=== PATIENT | male | born 1945 | race Caucasian/White ===

== ENCOUNTER 2017-09-03 00:11 | Inpatient (IN) | payer MEDICARE, SELFPAY ==
[2017-09-03] VITALS (12 sets, daily range): BP systolic 106–124; BP diastolic 46–73; PULSE 56–105; RESP 16–25; TEMP 36.5–36.7; O2SAT 88–98; BMI 25.1
[2017-09-03] MEDS: ALBUTEROL/IPRATROPIUM 3 ML AMPUL INH (00:48)
[2017-09-03 00:52] LABS: Add Manual Diff / Slide Review NO; Basophils Percent Auto 0.4 % (0-2); Eosinophils Percent Auto 2.3 % (2-4); Hematocrit 30.8 % (41-53); Hemoglobin 9.7 g/dL (13.5-17.5); Lymphocytes Percent Auto 15.2 % (25-40); Mean Corpuscular HGB Conc 31.6 % (30-36); Mean Corpuscular Volume 72.7 fL (80-100); Monocytes Percent Auto 8.3 % (3-14); Neutrophils Absolute Auto 7100 /uL (3000-5900); Neutrophils Percent Auto 73.8 % (50-75); Platelet Count 224 X10^3/uL (150-400); Red Blood Cell Count 4.24 X10^6/uL (4.5-5.9); Red Cell Distribution Width 17.8 % (11.6-14.8); White Blood Cell Count 9.6 X10^3/uL (4.5-11.0)
[2017-09-03 01:03] LABS: BUN Creatinine Ratio 17.3 (6-22); Blood Urea Nitrogen 26 mg/dL (9-20); Calcium 9.2 mg/dL (8.4-10.2); Carbon Dioxide 27 mmol/L (22-32); Chloride 100 mmol/L (98-107); Creatine Kinase 55 U/L (55-170); Estimated Glomerular Filt Rate 45.7 mL/min (>60); Glucose 113 mg/dL (80-110); HEMOLYSIS < 15 (0-50); Magnesium 2.3 mg/dL (1.6-2.3); Potassium 4.1 mmol/L (3.4-5.1); Sodium 138 mmol/L (137-145)
[2017-09-03 01:15] LABS: Troponin I 0.014 ng/mL (0.01-0.034)
[2017-09-03 01:18] LABS: Procalcitonin < 0.05 ng/mL (<0.5)
[2017-09-03 01:25] LABS: Fractionated Inspired Oxygen 0.21; HCO3 ABG 25 mmol/L (23-27); Oxygen Saturation ABG 93 % (95-100); PCO2 ABG 33.6 mmHg (35-45); PO2 ABG 62 mmHg (80-105); TCO2 ABG 26 mmol/L (23-27); pH ABG 7.47 (7.35-7.45)
--- NOTE | 2017-09-03 01:26 | DI.RAD.S_ITS ---
PROCEDURE: XR CHEST 1V INDICATIONS: 72 year-old male with shortness of breath and cough. TECHNIQUE: One view of the chest was acquired. COMPARISON: None. FINDINGS: Surgical changes and devices: The left chest wall dual chamber pacer/ICD is present. Patient is status post median sternotomy. Lungs and pleura: No pleural effusions or pneumothorax. Lungs are clear. Mediastinum: Mediastinal contours appear normal. There is mild cardiomegaly. There is aortic atherosclerosis. Bones and chest wall: No suspicious bony lesions. Nonacute healed left mid clavicle fracture is present. Overlying soft tissues appear unremarkable. IMPRESSION: Mild cardiomegaly, without acute cardiopulmonary disease. Dictated by: Arvind Singh M.D. on 09/03/2017 at 7:58 Approved by: Arvind Singh M.D. on 09/03/2017 at 8:00
--- NOTE | 2017-09-03 01:33 | ED_ITS ---
HPI - SOB/Dyspnea General Chief Complaint: Shortness of Breath/Dyspnea Stated Complaint: thinks his pneumonia is back Time Seen by Provider: 09/03/17 00:19 Source: patient Mode of arrival: ambulatory Limitations: no limitations History of Present Illness Patient with a history of CHF, COPD, pneumonia, and an AICD presents to the emergency department with a chief complaint shortness of breath and cough with chills for the past 24 hr. He has had pneumonia as recently as 1 year ago and states this feels the same. He continues to smoke daily. He is not dizzy nor weak or lightheaded. Denies chest pain. He denies any recent change in his medications or exposure to ill persons. MD Complaint: shortness of breath and cough Onset (ago): day(s) Severity: moderate Consistency/Duration: constant Relieving factors: rest Exacerbating factors: nothing Known history of: COPD, congestive heart failure and recurrent pneumonia Associated symptoms: fever, cough, wheezing, sputum production and orthopnea Treatment prior to arrival: none Related Data Home oxygen amount: none Home Medications Medication Instructions Recorded Confirmed aspirin 81 mg PO DAILY 09/03/17 09/03/17 atorvastatin 80 mg PO DAILY 09/03/17 09/03/17 cyanocobalamin (vitamin B-12) 1,000 mcg PO DAILY 09/03/17 09/03/17 digoxin 125 mcg PO DAILY 09/03/17 09/03/17 lisinopril 10 mg PO DAILY 09/03/17 09/03/17 metoprolol succinate 25 mg PO DAILY 09/03/17 09/03/17 torsemide 40 mg PO BID 09/03/17 09/03/17 Allergies Allergy/AdvReac Type Severity Reaction Status Date / Time egg Allergy Verified 09/03/17 01:02 Review of Systems Review of Systems All systems reviewed & are unremarkable except as noted in HPI and below Constitutional Reports chills, Reports fever(s), Denies lethargy and Denies weakness Eyes Denies change in vision, Denies eye discharge, Denies irritation and Denies loss of vision ENT Ears, Nose, Mouth, and Throat: Denies change in voice, Denies neck pain and Denies sore throat Cardiovascular Denies chest pain, Denies irregular heart rhythm, Denies lightheadedness, Denies palpitations, Reports dyspnea, Denies dyspnea on exertion and Denies orthopnea Respiratory Reports chest congestion, Reports cough, Reports dyspnea, Denies dyspnea on exertion and Denies wheezing Gastrointestinal Gastrointestinal: Denies abdominal pain, Denies change in bowel habits, Denies diarrhea, Denies nausea and Denies vomiting Genitourinary Denies hematuria, Denies flank pain, Denies urinary incontinence and Denies urinary urgency Musculoskeletal Denies neck pain Integumentary/Breasts Denies pruritus, Denies erythema, Denies rash and Denies wounds Neurologic Denies confusion, Denies loss of vision and Denies weakness Psychiatric Denies anxiety, Denies confusion, Denies depression, Denies homicidal ideation and Denies suicidal ideation Endocrine Denies palpitations Hematologic/Lymphatic Denies easy bruising Allergic/Immunologic Denies wheezing PFSH Medical History CAD (coronary artery disease) (Acute) COPD (chronic obstructive pulmonary disease) (Acute) HTN (hypertension) (Acute) Hyperlipidemia (Acute) Surgical History AICD (automatic cardioverter/defibrillator) present (Acute) Social History Smoking Status: Current every day smoker Exam Narrative Exam Narrative: Pleasant 72-year-old male appears older than stated age. He is in mild distress and becomes short of breath after getting out of the wheelchair into the stretcher Initial Vital Signs Initial Vital Signs: Vital Signs Temperature 98.1 F 09/03/17 00:32 Pulse Rate 105 H 09/03/17 00:32 Respiratory Rate 18 09/03/17 00:32 Blood Pressure 124/69 H 09/03/17 00:32 Pulse Oximetry 98 09/03/17 00:32 Const General: cooperative, healthy appearing, well developed and in distress Nutritional Appearance: well nourished Orientation: alert, awake, oriented x3 and not confused [facility] Head: normocephalic and atraumatic Ears: external ears normal and TM's normal bilaterally Nose: external nose normal and No nasal discharge Face and sinus: sinuses nontender, face symmetric, no sinus tenderness and No dry mucous membranes Mouth: oral mucosae normal and moist mucous membranes Teeth and gingiva: dentition normal Throat: tonsils normal and uvula midline Eyes General: appearance normal, both eyes and all related structures Eyelids: eyelids normal Conjunctivae: conjunctivae normal Sclera: sclerae normal Pupils: PERRL EOM: EOM intact bilaterally Neck Neck: normal visual inspection, trachea midline, No lymphadenopathy, No midline deformity and No JVD Lymphatic: No lymphedema Chest Chest: normal inspection of the chest Resp Effort & Inspection: normal respiratory effort, able to speak in complete sentences, no respiratory distress and no use of accessory muscles Auscultation: crackles on the left, diminished lung sounds, rales, no rhonchi and no wheezes Cardio Rate: regular rate Rhythm: regular rhythm Heart Sounds: no click, no gallops, no murmurs and no rubs Pulses: normal peripheral pulses GI Inspection: non-distended Palpation: soft, no hepatosplenomegaly, No guarding, No pulsatile mass and No tender Auscultation: normal bowel sounds Back/Spine/Pelvis Back: No CVA tenderness Cervical Spine: cervical ROM normal and No pain with cervical ROM Thoracic/Lumbar Spine: thoracic and lumbar spine normal to inspection Neuro General: alert, oriented x3, gait normal and no focal motor deficits Speech: speech normal Psych Appearance: well kempt Mental Status: mental status grossly normal Attitude: cooperative Thought Content: normal and suicidality Judgment: judgment good Course Orders Ordered: ED Orders 09/03/17 00:24 Consult to Respiratory Therapy Evaluate & Treat EKG-12 Lead Stat 09/03/17 00:25 Arterial Blood Gas Stat 09/03/17 00:40 B Type Natriuretic Peptide Stat Basic Metabolic Panel Stat Complete Blood Count AUTO DIFF Stat Lactate (Lactic Acid) Stat Magnesium Stat Procalcitonin Stat Troponin with CK Cardiac Panel Stat 09/03/17 00:53 Blood Culture Stat 09/03/17 01:26 XR chest 1V Stat Discontinued Medications Albuterol/Ipratropium (Duoneb) 3 ml INH NOW ONE Stop: 09/03/17 00:25 Last Admin: 09/03/17 00:48 Dose: 3 ml Furosemide (Lasix) 40 mg IV NOW ONE Stop: 09/03/17 01:27 Last Admin: 09/03/17 01:43 Dose: 40 mg Ceftriaxone Sodium/Dextrose (Rocephin) 1 gm in 50 mls @ 100 mls/hr IV NOW ONE Stop: 09/03/17 02:37 Last Infusion: 09/03/17 02:49 Dose: 100 mls/hr Admin: 09/03/17 02:14 Dose: 100 mls/hr Azithromycin 500 mg/ Dextrose 250 mls @ 250 mls/hr IV NOW ONE Stop: 09/03/17 02:09 Methylprednisolone (Solu-Medrol 125 Mg Vial) 125 mg IV NOW ONE Stop: 09/03/17 00:25 Last Admin: 09/03/17 01:43 Dose: 125 mg Reevaluation(s) Reevaluation #1: Patient feels some improvement after oxygen via nasal cannula, Solu-Medrol, bronchodilators. He is making urine after Lasix 40 mg IVP. With any exertion the patient becomes visibly short of breath and even conversationally dyspneic. A trial of room air demonstrates pulse ox in the mid 80s. Time: 01:13 Consultations Consultation #1: Dr. Humphreys is happy to accept this patient onto his service Time: 02:13 Vital Signs - 8 hr 09/03/17 00:32 09/03/17 00:49 09/03/17 02:18 Temperature 98.1 F Pulse Rate 105 H 88 87 Respiratory Rate 18 16 25 H Blood Pressure 124/69 H Blood Pressure [Right Arm] 123/63 H Pulse Oximetry 98 98 88 L MDM - SOB/Dyspnea Differential Diagnosis Likely acute exacerbation of chronic obstructive airways disease, congestive heart failure, community acquired pneumonia, asthma with exacerbation and pulmonary embolism Medical Records Attestation: I reviewed the patient's medical records. Lab Data Attestation: I reviewed the patient's lab results. Result diagrams: 09/03/17 00:40 09/03/17 00:40 Lab Results 09/03/17 09/03/17 09/03/17 Range/Units 00:25 00:40 00:40 WBC 9.6 (4.5-11.0) X10^3/uL RBC 4.24 L (4.5-5.9) X10^6/uL Hgb 9.7 L (13.5-17.5) g/dL Hct 30.8 L (41-53) % MCV 72.7 L (80-100) fL MCH 23.0 L (26-34) PG MCHC 31.6 (30-36) % RDW 17.8 H (11.6-14.8) % Plt Count 224 (150-400) X10^3/uL Neut % (Auto) 73.8 (50-75) % Lymph % (Auto) 15.2 L (25-40) % [place] % (Auto) 8.3 (3-14) % Eos % (Auto) 2.3 (2-4) % Baso % (Auto) 0.4 (0-2) % Neut # (Auto) 7100 H (8799-3826) /uL ABG pH 7.47 H (7.35-7.45) ABG pCO2 33.6 L (35-45) mmHg ABG pO2 62 L (80-105) mmHg ABG HCO3 25 (23-27) mmol/L ABG Total CO2 26 (23-27) mmol/L ABG O2 Saturation 93 L (95-100) % ABG Base Excess 1.0 (-2-3) mmol/L FiO2 0.21 Sodium 138 (137-145) mmol/L Potassium 4.1 (3.4-5.1) mmol/L Chloride 100 (98-107) mmol/L Carbon Dioxide 27 (22-32) mmol/L BUN 26 H (9-20) mg/dL Creatinine 1.50 H (0.66-1.25) mg/dL Estimated GFR 45.7 L (>60) mL/min BUN/Creatinine Ratio 17.3 (6-22) Glucose 113 H (80-110) mg/dL Lactate (0.7-2.1) mmol/L Calcium 9.2 (8.4-10.2) mg/dL Magnesium 2.3 (1.6-2.3) mg/dL Total Creatine Kinase 55 (55-170) U/L Troponin I 0.014 (0.01-0.034) ng/mL B-Natriuretic Peptide 551.0 H (<29.3) Procalcitonin (<0.5) ng/mL 09/03/17 09/03/17 Range/Units 00:40 00:40 WBC (4.5-11.0) X10^3/uL RBC (4.5-5.9) X10^6/uL Hgb (13.5-17.5) g/dL Hct (41-53) % MCV (80-100) fL MCH (26-34) PG MCHC (30-36) % RDW (11.6-14.8) % Plt Count (150-400) X10^3/uL Neut % (Auto) (50-75) % Lymph % (Auto) (25-40) % [place] % (Auto) (3-14) % Eos % (Auto) (2-4) % Baso % (Auto) (0-2) % Neut # (Auto) (9674-8574) /uL ABG pH (7.35-7.45) ABG pCO2 (35-45) mmHg ABG pO2 (80-105) mmHg ABG HCO3 (23-27) mmol/L ABG Total CO2 (23-27) mmol/L ABG O2 Saturation (95-100) % ABG Base Excess (-2-3) mmol/L FiO2 Sodium (137-145) mmol/L Potassium (3.4-5.1) mmol/L Chloride (98-107) mmol/L Carbon Dioxide (22-32) mmol/L BUN (9-20) mg/dL Creatinine (0.66-1.25) mg/dL Estimated GFR (>60) mL/min BUN/Creatinine Ratio (6-22) Glucose (80-110) mg/dL Lactate 1.0 (0.7-2.1) mmol/L Calcium (8.4-10.2) mg/dL Magnesium (1.6-2.3) mg/dL Total Creatine Kinase (55-170) U/L Troponin I (0.01-0.034) ng/mL B-Natriuretic Peptide (<29.3) Procalcitonin < 0.05 (<0.5) ng/mL MDM Narrative Medical decision making narrative: Patient with extensive Respiratory history presents with symptoms consistent with exacerbation of COPD, community-acquired pneumonia, and acute CHF. His PO2 on room air is 62. SpO2 is 85% on room air. He will require admission for further treatment and stabilization of his underlying condition. Discharge Plan Departure Patient Disposition: Admitted As Inpatient Clinical Impression: Acute on chronic respiratory failure with hypoxia, Acute CHF, Acute exacerbation of chronic obstructive pulmonary disease (COPD), Right middle lobe pneumonia Discharge Date/Time: 09/03/17 02:56 Admit Date/Time: 09/03/17 02:54 Admit Provider: Jarrett Humphreys
[2017-09-03] MEDS: methylPREDNISolone 125 MG/2 ML VIAL IV (01:43)
[2017-09-03] MEDS: FUROSEMIDE 40 MG/4 ML VIAL IV (01:43)
[2017-09-03] MEDS: CEFTRIAXONE 1 GM/50 ML FROZ.PIGGY IV (02:14)
[2017-09-03] MEDS: AZITHROMYCIN 500 MG in DEXTROSE 5% IN WATER 250 ML IV (03:50)
--- NOTE | 2017-09-03 11:12 | P.HP_ITS ---
History of Present Illness Date Patient Seen: 09/03/17 Time Patient Seen: 08:55 Chief complaint: thinks his pneumonia is back Narrative: The patient states that a year ago at this time he was hospitalized for 3 days in [facility] with pneumonia. He was discharged home at that time and has done fairly well since then. He denies a history of chronic lung disease though smokes regularly, and has never used inhalers or breathing treatments or undergone pulmonary function testing by his account in the past. He states ongoing shortness of breath over 24 hr with fever and dry cough. He denies recent sick contacts. On presentation to the emergency department last night he was found to be hypoxic with an oxygen saturation of 85% on room air, administered bronchodilators, ceftriaxone, azithromycin, methylprednisolone and furosemide and admitted for further management and evaluation. He states he is feeling better though continues to cough vigorously. He has been up and walked in the room with nursing this morning. Patient History Medical History CAD (coronary artery disease) (Acute) COPD (chronic obstructive pulmonary disease) (Acute) Fracture of nasal bones (Acute) HTN (hypertension) (Acute) Hyperlipidemia (Acute) Myocardial infarction greater than 8 weeks ago (Acute) Surgical History AICD (automatic cardioverter/defibrillator) present (Acute) History of hernia repair (Acute) Hx of CABG (Acute) Family & Social History Family History: Reviewed 09/03/17 by Michael Rubalcava MD Social History: Single, moved to [place] 07/2017 to live with brother Tobacco & Substance use: Smoking Status Current every day smoker alcohol intake frequency 0-2 drinks per day Substance Use Type does not use Meds Home Medications Medication Instructions Recorded Confirmed Type aspirin 81 mg PO DAILY 09/03/17 09/03/17 History atorvastatin 80 mg PO DAILY 09/03/17 09/03/17 History cyanocobalamin (vitamin B-12) 1,000 mcg PO DAILY 09/03/17 09/03/17 History digoxin 125 mcg PO DAILY 09/03/17 09/03/17 History lisinopril 10 mg PO DAILY 09/03/17 09/03/17 History metoprolol succinate 25 mg PO DAILY 09/03/17 09/03/17 History torsemide 40 mg PO BID 09/03/17 09/03/17 History Allergies Allergy/AdvReac Type Severity Reaction Status Date / Time egg Allergy Verified 09/03/17 01:02 Review of Systems Review of Systems All systems reviewed & are unremarkable except as noted in HPI and below Exam Vital Signs (past 8 hours): Vital Signs - 8 hr 3 09/03/17 03:20 09/03/17 07:36 Temperature 97.8 F 97.7 F Pulse Rate 87 81 Respiratory Rate 24 20 Blood Pressure 112/70 106/55 L Pulse Oximetry 93 93 Pulse Oximetry 93 Oxygen Delivery Method Room Air Narrative Exam Narrative: General: Patient is alert, appropriate, appears comfortable, though dyspneic with mild exertion, and frequently with a harsh dry hacking cough HEENT: Pupils equal round reactive, extraocular movements intact, mucous membranes pink and moist Neck: Supple Lungs: Diminished breath sounds throughout, faint mid to end-expiratory wheeze Cardiac: Regular rate and rhythm without appreciable murmur Abdomen: Soft, nontender, nondistended Extremities: Without edema, no calf tenderness or swelling Dermatologic: No rash or skin lesion Neurologic: Alert, oriented, no focal findings evident Objective Imaging Chest x-ray: Radiologist's impression: PROCEDURE: XR CHEST 1V INDICATIONS: 72 year-old male with shortness of breath and cough. TECHNIQUE: One view of the chest was acquired. COMPARISON: None. FINDINGS: Surgical changes and devices: The left chest wall dual chamber pacer/ICD is present. Patient is status post median sternotomy. Lungs and pleura: No pleural effusions or pneumothorax. Lungs are clear. Mediastinum: Mediastinal contours appear normal. There is mild cardiomegaly. There is aortic atherosclerosis. Bones and chest wall: No suspicious bony lesions. Nonacute healed left mid clavicle fracture is present. Overlying soft tissues appear unremarkable. IMPRESSION: Mild cardiomegaly, without acute cardiopulmonary disease. ECG: Ventricular paced at 85 beats per minute Labs Result Diagrams: 09/03/17 00:40 09/03/17 00:40 Labs: Laboratory Results - last 24 hr 09/03/17 09/03/17 09/03/17 00:25 00:40 00:40 WBC 9.6 RBC 4.24 L Hgb 9.7 L Hct 30.8 L MCV 72.7 L MCH 23.0 L MCHC 31.6 RDW 17.8 H Plt Count 224 Neut % (Auto) 73.8 Lymph % (Auto) 15.2 L [place] % (Auto) 8.3 Eos % (Auto) 2.3 Baso % (Auto) 0.4 Neut # (Auto) 7100 H ABG pH 7.47 H ABG pCO2 33.6 L ABG pO2 62 L ABG HCO3 25 ABG Total CO2 26 ABG O2 Saturation 93 L ABG Base Excess 1.0 FiO2 0.21 Sodium 138 Potassium 4.1 Chloride 100 Carbon Dioxide 27 BUN 26 H Creatinine 1.50 H Estimated GFR 45.7 L BUN/Creatinine Ratio 17.3 Glucose 113 H Lactate Calcium 9.2 Magnesium 2.3 Total Creatine Kinase 55 Troponin I 0.014 B-Natriuretic Peptide 551.0 H Procalcitonin 09/03/17 09/03/17 00:40 00:40 WBC RBC Hgb Hct MCV MCH MCHC RDW Plt Count Neut % (Auto) Lymph % (Auto) [place] % (Auto) Eos % (Auto) Baso % (Auto) Neut # (Auto) ABG pH ABG pCO2 ABG pO2 ABG HCO3 ABG Total CO2 ABG O2 Saturation ABG Base Excess FiO2 Sodium Potassium Chloride Carbon Dioxide BUN Creatinine Estimated GFR BUN/Creatinine Ratio Glucose Lactate 1.0 Calcium Magnesium Total Creatine Kinase Troponin I B-Natriuretic Peptide Procalcitonin < 0.05 Assessment & Plan Plan: Assessment/Plan Narrative: 1. Acute bronchitis, possible early bronchopneumonia and suspect underlying COPD. The patient is admitted for further management and evaluation, including antibiotics, steroids and frequently administer bronchodilators. 2. Acute hypoxic respiratory failure due to 1. Continue supplemental oxygen and follow clinically. 3. Coronary artery disease. Clinically stable and asymptomatic. Continue routine medications. 4. Hypertension. Continue routine medication. 5. Hyperlipidemia. Continue routine medications. 6. Code status: Full code. Reviewed with patient on admission. 7. Disposition: The patient is admitted to inpatient status. Monitor closely. He may require an additional 24-48 hours of inpatient care pending clinical course. Quality VTE Deep Vein Thrombosis/Pulmonary Embolism Present on Admission: No
[2017-09-03] MEDS: ASPIRIN 81 MG TAB PO (11:46)
[2017-09-03] MEDS: ATORVASTATIN 20 MG TABLET 80 MG PO (11:46)
[2017-09-03] MEDS: LISINOPRIL 10 MG TABLET PO (11:51)
[2017-09-03] MEDS: METOPROLOL ER 25 MG TABLET PO (11:52)
[2017-09-03] MEDS: TORSEMIDE 10 MG TABLET 40 MG PO ×2 (11:52→21:18)
[2017-09-03] MEDS: CYANOCOBALAMIN (VITAMIN B-12) 500 MCG TABLET 1000 MCG PO (11:53)
[2017-09-03] MEDS: DIGOXIN 0.25 MG TABLET 0.125 MG PO (12:32)
[2017-09-03] MEDS: NICOTINE 14 PATCH 14 MG TOP (12:33)
--- NOTE | 2017-09-03 14:01 | CM.DANOTE ---
DCP: assessment: case received, EMR reviewed and met with pt and his brother Tashi. Introduced self and role. Pt is a 72 year old male who admitted early this morning 0254 to care of hospitalist team. PCP: Ethan Landa MD Payer:[facility]. Pt says he does not know if he has Medicare I never got a card. Tashi does say that pt was initially referred to the [place] clinic in [facility] and from there was able to be established with Dr. Landa /[facility]. Inpt admission status is confirmed by UR team. DCP template completed with information available at this time. P: consider home health if appropriate. Plan to discuss further with provider and pt. Anticipate a HH RN might be helpful as a followup from the hospital for medication and symptom management.
[2017-09-03] MEDS: AZITHROMYCIN 250 MG TABLET PO (17:08)
[2017-09-03] MEDS: SODIUM CHLORIDE 0.9% FLUSH 10 ML IV (21:17)
[2017-09-03] MEDS: cefUROXime 250 MG TABLET 500 MG PO (21:18)
--- NOTE | 2017-09-04 03:24 | PC.NURSE ---
Assumed care of pt from outgoing shift at 2300 6-4. Pt awake. coughing. complaint with nursing assessments. PT uses call light. ambulated steady gait in room. has continuous pox on. Pt able to maneuver with that on. Pt given cranberry juice, and compliant with nursing assessments. discussed IS and pt uses periodically. Pt belongings and call light within reach. bed in lowest, locked position. will continue to monitor pt for safety.
[2017-09-04 04:35] VITALS: BP 96/66; PULSE 83; RESP 16; TEMP 36.8; O2SAT 96
[2017-09-04 05:31] LABS: BUN Creatinine Ratio 23.3 (6-22); Blood Urea Nitrogen 35 mg/dL (9-20); Calcium 9.2 mg/dL (8.4-10.2); Carbon Dioxide 26 mmol/L (22-32); Chloride 99 mmol/L (98-107); Estimated Glomerular Filt Rate 45.7 mL/min (>60); Glucose 130 mg/dL (80-110); HEMOLYSIS < 15 (0-50); Potassium 4.6 mmol/L (3.4-5.1); Sodium 136 mmol/L (137-145)
[2017-09-04 05:36] LABS: Add Manual Diff / Slide Review NO; Basophils Percent Auto 0.1 % (0-2); Hematocrit 30.2 % (41-53); Hemoglobin 9.5 g/dL (13.5-17.5); Lymphocytes Percent Auto 7.2 % (25-40); Mean Corpuscular HGB Conc 31.5 % (30-36); Mean Corpuscular Volume 72.9 fL (80-100); Monocytes Percent Auto 3.2 % (3-14); Neutrophils Absolute Auto 6600 /uL (3000-5900); Neutrophils Percent Auto 89.5 % (50-75); Platelet Count 205 X10^3/uL (150-400); Red Blood Cell Count 4.15 X10^6/uL (4.5-5.9); White Blood Cell Count 7.4 X10^3/uL (4.5-11.0)
[2017-09-04] MEDS: SODIUM CHLORIDE 0.9% FLUSH 10 ML IV ×3 (05:39→12:03)
[2017-09-04 06:10] LABS: Anisocytosis 2+; Hypochromasia 1+
[2017-09-04 06:11] LABS: Ovalocytes 1+; Poikilocytosis 1+
[2017-09-04] MEDS: ASPIRIN 81 MG TAB PO (08:45)
[2017-09-04] MEDS: ATORVASTATIN 20 MG TABLET 80 MG PO (08:45)
[2017-09-04] MEDS: cefUROXime 250 MG TABLET 500 MG PO (08:46)
[2017-09-04] MEDS: CYANOCOBALAMIN (VITAMIN B-12) 500 MCG TABLET 1000 MCG PO (08:46)
[2017-09-04 08:47] VITALS: BP 124/68; PULSE 94
[2017-09-04] MEDS: DIGOXIN 0.125 MG TABLET PO (08:47)
[2017-09-04] MEDS: METOPROLOL ER 25 MG TABLET PO (08:47)
[2017-09-04] MEDS: LISINOPRIL 10 MG TABLET PO (08:47)
[2017-09-04] MEDS: TORSEMIDE 10 MG TABLET 40 MG PO (08:48)
[2017-09-04 09:32] VITALS: BP 124/68; PULSE 95; RESP 16; TEMP 36.5; O2SAT 99
--- NOTE | 2017-09-04 09:34 | PM.DS.1 ---
History of Present Illness Date Patient Seen: 09/04/17 Time Patient Seen: 08:37 Chief complaint: thinks his pneumonia is back Narrative: The patient states that a year ago at this time he was hospitalized for 3 days in [facility] with pneumonia. He was discharged home at that time and has done fairly well since then. He denies a history of chronic lung disease though smokes regularly, and has never used inhalers or breathing treatments or undergone pulmonary function testing by his account in the past. He states ongoing shortness of breath over 24 hr with fever and dry cough. He denies recent sick contacts. On presentation to the emergency department last night he was found to be hypoxic with an oxygen saturation of 85% on room air, administered bronchodilators, ceftriaxone, azithromycin, methylprednisolone and furosemide and admitted for further management and evaluation. He states he is feeling better though continues to cough vigorously. He has been up and walked in the room with nursing this morning. Discharge Providers Date of admission: 09/03/17 02:54 Primary care physician: Cordell Sky MD Consults: 09/03/17 00:24 Consult to Respiratory Therapy Evaluate & Treat Comment: Physician Instructions: Evaluate and treat Discharge provider: JOHANNA Alicea Summary Discharge Diagnosis: Acute bronchitis Hospital Course: This is the hospital course for this 72-year-old male who was admitted because of his shortness of breath thinking that he had pneumonia. This was an uncomplicated 24 hr stay for this individual. Patient had a normal white blood cell count. Has remained afebrile during hospitalization. His cough has markedly improved. He continues to produce small amounts of brownish mucus. His chest x-ray revealed no pleural effusions no pneumothorax and his lungs were clear. On x-ray he has mild cardio megaly but without acute cardiopulmonary disease. He was treated with IV steroids antibiotics. Patient encouraged to stop smoking. He will be discharged today on oral antibiotics and is tapering dose of steroids over the next week. He is encouraged to follow up with his primary care provider. Status at Discharge Functional status at discharge: independent ambulation Overall status at discharge: patient is progressing back to baseline Time Spent with Patient Greater than 30 minutes Exam Vital Signs (past 8 hours): Vital Signs - 8 hr 09/04/17 04:35 09/04/17 08:47 09/04/17 09:32 Temperature 98.2 F 97.7 F Pulse Rate 83 94 H 95 H Respiratory Rate 16 16 Blood Pressure 96/66 124/68 H 124/68 H Pulse Oximetry 96 99 Pulse Oximetry 99 Oxygen Delivery Method Room Air Narrative Exam Narrative: Patient states he is feeling much better this morning. Continues to have a cough but decreasing in severity. Produces brown mucus. Const General: cooperative and comfortable Nutritional Appearance: overweight Orientation: alert, awake and oriented x3 HENMT Head: normal to inspection Ears: hearing grossly normal bilaterally Mouth: oral mucosae normal Eyes General: appearance normal, both eyes and all related structures Pupils: PERRL and pupil size (2 mm) bilaterally Neck Neck: normal visual inspection, trachea midline and supple Chest Chest: normal inspection of the chest and pacemaker Resp Effort & Inspection: normal respiratory effort, able to speak in complete sentences and cough Quality of cough: productive (Brown mucus) Auscultation: clear to auscultation bilaterally Cardio Rhythm: abnormal rhythm and other (Ventricularly paced rhythm) Heart Sounds: S1 normal and S2 normal Other: Distant GI Inspection: normal to inspection Palpation: soft Auscultation: normal bowel sounds Other: A voiding adequate amounts of elijah urine Back/Spine/Pelvis Back: normal to inspection Sacroiliac Joints: nontender Skin General: no rashes or lesions noted, dry skin and warm Lesions: no lesions Rashes: no rashes Trauma: no lacerations or abrasions Wounds: no wounds Neuro General: alert, awake and oriented x3 Cognition: normal cognition Speech: speech normal Gait: normal gait Motor: muscle tone normal throughout Sensory Exam: no sensory deficits noted Extrem General: normal to inspection Psych Appearance: grossly normal Mental Status: mental status grossly normal Speech and Movement: speech and movement normal Mood: congruent mood Affect: normal affect Attitude: cooperative Thought Process: normal Thought Content: normal Judgment: judgment good Objective Labs Result Diagrams: 09/04/17 04:51 09/04/17 04:51 Labs: Laboratory Results - last 24 hr 09/04/17 09/04/17 04:51 04:51 WBC 7.4 RBC 4.15 L Hgb 9.5 L Hct 30.2 L MCV 72.9 L MCH 23.0 L MCHC 31.5 RDW 18.0 H Plt Count 205 Neut % (Auto) 89.5 H Lymph % (Auto) 7.2 L [place] % (Auto) 3.2 Eos % (Auto) 0.0 L Baso % (Auto) 0.1 Neut # (Auto) 6600 H RBC Morphology Not Reportable Hypochromasia 1+ H Poikilocytosis 1+ H Anisocytosis 2+ H Ovalocytes 1+ H Sodium 136 L Potassium 4.6 Chloride 99 Carbon Dioxide 26 BUN 35 H Creatinine 1.50 H Estimated GFR 45.7 L BUN/Creatinine Ratio 23.3 H Glucose 130 H Calcium 9.2 Discharge Plan Discharge Plan Patient Disposition: Home, Self-Care Provider Discharge Instructions Diet: Regular, Low-fat, Low-sodium and Low-cholesterol Diet comment: He is encouraged to follow a heart healthy/cardiac diet Activity: As tolerated Oxygen: Room air Wound Care Report to your healthcare provider any signs of infection, such as:: chills, fever, night sweats and increased pain Discharge Data Primary Care Provider: Cordell Sky Attending Provider: Jarrett Humphreys Admit Date/Time: 09/03/17 02:54 Quality VTE Deep Vein Thrombosis/Pulmonary Embolism Present on Admission: No
--- NOTE | 2017-09-04 10:45 | CM.DPC ---
DCP: continued. Pt now with d/c to home orders. Checked in with him as planned. Discussed ? HH RN. He says he feels very comfortable with his medication management and that he uses a mediset for this. Says he feels well and is not homebound. Will followup in clinic. He is calling his brother now to pick him up.
[2017-09-04] MEDS: STORED IN PHARMACY 1 EACH PO (11:18)
== END 2017-09-04 12:37 | disposition home or self-care (01) | DRG 190 ==
LOC: ED 02:12 → AC 02:56
PROVIDERS: Internal Medicine; Admitting Provider Internal Medicine; Emergency Provider Emergency Medicine; PCP Family Medicine; Visit Provider Internal Medicine
DX: J44.0 Chronic obstructive pulmonary disease with (acute) lower respiratory infection (principal); J96.01 Acute respiratory failure with hypoxia; I50.21 Acute systolic (congestive) heart failure; J44.1 Chronic obstructive pulmonary disease with (acute) exacerbation; F17.210 Nicotine dependence, cigarettes, uncomplicated; I11.0 Hypertensive heart disease with heart failure; I25.10 Atherosclerotic heart disease of native coronary artery without angina pectoris; D50.9 Iron deficiency anemia, unspecified; J20.9 Acute bronchitis, unspecified; E78.5 Hyperlipidemia, unspecified; Z95.810 Presence of automatic (implantable) cardiac defibrillator; Z95.1 Presence of aortocoronary bypass graft
CPT/HCPCS: 36415; 36591; 36600; 71045; 80048; 82550; 82553; 82805; 83605; 83735; 83880; 84145; 84484; 85025; 87040; 93005; 94640; 96365; 96368; 96375; 99283; 99284; J1940; J2920; J2930

== ENCOUNTER 2017-10-11 13:31 | Emergency (ER) | payer MEDICARE, SELFPAY ==
[2017-09-03 04:51] VITALS: BMI 25.1
[2017-10-11 13:39] VITALS: BP 112/61; PULSE 76; RESP 15; TEMP 36.6; O2SAT 100; BMI 26.2
--- NOTE | 2017-10-11 13:46 | ED_ITS ---
HPI - Abdominal Pain General Chief Complaint: Abdominal Pain Stated Complaint: STAT ULTRASOUND-SENT FROM CLINIC Time Seen by Provider: 10/11/17 13:40 Source: patient Mode of arrival: ambulatory Limitations: no limitations History of Present Illness HPI narrative: patient is a 72-year-old male sent over from the walk-in clinic for evaluation of an abdominal hernia. Patient states that he has a distant history of a cardiac/abdominal surgery. He states that he has had a hernia in his mid abdomen for years he states that it has been getting larger for some time he states that the reason he came in this morning was because the hernia was much larger than more formal hand was much more painful. He did not try to reduce it prior to coming in this morning. He states that the time of my evaluation his hernia is much less painful much smaller than what it was earlier today. Related Data Home Medications Medication Instructions Recorded Confirmed aspirin 81 mg PO DAILY 09/03/17 10/11/17 atorvastatin 80 mg PO DAILY 09/03/17 10/11/17 cyanocobalamin (vitamin B-12) 1,000 mcg PO DAILY 09/03/17 10/11/17 lisinopril 10 mg PO DAILY 09/03/17 10/11/17 metoprolol succinate 25 mg PO BID 09/03/17 10/11/17 benzonatate 100 mg PO TID 10/11/17 10/11/17 calcium carbonate [Calcium 500] 500 mg PO BID 10/11/17 10/11/17 digoxin 0.25 mg PO DAILY 10/11/17 10/11/17 jjcbodrp-gtm-OP-lycopen-lutein 1 tab PO DAILY 10/11/17 10/11/17 [Centrum Silver] omega 4-gtq-xqy-fish oil [Fish Oil] 1,200 mg PO QAM 10/11/17 10/11/17 sennosides 8.6 mg PO DAILY 10/11/17 10/11/17 torsemide 20 mg PO DAILY 10/11/17 10/11/17 Allergies Allergy/AdvReac Type Severity Reaction Status Date / Time egg Allergy Verified 10/11/17 13:39 Review of Systems Constitutional Denies fatigue and Denies fever(s) ENT Ears, Nose, Mouth, and Throat: Denies vertigo and Denies dizziness Cardiovascular Denies chest pain and Denies dyspnea Respiratory Denies dyspnea Gastrointestinal Gastrointestinal: Denies diarrhea, Denies nausea and Denies vomiting Comments: Large abdominal hernia that was painful Musculoskeletal Denies back pain, Denies myalgias and Denies arthralgias Integumentary/Breasts Denies lesions and Denies rash Neurologic Denies vertigo and Denies dizziness Endocrine Denies fatigue Hematologic/Lymphatic Denies easy bleeding and Denies easy bruising [facility] Medical History Essential hypertension (Chronic) Arrhythmia (Chronic) History of prostate cancer (Chronic) History of colon cancer (Chronic) History of pancreatic cancer (Chronic) Hematoma of abdominal wall (Acute) Coronary artery disease (Chronic) Hyperlipidemia (Chronic) CAD (coronary artery disease) (Acute) COPD (chronic obstructive pulmonary disease) (Acute) Fracture of nasal bones (Acute) HTN (hypertension) (Acute) Hyperlipidemia (Acute) Myocardial infarction greater than 8 weeks ago (Acute) Surgical History AICD (automatic cardioverter/defibrillator) present (Acute) History of hernia repair (Acute) Hx of CABG (Acute) Social History household members: family Smoking Status: Former smoker Exam Initial Vital Signs Initial Vital Signs: Vital Signs Temperature 97.8 F 10/11/17 13:39 Pulse Rate 76 10/11/17 13:39 Respiratory Rate 15 10/11/17 13:39 Blood Pressure 112/61 10/11/17 13:39 Pulse Oximetry 100 10/11/17 13:39 Const General: cooperative, healthy appearing, comfortable, well developed, well groomed and No acute distress Orientation: alert, awake and oriented x3 HENMT Head: normal to inspection and normocephalic GI Other: patient with the large midline abdominal hernia that was easily reduced with the patient lying back in bed. It did reappear when he coughed however was reduced again. It was nontender to palpation upon my exam. Skin Other: well-healed midline scar consistent with his stated surgical history Neuro General: alert, awake and oriented x3 Cognition: normal cognition Speech: speech normal Course Vital Signs - 8 hr 10/11/17 13:39 Temperature 97.8 F Pulse Rate 76 Respiratory Rate 15 Blood Pressure 112/61 Pulse Oximetry 100 MDM - Abdominal Pain MDM Narrative Medical decision making narrative: Patient with an obvious midline incisional hernia in his abdomen. It was easily reduced here in the ER and was nontender to palpation at the time of my exam. Patient was informed that this did need to be taking care of but it could be done as a outpatient basis. No indication for radiologic studies today. Patient was instructed on return precautions to include pain, vomiting, fevers, change in bowel habits, hernia that comes out and cannot be reduced. He expressed understanding of this. Discharge Plan Departure Patient Disposition: Home, Self-Care Clinical Impression: Incisional hernia Instructions: Hernias: Causes and Treatment Options, Ventral Hernia Activity Restrictions/Additional Instructions: recommend that you contact your primary care doctor in you can also contact the [facility] office at [phone] to schedule appointment for a follow -up to have your hernia evaluated by surgeon for possible repair. Return to the emergency department for any new symptoms, fevers, vomiting, hernia that comes out and you cannot reduce it, change in bowel symptoms, or any other new or worsening symptoms Prescriptions: No Action sennosides 8.6 mg Tablet 8.6 mg PO DAILY RF: 0 torsemide 20 mg Tablet 20 mg PO DAILY RF: 0 calcium carbonate [Calcium 500] 500 mg calcium (1,250 mg) Tablet 500 mg PO BID RF: 0 digoxin 125 mcg Tablet 0.25 mg PO DAILY RF: 0 uhnfepvs-rdj-TX-lycopen-lutein [Centrum Silver] 0.4-300-250 mg-mcg-mcg Tablet 1 tab PO DAILY RF: 0 omega 7-uxn-iye-fish oil [Fish Oil] 1,000 mg (120 mg-180 mg) Capsule 1,200 mg PO QAM RF: 0 benzonatate 100 mg Capsule 100 mg PO TID RF: 0 atorvastatin 80 mg Tablet 80 mg PO DAILY RF: 0 lisinopril 10 mg Tablet 10 mg PO DAILY RF: 0 aspirin 81 mg Tablet,Chewable 81 mg PO DAILY RF: 0 metoprolol succinate 25 mg Tablet Extended Release 24 Hr 25 mg PO BID RF: 0 cyanocobalamin (vitamin B-12) 1,000 mcg Capsule 1,000 mcg PO DAILY RF: 0
== END 2017-10-11 14:11 | disposition home or self-care (01) ==
PROVIDERS: Emergency Provider Emergency Medicine; PCP Family Medicine
DX: K43.2 Incisional hernia without obstruction or gangrene (principal)
CPT/HCPCS: 99282

== ENCOUNTER 2018-01-26 05:04 | Inpatient (IN) | payer MEDICARE, SELFPAY ==
[2017-09-03 04:51] VITALS: BMI 25.1
[2018-01-26] VITALS (9 sets, daily range): BP systolic 103–129; BP diastolic 55–71; PULSE 76–84; RESP 18–26; TEMP 36.4–36.7; O2SAT 94–99; BMI 31.8
--- NOTE | 2018-01-26 05:14 | DI.RAD.S_ITS ---
PROCEDURE: XR CHEST 1V INDICATIONS: SOB, acute CHF TECHNIQUE: One view of the chest was acquired. COMPARISON: [facility], CR, XR CHEST 1V, 09/03/2017, 1:34. FINDINGS: Surgical changes and devices: Stable over time Lungs and pleura: No pleural effusions or pneumothorax. Lungs are edematous. Mediastinum: Mediastinal contours appear normal. Heart size is globally enlarged. Bones and chest wall: No suspicious bony lesions. Overlying soft tissues appear unremarkable. IMPRESSION: Acute exacerbation of chronic CHF pattern in this patient with global cardiomegaly and a cardiac pacemaking/defibrillation device and multiple leads in place. Dictated by: Xavier Jang M.D. on 01/26/2018 at 9:13 Approved by: Xavier aJng M.D. on 01/26/2018 at 9:14
--- NOTE | 2018-01-26 05:17 | ED.SOB ---
HPI - SOB/Dyspnea General Chief Complaint: Chest Pain Stated Complaint: swollen all over painful Time Seen by Provider: 01/26/18 05:05 Source: patient and family Mode of arrival: ambulatory Limitations: no limitations History of Present Illness 72-year-old male smoker with extensive cardiac history presents with significant swelling and increased water weight over the past few days. He complains of shortness of breath with exertion and lying flat. He states his lower extremities are swollen and painful. He has developed swelling in his scrotum as well. He takes multiple diuretics and states he has missed no doses and denies any dietary indiscretions such as increased fluid or salt intake. He denies any chest pain and is not dizzy or lightheaded. He denies any fever or chills but does admit to cough up some whitish sputum. He denies any use of oxygen home but has had no cardiac catheterization or stress test in quite some time MD Complaint: shortness of breath and cough Onset (ago): day(s) Severity: moderate Consistency/Duration: constant Relieving factors: rest Exacerbating factors: lying flat, exertion, movement and coughing Known history of: congestive heart failure Associated symptoms: denies other symptoms Treatment prior to arrival: none Related Data Home oxygen amount: none Home Medications Medication Instructions Recorded Confirmed aspirin 81 mg PO DAILY 09/03/17 10/11/17 ohhuhvzk-tmd-RD-lycopen-lutein 1 tab PO DAILY 10/11/17 10/11/17 [Centrum Silver] torsemide 20 mg PO DAILY 10/11/17 10/11/17 Previous Rx's Medication Instructions Recorded atorvastatin 80 mg tablet 80 mg PO DAILY #90 tab 11/01/17 benzonatate 100 mg capsule 100 mg PO TID #270 caplet 11/01/17 calcium carbonate 500 mg calcium 500 mg PO BID #180 tab 11/01/17 (1,250 mg) tablet cyanocobalamin (vit B-12) 1,000 1,000 mcg PO DAILY #90 cap 11/01/17 mcg capsule digoxin 250 mcg tablet 0.125 mg PO DAILY #45 tab 11/01/17 lisinopril 10 mg tablet 10 mg PO DAILY #90 tab 11/01/17 metoprolol succinate ER 25 mg 25 mg PO BID #180 tab 11/01/17 tablet,extended release 24 hr sennosides 8.6 mg tablet 8.6 mg PO DAILY #90 tab 08/02/18 omega 2-kll-vdz-fish oil 100 1 cap PO BID #60 cap 11/30/17 mg-160 mg-1,000 mg capsule Allergies Allergy/AdvReac Type Severity Reaction Status Date / Time egg Allergy Verified 01/26/18 06:06 Review of Systems Review of Systems All systems reviewed & are unremarkable except as noted in HPI and below Constitutional Denies chills, Denies fever(s), Denies lethargy and Denies weakness Eyes Denies change in vision, Denies eye discharge, Denies irritation and Denies loss of vision ENT Ears, Nose, Mouth, and Throat: Denies change in voice, Denies neck pain and Denies sore throat Cardiovascular Denies chest pain, Denies irregular heart rhythm, Denies lightheadedness, Denies palpitations, Reports dyspnea, Denies dyspnea on exertion and Denies orthopnea Respiratory Reports cough, Reports dyspnea, Denies dyspnea on exertion and Denies wheezing Gastrointestinal Gastrointestinal: Denies abdominal pain, Denies change in bowel habits, Denies diarrhea, Denies nausea and Denies vomiting Genitourinary Denies hematuria, Denies flank pain, Denies urinary incontinence and Denies urinary urgency Musculoskeletal Denies neck pain Integumentary/Breasts Denies pruritus, Denies erythema, Denies rash, Reports skin swelling and Denies wounds Neurologic Denies confusion, Denies loss of vision and Denies weakness Psychiatric Denies anxiety, Denies confusion, Denies depression, Denies homicidal ideation and Denies suicidal ideation Endocrine Denies palpitations Hematologic/Lymphatic Denies easy bruising Allergic/Immunologic Denies wheezing [facility] Medical History Essential hypertension (Chronic) Arrhythmia (Chronic) History of prostate cancer (Chronic) History of colon cancer (Chronic) History of pancreatic cancer (Chronic) Hematoma of abdominal wall (Acute) Coronary artery disease (Chronic) Hyperlipidemia (Chronic) CAD (coronary artery disease) (Acute) COPD (chronic obstructive pulmonary disease) (Acute) Fracture of nasal bones (Acute) HTN (hypertension) (Acute) Hyperlipidemia (Acute) Myocardial infarction greater than 8 weeks ago (Acute) Surgical History AICD (automatic cardioverter/defibrillator) present (Acute) History of hernia repair (Acute) Hx of CABG (Acute) Social History household members: family Smoking Status: Former smoker Exam Narrative Exam Narrative: 72-year-old male obviously in distress, very short of breath exertion Initial Vital Signs Initial Vital Signs: Vital Signs Temperature 97.7 F 01/26/18 05:10 Pulse Rate 84 01/26/18 05:10 Respiratory Rate 24 01/26/18 05:10 Blood Pressure 123/57 L 01/26/18 05:10 Pulse Oximetry 97 01/26/18 05:10 Const General: cooperative, well developed and acute distress Nutritional Appearance: well nourished Orientation: alert, awake, oriented x3 and not confused HENMT Head: normocephalic and atraumatic Ears: external ears normal and TM's normal bilaterally Nose: external nose normal and No nasal discharge Face and sinus: sinuses nontender, face symmetric, no sinus tenderness and No dry mucous membranes Mouth: oral mucosae normal and moist mucous membranes Teeth and gingiva: dentition normal Throat: tonsils normal and uvula midline Neck Neck: normal visual inspection, trachea midline, No lymphadenopathy, No midline deformity and No JVD Lymphatic: No lymphedema Resp Effort & Inspection: normal respiratory effort, able to speak in complete sentences, respiratory distress and no use of accessory muscles Auscultation: diminished lung sounds, rales, no rhonchi and no wheezes Cardio Rate: regular rate Rhythm: regular rhythm Heart Sounds: no click, no gallops, no murmurs and no rubs Pulses: normal peripheral pulses GI Inspection: distended Palpation: soft, no hepatosplenomegaly, No guarding, No pulsatile mass and No tender Auscultation: normal bowel sounds Other: Large protuberant abdomen with incisional hernia present Back/Spine/Pelvis Back: No CVA tenderness Cervical Spine: cervical ROM normal and No pain with cervical ROM Thoracic/Lumbar Spine: thoracic and lumbar spine normal to inspection Skin General: no rashes or lesions noted, No jaundice and No petechiae Neuro General: alert, oriented x3, gait normal and no focal motor deficits Speech: speech normal Extrem General: full ROM and no calf tenderness Right lower extremity: edema Left lower extremity: edema Psych Appearance: well kempt Mental Status: mental status grossly normal Attitude: cooperative Thought Content: normal and suicidality Judgment: judgment good Course Orders Ordered: ED Orders 01/26/18 05:14 XR chest 1V Stat EKG-12 Lead Stat 01/26/18 05:40 B Type Natriuretic Peptide Stat Complete Blood Count AUTO DIFF Stat Comprehensive Metabolic Panel Stat Digoxin Stat Lipase Stat Procalcitonin Stat Prothrombin Time INR Stat Troponin & CK Cardiac Panel Stat Discontinued Medications Aspirin (Aspirin Chew) 324 mg PO NOW ONE Stop: 01/26/18 05:15 Last Admin: 01/26/18 05:47 Dose: 324 mg Furosemide (Lasix) 40 mg IV NOW ONE Stop: 01/26/18 05:15 Last Admin: 01/26/18 05:47 Dose: 40 mg Reevaluation(s) Reevaluation #1: Patient produces dilute urine with Lasix 40 mg IVP. Reevaluation #2: He becomes profoundly short of breath with any exertion and lying flat. Though he does not have a measurable hypoxia any exertion makes him obviously tachypneic and short of breath with use of accessory muscles Consultations Consultation #1: Dr. Castro happy to accept Vital Signs - 8 hr 01/26/18 05:10 Temperature 97.7 F Pulse Rate 84 Respiratory Rate 24 Blood Pressure 123/57 L Pulse Oximetry 97 MDM - SOB/Dyspnea Lab Data Result diagrams: 01/26/18 05:40 01/26/18 05:40 Lab Results 01/26/18 01/26/18 01/26/18 Range/Units 05:40 05:40 05:40 WBC 8.6 (4.5-11.0) X10^3/uL RBC 4.58 (4.5-5.9) X10^6/uL Hgb 9.0 L (13.5-17.5) g/dL Hct 30.8 L (41-53) % MCV 67.3 L (80-100) fL MCH 19.7 L (26-34) PG MCHC 29.3 L (30-36) % RDW 18.9 H (11.6-14.8) % Plt Count 259 (150-400) X10^3/uL Neut % (Auto) 73.9 (50-75) % Lymph % (Auto) 11.0 L (25-40) % [place] % (Auto) 11.4 (3-14) % Eos % (Auto) 1.9 L (2-4) % Baso % (Auto) 1.8 (0-2) % Neut # (Auto) 6300 H (4596-2032) /uL PT 14.2 H (10.1-12.7) SECONDS INR 1.3 (0.9-1.3) Sodium 142 (137-145) mmol/L Potassium 4.5 (3.4-5.1) mmol/L Chloride 100 (98-107) mmol/L Carbon Dioxide 32 (22-32) mmol/L BUN 30 H (9-20) mg/dL Creatinine 1.70 H (0.66-1.25) mg/dL Estimated GFR 39.6 L (>60) mL/min BUN/Creatinine Ratio 17.6 (6-22) Glucose 87 (80-110) mg/dL Calcium 9.5 (8.4-10.2) mg/dL Total Bilirubin 0.4 (0.2-1.3) mg/dL AST 21 (17-59) IU/L ALT 24 (21-72) IU/L Alkaline Phosphatase 125 (38-126) U/L Total Creatine Kinase 45 L (55-170) U/L CK-MB (CK-2) TNP CK-MB (CK-2) Rel Index TNP B-Natriuretic Peptide 775.0 H (<100) Total Protein 7.0 (6.3-8.2) g/dL Albumin 3.9 (3.5-5.0) g/dL Globulin 3.1 (1.7-4.1) g/dL Albumin/Globulin Ratio 1.3 (1.0-2.8) Lipase 105 (23-300) U/L Procalcitonin (<0.5) ng/mL Digoxin (0.8-2.0) ng/mL 01/26/18 01/26/18 Range/Units 05:40 05:40 WBC (4.5-11.0) X10^3/uL RBC (4.5-5.9) X10^6/uL Hgb (13.5-17.5) g/dL Hct (41-53) % MCV (80-100) fL MCH (26-34) PG MCHC (30-36) % RDW (11.6-14.8) % Plt Count (150-400) X10^3/uL Neut % (Auto) (50-75) % Lymph % (Auto) (25-40) % [place] % (Auto) (3-14) % Eos % (Auto) (2-4) % Baso % (Auto) (0-2) % Neut # (Auto) (2255-5957) /uL PT (10.1-12.7) SECONDS INR (0.9-1.3) Sodium (137-145) mmol/L Potassium (3.4-5.1) mmol/L Chloride (98-107) mmol/L Carbon Dioxide (22-32) mmol/L BUN (9-20) mg/dL Creatinine (0.66-1.25) mg/dL Estimated GFR (>60) mL/min BUN/Creatinine Ratio (6-22) Glucose (80-110) mg/dL Calcium (8.4-10.2) mg/dL Total Bilirubin (0.2-1.3) mg/dL AST (17-59) IU/L ALT (21-72) IU/L Alkaline Phosphatase (38-126) U/L Total Creatine Kinase (55-170) U/L CK-MB (CK-2) CK-MB (CK-2) Rel Index B-Natriuretic Peptide (<100) Total Protein (6.3-8.2) g/dL Albumin (3.5-5.0) g/dL Globulin (1.7-4.1) g/dL Albumin/Globulin Ratio (1.0-2.8) Lipase (23-300) U/L Procalcitonin < 0.05 (<0.5) ng/mL Digoxin 0.7 L (0.8-2.0) ng/mL Urine Dip Bedside Urine Glucose Negative Bedside Urine Bilirubin - Negative Bedside Urine Ketone - Negative Urine Specific [place] 1.010 Bedside Urine Occult Blood - Negative Bedside Urine pH 8.5 Bedside Urine Protein - Negative Bedside Urine Urobilinogen - Negative Bedside Urine Nitrite - Negative Bedside Urine Leukocytes - Negative Esterase Discharge Plan Departure Patient Disposition: Admitted As Inpatient Clinical Impression: Acute CHF
[2018-01-26] MEDS: FUROSEMIDE 40 MG/4 ML VIAL IV (05:47)
[2018-01-26] MEDS: ASPIRIN 81 MG TAB 324 MG PO (05:47)
[2018-01-26 06:42] LABS: INR 1.3 (0.9-1.3); Prothrombin Time 14.2 SECONDS (10.1-12.7)
[2018-01-26 06:49] LABS: Digoxin 0.7 ng/mL (0.8-2.0)
[2018-01-26 06:55] LABS: Add Manual Diff / Slide Review NO; Alanine Aminotransferase 24 IU/L (21-72); Albumin 3.9 g/dL (3.5-5.0); Albumin Globulin Ratio 1.3 (1.0-2.8); Alkaline Phosphatase 125 U/L (38-126); Aspartate Aminotransferase 21 IU/L (17-59); BUN Creatinine Ratio 17.6 (6-22); Basophils Percent Auto 1.8 % (0-2); Bilirubin Total 0.4 mg/dL (0.2-1.3); Blood Urea Nitrogen 30 mg/dL (9-20); Calcium 9.5 mg/dL (8.4-10.2); Carbon Dioxide 32 mmol/L (22-32); Chloride 100 mmol/L (98-107); Creatine Kinase 45 U/L (55-170); Eosinophils Percent Auto 1.9 % (2-4); Estimated Glomerular Filt Rate 39.6 mL/min (>60); Globulin 3.1 g/dL (1.7-4.1); Glucose 87 mg/dL (80-110); HEMOLYSIS < 15 (0-50); Hematocrit 30.8 % (41-53); Lipase 105 U/L (23-300); Mean Corpuscular HGB Conc 29.3 % (30-36); Mean Corpuscular Hemoglobin 19.7 PG (26-34); Mean Corpuscular Volume 67.3 fL (80-100); Monocytes Percent Auto 11.4 % (3-14); Neutrophils Absolute Auto 6300 /uL (3000-5900); Neutrophils Percent Auto 73.9 % (50-75); Platelet Count 259 X10^3/uL (150-400); Potassium 4.5 mmol/L (3.4-5.1); Red Blood Cell Count 4.58 X10^6/uL (4.5-5.9); Red Cell Distribution Width 18.9 % (11.6-14.8); Sodium 142 mmol/L (137-145); White Blood Cell Count 8.6 X10^3/uL (4.5-11.0)
[2018-01-26 07:07] LABS: Troponin I 0.032 ng/mL (0.01-0.034)
[2018-01-26 07:10] LABS: Procalcitonin < 0.05 ng/mL (<0.5)
--- NOTE | 2018-01-26 07:13 | PC.NURSE ---
Assisted pt with stand by ambulation. Pt c/o increasing SOB, o2 sat decreased to 94%. Pt had to stop a couple of times to catch his breaths.
[2018-01-26 07:15] LABS: Anisocytosis 2+; Hypochromasia 3+; Ovalocytes 2+; Polychromasia 2+
--- NOTE | 2018-01-26 07:30 | DI.ECHO.S_ITS ---
[facility]---------+ [facility] +---------+ : : [address] : [address] [place] : : : : [id number] : : : : Phone: [phone] Echocardiogram Report + + :Name: IAN HERNANDEZ Study Date: 01/26/2018 Height: 71 in : :[facility] Exam Location: [facility] Weight: 200 lb : : Gender: Male BSA: 2.1 m2 : :: 1945 Age: 72 yrs BP: 108/64 mmHg: :Reason For Study: CHF : : Performed By: Froy Ron : :Referring: DAVID CRUMP : + + Interpretation Summary 1) Severely enlarged left ventricle with moderately reduced systolic function (EF 30-35%). 2) Global hypokinesis with severe akinesis of the basal inferolateral wall and basal inferior wall. 3) Moderately enlarged right ventricle with mildly reduced systolic function. 4) There is severe biatrial enlargement. 5) Severe posteriorly directed mitral regurgitation, probably ischemic in etiology. 6) There is moderate tricuspid regurgitation. 7) The right ventricular systolic pressure is estimated to be at least 37 mmHg based on an estimated right atrial pressure of 15 mm Hg. 8) Compared to the Echo done 06/07/2012, mitral regurgitatoin is worse on this study. Procedure: A two-dimensional transthoracic echocardiogram with color flow and Doppler was performed. The study quality was technically adequate. Comparison is made with the echocardiogram of 03/12/13. The patient was in normal sinus rhythm during the exam. Left Ventricle: The left ventricle is severely dilated. Left ventricular wall thickness is at the upper limits of normal. The ejection fraction is estimated to be 30-35%. Global hypokinesis with severe akinesis of the basal inferolateral wall and basal inferior wall. Right Ventricle: The right ventricle is moderately dilated. There is a pacemaker lead in the right ventricle. Right ventricular systolic function is at the lower limits of normal. Atria: There is severe biatrial enlargement. The interatrial septum is intact with no evidence for an atrial septal defect. Mitral Valve: There is mild mitral annular calcification. Flow reversal noted in pulmonary veins consistent with significant mitral regurgitation. There is an eccentric jet of mitral regurgitation that is directed posteriorly. There is severe mitral regurgitation. Aortic Valve: The aortic valve is trileaflet. The aortic valve opens well. There is no aortic valve stenosis. There is trace aortic regurgitation. Tricuspid Valve: The tricuspid valve leaflets are thin and pliable. There is moderate tricuspid regurgitation. The right ventricular systolic pressure is estimated to be at least 37 mmHg based on an estimated right atrial pressure of 15 mm Hg. Pulmonic Valve: The pulmonic valve is normal in structure and function. There is trace pulmonic regurgitation. Great Vessels: The aortic root is normal size. The dimensions of the ascending aorta are normal. The pulmonary artery is normal size. The IVC is dilated (diameter is greater than 2.1 cm) and it collapses less than 50% with a sniff. This suggests a high right atrial pressure of 15 mm Hg. Pericardium/ Pleura There is no pericardial effusion. There is no pleural effusion. MMode/2D Measurements & Calculations LVIDd: 8.0 cm Ao root diam: 3.5 cm LVIDs: 7.0 cm Aortic Jxn: 2.3 cm FS: 11.9 % asc Aorta Diam: 3.4 cm EPSS: 1.4 cm IVSd: 0.90 cm LVPWd: 1.1 cm LV griggs. diameter/BSA (cm/m^2): 3.8 LV sys. diameter/BSA (cm/m^2): 3.3 LA dimension: 7.3 cm RA long axis: 5.9 cm LA A2 area: 39.0 cm2 RA area: 33.4 cm2 LA A4 area: 40.8 cm2 RA vol: 159.5 ml LA length (vol): 7.4 cm RA : 75.6 ml/m2 LA vol: 183.2 ml IVC diam: 3.2 cm LA vol index: 86.9 ml/m2 RVD1 (basal): 5.4 cm RVD2 (mid): 5.5 cm Doppler Measurements & Calculations Ao V2 max: 120.1 cm/sec LVOT Max Vincent: 92.9 cm/sec Ao V2 mean: 85.7 cm/sec LV V1 max P.5 mmHg Ao max P.8 mmHg LV V1 VTI: 16.8 cm Ao mean P.2 mmHg sev ratio: 0.93 Ao V2 VTI: 18.1 cm MV E max vincent: 84.2 cm/sec TR max vincent: 231.6 cm/sec MV A max vincent: 56.4 cm/sec TR max P.5 mmHg MV E/A: 1.5 PA V2 max: 77.0 cm/sec Med Peak E' Vincent: 3.4 cm/sec PA V2 mean: 52.9 cm/sec E/E' med: 24.7 PA mean P.3 mmHg Lat Peak E' Vincent: 3.4 cm/sec PA pr(Accel): 39.1 mmHg E/E' lat: 24.7 PA Accel Time: 0.08 sec E/e' average: 24.7 MV dec time: 0.16 sec Reading Physician:03:32 PM
--- NOTE | 2018-01-26 08:01 | TAR.TRANSNT ---
Phone report called to BALDEV Young for continuation of care and all questions answered. Waiting for a room assignment.
[2018-01-26] MEDS: ENOXAPARIN 30 MG/0.3 ML SYRINGE SUBCUT (11:33)
--- NOTE | 2018-01-26 13:31 | PM.HP.1 ---
History of Present Illness Chief complaint: swollen all over painful Narrative: PATIENT IS A 72-YEAR-OLD MALE WITH A KNOWN HISTORY OF CAD STATUS POST CORONARY BYPASS GRAFT, CONGESTIVE HEART FAILURE, AICD PRESENTS ON ADMISSION WITH PROGRESSIVE SHORTNESS OF BREATH AND LOWER EXTREMITY EDEMA PATIENT DATES HIS PROBLEM BACK TO 2-3 WEEKS PRIOR TO ADMISSION. AT THAT TIME HE BEGAN NOTICING INCREASING LOWER EXTREMITY EDEMA. HE THOUGHT IT WAS SECONDARY TO HIS GOUT. HE WAS HAVING INCREASED PAIN OF HIS FEET. HE TOOK ADDITIONAL GOUT MEDICATIONS BUT THERE WAS NO IMPROVEMENT OF THE PAIN AND ONGOING PROGRESSION OF THE LOWER EXTREMITY EDEMA. ALSO COUPLE WEEKS PRIOR TO ADMISSION HIS DAILY COUGH BECAME WORSE. HE STATES THAT HE BEGAN HAVING MORE FREQUENT EPISODES OF COUGHING. HIS COUGH IS NORMALLY NONPRODUCTIVE BUT ON OCCASIONS HE PRODUCES YELLOW TO BROWN SOME MUCUS. THEN APPROXIMATELY 5-6 DAYS PRIOR TO ADMISSION HE BEGAN HAVING PROGRESSIVE SHORTNESS BREATH AT REST AND INCREASING WITH ACTIVITY. THEN ON THE NIGHT PRIOR TO ADMISSION WHEN GOING TO BED HE WAS ORTHOPNEA CT TO SIT UP ALL NIGHT BECAUSE OF BREATHLESSNESS AND SIGNIFICANT PROBLEMS WITH SHORTNESS OF BREATH. HE DENIED ANY DIETARY INDISCRETION, MEDICAL NONCOMPLIANCE, FEVERS NIGHT SWEATS CHEST PAIN PALPITATION OR HIS ICD ACTIVATING. RESULT HE PRESENTED TO THE ED THIS MORNING. VITAL SIGNS REVEAL BLOOD PRESSURE 123/57 S 84 RESPIRATIONS 24 TEMPERATURE 97.7? O2 SAT WAS 97%. CBC WAS REMARKABLE FOR HEMOGLOBIN OF 9.0. HIS CHEM PANEL WAS REMARKABLE FOR A CREATININE OF 1.70 ON ESTIMATED GFR OF 39.6. HIS BNP WAS ELEVATED AT 775. HIS CHEST X-RAY REVEALED PATTERN OF CHF WITH GLOBAL CARDIOMEGALY. HE IS THEREFORE BEING ADMITTED FOR ACUTE CONGESTIVE HEART FAILURE. HE DENIES ANY PROBLEMS WITH NAUSEA AND VOMITING AND ANOREXIA DIARRHEA CONSTIPATION LIGHTHEADEDNESS DIZZINESS. HIS LAST HOSPITALIZATION WAS AUGUST/2017. THIS IS FOR ACUTE HYPOXIC RESPIRATORY FAILURE FELT SECONDARY TO ACUTE ON CHRONIC COPD EXACERBATION. Patient History Medical History Essential hypertension (Chronic) Arrhythmia (Chronic) History of prostate cancer (Chronic) History of colon cancer (Chronic) History of pancreatic cancer (Chronic) Hematoma of abdominal wall (Acute) Coronary artery disease (Chronic) Hyperlipidemia (Chronic) CAD (coronary artery disease) (Acute) COPD (chronic obstructive pulmonary disease) (Acute) Fracture of nasal bones (Acute) HTN (hypertension) (Acute) Hyperlipidemia (Acute) Myocardial infarction greater than 8 weeks ago (Acute) Surgical History AICD (automatic cardioverter/defibrillator) present (Acute) History of hernia repair (Acute) Hx of CABG (Acute) Family & Social History Social History: household members family Prior Living Arrangements House Safety & Behavioral: Feels Safe in Current Yes Environment Been Physically Hurt or No Threatened By a Person Suicidal Ideation Description None Suicide Plan Description No Plan Tobacco & Substance use: Smoking Status Former smoker alcohol intake former alcohol intake frequency 0-2 drinks per day Substance Use Type does not use Meds Home Medications Medication Instructions Recorded Confirmed Type aspirin 81 mg PO DAILY 09/03/17 01/26/18 History axijuohl-byk-HC-lycopen-lutein 1 tab PO DAILY 10/11/17 01/26/18 History [Centrum Silver] torsemide 20 mg PO BID 10/11/17 01/26/18 History atorvastatin 80 mg tablet 80 mg PO DAILY #90 tab 11/01/17 01/26/18 Rx calcium carbonate 500 mg calcium 500 mg PO BID #180 tab 11/01/17 01/26/18 Rx (1,250 mg) tablet cyanocobalamin (vit B-12) 1,000 1,000 mcg PO DAILY #90 cap 11/01/17 01/26/18 Rx mcg capsule digoxin 250 mcg tablet 0.125 mg PO DAILY #45 tab 11/01/17 01/26/18 Rx lisinopril 10 mg tablet 10 mg PO DAILY #90 tab 11/01/17 01/26/18 Rx metoprolol succinate ER 25 mg 25 mg PO BID #180 tab 11/01/17 01/26/18 Rx tablet,extended release 24 hr omega 2-ckr-fph-fish oil 100 1 cap PO BID #60 cap 11/30/17 01/26/18 Rx mg-160 mg-1,000 mg capsule benzonatate 100 mg PO TID PRN 01/26/18 01/26/18 History sennosides 8.6 mg PO DAILY PRN 01/26/18 01/26/18 History Allergies Allergy/AdvReac Type Severity Reaction Status Date / Time egg Allergy Verified 01/26/18 06:06 polyethylene glycol Allergy Verified 01/26/18 11:50 [From Golytely] polyethylene glycol 3350 Allergy Verified 01/26/18 11:50 [From Golytely] potassium chloride Allergy Verified 01/26/18 11:50 [From Golytely] sodium [From Golytely] Allergy Swelling Verified 01/26/18 11:51 of Lip/Tongue/Throat sodium bicarbonate Allergy Verified 01/26/18 11:50 [From Golytely] sodium chloride Allergy Verified 01/26/18 11:50 [From Golytely] sodium sulfate Allergy Verified 01/26/18 11:50 [From Golytely] Review of Systems Review of Systems All systems reviewed & are unremarkable except as noted in HPI and below Exam Vital Signs (past 8 hours): - 01/26/18 07:55 01/26/18 08:08 01/26/18 08:58 Temperature 97.8 F Pulse Rate 82 77 81 Respiratory Rate 26 H 18 24 Blood Pressure 103/56 L 119/71 Blood Pressure [Left Arm] 114/63 Pulse Oximetry 99 96 98 01/26/18 11:37 Temperature 97.6 F Pulse Rate 76 Respiratory Rate 24 Blood Pressure 108/64 Blood Pressure [Left Arm] Pulse Oximetry 95 Oxygen Delivery Method Room Air Oxygen Flow Rate 0 Narrative Exam Narrative: GENERAL: PATIENT LYING AT 30? TRUNCAL ELEVATION AND HAS SOME SLIGHT INCREASED WORK OF BREATHING. HEENT NORMOCEPHALIC ATRAUMATIC EXTRAOCULAR MOVEMENTS INTACT PUPILS WERE EQUAL ROUND REACTIVE FUNDI WERE NOT VISUALIZED SCLERA WERE NONICTERIC OROPHARYNX HE WAS EDENTULOUS NECK SUPPLE WITH JUGULAR VENOUS DISTENSION THORAX HEEL STERNOTOMY SCAR. AICD POCKET LEFT UPPER CHEST RESPIRATORY: DECREASED BIBASILAR BREATH SOUNDS CARDIOVASCULAR: DECREASED HEART TONES GRADE 1 TO 2/6 SYSTOLIC MURMUR ABDOMEN: ROTUND BENIGN BOWEL SOUNDS PRESENT EXTREMITIES 2-3 +BILATERAL LOWER EXTREMITY EDEMA. FULL RANGE OF MOTION NEUROLOGIC GROSSLY PHYSIOLOGIC PSYCHIATRIC: AWAKE ALERT ORIENTED TIMES 3 MOOD AFFECT WERE NORMAL Objective Labs Result Diagrams: 01/26/18 05:40 01/26/18 05:40 Labs: Laboratory Results - last 24 hr 01/26/18 01/26/18 01/26/18 05:40 05:40 05:40 WBC 8.6 RBC 4.58 Hgb 9.0 L Hct 30.8 L MCV 67.3 L MCH 19.7 L MCHC 29.3 L RDW 18.9 H Plt Count 259 Neut % (Auto) 73.9 Lymph % (Auto) 11.0 L Burnett % (Auto) 11.4 Eos % (Auto) 1.9 L Baso % (Auto) 1.8 Neut # (Auto) 6300 H RBC Morphology Not Reportable Polychromasia 2+ H Hypochromasia 3+ H Anisocytosis 2+ H Ovalocytes 2+ H PT 14.2 H INR 1.3 Sodium 142 Potassium 4.5 Chloride 100 Carbon Dioxide 32 BUN 30 H Creatinine 1.70 H Estimated GFR 39.6 L BUN/Creatinine Ratio 17.6 Glucose 87 Calcium 9.5 Total Bilirubin 0.4 AST 21 ALT 24 Alkaline Phosphatase 125 Total Creatine Kinase 45 L CK-MB (CK-2) TNP CK-MB (CK-2) Rel Index TNP Troponin I 0.032 B-Natriuretic Peptide 775.0 H Total Protein 7.0 Albumin 3.9 Globulin 3.1 Albumin/Globulin Ratio 1.3 Lipase 105 Procalcitonin Digoxin 01/26/18 01/26/18 05:40 05:40 WBC RBC Hgb Hct MCV MCH MCHC RDW Plt Count Neut % (Auto) Lymph % (Auto) Burnett % (Auto) Eos % (Auto) Baso % (Auto) Neut # (Auto) RBC Morphology Polychromasia Hypochromasia Anisocytosis Ovalocytes PT INR Sodium Potassium Chloride Carbon Dioxide BUN Creatinine Estimated GFR BUN/Creatinine Ratio Glucose Calcium Total Bilirubin AST ALT Alkaline Phosphatase Total Creatine Kinase CK-MB (CK-2) CK-MB (CK-2) Rel Index Troponin I B-Natriuretic Peptide Total Protein Albumin Globulin Albumin/Globulin Ratio Lipase Procalcitonin < 0.05 Digoxin 0.7 L Assessment & Plan Plan: Assessment/Plan Narrative: 1. ACUTE EXACERBATION OF PRESUMED SYSTOLIC HEART FAILURE MAINTAIN THE PATIENT ON HIS DIGOXIN AND LISINOPRIL METOPROLOL LISINOPRIL HOLD P.O. TO LACEY SOME MIND IV LASIX FOR 20 MG B.I.D. CHECK ECHOCARDIOGRAM SERIAL BMPS CHECK LIPID PANEL DAILY WEIGHTS, I AND O 2. BILATERAL LOWER EXTREMITY EDEMA FOR CHF ABOVE 3. CAD STATUS POST CORONARY BYPASS GRAFT MAINTAIN PATIENT ON HIS LIPITOR, BETA-JACEK, LISINOPRIL, ASPIRIN 4. GOUT NEITHER COLCHICINE NOR ALLOPURINOL ARE LISTED ONE OF THE PATIENT'S MEDICATIONS. PATIENT IS WITHOUT ACTIVE GOUT AT THIS TIME CHECK URIC ACID LEVEL 5. ACUTE ON CHRONIC KIDNEY DISEASE QUESTION OF THIS COULD BE CARDIORENAL WITH HIS INCREASING SHORTNESS OF BREATH INCREASING SYMPTOMS OF CONGESTIVE HEART FAILURE AND INCREASING LOWER EXTREMITY EDEMA SERIAL BMPs HOLD LASIX IF CREATININE CONTINUES TO RISE 6. ANEMIA CHECK B12, FOLATE, RETIC COUNT, IRON, FERRITIN Quality VTE Deep Vein Thrombosis/Pulmonary Embolism Present on Admission: No
--- NOTE | 2018-01-26 13:37 | PC.NURSE ---
echo in progress
[2018-01-26 13:46] LABS: Cholesterol 102 mg/dL (140-199); HDL Cholesterol 36 mg/dL (40-60); LDL Cholesterol Calculated 55 mg/dL (<100); Triglycerides 55 mg/dL (35-150)
[2018-01-26] MEDS: NICOTINE 14 PATCH 14 MG TOP (15:00)
[2018-01-26 17:24] LABS: Basophils Percent Auto 1.9 % (0-2); Eosinophils Percent Auto 1.6 % (2-4); Hematocrit 29.2 % (41-53); Hemoglobin 8.5 g/dL (13.5-17.5); Lymphocytes Percent Auto 12.9 % (25-40); Mean Corpuscular Hemoglobin 19.7 PG (26-34); Monocytes Percent Auto 12.5 % (3-14); Neutrophils Absolute Auto 5100 /uL (3000-5900); Neutrophils Percent Auto 71.1 % (50-75); Platelet Count 223 X10^3/uL (150-400); Red Cell Distribution Width 18.7 % (11.6-14.8); White Blood Cell Count 7.1 X10^3/uL (4.5-11.0)
[2018-01-26 17:26] LABS: Add Manual Diff / Slide Review SLIDE REVIEW
--- NOTE | 2018-01-26 18:53 | PC.NURSE ---
Addendum entered by Beatrice Lynn R.N. 01/26/18 22:12: 203-BP noted before po meds, asked pt if he still takes meds with bp that low, pt stated yes he always takes meds, and bp is usually 100s-120s. meds given. pt tolerated. will continue to monitor. Original Note: Assumed care of pt from outgoing shift this day at 1500. Pt awake and alert. cooperative with bedside reports. uses call light. Pt cooperative with nursing staff. assessments completed and charted. md in to see pt. Pt on RA. denies pain. bed alarm on. side rails upx3. will continue to monitor pt for safety.
[2018-01-26] MEDS: HYDRALAZINE 10 MG TABLET PO (20:56)
[2018-01-26] MEDS: DOCUSATE 100 MG CAPSULE PO (20:56)
[2018-01-26] MEDS: FISH OIL 1,000 MG CAPSULE 1000 MG PO (20:57)
[2018-01-26] MEDS: BENZONATATE 100 MG CAPSULE PO (20:57)
[2018-01-26] MEDS: CALCIUM CARBONATE 500 MG TAB PO (20:57)
[2018-01-26] MEDS: FUROSEMIDE 20 MG/2 ML VIAL IV (20:57)
[2018-01-26] MEDS: METOPROLOL ER 25 MG TABLET PO (20:57)
[2018-01-27] VITALS (13 sets, daily range): BP systolic 105–127; BP diastolic 53–70; PULSE 81–86; RESP 16–20; TEMP 36.3–36.8; O2SAT 92–97
[2018-01-27 05:49] LABS: Hematocrit 30.1 % (41-53); Hemoglobin 8.9 g/dL (13.5-17.5); Mean Corpuscular HGB Conc 29.6 % (30-36); Mean Corpuscular Volume 67.5 fL (80-100); Platelet Count 235 X10^3/uL (150-400); Red Blood Cell Count 4.46 X10^6/uL (4.5-5.9); Red Cell Distribution Width 18.9 % (11.6-14.8); White Blood Cell Count 7.8 X10^3/uL (4.5-11.0)
[2018-01-27 05:52] LABS: BUN Creatinine Ratio 18.8 (6-22); Blood Urea Nitrogen 32 mg/dL (9-20); Calcium 9.3 mg/dL (8.4-10.2); Carbon Dioxide 29 mmol/L (22-32); Chloride 101 mmol/L (98-107); Estimated Glomerular Filt Rate 39.6 mL/min (>60); Glucose 85 mg/dL (80-110); HEMOLYSIS 27 (0-50); Magnesium 2.3 mg/dL (1.6-2.3); Potassium 4.7 mmol/L (3.4-5.1); Sodium 139 mmol/L (137-145); Uric Acid 7.6 mg/dL (3.5-8.5)
[2018-01-27] MEDS: HYDRALAZINE 10 MG TABLET PO ×3 (05:57→21:50)
--- NOTE | 2018-01-27 05:59 | PC.NURSE ---
Did not sleep well last night, sitting at the edge of the bed not able to lay in the bed. Occ. NPC noted & C/O dyspnea with exertion, rechecked SPO2 in RA 95%. Will cont. POC & monitor.
[2018-01-27 06:15] LABS: Neutrophils Absolute Manual 6162 /uL (3000-5900); Total Cells Counted 100
[2018-01-27 06:17] LABS: Anisocytosis 2+; Hypochromasia 2+; Microcytosis 3+; Ovalocytes 1+; Schistocytes 1+
[2018-01-27 06:27] LABS: TSH w/ Reflex to FT4 1.39 uIU/mL (0.47-4.68)
[2018-01-27 08:41] LABS: Anisocytosis 2+; Hypochromasia 2+; Poikilocytosis 1+; Target Cells 2+
[2018-01-27] MEDS: FISH OIL 1,000 MG CAPSULE 1000 MG PO ×2 (08:43→19:44)
[2018-01-27] MEDS: ATORVASTATIN 20 MG TABLET 80 MG PO (08:43)
[2018-01-27] MEDS: CYANOCOBALAMIN (VITAMIN B-12) 500 MCG TABLET 1000 MCG PO (08:43)
[2018-01-27] MEDS: ISOSORBIDE DINITRATE 10 MG TABLET PO ×3 (08:43→15:46)
[2018-01-27] MEDS: FUROSEMIDE 20 MG/2 ML VIAL IV ×2 (08:44→19:43)
[2018-01-27] MEDS: DIGOXIN 0.25 MG TABLET 0.125 MG PO (08:44)
[2018-01-27] MEDS: ENOXAPARIN 30 MG/0.3 ML SYRINGE SUBCUT (08:44)
[2018-01-27] MEDS: NICOTINE 14 PATCH 14 MG TOP (08:44)
[2018-01-27] MEDS: METOPROLOL ER 25 MG TABLET PO ×2 (08:53→19:44)
--- NOTE | 2018-01-27 10:31 | P.PN_ITS ---
Subjective Date Patient Seen: 01/27/18 Time Patient Seen: 10:21 Interval history: He is seen in his room here today to follow-up the congestive heart failure, coronary artery disease, acute on chronic kidney disease and anemia. The hemoglobin has remained stable at 8.9. Input is 1100, output is 2125. Echocardiogram shows 30-35% ejection fraction. There is global hypokinesis and severe akinesis of the inferior wall. 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 He says he is breathing better but still has some lower abdominal soreness pain. The GFR is 39 and creatinine is 1.7. Exam Vital Signs (past 8 hours): - 01/27/18 04:33 01/27/18 05:57 01/27/18 07:58 Temperature 97.7 F 97.4 F L Pulse Rate 83 86 82 Respiratory Rate 20 18 Blood Pressure 105/53 L 124/70 108/66 Pulse Oximetry 95 97 Oxygen Delivery Method Room Air Oxygen Flow Rate 0 Narrative Exam Narrative: Heart is regular rate and rhythm no murmur. Lungs are clear to auscultation bilaterally. Extremities have 2+ pitting ankle edema bilaterally. Abdomen has soft, nontender, no organomegaly, fairly large ventral hernia. Objective Labs Result Diagrams: 01/27/18 05:16 01/27/18 05:16 Labs: Laboratory Results - last 24 hr 01/26/18 01/26/18 01/27/18 06:30 17:05 05:16 WBC 7.1 7.8 RBC 4.30 L 4.46 L Hgb 8.5 L 8.9 L Hct 29.2 L 30.1 L MCV 68.0 L 67.5 L MCH 19.7 L 20.0 L MCHC 29.0 L 29.6 L RDW 18.7 H 18.9 H Plt Count 223 235 Neut % (Auto) 71.1 Lymph % (Auto) 12.9 L Lucas % (Auto) 12.5 Eos % (Auto) 1.6 L Baso % (Auto) 1.9 Neut # (Auto) 5100 Total Counted 100 Seg Neutrophils % 77.0 H Band Neutrophils % 2.0 L Lymphocytes % (Manual) 8.0 L Monocytes % (Manual) 10.0 Eosinophils % (Manual) 2.0 Basophils % (Manual) 1.0 Neutrophils # (Manual) 6162 H RBC Morphology Not Reportable See below Hypochromasia 2+ H 2+ H Poikilocytosis 1+ H Anisocytosis 2+ H 2+ H Microcytosis 3+ H Target Cells 2+ H Ovalocytes 1+ H Schistocytes 1+ H Sodium Potassium Chloride Carbon Dioxide BUN Creatinine Estimated GFR BUN/Creatinine Ratio Glucose Uric Acid Calcium Magnesium Triglycerides 55 Cholesterol 102 L LDL Cholesterol, Calc 55 HDL Cholesterol 36 L TSH 01/27/18 01/27/18 01/27/18 05:16 05:16 05:16 WBC RBC Hgb Hct MCV MCH MCHC RDW Plt Count Neut % (Auto) Lymph % (Auto) Lucas % (Auto) Eos % (Auto) Baso % (Auto) Neut # (Auto) Total Counted Seg Neutrophils % Band Neutrophils % Lymphocytes % (Manual) Monocytes % (Manual) Eosinophils % (Manual) Basophils % (Manual) Neutrophils # (Manual) RBC Morphology Hypochromasia Poikilocytosis Anisocytosis Microcytosis Target Cells Ovalocytes Schistocytes Sodium 139 Potassium 4.7 Chloride 101 Carbon Dioxide 29 BUN 32 H Creatinine 1.70 H Estimated GFR 39.6 L BUN/Creatinine Ratio 18.8 Glucose 85 Uric Acid 7.6 Calcium 9.3 Magnesium 2.3 Triglycerides Cholesterol LDL Cholesterol, Calc HDL Cholesterol TSH 1.39 Assessment & Plan Plan: Assessment/Plan Narrative: 1. ACUTE EXACERBATION OF PRESUMED SYSTOLIC congestive HEART FAILURE Will continue HIS DIGOXIN AND LISINOPRIL METOPROLOL LISINOPRIL Continue IV LASIX 20 MG B.I.D. Echocardiogram shows 30-35% ejection fraction. There is severe mitral regurgitation, probably ischemic in etiology, noted as the only significant change on the echocardiogram compared to 06/07/2012. SERIAL BMPS CHECK LIPID PANEL DAILY WEIGHTS, I AND O 2. BILATERAL LOWER EXTREMITY EDEMA FOR CHF ABOVE 3. CAD STATUS POST CORONARY BYPASS GRAFT MAINTAIN PATIENT ON HIS LIPITOR, BETA-JACEK, LISINOPRIL, ASPIRIN 4. GOUT PATIENT IS WITHOUT ACTIVE GOUT AT THIS TIME URIC ACID LEVEL is 7.6. 5. ACUTE ON CHRONIC KIDNEY DISEASE THIS COULD BE CARDIORENAL WITH HIS INCREASING SHORTNESS OF BREATH INCREASING SYMPTOMS OF CONGESTIVE HEART FAILURE AND INCREASING LOWER EXTREMITY EDEMA SERIAL BMPs This is stable. 6. ANEMIA B12, FOLATE, RETIC COUNT, IRON, FERRITIN are all still pending. 7. Disposition Likely will be able to return home in a few days. He will need referral for local cardiology outpatient evaluation. Raman Hollis MD Quality VTE Deep Vein Thrombosis/Pulmonary Embolism Present on Admission: No
--- NOTE | 2018-01-27 12:36 | CM.IDA ---
Discharge Planning/Care Management CM Discharge Assessment Start: 01/27/18 12:30 Freq: Status: Active Protocol: Document 01/27/18 12:30 JESSI (Rec: 01/27/18 12:36 JESSI [id number]) Discharge Planning Assessment Assigned [employer] Work [employer] PHILIPPE Rose DPELEAZAR/Assigned Designee Name Tashi Carrillo, brother/DPOA Contact Information [phone] Advance Directives? Yes Advance Directives on File No: is with pt's nephew in [place] History Provided By Patient Medical Record Prior Living Arrangements House Household Members family Comment Lives w/brother Tashi Type of transporation used prior to Drives own vehicle admit Independent with ADL's Yes Is patient alert and oriented? Yes Transportation Arrangement Brother or other family to p/u . Referrals Initiated None needed Comment Met w/pt, explained role. Pt is indp at baseline. He lives w/his brother who is in his 80s. Pt has no children but does have many nieces and nephews that live locally. Pt expects no barriers to safe DC back home. He is a daily smoker. He explains he can get up to BR in his hosp. room indp and at home uses a cane prn. No needs expected from this RESEARCH PSYCHOLOGIST team once pt is medically cleared to return home. Comment Is not homebound. Whiteboard Updated in Patient Room with Yes name and ext. # of White Work [employer]er Review Status In Process
--- NOTE | 2018-01-27 19:16 | PC.NURSE ---
Assumed care of pt form outgoing shfit his day. Pt awake and alert. walking steady gait in room. encouraged to call if needing assistance. pt denies pain/ but does get SOB with exertion. Pt made bed. uses urinal. calls and waits for assistance. bed in lowest locked position. bed alarm off as pt ambulatory. will continue to monitor. pt cooperative.
[2018-01-27] MEDS: CALCIUM CARBONATE 500 MG TAB PO (19:43)
[2018-01-28] VITALS (8 sets, daily range): BP systolic 101–134; BP diastolic 54–74; PULSE 75–89; RESP 16–20; TEMP 36.4–36.7; O2SAT 93–99
[2018-01-28 05:41] LABS: BUN Creatinine Ratio 19.4 (6-22); Blood Urea Nitrogen 33 mg/dL (9-20); Calcium 9.1 mg/dL (8.4-10.2); Carbon Dioxide 29 mmol/L (22-32); Chloride 100 mmol/L (98-107); Estimated Glomerular Filt Rate 39.6 mL/min (>60); Glucose 88 mg/dL (80-110); HEMOLYSIS < 15 (0-50); Potassium 4.3 mmol/L (3.4-5.1); Sodium 137 mmol/L (137-145)
[2018-01-28] MEDS: HYDRALAZINE 10 MG TABLET PO (06:24)
[2018-01-28] MEDS: FISH OIL 1,000 MG CAPSULE 1000 MG PO ×2 (09:01→22:05)
[2018-01-28] MEDS: METOPROLOL ER 25 MG TABLET PO ×2 (09:01→20:57)
[2018-01-28] MEDS: ISOSORBIDE DINITRATE 10 MG TABLET PO (09:01)
[2018-01-28] MEDS: CALCIUM CARBONATE 500 MG TAB PO ×2 (09:01→20:57)
[2018-01-28] MEDS: ATORVASTATIN 20 MG TABLET 80 MG PO (09:01)
[2018-01-28] MEDS: CYANOCOBALAMIN (VITAMIN B-12) 500 MCG TABLET 1000 MCG PO (09:01)
[2018-01-28] MEDS: ENOXAPARIN 30 MG/0.3 ML SYRINGE SUBCUT (09:02)
[2018-01-28] MEDS: FUROSEMIDE 20 MG/2 ML VIAL IV (09:02)
[2018-01-28] MEDS: NICOTINE 14 PATCH 14 MG TOP (09:02)
[2018-01-28] MEDS: DIGOXIN 0.125 MG TABLET PO (10:08)
[2018-01-28] MEDS: FUROSEMIDE 100 MG/10 ML VIAL 80 MG IV ×2 (13:03→20:53)
--- NOTE | 2018-01-28 18:26 | PM.PN.1 ---
Subjective Date Patient Seen: 01/28/18 Interval history: Patient reports improvement in shortness of breath with diuresis. States his belly still feels swollen. Exam Vital Signs (past 8 hours): - 01/28/18 11:30 01/28/18 15:40 Temperature 97.7 F 97.5 F L Pulse Rate 77 84 Respiratory Rate 18 18 Blood Pressure 101/54 L 102/57 L Pulse Oximetry 95 99 Oxygen Delivery Method Room Air Oxygen Flow Rate 0 Narrative Exam Narrative: GENERAL: Patient is in no acute distress HEENT: Head normocephalic, atraumatic. Mucous membranes moist. CHEST: Clear to auscultation bilaterally. CARDIAC: Regular rate and rhythm. ABDOMEN: Obese, no obvious organomegaly, difficult to ascertain for ascites EXTREMITIES: Bilateral 1+ pretibial pitting edema. NEUROLOGICAL: Alert, pleasant, no focal findings SKIN: Warm, dry, no petechiae, no rash Objective Labs Result Diagrams: 01/27/18 05:16 01/28/18 04:50 Labs: Laboratory Results - last 24 hr 01/28/18 01/28/18 04:50 04:50 Sodium 137 Potassium 4.3 Chloride 100 Carbon Dioxide 29 BUN 33 H Creatinine 1.70 H Estimated GFR 39.6 L BUN/Creatinine Ratio 19.4 Glucose 88 Calcium 9.1 B-Natriuretic Peptide 850.0 H Assessment & Plan Plan: Assessment/Plan Narrative: 1. Acute on chronic systolic heart failure: Patient with clinical improvement though could use additional IV diuresis. Increased IV Lasix to 80 mg twice daily. Monitor daily lytes, BUN, creatinine while on IV diuresis. Increased lisinopril to 10 mg twice daily to improve after load reduction. Continued metoprolol ER 25 mg twice daily. Continue digoxin 0.125 mg daily-digoxin level 0.7 on admit. His home baseline diuretic his torsemide 40 mg twice daily. 2. Acute on chronic kidney failure, pre renal: Creatinine 1.7 stable from admission. Recheck labs in a.m.. 3. Coronary artery disease status post CABG. Clinically stable without acute ischemia. 4. Anemia, chronic. Stable. Disposition: Patient with improvement and likely can be discharged tomorrow, Sunday, if medically stable. Quality VTE Deep Vein Thrombosis/Pulmonary Embolism Present on Admission: No
[2018-01-28] MEDS: DOCUSATE 100 MG CAPSULE PO (20:57)
[2018-01-28] MEDS: LISINOPRIL 10 MG TABLET PO (20:59)
[2018-01-29] VITALS (8 sets, daily range): BP systolic 98–128; BP diastolic 50–72; PULSE 76–81; RESP 16–20; TEMP 36.4–36.6; O2SAT 95–99
[2018-01-29 05:57] LABS: BUN Creatinine Ratio 24.4 (6-22); Blood Urea Nitrogen 39 mg/dL (9-20); Calcium 9.1 mg/dL (8.4-10.2); Carbon Dioxide 28 mmol/L (22-32); Chloride 102 mmol/L (98-107); Estimated Glomerular Filt Rate 42.5 mL/min (>60); Glucose 88 mg/dL (80-110); HEMOLYSIS < 15 (0-50); Potassium 4.1 mmol/L (3.4-5.1); Sodium 140 mmol/L (137-145)
[2018-01-29] MEDS: ATORVASTATIN 20 MG TABLET 80 MG PO (08:46)
[2018-01-29] MEDS: CYANOCOBALAMIN (VITAMIN B-12) 500 MCG TABLET 1000 MCG PO (08:47)
[2018-01-29] MEDS: DIGOXIN 0.125 MG TABLET PO (08:47)
[2018-01-29] MEDS: LISINOPRIL 10 MG TABLET PO (08:47)
[2018-01-29] MEDS: CALCIUM CARBONATE 500 MG TAB PO (08:47)
[2018-01-29] MEDS: METOPROLOL ER 25 MG TABLET PO (08:48)
[2018-01-29] MEDS: ENOXAPARIN 30 MG/0.3 ML SYRINGE SUBCUT (08:49)
[2018-01-29] MEDS: FUROSEMIDE 100 MG/10 ML VIAL 80 MG IV (08:49)
[2018-01-29] MEDS: FISH OIL 1,000 MG CAPSULE 1000 MG PO (08:50)
[2018-01-29] MEDS: NICOTINE 14 PATCH 14 MG TOP (08:50)
--- NOTE | 2018-01-29 11:29 | PC.NURSE ---
Pt comfortable, he did have some coughing earlier and was unable to cough anything up. Pts bs are clear but decreased in the bases. He iv voiding and IV lasix 80mg given to patient earlier.
--- NOTE | 2018-01-29 19:40 | PM.DS.1 ---
History of Present Illness Chief complaint: swollen all over painful Discharge Providers Date of admission: 01/26/18 07:55 Primary care physician: Cordell Crouch MD Discharge provider: Robb Harper MD Discharge Date: 01/29/18 Summary Discharge Diagnosis: 1. Acute on chronic systolic heart failure 2. 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 Coronary artery disease 4. Chronic anemia Procedures: Transthoracic echo 01/26/2018: 1) Severely enlarged left ventricle with moderately reduced systolic function (EF 30-35%). 2) Global hypokinesis with severe akinesis of the basal inferolateral wall and basal inferior wall. 3) Moderately enlarged right ventricle with mildly reduced systolic function. 4) There is severe biatrial enlargement. 5) Severe posteriorly directed mitral regurgitation, probably ischemic in etiology. 6) There is moderate tricuspid regurgitation. 7) The right ventricular systolic pressure is estimated to be at least 37 mmHg based on an estimated right atrial pressure of 15 mm Hg. 8) Compared to the Echo done 06/07/2012, mitral regurgitatoin is worse on this study. Hospital Course: Patient admitted for CHF exacerbation due to systolic dysfunction. He was diuresed with IV Lasix 80 mg twice daily. He probably had about over 2 L net negative diuresis during course of hospital stay. He states he is 80% better in terms of his respirations. Also his lisinopril was increased to 10 mg twice daily for more afterload reduction. His creatinine actually improved in the hospital from 1.7 down to 1.6, no significant change. Baseline creatinine was 1.5 in August. Patient was under the impression he needed to consume at least 3 L of water per day which is probably exacerbating his heart failure. He is advised to limit fluid intake to 2 L per day so as not to exacerbate volume overload. He is instructed to have a repeat basic metabolic panel in a week to monitor medications. His torsemide dose was unchanged at 40 mg twice daily. He is instructed to weigh himself every morning and to take an extra torsemide tablet morning and afternoon if his weight has gone up by more than a couple of lb. He has a microcytic anemia which remained stable in hospital. Not clear what workup he has had in the past. Consider endoscopy workup if has not been done. Status at Discharge Functional status at discharge: independent ambulation Overall status at discharge: patient is back to baseline Time Spent with Patient Greater than 30 minutes Exam Vital Signs (past 8 hours): - 01/29/18 11:50 Temperature 97.6 F Pulse Rate 77 Respiratory Rate 20 Blood Pressure 106/50 L Pulse Oximetry 99 Oxygen Delivery Method Room Air Oxygen Flow Rate 0 Narrative Exam Narrative: GENERAL: Patient is in no acute distress HEENT: Head normocephalic, atraumatic. Mucous membranes moist. CHEST: Clear to auscultation bilaterally. CARDIAC: Regular rate and rhythm. ABDOMEN: Obese, no obvious organomegaly, difficult to ascertain for ascites EXTREMITIES: Bilateral 1+ pretibial pitting edema. NEUROLOGICAL: Alert, pleasant, no focal findings SKIN: Warm, dry, no petechiae, no rash Objective Labs Result Diagrams: 01/27/18 05:16 01/29/18 05:30 Labs: Laboratory Results - last 24 hr 01/29/18 05:30 Sodium 140 Potassium 4.1 Chloride 102 Carbon Dioxide 28 BUN 39 H Creatinine 1.60 H Estimated GFR 42.5 L BUN/Creatinine Ratio 24.4 H Glucose 88 Calcium 9.1 Discharge Plan Discharge Plan Patient Disposition: Home Discharge Med Rec/Prescriptions Prescriptions: New lisinopril 10 mg tablet 10 mg PO BID Qty: 60 RF: 0 Continue atorvastatin 80 mg tablet 80 mg PO DAILY Qty: 90 RF: 3 calcium carbonate [Calcium 500] 500 mg calcium (1,250 mg) tablet 500 mg PO BID Qty: 180 RF: 3 cyanocobalamin (vitamin B-12) 1,000 mcg capsule 1,000 mcg PO DAILY Qty: 90 RF: 3 digoxin 250 mcg tablet 0.125 mg PO DAILY Qty: 45 RF: 3 metoprolol succinate 25 mg tablet extended release 24 hr 25 mg PO BID Qty: 180 RF: 3 omega 5-big-iyj-fish oil [Fish Oil] 100-160-1,000 mg capsule 1 cap PO BID Qty: 60 RF: 11 torsemide 20 mg Tablet 40 mg PO BID RF: 0 wsvsyhmv-dit-CH-lycopen-lutein [Centrum Silver] 0.4-300-250 mg-mcg-mcg Tablet 1 tab PO DAILY RF: 0 sennosides 8.6 mg tablet 8.6 mg PO DAILY PRN (Reason: CONSTIPATION) RF: 0 benzonatate 100 mg capsule 100 mg PO TID PRN (Reason: Cough) RF: 0 aspirin 81 mg Tablet,Chewable 81 mg PO DAILY RF: 0 Discontinued lisinopril 10 mg tablet 10 mg PO DAILY Qty: 90 RF: 3 Follow up/Referrals: Cordell Crouch MD [Primary Care Provider] - 1 Week (please call dr crouch office and schedule a hospital follow up appointment for 1 week after discharge [phone]) Provider Discharge Instructions Diet: Low-sodium Visit Report/Discharge Packet Instructions: Heart Failure, DI for Heart Failure, Lisinopril Visit Report Forms: Congestive Heart Failure, Stroke Signs & Symptoms Discharge Data Primary Care Provider: Cordell Crouch Attending Provider: Gregorio Sprague Admit Date/Time: 01/26/18 07:55 Discharges patient from system. Discharge Date/Time: 01/29/18 13:37 Quality VTE Deep Vein Thrombosis/Pulmonary Embolism Present on Admission: No
== END 2018-01-29 13:37 | disposition home or self-care (01) | DRG 291 ==
LOC: ED 07:00 → AC 07:56
PROVIDERS: Family Medicine; Admitting Provider Internal Medicine; Emergency Provider Emergency Medicine; PCP Family Medicine; Visit Provider Internal Medicine
DX: I13.0 Hypertensive heart and chronic kidney disease with heart failure and stage 1 through stage 4 chronic kidney disease, or unspecified chronic kidney disease (principal); I50.23 Acute on chronic systolic (congestive) heart failure; N17.9 Acute kidney failure, unspecified; N18.3 Chronic kidney disease, stage 3 (moderate); D64.9 Anemia, unspecified; Z95.1 Presence of aortocoronary bypass graft; I25.10 Atherosclerotic heart disease of native coronary artery without angina pectoris; E78.5 Hyperlipidemia, unspecified; J44.9 Chronic obstructive pulmonary disease, unspecified; Z87.891 Personal history of nicotine dependence; M10.9 Gout, unspecified
CPT/HCPCS: 36415; 36591; 71045; 80048; 80053; 80061; 80162; 81003; 82550; 83690; 83735; 83880; 84145; 84443; 84484; 84550; 85025; 85610; 93005; 93010; 93306; 94762; 96374; 99283; 99285; A9270; J1650; J1940

== ENCOUNTER 2018-02-25 15:24 | Inpatient (IN) | payer MEDICARE, SELFPAY ==
[2018-01-26 11:34] VITALS: BMI 31.8
[2018-02-25] VITALS (11 sets, daily range): BP systolic 114–140; BP diastolic 63–85; PULSE 71–108; RESP 16–28; TEMP 36.4–37.1; O2SAT 94–100; BMI 27.8
--- NOTE | 2018-02-25 15:42 | DI.RAD.S_ITS ---
PROCEDURE: XR CHEST 1V INDICATIONS: chest pain TECHNIQUE: One view of the chest was acquired. COMPARISON: [facility], CR, XR CHEST 1V, 01/26/2018, 5:29. FINDINGS: Surgical changes and devices: Left chest wall AICD is stable. Postsurgical changes compatible prior CABG procedure. Lungs and pleura: No pleural pneumothorax. Trace bilateral pleural effusions. Cephalization of pulmonary vasculature interstitial prominence noted consistent with CHF. Mediastinum: Mediastinal contours appear normal. Heart size is enlarged. Bones and chest wall: No suspicious bony lesions. Overlying soft tissues appear unremarkable. IMPRESSION: 1. CHF. 2. Cardiomegaly. 3. Trace bilateral pleural effusions. Dictated by: Sophia Alan MD, PhD on 02/25/2018 at 16:04 Approved by: Sophia Alan MD, PhD on 02/25/2018 at 16:05
--- NOTE | 2018-02-25 15:49 | DI.CT.S_ITS ---
PROCEDURE: CT ABDOMEN PELVIS W CON INDICATIONS: Lower abdominal pain. Vomitting. Bloody stools TECHNIQUE: After the administration of intravenous contrast, 5 mm thick sections acquired from the diaphragm to the symphysis. 5 mm coronal and sagittal reformats were acquired. For radiation dose reduction, the following was used: automated exposure control, adjustment of mA and/or kV according to patient size. COMPARISON: None. FINDINGS: Image quality: Excellent. ABDOMEN: Lung bases: Lung bases are abnormal with bibasilar atelectasis associated with moderate-sized bilateral pleural effusions. Heart size is globally enlarged and what appears to be multiple cardiac pacemaking leads are present. Body wall anasarca is mild over the lower chest. Solid organs: Liver is normal in size and enhancement. Gallbladder appears partially contracted. Biliary system is non dilated. Pancreas enhances normally. Spleen is normal in size and enhancement. No adrenal nodules. Kidneys demonstrate normal size and enhancement, without hydronephrosis. The renal artery calcification is present bilaterally, but no definite urinary tract stone is associated. Note is made of relatively prominent aortic and side branch atherosclerotic calcifications, without occlusion. Peritoneum and bowel: Bowel loops demonstrate normal wall thickness and caliber. No free air. There is a mild amount of ascites in the peritoneal space of the abdomen best seen in the perihepatic and perisplenic spaces, superiorly. Body wall anasarca is present, moderate in severity. Nodes and vessels: No retroperitoneal or mesenteric adenopathy by size criteria. Aorta and inferior vena cava are normal in size. Miscellaneous: There is a ventral midline fat containing omental hernia through a defect in the rectus sheath at the midline measuring up to 1.5 cm in diameter. A small amount of ascites extends with the fatty tissue in the subcutaneous fat.. PELVIS: Genitourinary: Bladder wall thickness is normal. Miscellaneous: No inguinal hernias or adenopathy. Relatively prominent atherosclerotic calcifications of the abdominal aorta and its main branches are seen through the pelvis. Body wall anasarca is moderately severe. Bones: No suspicious bony lesions. No vertebral body compression fractures. IMPRESSION: 1. Cardiomegaly, pacemaking device and leads are noted, partially visualized. Bibasilar moderate pleural effusions with adjacent atelectasis. No suspected pneumonia found. 2. Throughout the chest abdomen and pelvis there is body wall anasarca that becomes progressively more prominent more inferiorly. The pleural effusions and ascites presents appear simple and free-flowing but the likely cause is considered cardiogenic in origin overall. 3. Atherosclerotic calcifications are prominent through the abdominal aorta and its branches but no aneurysm or occlusion is found. 4. Through the abdomen and pelvis no area of peritoneal or retroperitoneal hemorrhage is found. Through the visualized colon no hematoma is identified. Dictated by: Xavier Jang M.D. on 02/25/2018 at 17:14 Approved by: Xavier Jang M.D. on 02/25/2018 at 17:22
[2018-02-25 16:17] LABS: Add Manual Diff / Slide Review NO; Basophils Percent Auto 0.5 % (0-2); Hematocrit 32.9 % (41-53); Hemoglobin 9.5 g/dL (13.5-17.5); Lymphocytes Percent Auto 17.8 % (25-40); Mean Corpuscular Volume 65.6 fL (80-100); Monocytes Percent Auto 6.8 % (3-14); Neutrophils Absolute Auto 7000 /uL (3000-5900); Neutrophils Percent Auto 74.9 % (50-75); Platelet Count 284 X10^3/uL (150-400); Red Blood Cell Count 5.02 X10^6/uL (4.5-5.9); Red Cell Distribution Width 19.4 % (11.6-14.8); White Blood Cell Count 9.4 X10^3/uL (4.5-11.0)
[2018-02-25 16:29] LABS: Alanine Aminotransferase 84 IU/L (21-72); Albumin 4.3 g/dL (3.5-5.0); Albumin Globulin Ratio 1.3 (1.0-2.8); Alkaline Phosphatase 177 U/L (38-126); Aspartate Aminotransferase 95 IU/L (17-59); BUN Creatinine Ratio 18.8 (6-22); Bilirubin Total 1.4 mg/dL (0.2-1.3); Blood Urea Nitrogen 30 mg/dL (9-20); Calcium 9.7 mg/dL (8.4-10.2); Carbon Dioxide 21 mmol/L (22-32); Chloride 103 mmol/L (98-107); Creatine Kinase 104 U/L (55-170); Estimated Glomerular Filt Rate 42.5 mL/min (>60); Globulin 3.3 g/dL (1.7-4.1); Glucose 95 mg/dL (80-110); HEMOLYSIS < 15 (0-50); Lipase 63 U/L (23-300); Sodium 140 mmol/L (137-145); Total Protein 7.6 g/dL (6.3-8.2)
[2018-02-25 16:30] LABS: Lactate (Lactic Acid) 3.7 mmol/L (0.7-2.1)
[2018-02-25 16:31] LABS: Potassium 5.6 mmol/L (3.4-5.1)
[2018-02-25 16:41] LABS: Troponin I 0.028 ng/mL (0.01-0.034)
[2018-02-25 16:44] LABS: Creatine Kinase MB 3.11 ng/mL (<2.37)
[2018-02-25 16:46] LABS: Anisocytosis 2+; Hypochromasia 3+; Microcytosis 3+; Poikilocytosis 3+
[2018-02-25] MEDS: FUROSEMIDE 100 MG/10 ML VIAL 80 MG IV (17:01)
--- NOTE | 2018-02-25 17:27 | ED.ABDPAIN ---
HPI - Abdominal Pain General Chief Complaint: Abdominal Pain Stated Complaint: NO CONTROL BOWEL MOVEMENT RECTAL BLEEDING Time Seen by Provider: 02/25/18 15:38 Source: patient Mode of arrival: wheelchair Limitations: no limitations History of Present Illness HPI narrative: Patient is a 72-year-old male who presents with abdominal pain. He states his he has had worsening abdominal pain today he vomited before he got here he said it was brown. He was admitted for CHF exacerbation January 26 through the . He says over the past few days he has had increased swelling all over his extremities and abdomen. He denies any worsening shortness of breath his breathing has been an ongoing problem for some time. He feels like it might be a little worse today. He also says that he had some very black stool today and he does have a history of colon cancer. However he is in extreme pain in his abdomen and feels nauseated. MD complaint: abdominal pain Related Data Home Medications Medication Instructions Recorded Confirmed himynnoj-vet-ZH-lycopen-lutein 1 tab PO DAILY 10/11/17 02/25/18 [Centrum Silver] benzonatate 100 mg PO TID PRN 01/26/18 02/25/18 sennosides 8.6 mg PO DAILY PRN 01/26/18 02/25/18 Previous Rx's Medication Instructions Recorded calcium carbonate 500 mg calcium 500 mg PO BID #180 tab 11/01/17 (1,250 mg) tablet cyanocobalamin (vitamin B-12) 1,000 mcg PO DAILY #90 cap 11/01/17 1,000 mcg capsule omega [id number]-[id number]-fish oil 100 1 cap PO BID #60 cap 11/30/17 mg-160 mg-1,000 mg capsule acetaminophen 500 mg tablet 1,000 mg PO Q6H PRN 30 Days #240 02/07/18 tab albuterol sulfate HFA 90 1 puff INHALATION Q4-6H PRN #6.7 02/07/18 mcg/actuation aerosol inhaler gram aspirin 81 mg chewable tablet 81 mg PO DAILY #90 tab 02/07/18 atorvastatin 80 mg tablet 80 mg PO DAILY #90 tab 02/07/18 digoxin 250 mcg tablet 0.125 mg PO DAILY #45 tab 02/07/18 ipratropium bromide 17 1 puff INHALATION QID #12.9 gram 02/07/18 mcg/actuation HFA aerosol inhaler lisinopril 10 mg tablet 10 mg PO BID #180 tab 02/07/18 metoprolol succinate ER 25 mg 25 mg PO BID #180 tab 02/07/18 tablet,extended release 24 hr torsemide 20 mg tablet 40 mg PO BID #360 tab 02/07/18 budesonide-formoterol HFA 80 2 puff INHALATION BID #6.9 gram 02/25/18 mcg-4.5 mcg/actuation aerosol inhaler Allergies Allergy/AdvReac Type Severity Reaction Status Date / Time egg Allergy Verified 02/25/18 15:33 polyethylene glycol Allergy Verified 02/25/18 15:33 [From Golytely] polyethylene glycol 3350 Allergy Verified 02/25/18 15:33 [From Golytely] potassium chloride Allergy Verified 02/25/18 15:33 [From Golytely] sodium [From Golytely] Allergy Swelling Verified 02/25/18 15:33 of Lip/Tongue/Throat sodium bicarbonate Allergy Verified 02/25/18 15:33 [From Golytely] sodium chloride Allergy Verified 02/25/18 15:33 [From Golytely] sodium sulfate Allergy Verified 02/25/18 15:33 [From Golytely] Review of Systems Review of Systems All systems reviewed & are unremarkable except as noted in HPI and below Constitutional Denies chills, Denies fever(s), Denies lethargy and Denies weakness Cardiovascular Denies dyspnea and Denies dyspnea on exertion Comments: Extensive cardiac history coronary artery disease, CABG, CHF Respiratory Denies cough, Denies dyspnea, Denies dyspnea on exertion and Denies wheezing Gastrointestinal Gastrointestinal: Denies melena, Reports diarrhea (Dark) and Reports vomiting Genitourinary Denies hematuria, Denies flank pain, Denies urinary incontinence and Denies urinary urgency Integumentary/Breasts Comments: Diffuse edema Neurologic Denies weakness Allergic/Immunologic Denies wheezing [facility] Medical History Essential hypertension (Chronic) Arrhythmia (Chronic) History of prostate cancer (Chronic) History of colon cancer (Chronic) History of pancreatic cancer (Chronic) Hematoma of abdominal wall (Acute) Coronary artery disease (Chronic) Hyperlipidemia (Chronic) CAD (coronary artery disease) (Acute) COPD (chronic obstructive pulmonary disease) (Acute) Fracture of nasal bones (Acute) HTN (hypertension) (Acute) Hyperlipidemia (Acute) Myocardial infarction greater than 8 weeks ago (Acute) Surgical History AICD (automatic cardioverter/defibrillator) present (Acute) History of hernia repair (Acute) Hx of CABG (Acute) Family History: Reviewed 02/25/18 by JOHANNA Walker Social History household members: family Smoking Status: Former smoker alcohol intake: former Exam Initial Vital Signs Initial Vital Signs: Vital Signs Temperature 97.5 F L 02/25/18 15:30 Pulse Rate 105 H 02/25/18 15:30 Respiratory Rate 24 02/25/18 15:30 Blood Pressure 124/73 02/25/18 15:30 Pulse Oximetry 96 02/25/18 15:30 GENERAL: Chronically-ill male, appears in pain HEENT: Head atraumatic,EOMI, pupils reactive, CARDIOVASCULAR: Regular rate and rhythm without murmurs, rubs or gallops. RESPIRATORY: Breath sounds equal bilaterally, no wheezes rales or rhonchi. ABDOMEN: Soft extremely tender skin is very tight RECTAL: Trace positive, dark no gross blood : No CVA tenderness EXTREMITIES: Edema +3 all extremities very tight skin NEUROLOGICAL: Alert and oriented x4.Normal gait and speech. SKIN: Warm, dry, no laceration, no petechiae, no rashes or lesions. Course Orders Ordered: ED Orders 02/26/18 Gastric Occult with pH Routine 02/26/18 05:21 Complete Blood Count AUTO DIFF DAILY Comprehensive Metabolic Panel DAILY Digoxin Routine Magnesium DAILY Phosphorous DAILY 02/26/18 07:00 XR chest 1V Routine Acetaminophen (Tylenol) 650 mg PO Q6HR PRN PRN Reason: As Needed for Fever/Mild Pain Albuterol/Ipratropium (Duoneb) 3 ml INH RTQ6HR JULITA Last Admin: 02/26/18 02:08 Dose: 3 ml Bisacodyl (Dulcolax) 10 mg PO DAILY PRN PRN Reason: Constipation Bumetanide (Bumex) 1 mg IV Q8H JULITA Stop: 02/26/18 15:31 Calcium Carbonate (Tums) 1,000 mg PO Q4HR PRN PRN Reason: Dyspepsia Last Admin: 02/25/18 19:53 Dose: 1,000 mg Digoxin (Lanoxin) 0.125 mg PO DAILY [facility] Morphine Sulfate (Morphine) 2 mg IV Q4HR PRN PRN Reason: Pain, Moderate (4-6) Last Admin: 02/26/18 06:36 Dose: 2 mg Admin: 02/26/18 02:34 Dose: 2 mg Admin: 02/25/18 22:15 Dose: 2 mg Ondansetron HCl (Zofran) 4 mg IV Q6H [facility] Pantoprazole Sodium (Protonix) 40 mg IV BID [facility] Last Admin: 02/25/18 22:44 Dose: 40 mg Prochlorperazine (Compazine) 5 mg IV Q6HR PRN PRN Reason: Nausea Fluticasone/Salmeterol (Advair 250/50 Diskus) 1 puff INH RTBID [facility] Sodium Chloride (Normal Saline 0.9% Flush) 10 ml IV PRN PRN PRN Reason: Flush Last Admin: 02/26/18 06:37 Dose: 10 ml Admin: 02/26/18 02:34 Dose: 10 ml Admin: 02/25/18 23:22 Dose: 10 ml Sodium Chloride (Normal Saline 0.9% Flush) 10 ml IV BID [facility] Discontinued Medications Aspirin (Aspirin Chew) 324 mg PO NOW ONE Stop: 02/25/18 15:43 Last Admin: 02/25/18 16:56 Dose: Bumetanide (Bumex) 1 mg IV Q8H [facility] Stop: 02/26/18 13:31 Last Admin: 02/25/18 23:22 Dose: 1 mg Furosemide (Lasix) 80 mg IV NOW ONE Stop: 02/25/18 16:38 Last Admin: 02/25/18 17:01 Dose: 80 mg Furosemide (Lasix) 40 mg IV DAILY [facility] Heparin Sodium (Porcine) (Heparin) 5,000 unit SUBCUT BID [facility] Last Admin: 02/25/18 21:09 Dose: 5,000 unit Magnesium Hydroxide (Milk Of Magnesia) 30 ml PO DAILY PRN PRN Reason: Constipation Ondansetron HCl (Zofran) 4 mg IV Q8HR PRN PRN Reason: Nausea And Vomiting Last Admin: 02/25/18 19:24 Dose: 4 mg Ondansetron HCl (Zofran) 4 mg IV Q6HR [facility] Last Admin: 02/26/18 02:34 Dose: 4 mg Pantoprazole Sodium (Protonix) 20 mg PO 0600 [facility] Vital Signs - 8 hr 02/25/18 23:30 02/25/18 23:31 02/26/18 02:08 Temperature 98.8 F Pulse Rate 102 H 106 H Respiratory Rate 22 22 Blood Pressure 121/68 Pulse Oximetry 98 97 97 02/26/18 04:01 02/26/18 05:55 Temperature 98.1 F Pulse Rate 101 H Respiratory Rate 22 Blood Pressure 129/78 Pulse Oximetry 96 94 MDM - Abdominal Pain Medical Records Attestation: I reviewed the patient's medical records. Lab Data Attestation: I reviewed the patient's lab results. Result diagrams: 02/25/18 20:35 02/26/18 05:21 Lab Results 02/25/18 02/25/18 02/25/18 Range/Units 15:55 15:55 15:55 WBC 9.4 (4.5-11.0) X10^3/uL RBC 5.02 (4.5-5.9) X10^6/uL Hgb 9.5 L (13.5-17.5) g/dL Hct 32.9 L (41-53) % MCV 65.6 L (80-100) fL MCH 19.0 L (26-34) PG MCHC 29.0 L (30-36) % RDW 19.4 H (11.6-14.8) % Plt Count 284 (150-400) X10^3/uL Neut % (Auto) 74.9 (50-75) % Lymph % (Auto) 17.8 L (25-40) % [place] % (Auto) 6.8 (3-14) % Eos % (Auto) 0.0 L (2-4) % Baso % (Auto) 0.5 (0-2) % Neut # (Auto) 7000 H (1339-2845) /uL RBC Morphology Not Reportable Hypochromasia 3+ H Poikilocytosis 3+ H Anisocytosis 2+ H Microcytosis 3+ H Sodium 140 (137-145) mmol/L Potassium 5.6 H (3.4-5.1) mmol/L Chloride 103 (98-107) mmol/L Carbon Dioxide 21 L (22-32) mmol/L BUN 30 H (9-20) mg/dL Creatinine 1.60 H (0.66-1.25) mg/dL Estimated GFR 42.5 L (>60) mL/min BUN/Creatinine Ratio 18.8 (6-22) Glucose 95 (80-110) mg/dL Lactate 3.7 H (0.7-2.1) mmol/L Calcium 9.7 (8.4-10.2) mg/dL Phosphorus (2.3-3.7) mg/dL Magnesium (1.6-2.3) mg/dL Total Bilirubin 1.4 H (0.2-1.3) mg/dL AST 95 H (17-59) IU/L ALT 84 H (21-72) IU/L Alkaline Phosphatase 177 H (38-126) U/L Total Creatine Kinase 104 (55-170) U/L CK-MB (CK-2) 3.11 H (<2.37) ng/mL CK-MB (CK-2) Rel Index 3.0 (1.5-5.0) % Troponin I 0.028 (0.01-0.034) ng/mL B-Natriuretic Peptide (<100) Total Protein 7.6 (6.3-8.2) g/dL Albumin 4.3 (3.5-5.0) g/dL Globulin 3.3 (1.7-4.1) g/dL Albumin/Globulin Ratio 1.3 (1.0-2.8) Triglycerides (35-150) mg/dL Cholesterol (140-199) mg/dL LDL Cholesterol, Calc (<100) mg/dL HDL Cholesterol (40-60) mg/dL Lipase 63 (23-300) U/L Digoxin (0.8-2.0) ng/mL 02/25/18 02/25/18 02/25/18 Range/Units 15:55 16:11 20:35 WBC (4.5-11.0) X10^3/uL RBC (4.5-5.9) X10^6/uL Hgb (13.5-17.5) g/dL Hct (41-53) % MCV (80-100) fL MCH (26-34) PG MCHC (30-36) % RDW (11.6-14.8) % Plt Count (150-400) X10^3/uL Neut % (Auto) (50-75) % Lymph % (Auto) (25-40) % [place] % (Auto) (3-14) % Eos % (Auto) (2-4) % Baso % (Auto) (0-2) % Neut # (Auto) (1301-8249) /uL RBC Morphology Hypochromasia Poikilocytosis Anisocytosis Microcytosis Sodium (137-145) mmol/L Potassium (3.4-5.1) mmol/L Chloride (98-107) mmol/L Carbon Dioxide (22-32) mmol/L BUN (9-20) mg/dL Creatinine (0.66-1.25) mg/dL Estimated GFR (>60) mL/min BUN/Creatinine Ratio (6-22) Glucose (80-110) mg/dL Lactate 3.3 H (0.7-2.1) mmol/L Calcium (8.4-10.2) mg/dL Phosphorus (2.3-3.7) mg/dL Magnesium (1.6-2.3) mg/dL Total Bilirubin (0.2-1.3) mg/dL AST (17-59) IU/L ALT (21-72) IU/L Alkaline Phosphatase (38-126) U/L Total Creatine Kinase (55-170) U/L CK-MB (CK-2) (<2.37) ng/mL CK-MB (CK-2) Rel Index (1.5-5.0) % Troponin I (0.01-0.034) ng/mL B-Natriuretic Peptide 1200.0 H (<100) Total Protein (6.3-8.2) g/dL Albumin (3.5-5.0) g/dL Globulin (1.7-4.1) g/dL Albumin/Globulin Ratio (1.0-2.8) Triglycerides 71 (35-150) mg/dL Cholesterol 124 L (140-199) mg/dL LDL Cholesterol, Calc 62 (<100) mg/dL HDL Cholesterol 48 (40-60) mg/dL Lipase (23-300) U/L Digoxin (0.8-2.0) ng/mL 02/25/18 02/25/18 02/26/18 Range/Units 20:35 20:35 05:21 WBC (4.5-11.0) X10^3/uL RBC (4.5-5.9) X10^6/uL Hgb 9.3 L (13.5-17.5) g/dL Hct (41-53) % MCV (80-100) fL MCH (26-34) PG MCHC (30-36) % RDW (11.6-14.8) % Plt Count (150-400) X10^3/uL Neut % (Auto) (50-75) % Lymph % (Auto) (25-40) % [place] % (Auto) (3-14) % Eos % (Auto) (2-4) % Baso % (Auto) (0-2) % Neut # (Auto) (4641-1635) /uL RBC Morphology Hypochromasia Poikilocytosis Anisocytosis Microcytosis Sodium (137-145) mmol/L Potassium 5.4 H (3.4-5.1) mmol/L Chloride (98-107) mmol/L Carbon Dioxide (22-32) mmol/L BUN (9-20) mg/dL Creatinine (0.66-1.25) mg/dL Estimated GFR (>60) mL/min BUN/Creatinine Ratio (6-22) Glucose (80-110) mg/dL Lactate (0.7-2.1) mmol/L Calcium (8.4-10.2) mg/dL Phosphorus (2.3-3.7) mg/dL Magnesium (1.6-2.3) mg/dL Total Bilirubin (0.2-1.3) mg/dL AST (17-59) IU/L ALT (21-72) IU/L Alkaline Phosphatase (38-126) U/L Total Creatine Kinase (55-170) U/L CK-MB (CK-2) (<2.37) ng/mL CK-MB (CK-2) Rel Index (1.5-5.0) % Troponin I (0.01-0.034) ng/mL B-Natriuretic Peptide (<100) Total Protein (6.3-8.2) g/dL Albumin (3.5-5.0) g/dL Globulin (1.7-4.1) g/dL Albumin/Globulin Ratio (1.0-2.8) Triglycerides (35-150) mg/dL Cholesterol (140-199) mg/dL LDL Cholesterol, Calc (<100) mg/dL HDL Cholesterol (40-60) mg/dL Lipase (23-300) U/L Digoxin 0.4 L (0.8-2.0) ng/mL 02/26/18 Range/Units 05:21 WBC (4.5-11.0) X10^3/uL RBC (4.5-5.9) X10^6/uL Hgb (13.5-17.5) g/dL Hct (41-53) % MCV (80-100) fL MCH (26-34) PG MCHC (30-36) % RDW (11.6-14.8) % Plt Count (150-400) X10^3/uL Neut % (Auto) (50-75) % Lymph % (Auto) (25-40) % [place] % (Auto) (3-14) % Eos % (Auto) (2-4) % Baso % (Auto) (0-2) % Neut # (Auto) (4625-0999) /uL RBC Morphology Hypochromasia Poikilocytosis Anisocytosis Microcytosis Sodium 138 (137-145) mmol/L Potassium 5.4 H (3.4-5.1) mmol/L Chloride 102 (98-107) mmol/L Carbon Dioxide 19 L (22-32) mmol/L BUN 38 H (9-20) mg/dL Creatinine 1.80 H (0.66-1.25) mg/dL Estimated GFR 37.1 L (>60) mL/min BUN/Creatinine Ratio 21.1 (6-22) Glucose 107 (80-110) mg/dL Lactate (0.7-2.1) mmol/L Calcium 9.4 (8.4-10.2) mg/dL Phosphorus 6.1 H (2.3-3.7) mg/dL Magnesium 2.3 (1.6-2.3) mg/dL Total Bilirubin 1.1 (0.2-1.3) mg/dL AST 308 H (17-59) IU/L ALT 271 H (21-72) IU/L Alkaline Phosphatase 147 H (38-126) U/L Total Creatine Kinase (55-170) U/L CK-MB (CK-2) (<2.37) ng/mL CK-MB (CK-2) Rel Index (1.5-5.0) % Troponin I (0.01-0.034) ng/mL B-Natriuretic Peptide (<100) Total Protein 7.0 (6.3-8.2) g/dL Albumin 3.9 (3.5-5.0) g/dL Globulin 3.1 (1.7-4.1) g/dL Albumin/Globulin Ratio 1.3 (1.0-2.8) Triglycerides (35-150) mg/dL Cholesterol (140-199) mg/dL LDL Cholesterol, Calc (<100) mg/dL HDL Cholesterol (40-60) mg/dL Lipase (23-300) U/L Digoxin (0.8-2.0) ng/mL Point of care testing: Urine Dip Bedside Urine Glucose Negative Bedside Urine Bilirubin - Negative Bedside Urine Ketone - Negative Urine Specific [place] 1.020 Bedside Urine Occult Blood - Negative Bedside Urine pH 6.0 Bedside Urine Protein +/- 15 Bedside Urine Urobilinogen - Negative Bedside Urine Nitrite - Negative Bedside Urine Leukocytes - Negative Esterase Imaging Data Chest x-ray: Radiologist's impression: PROCEDURE: XR CHEST 1V INDICATIONS: chest pain TECHNIQUE: One view of the chest was acquired. COMPARISON: [facility], , XR CHEST 1V, 01/26/2018, 5:29. FINDINGS: Surgical changes and devices: Left chest wall AICD is stable. Postsurgical changes compatible prior CABG procedure. Lungs and pleura: No pleural pneumothorax. Trace bilateral pleural effusions. Cephalization of pulmonary vasculature interstitial prominence noted consistent with CHF. Mediastinum: Mediastinal contours appear normal. Heart size is enlarged. Bones and chest wall: No suspicious bony lesions. Overlying soft tissues appear unremarkable. IMPRESSION: 1. CHF. 2. Cardiomegaly. 3. Trace bilateral pleural effusions. Dictated by: Sophia Alan MD, PhD on 02/25/2018 at 16:04 CT scan - abdomen: Radiologist's impression: PROCEDURE: CT ABDOMEN PELVIS W CON INDICATIONS: Lower abdominal pain. Vomitting. Bloody stools TECHNIQUE: After the administration of intravenous contrast, 5 mm thick sections acquired from the diaphragm to the symphysis. 5 mm coronal and sagittal reformats were acquired. For radiation dose reduction, the following was used: automated exposure control, adjustment of mA and/or kV according to patient size. COMPARISON: None. FINDINGS: Image quality: Excellent. ABDOMEN: Lung bases: Lung bases are abnormal with bibasilar atelectasis associated with moderate-sized bilateral pleural effusions. Heart size is globally enlarged and what appears to be multiple cardiac pacemaking leads are present. Body wall anasarca is mild over the lower chest. Solid organs: Liver is normal in size and enhancement. Gallbladder appears partially contracted. Biliary system is non dilated. Pancreas enhances normally. Spleen is normal in size and enhancement. No adrenal nodules. Kidneys demonstrate normal size and enhancement, without hydronephrosis. The renal artery calcification is present bilaterally, but no definite urinary tract stone is associated. Note is made of relatively prominent aortic and side branch atherosclerotic calcifications, without occlusion. Peritoneum and bowel: Bowel loops demonstrate normal wall thickness and caliber. No free air. There is a mild amount of ascites in the peritoneal space of the abdomen best seen in the perihepatic and perisplenic spaces, superiorly. Body wall anasarca is present, moderate in severity. Nodes and vessels: No retroperitoneal or mesenteric adenopathy by size criteria. Aorta and inferior vena cava are normal in size. Miscellaneous: There is a ventral midline fat containing omental hernia through a defect in the rectus sheath at the midline measuring up to 1.5 cm in diameter. A small amount of ascites extends with the fatty tissue in the subcutaneous fat.. PELVIS: Genitourinary: Bladder wall thickness is normal. Miscellaneous: No inguinal hernias or adenopathy. Relatively prominent atherosclerotic calcifications of the abdominal aorta and its main branches are seen through the pelvis. Body wall anasarca is moderately severe. Bones: No suspicious bony lesions. No vertebral body compression fractures. IMPRESSION: 1. Cardiomegaly, pacemaking device and leads are noted, partially visualized. Bibasilar moderate pleural effusions with adjacent atelectasis. No suspected pneumonia found. 2. Throughout the chest abdomen and pelvis there is body wall anasarca that becomes progressively more prominent more inferiorly. The pleural effusions and ascites presents appear simple and free-flowing but the likely cause is considered cardiogenic in origin overall. 3. Atherosclerotic calcifications are prominent through the abdominal aorta and its branches but no aneurysm or occlusion is found. 4. Through the abdomen and pelvis no area of peritoneal or retroperitoneal hemorrhage is found. Through the visualized colon no hematoma is identified. Dictated by: Xavier Jang M.D. on 02/25/2018 at 17:14 ECG Data Attestation: I personally reviewed and interpreted this ECG as follows: Prior ECG tracings: available for review Interpretation: Paced rhythm rate 1001 similar to previous EKGs no changes MDM Narrative Medical decision making narrative: The patient's biggest complaint is abdominal pain. His with mild movement he does have some difficulty breathing and does require 1-2 L of oxygen. BNP is significantly elevated at 1200 at any is diffuse anasarca and edema. This is likely CHF. Patient was complaining of vomiting and he is trace we positive in his stool. However his hemoglobin is the same as it has been previously and seems stable. CHF seems to be the cause of his abdominal pain and swelling. I spoke with , updated on patient's symptoms and test results agrees to admit patient. Patient has not yet urinated with 80 of Lasix. Patient's PCP is Dr. Elliott I have called and discussed this with Dr. Blackwell patient is to be admitted to the hospitalist service Discharge Plan Departure Patient Disposition: Admitted As Inpatient Clinical Impression: Acute CHF Discharge Date/Time: 02/25/18 19:50 Interventions: ED Discharge Assessment Last Done: 02/25/18 19:18 Admit Date/Time: 02/25/18 19:03 Admit Provider: Juliana Bueno
--- NOTE | 2018-02-25 17:35 | ED_ITS ---
HPI - Abdominal Pain General Chief Complaint: Abdominal Pain Stated Complaint: NO CONTROL BOWEL MOVEMENT RECTAL BLEEDING Time Seen by Provider: 02/25/18 15:38 Source: patient Mode of arrival: wheelchair Limitations: no limitations History of Present Illness HPI narrative: Patient is a 72-year-old male who presents with abdominal pain. He states his he has had worsening abdominal pain today he vomited before he got here he said it was brown. He was admitted for CHF exacerbation January 26 through the . He says over the past few days he has had increased swelling all over his extremities and abdomen. He denies any worsening shortness of breath his breathing has been an ongoing problem for some time. He feels like it might be a little worse today. He also says that he had some very black stool today and he does have a history of colon cancer. However he is in extreme pain in his abdomen and feels nauseated. MD complaint: abdominal pain Related Data Home Medications Medication Instructions Recorded Confirmed [id number] 1 tab PO DAILY 10/11/17 02/25/18 [Centrum Silver] benzonatate 100 mg PO TID PRN 01/26/18 02/25/18 sennosides 8.6 mg PO DAILY PRN 01/26/18 02/25/18 Previous Rx's Medication Instructions Recorded calcium carbonate 500 mg calcium 500 mg PO BID #180 tab 11/01/17 (1,250 mg) tablet cyanocobalamin (vitamin B-12) 1,000 mcg PO DAILY #90 cap 11/01/17 1,000 mcg capsule omega 4-[id number]-fish oil 100 1 cap PO BID #60 cap 11/30/17 mg-160 mg-1,000 mg capsule acetaminophen 500 mg tablet 1,000 mg PO Q6H PRN 30 Days #240 02/07/18 tab albuterol sulfate HFA 90 1 puff INHALATION Q4-6H PRN #6.7 02/07/18 mcg/actuation aerosol inhaler gram aspirin 81 mg chewable tablet 81 mg PO DAILY #90 tab 02/07/18 atorvastatin 80 mg tablet 80 mg PO DAILY #90 tab 02/07/18 digoxin 250 mcg tablet 0.125 mg PO DAILY #45 tab 02/07/18 ipratropium bromide 17 1 puff INHALATION QID #12.9 gram 02/07/18 mcg/actuation HFA aerosol inhaler lisinopril 10 mg tablet 10 mg PO BID #180 tab 02/07/18 metoprolol succinate ER 25 mg 25 mg PO BID #180 tab 02/07/18 tablet,extended release 24 hr torsemide 20 mg tablet 40 mg PO BID #360 tab 02/07/18 budesonide-formoterol HFA 80 2 puff INHALATION BID #6.9 gram 02/25/18 mcg-4.5 mcg/actuation aerosol inhaler Allergies Allergy/AdvReac Type Severity Reaction Status Date / Time egg Allergy Verified 02/25/18 15:33 polyethylene glycol Allergy Verified 02/25/18 15:33 [From Golytely] polyethylene glycol 3350 Allergy Verified 02/25/18 15:33 [From Golytely] potassium chloride Allergy Verified 02/25/18 15:33 [From Golytely] sodium [From Golytely] Allergy Swelling Verified 02/25/18 15:33 of Lip/Tongue/Throat sodium bicarbonate Allergy Verified 02/25/18 15:33 [From Golytely] sodium chloride Allergy Verified 02/25/18 15:33 [From Golytely] sodium sulfate Allergy Verified 02/25/18 15:33 [From Golytely] Review of Systems Review of Systems All systems reviewed & are unremarkable except as noted in HPI and below Constitutional Denies chills, Denies fever(s), Denies lethargy and Denies weakness Cardiovascular Denies dyspnea and Denies dyspnea on exertion Comments: Extensive cardiac history coronary artery disease, CABG, CHF Respiratory Denies cough, Denies dyspnea, Denies dyspnea on exertion and Denies wheezing Gastrointestinal Gastrointestinal: Denies melena, Reports diarrhea (Dark) and Reports vomiting Genitourinary Denies hematuria, Denies flank pain, Denies urinary incontinence and Denies urinary urgency Integumentary/Breasts Comments: Diffuse edema Neurologic Denies weakness Allergic/Immunologic Denies wheezing [facility] Medical History Essential hypertension (Chronic) Arrhythmia (Chronic) History of prostate cancer (Chronic) History of colon cancer (Chronic) History of pancreatic cancer (Chronic) Hematoma of abdominal wall (Acute) Coronary artery disease (Chronic) Hyperlipidemia (Chronic) CAD (coronary artery disease) (Acute) COPD (chronic obstructive pulmonary disease) (Acute) Fracture of nasal bones (Acute) HTN (hypertension) (Acute) Hyperlipidemia (Acute) Myocardial infarction greater than 8 weeks ago (Acute) Surgical History AICD (automatic cardioverter/defibrillator) present (Acute) History of hernia repair (Acute) Hx of CABG (Acute) Family History: Reviewed 02/25/18 by JOHANNA Walker Social History household members: family Smoking Status: Former smoker alcohol intake: former Exam Initial Vital Signs Initial Vital Signs: Vital Signs Temperature 97.5 F L 02/25/18 15:30 Pulse Rate 105 H 02/25/18 15:30 Respiratory Rate 24 02/25/18 15:30 Blood Pressure 124/73 02/25/18 15:30 Pulse Oximetry 96 02/25/18 15:30 GENERAL: Chronically-ill male, appears in pain HEENT: Head atraumatic,EOMI, pupils reactive, CARDIOVASCULAR: Regular rate and rhythm without murmurs, rubs or gallops. RESPIRATORY: Breath sounds equal bilaterally, no wheezes rales or rhonchi. ABDOMEN: Soft extremely tender skin is very tight RECTAL: Trace positive, dark no gross blood : No CVA tenderness EXTREMITIES: Edema +3 all extremities very tight skin NEUROLOGICAL: Alert and oriented x4.Normal gait and speech. SKIN: Warm, dry, no laceration, no petechiae, no rashes or lesions. Course Orders Ordered: ED Orders 02/26/18 Gastric Occult with pH Routine 02/26/18 05:21 Complete Blood Count AUTO DIFF DAILY Comprehensive Metabolic Panel DAILY Digoxin Routine Magnesium DAILY Phosphorous DAILY 02/26/18 07:00 XR chest 1V Routine Acetaminophen (Tylenol) 650 mg PO Q6HR PRN PRN Reason: As Needed for Fever/Mild Pain Albuterol/Ipratropium (Duoneb) 3 ml INH RTQ6HR JULITA Last Admin: 02/26/18 02:08 Dose: 3 ml Bisacodyl (Dulcolax) 10 mg PO DAILY PRN PRN Reason: Constipation Bumetanide (Bumex) 1 mg IV Q8H JULITA Stop: 02/26/18 15:31 Calcium Carbonate (Tums) 1,000 mg PO Q4HR PRN PRN Reason: Dyspepsia Last Admin: 02/25/18 19:53 Dose: 1,000 mg Digoxin (Lanoxin) 0.125 mg PO DAILY [facility] Morphine Sulfate (Morphine) 2 mg IV Q4HR PRN PRN Reason: Pain, Moderate (4-6) Last Admin: 02/26/18 06:36 Dose: 2 mg Admin: 02/26/18 02:34 Dose: 2 mg Admin: 02/25/18 22:15 Dose: 2 mg Ondansetron HCl (Zofran) 4 mg IV Q6H [facility] Pantoprazole Sodium (Protonix) 40 mg IV BID [facility] Last Admin: 02/25/18 22:44 Dose: 40 mg Prochlorperazine (Compazine) 5 mg IV Q6HR PRN PRN Reason: Nausea Fluticasone/Salmeterol (Advair 250/50 Diskus) 1 puff INH RTBID [facility] Sodium Chloride (Normal Saline 0.9% Flush) 10 ml IV PRN PRN PRN Reason: Flush Last Admin: 02/26/18 06:37 Dose: 10 ml Admin: 02/26/18 02:34 Dose: 10 ml Admin: 02/25/18 23:22 Dose: 10 ml Sodium Chloride (Normal Saline 0.9% Flush) 10 ml IV BID [facility] Discontinued Medications Aspirin (Aspirin Chew) 324 mg PO NOW ONE Stop: 02/25/18 15:43 Last Admin: 02/25/18 16:56 Dose: Bumetanide (Bumex) 1 mg IV Q8H [facility] Stop: 02/26/18 13:31 Last Admin: 02/25/18 23:22 Dose: 1 mg Furosemide (Lasix) 80 mg IV NOW ONE Stop: 02/25/18 16:38 Last Admin: 02/25/18 17:01 Dose: 80 mg Furosemide (Lasix) 40 mg IV DAILY [facility] Heparin Sodium (Porcine) (Heparin) 5,000 unit SUBCUT BID [facility] Last Admin: 02/25/18 21:09 Dose: 5,000 unit Magnesium Hydroxide (Milk Of Magnesia) 30 ml PO DAILY PRN PRN Reason: Constipation Ondansetron HCl (Zofran) 4 mg IV Q8HR PRN PRN Reason: Nausea And Vomiting Last Admin: 02/25/18 19:24 Dose: 4 mg Ondansetron HCl (Zofran) 4 mg IV Q6HR [facility] Last Admin: 02/26/18 02:34 Dose: 4 mg Pantoprazole Sodium (Protonix) 20 mg PO 0600 [facility] Vital Signs - 8 hr 02/25/18 23:30 02/25/18 23:31 02/26/18 02:08 Temperature 98.8 F Pulse Rate 102 H 106 H Respiratory Rate 22 22 Blood Pressure 121/68 Pulse Oximetry 98 97 97 02/26/18 04:01 02/26/18 05:55 Temperature 98.1 F Pulse Rate 101 H Respiratory Rate 22 Blood Pressure 129/78 Pulse Oximetry 96 94 MDM - Abdominal Pain Medical Records Attestation: I reviewed the patient's medical records. Lab Data Attestation: I reviewed the patient's lab results. Result diagrams: 02/25/18 20:35 02/26/18 05:21 Lab Results 02/25/18 02/25/18 02/25/18 Range/Units 15:55 15:55 15:55 WBC 9.4 (4.5-11.0) X10^3/uL RBC 5.02 (4.5-5.9) X10^6/uL Hgb 9.5 L (13.5-17.5) g/dL Hct 32.9 L (41-53) % MCV 65.6 L (80-100) fL MCH 19.0 L (26-34) PG MCHC 29.0 L (30-36) % RDW 19.4 H (11.6-14.8) % Plt Count 284 (150-400) X10^3/uL Neut % (Auto) 74.9 (50-75) % Lymph % (Auto) 17.8 L (25-40) % [place] % (Auto) 6.8 (3-14) % Eos % (Auto) 0.0 L (2-4) % Baso % (Auto) 0.5 (0-2) % Neut # (Auto) 7000 H (7982-6796) /uL RBC Morphology Not Reportable Hypochromasia 3+ H Poikilocytosis 3+ H Anisocytosis 2+ H Microcytosis 3+ H Sodium 140 (137-145) mmol/L Potassium 5.6 H (3.4-5.1) mmol/L Chloride 103 (98-107) mmol/L Carbon Dioxide 21 L (22-32) mmol/L BUN 30 H (9-20) mg/dL Creatinine 1.60 H (0.66-1.25) mg/dL Estimated GFR 42.5 L (>60) mL/min BUN/Creatinine Ratio 18.8 (6-22) Glucose 95 (80-110) mg/dL Lactate 3.7 H (0.7-2.1) mmol/L Calcium 9.7 (8.4-10.2) mg/dL Phosphorus (2.3-3.7) mg/dL Magnesium (1.6-2.3) mg/dL Total Bilirubin 1.4 H (0.2-1.3) mg/dL AST 95 H (17-59) IU/L ALT 84 H (21-72) IU/L Alkaline Phosphatase 177 H (38-126) U/L Total Creatine Kinase 104 (55-170) U/L CK-MB (CK-2) 3.11 H (<2.37) ng/mL CK-MB (CK-2) Rel Index 3.0 (1.5-5.0) % Troponin I 0.028 (0.01-0.034) ng/mL B-Natriuretic Peptide (<100) Total Protein 7.6 (6.3-8.2) g/dL Albumin 4.3 (3.5-5.0) g/dL Globulin 3.3 (1.7-4.1) g/dL Albumin/Globulin Ratio 1.3 (1.0-2.8) Triglycerides (35-150) mg/dL Cholesterol (140-199) mg/dL LDL Cholesterol, Calc (<100) mg/dL HDL Cholesterol (40-60) mg/dL Lipase 63 (23-300) U/L Digoxin (0.8-2.0) ng/mL 02/25/18 02/25/18 02/25/18 Range/Units 15:55 16:11 20:35 WBC (4.5-11.0) X10^3/uL RBC (4.5-5.9) X10^6/uL Hgb (13.5-17.5) g/dL Hct (41-53) % MCV (80-100) fL MCH (26-34) PG MCHC (30-36) % RDW (11.6-14.8) % Plt Count (150-400) X10^3/uL Neut % (Auto) (50-75) % Lymph % (Auto) (25-40) % [place] % (Auto) (3-14) % Eos % (Auto) (2-4) % Baso % (Auto) (0-2) % Neut # (Auto) (0541-0350) /uL RBC Morphology Hypochromasia Poikilocytosis Anisocytosis Microcytosis Sodium (137-145) mmol/L Potassium (3.4-5.1) mmol/L Chloride (98-107) mmol/L Carbon Dioxide (22-32) mmol/L BUN (9-20) mg/dL Creatinine (0.66-1.25) mg/dL Estimated GFR (>60) mL/min BUN/Creatinine Ratio (6-22) Glucose (80-110) mg/dL Lactate 3.3 H (0.7-2.1) mmol/L Calcium (8.4-10.2) mg/dL Phosphorus (2.3-3.7) mg/dL Magnesium (1.6-2.3) mg/dL Total Bilirubin (0.2-1.3) mg/dL AST (17-59) IU/L ALT (21-72) IU/L Alkaline Phosphatase (38-126) U/L Total Creatine Kinase (55-170) U/L CK-MB (CK-2) (<2.37) ng/mL CK-MB (CK-2) Rel Index (1.5-5.0) % Troponin I (0.01-0.034) ng/mL B-Natriuretic Peptide 1200.0 H (<100) Total Protein (6.3-8.2) g/dL Albumin (3.5-5.0) g/dL Globulin (1.7-4.1) g/dL Albumin/Globulin Ratio (1.0-2.8) Triglycerides 71 (35-150) mg/dL Cholesterol 124 L (140-199) mg/dL LDL Cholesterol, Calc 62 (<100) mg/dL HDL Cholesterol 48 (40-60) mg/dL Lipase (23-300) U/L Digoxin (0.8-2.0) ng/mL 02/25/18 02/25/18 02/26/18 Range/Units 20:35 20:35 05:21 WBC (4.5-11.0) X10^3/uL RBC (4.5-5.9) X10^6/uL Hgb 9.3 L (13.5-17.5) g/dL Hct (41-53) % MCV (80-100) fL MCH (26-34) PG MCHC (30-36) % RDW (11.6-14.8) % Plt Count (150-400) X10^3/uL Neut % (Auto) (50-75) % Lymph % (Auto) (25-40) % [place] % (Auto) (3-14) % Eos % (Auto) (2-4) % Baso % (Auto) (0-2) % Neut # (Auto) (8453-4716) /uL RBC Morphology Hypochromasia Poikilocytosis Anisocytosis Microcytosis Sodium (137-145) mmol/L Potassium 5.4 H (3.4-5.1) mmol/L Chloride (98-107) mmol/L Carbon Dioxide (22-32) mmol/L BUN (9-20) mg/dL Creatinine (0.66-1.25) mg/dL Estimated GFR (>60) mL/min BUN/Creatinine Ratio (6-22) Glucose (80-110) mg/dL Lactate (0.7-2.1) mmol/L Calcium (8.4-10.2) mg/dL Phosphorus (2.3-3.7) mg/dL Magnesium (1.6-2.3) mg/dL Total Bilirubin (0.2-1.3) mg/dL AST (17-59) IU/L ALT (21-72) IU/L Alkaline Phosphatase (38-126) U/L Total Creatine Kinase (55-170) U/L CK-MB (CK-2) (<2.37) ng/mL CK-MB (CK-2) Rel Index (1.5-5.0) % Troponin I (0.01-0.034) ng/mL B-Natriuretic Peptide (<100) Total Protein (6.3-8.2) g/dL Albumin (3.5-5.0) g/dL Globulin (1.7-4.1) g/dL Albumin/Globulin Ratio (1.0-2.8) Triglycerides (35-150) mg/dL Cholesterol (140-199) mg/dL LDL Cholesterol, Calc (<100) mg/dL HDL Cholesterol (40-60) mg/dL Lipase (23-300) U/L Digoxin 0.4 L (0.8-2.0) ng/mL 02/26/18 Range/Units 05:21 WBC (4.5-11.0) X10^3/uL RBC (4.5-5.9) X10^6/uL Hgb (13.5-17.5) g/dL Hct (41-53) % MCV (80-100) fL MCH (26-34) PG MCHC (30-36) % RDW (11.6-14.8) % Plt Count (150-400) X10^3/uL Neut % (Auto) (50-75) % Lymph % (Auto) (25-40) % [place] % (Auto) (3-14) % Eos % (Auto) (2-4) % Baso % (Auto) (0-2) % Neut # (Auto) (8393-8262) /uL RBC Morphology Hypochromasia Poikilocytosis Anisocytosis Microcytosis Sodium 138 (137-145) mmol/L Potassium 5.4 H (3.4-5.1) mmol/L Chloride 102 (98-107) mmol/L Carbon Dioxide 19 L (22-32) mmol/L BUN 38 H (9-20) mg/dL Creatinine 1.80 H (0.66-1.25) mg/dL Estimated GFR 37.1 L (>60) mL/min BUN/Creatinine Ratio 21.1 (6-22) Glucose 107 (80-110) mg/dL Lactate (0.7-2.1) mmol/L Calcium 9.4 (8.4-10.2) mg/dL Phosphorus 6.1 H (2.3-3.7) mg/dL Magnesium 2.3 (1.6-2.3) mg/dL Total Bilirubin 1.1 (0.2-1.3) mg/dL AST 308 H (17-59) IU/L ALT 271 H (21-72) IU/L Alkaline Phosphatase 147 H (38-126) U/L Total Creatine Kinase (55-170) U/L CK-MB (CK-2) (<2.37) ng/mL CK-MB (CK-2) Rel Index (1.5-5.0) % Troponin I (0.01-0.034) ng/mL B-Natriuretic Peptide (<100) Total Protein 7.0 (6.3-8.2) g/dL Albumin 3.9 (3.5-5.0) g/dL Globulin 3.1 (1.7-4.1) g/dL Albumin/Globulin Ratio 1.3 (1.0-2.8) Triglycerides (35-150) mg/dL Cholesterol (140-199) mg/dL LDL Cholesterol, Calc (<100) mg/dL HDL Cholesterol (40-60) mg/dL Lipase (23-300) U/L Digoxin (0.8-2.0) ng/mL Point of care testing: Urine Dip Bedside Urine Glucose Negative Bedside Urine Bilirubin - Negative Bedside Urine Ketone - Negative Urine Specific [place] 1.020 Bedside Urine Occult Blood - Negative Bedside Urine pH 6.0 Bedside Urine Protein +/- 15 Bedside Urine Urobilinogen - Negative Bedside Urine Nitrite - Negative Bedside Urine Leukocytes - Negative Esterase Imaging Data Chest x-ray: Radiologist's impression: PROCEDURE: XR CHEST 1V INDICATIONS: chest pain TECHNIQUE: One view of the chest was acquired. COMPARISON: [facility], , XR CHEST 1V, 01/26/2018, 5:29. FINDINGS: Surgical changes and devices: Left chest wall AICD is stable. Postsurgical changes compatible prior CABG procedure. Lungs and pleura: No pleural pneumothorax. Trace bilateral pleural effusions. Cephalization of pulmonary vasculature interstitial prominence noted consistent with CHF. Mediastinum: Mediastinal contours appear normal. Heart size is enlarged. Bones and chest wall: No suspicious bony lesions. Overlying soft tissues appear unremarkable. IMPRESSION: 1. CHF. 2. Cardiomegaly. 3. Trace bilateral pleural effusions. Dictated by: Sophia Alan MD, PhD on 02/25/2018 at 16:04 CT scan - abdomen: Radiologist's impression: PROCEDURE: CT ABDOMEN PELVIS W CON INDICATIONS: Lower abdominal pain. Vomitting. Bloody stools TECHNIQUE: After the administration of intravenous contrast, 5 mm thick sections acquired from the diaphragm to the symphysis. 5 mm coronal and sagittal reformats were acquired. For radiation dose reduction, the following was used: automated exposure control, adjustment of mA and/or kV according to patient size. COMPARISON: None. FINDINGS: Image quality: Excellent. ABDOMEN: Lung bases: Lung bases are abnormal with bibasilar atelectasis associated with moderate-sized bilateral pleural effusions. Heart size is globally enlarged and what appears to be multiple cardiac pacemaking leads are present. Body wall anasarca is mild over the lower chest. Solid organs: Liver is normal in size and enhancement. Gallbladder appears partially contracted. Biliary system is non dilated. Pancreas enhances normally. Spleen is normal in size and enhancement. No adrenal nodules. Kidneys demonstrate normal size and enhancement, without hydronephrosis. The renal artery calcification is present bilaterally, but no definite urinary tract stone is associated. Note is made of relatively prominent aortic and side branch atherosclerotic calcifications, without occlusion. Peritoneum and bowel: Bowel loops demonstrate normal wall thickness and caliber. No free air. There is a mild amount of ascites in the peritoneal space of the abdomen best seen in the perihepatic and perisplenic spaces, superiorly. Body wall anasarca is present, moderate in severity. Nodes and vessels: No retroperitoneal or mesenteric adenopathy by size criteria. Aorta and inferior vena cava are normal in size. Miscellaneous: There is a ventral midline fat containing omental hernia through a defect in the rectus sheath at the midline measuring up to 1.5 cm in diameter. A small amount of ascites extends with the fatty tissue in the subcutaneous fat.. PELVIS: Genitourinary: Bladder wall thickness is normal. Miscellaneous: No inguinal hernias or adenopathy. Relatively prominent atherosclerotic calcifications of the abdominal aorta and its main branches are seen through the pelvis. Body wall anasarca is moderately severe. Bones: No suspicious bony lesions. No vertebral body compression fractures. IMPRESSION: 1. Cardiomegaly, pacemaking device and leads are noted, partially visualized. Bibasilar moderate pleural effusions with adjacent atelectasis. No suspected pneumonia found. 2. Throughout the chest abdomen and pelvis there is body wall anasarca that becomes progressively more prominent more inferiorly. The pleural effusions and ascites presents appear simple and free-flowing but the likely cause is considered cardiogenic in origin overall. 3. Atherosclerotic calcifications are prominent through the abdominal aorta and its branches but no aneurysm or occlusion is found. 4. Through the abdomen and pelvis no area of peritoneal or retroperitoneal hemorrhage is found. Through the visualized colon no hematoma is identified. Dictated by: Xavier Jang M.D. on 02/25/2018 at 17:14 ECG Data Attestation: I personally reviewed and interpreted this ECG as follows: Prior ECG tracings: available for review Interpretation: Paced rhythm rate 1001 similar to previous EKGs no changes MDM Narrative Medical decision making narrative: The patient's biggest complaint is abdominal pain. His with mild movement he does have some difficulty breathing and does require 1-2 L of oxygen. BNP is significantly elevated at 1200 at any is diffuse anasarca and edema. This is likely CHF. Patient was complaining of vomiting and he is trace we positive in his stool. However his hemoglobin is the same as it has been previously and seems stable. CHF seems to be the cause of his abdominal pain and swelling. I spoke with , updated on patient's symptoms and test results agrees to admit patient. Patient has not yet urinated with 80 of Lasix. Patient's PCP is Dr. Elliott I have called and discussed this with Dr. Blackwell patient is to be admitted to the hospitalist service Discharge Plan Departure Patient Disposition: Admitted As Inpatient Clinical Impression: Acute CHF Discharge Date/Time: 02/25/18 19:50 Interventions: ED Discharge Assessment Last Done: 02/25/18 19:18 Admit Date/Time: 02/25/18 19:03 Admit Provider: Juliana Bueno
[2018-02-25 18:47] LABS: Cholesterol 124 mg/dL (140-199); HDL Cholesterol 48 mg/dL (40-60); LDL Cholesterol Calculated 62 mg/dL (<100); Triglycerides 71 mg/dL (35-150)
[2018-02-25] MEDS: ONDANSETRON 4 MG/2 ML INJ IV (19:24)
--- NOTE | 2018-02-25 19:32 | PC.NURSE ---
Pt c/o nausea and vomiting small amts bilous secretions. 4 mg zofran given per order. Pt assisted to void 200ml urine. Pt states he's ready to transfer upstairs. [facility] at bedside for transport.
[2018-02-25] MEDS: CALCIUM CARBONATE 500 MG TAB 1000 MG PO (19:53)
--- NOTE | 2018-02-25 20:00 | PM.HP.1 ---
History of Present Illness Date Patient Seen: 02/25/18 Chief complaint: vomiting blood Narrative: The patient is a 72 yo male. PMH significant for HTN, CAD (h/o [place], CABG 35 yrs ago), cardiomyopathy, HFrEF 30-35%, AFIB, PPM / AICD ([facility]), HLD, h/o prostate ca (h/o radiation and chemo, last tx 1 yr ago), COPD (not O2 dependent), JOSE ANTONIO (not on CPAP), CKD III, prior tobacco dependence (quit 01/2016), and h/o alcoholism. There is colon and pancreatic cancer noted and patient's history; however, patient denies knowledge about the aforementioned neoplasms. Presented to the ED on 02/25/2018 out of concern for hematemesis. Symptoms initially presented on the evening of 02/24/2018. Since initial onset, patient reports 30 episodes of coffee ground emesis. Associated symptoms include 1 episode of melena, anasarca (reports edema of abdomen, groin, and lower extremities), cough w/o purulence, exertional dyspnea (worsening over 2 months), orthopnea, 1 episode of subjective chills (sunday), nausea, dysuria, and decrease in urine output. Patient localized abdominal pain to b/l lower quadrants of the abdomen. Describes discomfort as tender and pressure like. There is no radiation to the back, flank, groin or lower extremities. Reports discomfort to be worse after eating. Denies presence of diarrhea. Known to have baseline constipation. Denies fever, chest pain, pleurisy, dizziness, lightheadedness, syncopal events, PND, claudication, myalgia, or new bruising. Patient was recently hospitalized 01/26 to 01/30 for CHF exacerbation, at discharge his lisinopril was increased to 10 mg QD. He has gained at least 3 kg since most recent hospital discharge. Admitting weight 103 kg. ED workup Hgb 9.5 Plt 284 Na 140 K 5.6 Cl 103 CO2 21 Lactate 3.7 BUN 30 sCr 1.6 Trop 0.028 BNP 1200 Bili 1.4 AST 95 ALT 84 Alk Phos 177 CXR w/findings of cardiomegaly, trace b/l pleural effusion, interstitial prominence CT of A/P revealed cardiomegaly, bibasilar moderate pleural effusions, no suspicion for pneumonia; body wall anasarca, pleural effusions and ascites, no findings of peritoneal retroperitoneal hemorrhage, no hematoma through the visualized colon; atherosclerotic calcifications prominent through the abdominal aorta and its branches, no aneurysm or occlusion found; no peritoneal or retroperitoneal hemorrhage found through the abdomen and pelvis, no hematoma identified through the visualized colon In ED received 120 mg of furosemide, ASA 324 Patient History Medical History Essential hypertension (Chronic) Arrhythmia (Chronic) History of prostate cancer (Chronic) History of colon cancer (Chronic) History of pancreatic cancer (Chronic) Hematoma of abdominal wall (Acute) Coronary artery disease (Chronic) Hyperlipidemia (Chronic) CAD (coronary artery disease) (Acute) COPD (chronic obstructive pulmonary disease) (Acute) Fracture of nasal bones (Acute) HTN (hypertension) (Acute) Hyperlipidemia (Acute) Myocardial infarction greater than 8 weeks ago (Acute) Surgical History AICD (automatic cardioverter/defibrillator) present (Acute) History of hernia repair (Acute) Hx of CABG (Acute) Family & Social History Family History: Reviewed 02/25/18 by JOHANNA Walker Social History: Patient reports that he relocated to [place], [place] 4 months ago from [place]. Patient's brother resides in the area. Safety & Behavioral: Feels Safe in Current Yes Environment Been Physically Hurt or No Threatened By a Person Tobacco & Substance use: Smoking Status Former smoker 63 year h/o tobacco dependence, up to 2 ppd, quit Dec 2017 alcohol intake Former h/o of alcoholism Reports h/o heavy alcohol use / abuse (duration: 6 yrs total by report), quit 1964 Denies current alcohol use Substance Use Type Denies prior current use Meds Home Medications Medication Instructions Recorded Confirmed Type [id number]-lycopen-lutein 1 tab PO DAILY 10/11/17 02/25/18 History [Centrum Silver] calcium carbonate 500 mg calcium 500 mg PO BID #180 tab 11/01/17 02/25/18 Rx (1,250 mg) tablet cyanocobalamin (vitamin B-12) 1,000 mcg PO DAILY #90 cap 11/01/17 02/25/18 Rx 1,000 mcg capsule omega 5-blv-wcg-fish oil 100 1 cap PO BID #60 cap 11/30/17 02/25/18 Rx mg-160 mg-1,000 mg capsule benzonatate 100 mg PO TID PRN 01/26/18 02/25/18 History sennosides 8.6 mg PO DAILY PRN 01/26/18 02/25/18 History acetaminophen 500 mg tablet 1,000 mg PO Q6H PRN 30 Days #240 02/07/18 02/25/18 Rx tab albuterol sulfate HFA 90 1 puff INHALATION Q4-6H PRN #6.7 02/07/18 02/25/18 Rx mcg/actuation aerosol inhaler gram aspirin 81 mg chewable tablet 81 mg PO DAILY #90 tab 02/07/18 02/25/18 Rx atorvastatin 80 mg tablet 80 mg PO DAILY #90 tab 02/07/18 02/25/18 Rx digoxin 250 mcg tablet 0.125 mg PO DAILY #45 tab 02/07/18 02/25/18 Rx ipratropium bromide 17 1 puff INHALATION QID #12.9 gram 02/07/18 02/25/18 Rx mcg/actuation HFA aerosol inhaler lisinopril 10 mg tablet 10 mg PO BID #180 tab 02/07/18 02/25/18 Rx metoprolol succinate ER 25 mg 25 mg PO BID #180 tab 02/07/18 02/25/18 Rx tablet,extended release 24 hr torsemide 20 mg tablet 40 mg PO BID #360 tab 02/07/18 02/25/18 Rx budesonide-formoterol HFA 80 2 puff INHALATION BID #6.9 gram 02/25/18 Rx mcg-4.5 mcg/actuation aerosol inhaler Allergies Allergy/AdvReac Type Severity Reaction Status Date / Time egg Allergy Verified 02/25/18 15:33 polyethylene glycol Allergy Verified 02/25/18 15:33 [From Gol[employer]ely] polyethylene glycol 3350 Allergy Verified 02/25/18 15:33 [From [employer]] potassium chloride Allergy Verified 02/25/18 15:33 [From Golytely] sodium [From Golytely] Allergy Swelling Verified 02/25/18 15:33 of Lip/Tongue/Throat sodium bicarbonate Allergy Verified 02/25/18 15:33 [From [employer]ytely] sodium chloride Allergy Verified 02/25/18 15:33 [From Golytely] sodium sulfate Allergy Verified 02/25/18 15:33 [From [employer]] Review of Systems Review of Systems All systems reviewed & are unremarkable except as noted in HPI and below Exam Vital Signs (past 8 hours): - 02/25/18 15:30 02/25/18 16:11 02/25/18 17:12 Temperature 97.5 F L Pulse Rate 105 H 101 H 103 H Respiratory Rate 24 27 H 28 H Blood Pressure 124/73 Blood Pressure [Right Arm] 140/74 120/78 Pulse Oximetry 96 100 100 02/25/18 17:49 02/25/18 18:16 02/25/18 18:58 Temperature Pulse Rate 100 H 71 102 H Respiratory Rate 20 16 19 Blood Pressure Blood Pressure [Right Arm] 126/85 114/64 114/63 Pulse Oximetry 100 95 99 02/25/18 19:18 02/25/18 19:35 Temperature 97.5 F L Pulse Rate 100 H 108 H Respiratory Rate 19 24 Blood Pressure 117/64 116/67 Blood Pressure [Right Arm] Pulse Oximetry 100 98 Oxygen Delivery Method Room Air Oxygen Flow Rate 0 Narrative Exam Narrative: Constitutional: mild-moderate respitory distress Neurologic: AOx3, impaired aspects of both short and fci memory recall, no tremor, no focal deficits Head: NC, AT Eyes: Pupils equal and reactive, gaze conjugate Ears: external ears normal, no otorrhea Nose: external nose normal, no rhinorrhea or epistaxis Throat: MMM, oropharynx w/o exudate Neck: no masses, lymphadenopathy, or JVD Chest / Respiratory: equal chest rise, tachypneic at rest, dyspneic with exertion and while conversing Poor air flow in all lung ballard, no wheezing or other adventitious breath sounds, diffuse crackles throughout Heart / CV: S1S2, ectopic beats present, no murmur, left upper chest AICD palpated Abdomen / GI: round, tenderness to palpation b/l lower quadrants of the abdomen, abdomen with mild to moderate distension, abdominal swelling noted, : no CVA, scrotal edema Peripheral / Vascular: cool to touch, DP pulses palpable b/l, edema 2+, pitting, extends from thighs downward; sensation intact Musc: full ROM of upper and lower extremities, adequate muscle tone and bulk Skin: no ecchymosis or suspicious lesions Objective Labs Result Diagrams: 02/25/18 20:35 02/25/18 20:35 Labs: Laboratory Results - last 24 hr 02/25/18 02/25/18 02/25/18 15:55 15:55 15:55 WBC 9.4 RBC 5.02 Hgb 9.5 L Hct 32.9 L MCV 65.6 L MCH 19.0 L MCHC 29.0 L RDW 19.4 H Plt Count 284 Neut % (Auto) 74.9 Lymph % (Auto) 17.8 L [place] % (Auto) 6.8 Eos % (Auto) 0.0 L Baso % (Auto) 0.5 Neut # (Auto) 7000 H RBC Morphology Not Reportable Hypochromasia 3+ H Poikilocytosis 3+ H Anisocytosis 2+ H Microcytosis 3+ H Sodium 140 Potassium 5.6 H Chloride 103 Carbon Dioxide 21 L BUN 30 H Creatinine 1.60 H Estimated GFR 42.5 L BUN/Creatinine Ratio 18.8 Glucose 95 Lactate 3.7 H Calcium 9.7 Total Bilirubin 1.4 H AST 95 H ALT 84 H Alkaline Phosphatase 177 H Total Creatine Kinase 104 CK-MB (CK-2) 3.11 H CK-MB (CK-2) Rel Index 3.0 Troponin I 0.028 B-Natriuretic Peptide Total Protein 7.6 Albumin 4.3 Globulin 3.3 Albumin/Globulin Ratio 1.3 Triglycerides Cholesterol LDL Cholesterol, Calc HDL Cholesterol Lipase 63 02/25/18 02/25/18 15:55 16:11 WBC RBC Hgb Hct MCV MCH MCHC RDW Plt Count Neut % (Auto) Lymph % (Auto) [place] % (Auto) Eos % (Auto) Baso % (Auto) Neut # (Auto) RBC Morphology Hypochromasia Poikilocytosis Anisocytosis Microcytosis Sodium Potassium Chloride Carbon Dioxide BUN Creatinine Estimated GFR BUN/Creatinine Ratio Glucose Lactate Calcium Total Bilirubin AST ALT Alkaline Phosphatase Total Creatine Kinase CK-MB (CK-2) CK-MB (CK-2) Rel Index Troponin I B-Natriuretic Peptide 1200.0 H Total Protein Albumin Globulin Albumin/Globulin Ratio Triglycerides 71 Cholesterol 124 L LDL Cholesterol, Calc 62 HDL Cholesterol 48 Lipase Assessment & Plan Plan: Assessment/Plan Narrative: Acute on chronic systolic heart failure (LVEF 30-35%) CXR: + cardiomegaly; trace b/l pleural effusions; interstitial prominence. BNP 1200. 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 IN TELLER on ACEi, BB, loop diuretic (torsemide 40 mg BID) - Bumex IV 1 mg IV Q8H x3 doses, then re-evaluate - Daily weight, strict I/O - Dietary modification 2 gm NA restriction 1.2 L/day fluid restriction - Trend renal fx (baseline sCr 1.5-1.7), 25% elevation from baseline is permissible w/ active diuresis - Resume DRIVE IN TELLER regimen of BB - Hold DRIVE IN TELLER ACEi at this time d/t hyperkalemia Hematemesis , having nausea and vomiting but no va blood observed since arrival to inpatient floor, Hgb stable - Protonix 40 mg BID - Check gastric occult Abdominal Pain CT A/P w/ contrast bibasilar atelectasis w/ moderate b/l pleural effusions, cardiomegaly, body wall anasarca (moderate severity); ascites (mild) in the peritoneal space; ventral hernia (1.5 cm); atherosclerosis of abdominal aorta w/o aneurysm or occlusion. Reports having a colonoscopy w/ polyp resection. In the past year reports having a GI bleed. Reports one episode of melena, since admission to the inpatient floor. - CT not revealing of a neoplasm - neoplasm can't be ruled out, consider further investigation Microcytic anemia Hgb 9.4 g/dL. Multiple episodes of hematemesis. Melena x1. - better DRIVE IN TELLER on ASA 81 mg daily. - Trend Hgb Q6H Acute Hyperkalemia K 5.4, DRIVE IN TELLER lisinopril dose was increased from 5 to 10 mg on Qct 31 - Hold lisinopril for now, repeat K level Cardiomyopathy, HFrEF 30-35%, AICD ([facility]) Note defibrillator discharging on February 10. Patient states that his settings were adjusted. Atrial Fibrillation - resume DRIVE IN TELLER regimen of metoprol and digoxin; holding lisinopril - digoxin level CAD w/ prior hx of CABG - DRIVE IN TELLER on ASA, BB, ACEi, and statin - ASA on hold d/t hematemesis, Lisinopril on hold for hyperkalemia COPD w/ acute exacerbation in the setting of fluid overload - supplemental oxygen, continuous pulse ox - patient on Symbicort, non formulary for the hospital, will place him on Advair instead while inpatient - DuoNeb treatments q.6 hours CKD Stage III, renal function at baseline (baseline sCr 1.5-1.7) H/O HTN, heart disease, now w/ anasarca - will monitor patient closely with active diuresis - avoid nephrotoxic agents, optimize renal perfusion - check UA for proteinuria Metabolic acidosis Multifactorial ... CHF exacerbation, hyperkalemia, moderate CKD, eleaved lactate, GI losses, COPD exacerbation - correct / improve underlying conditions - trend lactate
[2018-02-25 20:11] LABS: Reflexed Lactate in 2 Hours Y
--- NOTE | 2018-02-25 20:12 | P.HP_ITS ---
History of Present Illness Date Patient Seen: 02/25/18 Chief complaint: vomiting blood Narrative: The patient is a 72 yo male. PMH significant for HTN, CAD ( h/o CT, CABG 35 yrs ago), cardiomyopathy, HFrEF 30-35%, AFIB, PPM / AICD ([facility]), HLD, h/o prostate ca (h/o radiation and chemo, last tx 1 yr ago), COPD ( not O2 dependent), JOSE ANTONIO (not on CPAP), CKD III, prior tobacco dependence (quit ), and h/o alcoholism. There is colon and pancreatic cancer noted and patient's history; however, patient denies knowledge about the aforementioned neoplasms. Presented to the ED on 02/25/2018 out of concern for hematemesis. Symptoms initially presented on the evening of 02/24/2018. Since initial onset, patient reports 30 episodes of coffee ground emesis. Associated symptoms include 1 episode of melena, anasarca (reports edema of abdomen, groin, and lower extremities), cough w/o purulence, exertional dyspnea (worsening over 2 months) , orthopnea, 1 episode of subjective chills (sunday), nausea, dysuria, and decrease in urine output. Patient localized abdominal pain to b/l lower quadrants of the abdomen. Describes discomfort as tender and pressure like. There is no radiation to the back, flank, groin or lower extremities. Reports discomfort to be worse after eating. Denies presence of diarrhea. Known to have baseline constipation. Denies fever, chest pain, pleurisy, dizziness, lightheadedness, syncopal events, PND, claudication, myalgia, or new bruising. Patient was recently hospitalized 01/26 to 01/30 for CHF exacerbation, at discharge his lisinopril was increased to 10 mg QD. He has gained at least 3 kg since most recent hospital discharge. Admitting weight 103 kg. ED workup Hgb 9.5 Plt 284 Na 140 K 5.6 Cl 103 CO2 21 Lactate 3.7 BUN 30 sCr 1.6 Trop 0.028 BNP 1200 Bili 1.4 AST 95 ALT 84 Alk Phos 177 CXR w/findings of cardiomegaly, trace b/l pleural effusion, interstitial prominence CT of A/P revealed cardiomegaly, bibasilar moderate pleural effusions, no suspicion for pneumonia; body wall anasarca, pleural effusions and ascites, no findings of peritoneal retroperitoneal hemorrhage, no hematoma through the visualized colon; atherosclerotic calcifications prominent through the abdominal aorta and its branches, no aneurysm or occlusion found; no peritoneal or retroperitoneal hemorrhage found through the abdomen and pelvis, no hematoma identified through the visualized colon In ED received 120 mg of furosemide, ASA 324 Patient History Medical History Essential hypertension (Chronic) Arrhythmia (Chronic) History of prostate cancer (Chronic) History of colon cancer (Chronic) History of pancreatic cancer (Chronic) Hematoma of abdominal wall (Acute) Coronary artery disease (Chronic) Hyperlipidemia (Chronic) CAD (coronary artery disease) (Acute) COPD (chronic obstructive pulmonary disease) (Acute) Fracture of nasal bones (Acute) HTN (hypertension) (Acute) Hyperlipidemia (Acute) Myocardial infarction greater than 8 weeks ago (Acute) Surgical History AICD (automatic cardioverter/defibrillator) present (Acute) History of hernia repair (Acute) Hx of CABG (Acute) Family & Social History Family History: Reviewed 02/25/18 by JOHANNA Walker Social History: Patient reports that he relocated to [place], [place] 4 months ago from [place]. Patient's brother resides in the area. Safety & Behavioral: Feels Safe in Current Yes Environment Been Physically Hurt or No Threatened By a Person Tobacco & Substance use: Smoking Status Former smoker 63 year h/o tobacco dependence, up to 2 ppd, quit Dec 2017 alcohol intake Former h/o of alcoholism Reports h/o heavy alcohol use / abuse (duration: 6 yrs total by report), quit 1964 Denies current alcohol use Substance Use Type Denies prior current use Meds Home Medications Medication Instructions Recorded Confirmed Type [id number]-DB-lycopen-lutein 1 tab PO DAILY 10/11/17 02/25/18 History [Centrum Silver] calcium carbonate 500 mg calcium 500 mg PO BID #180 tab 11/01/17 02/25/18 Rx (1,250 mg) tablet cyanocobalamin (vitamin B-12) 1,000 mcg PO DAILY #90 cap 11/01/17 02/25/18 Rx 1,000 mcg capsule omega 2-bud-hkm-fish oil 100 1 cap PO BID #60 cap 11/30/17 02/25/18 Rx mg-160 mg-1,000 mg capsule benzonatate 100 mg PO TID PRN 01/26/18 02/25/18 History sennosides 8.6 mg PO DAILY PRN 01/26/18 02/25/18 History acetaminophen 500 mg tablet 1,000 mg PO Q6H PRN 30 Days #240 02/07/18 02/25/18 Rx tab albuterol sulfate HFA 90 1 puff INHALATION Q4-6H PRN #6.7 02/07/18 02/25/18 Rx mcg/actuation aerosol inhaler gram aspirin 81 mg chewable tablet 81 mg PO DAILY #90 tab 02/07/18 02/25/18 Rx atorvastatin 80 mg tablet 80 mg PO DAILY #90 tab 02/07/18 02/25/18 Rx digoxin 250 mcg tablet 0.125 mg PO DAILY #45 tab 02/07/18 02/25/18 Rx ipratropium bromide 17 1 puff INHALATION QID #12.9 gram 02/07/18 02/25/18 Rx mcg/actuation HFA aerosol inhaler lisinopril 10 mg tablet 10 mg PO BID #180 tab 02/07/18 02/25/18 Rx metoprolol succinate ER 25 mg 25 mg PO BID #180 tab 02/07/18 02/25/18 Rx tablet,extended release 24 hr torsemide 20 mg tablet 40 mg PO BID #360 tab 02/07/18 02/25/18 Rx budesonide-formoterol HFA 80 2 puff INHALATION BID #6.9 gram 02/25/18 Rx mcg-4.5 mcg/actuation aerosol inhaler Allergies Allergy/AdvReac Type Severity Reaction Status Date / Time egg Allergy Verified 02/25/18 15:33 polyethylene glycol Allergy Verified 02/25/18 15:33 [From [employer]] polyethylene glycol 3350 Allergy Verified 02/25/18 15:33 [From [employer]] potassium chloride Allergy Verified 02/25/18 15:33 [From [employer]ely] sodium [From [employer]ely] Allergy Swelling Verified 02/25/18 15:33 of Lip/Tongue/Throat sodium bicarbonate Allergy Verified 02/25/18 15:33 [From [employer]ely] sodium chloride Allergy Verified 02/25/18 15:33 [From [employer]ely] sodium sulfate Allergy Verified 02/25/18 15:33 [From [employer]] Review of Systems Review of Systems All systems reviewed & are unremarkable except as noted in HPI and below Exam Vital Signs (past 8 hours): - 02/25/18 15:30 02/25/18 16:11 02/25/18 17:12 Temperature 97.5 F L Pulse Rate 105 H 101 H 103 H Respiratory Rate 24 27 H 28 H Blood Pressure 124/73 Blood Pressure [Right Arm] 140/74 120/78 Pulse Oximetry 96 100 100 02/25/18 17:49 02/25/18 18:16 02/25/18 18:58 Temperature Pulse Rate 100 H 71 102 H Respiratory Rate 20 16 19 Blood Pressure Blood Pressure [Right Arm] 126/85 114/64 114/63 Pulse Oximetry 100 95 99 02/25/18 19:18 02/25/18 19:35 Temperature 97.5 F L Pulse Rate 100 H 108 H Respiratory Rate 19 24 Blood Pressure 117/64 116/67 Blood Pressure [Right Arm] Pulse Oximetry 100 98 Oxygen Delivery Method Room Air Oxygen Flow Rate 0 Narrative Exam Narrative: Constitutional: mild-moderate respitory distress Neurologic: AOx3, impaired aspects of both short and correction memory recall, no tremor, no focal deficits Head: NC, AT Eyes: Pupils equal and reactive, gaze conjugate Ears: external ears normal, no otorrhea Nose: external nose normal, no rhinorrhea or epistaxis Throat: MMM, oropharynx w/o exudate Neck: no masses, lymphadenopathy, or JVD Chest / Respiratory: equal chest rise, tachypneic at rest, dyspneic with exertion and while conversing Poor air flow in all lung ballard, no wheezing or other adventitious breath sounds, diffuse crackles throughout Heart / CV: S1S2, ectopic beats present, no murmur, left upper chest AICD palpated Abdomen / GI: round, tenderness to palpation b/l lower quadrants of the abdomen , abdomen with mild to moderate distension, abdominal swelling noted, : no CVA, scrotal edema Peripheral / Vascular: cool to touch, DP pulses palpable b/l, edema 2+, pitting , extends from thighs downward; sensation intact Musc: full ROM of upper and lower extremities, adequate muscle tone and bulk Skin: no ecchymosis or suspicious lesions Objective Labs Result Diagrams: 02/25/18 20:35 02/25/18 20:35 Labs: Laboratory Results - last 24 hr 02/25/18 02/25/18 02/25/18 15:55 15:55 15:55 WBC 9.4 RBC 5.02 Hgb 9.5 L Hct 32.9 L MCV 65.6 L MCH 19.0 L MCHC 29.0 L RDW 19.4 H Plt Count 284 Neut % (Auto) 74.9 Lymph % (Auto) 17.8 L [place] % (Auto) 6.8 Eos % (Auto) 0.0 L Baso % (Auto) 0.5 Neut # (Auto) 7000 H RBC Morphology Not Reportable Hypochromasia 3+ H Poikilocytosis 3+ H Anisocytosis 2+ H Microcytosis 3+ H Sodium 140 Potassium 5.6 H Chloride 103 Carbon Dioxide 21 L BUN 30 H Creatinine 1.60 H Estimated GFR 42.5 L BUN/Creatinine Ratio 18.8 Glucose 95 Lactate 3.7 H Calcium 9.7 Total Bilirubin 1.4 H AST 95 H ALT 84 H Alkaline Phosphatase 177 H Total Creatine Kinase 104 CK-MB (CK-2) 3.11 H CK-MB (CK-2) Rel Index 3.0 Troponin I 0.028 B-Natriuretic Peptide Total Protein 7.6 Albumin 4.3 Globulin 3.3 Albumin/Globulin Ratio 1.3 Triglycerides Cholesterol LDL Cholesterol, Calc HDL Cholesterol Lipase 63 02/25/18 02/25/18 15:55 16:11 WBC RBC Hgb Hct MCV MCH MCHC RDW Plt Count Neut % (Auto) Lymph % (Auto) [place] % (Auto) Eos % (Auto) Baso % (Auto) Neut # (Auto) RBC Morphology Hypochromasia Poikilocytosis Anisocytosis Microcytosis Sodium Potassium Chloride Carbon Dioxide BUN Creatinine Estimated GFR BUN/Creatinine Ratio Glucose Lactate Calcium Total Bilirubin AST ALT Alkaline Phosphatase Total Creatine Kinase CK-MB (CK-2) CK-MB (CK-2) Rel Index Troponin I B-Natriuretic Peptide 1200.0 H Total Protein Albumin Globulin Albumin/Globulin Ratio Triglycerides 71 Cholesterol 124 L LDL Cholesterol, Calc 62 HDL Cholesterol 48 Lipase Assessment & Plan Plan: Assessment/Plan Narrative: Acute on chronic systolic heart failure (LVEF 30-35%) CXR: + cardiomegaly; trace b/l pleural effusions; interstitial prominence. BNP 1200. BOX ORDER PERSON on ACEi, BB, loop diuretic (torsemide 40 mg BID) - Bumex IV 1 mg IV Q8H x3 doses, then re-evaluate - Daily weight, strict I/O - Dietary modification 2 gm NA restriction 1.2 L/day fluid restriction - Trend renal fx (baseline sCr 1.5-1.7), 25% elevation from baseline is permissible w/ active diuresis - Resume BOX ORDER PERSON regimen of BB - Hold BOX ORDER PERSON ACEi at this time d/t hyperkalemia Hematemesis , having nausea and vomiting but no va blood observed since arrival to inpatient floor, Hgb stable - Protonix 40 mg BID - Check gastric occult Abdominal Pain CT A/P w/ contrast bibasilar atelectasis w/ moderate b/l pleural effusions, cardiomegaly, body wall anasarca (moderate severity); ascites (mild) in the peritoneal space; ventral hernia (1.5 cm); atherosclerosis of abdominal aorta w/o aneurysm or occlusion. Reports having a colonoscopy w/ polyp resection. In the past year reports having a GI bleed. Reports one episode of melena, since admission to the inpatient floor. - CT not revealing of a neoplasm - neoplasm can't be ruled out, consider further investigation Microcytic anemia Hgb 9.4 g/dL. Multiple episodes of hematemesis. Melena x1. - better BOX ORDER PERSON on ASA 81 mg daily. - Trend Hgb Q6H Acute Hyperkalemia K 5.4, BOX ORDER PERSON lisinopril dose was increased from 5 to 10 mg on Qct 31 - Hold lisinopril for now, repeat K level Cardiomyopathy, HFrEF 30-35%, AICD ([facility] [facility]) Note defibrillator discharging on February 10. Patient states that his settings were adjusted. Atrial Fibrillation - resume BOX ORDER PERSON regimen of metoprol and digoxin; holding lisinopril - digoxin level CAD w/ prior hx of CABG - BOX ORDER PERSON on ASA, BB, ACEi, and statin - ASA on hold d/t hematemesis, Lisinopril on hold for hyperkalemia COPD w/ acute exacerbation in the setting of fluid overload - supplemental oxygen, continuous pulse ox - patient on Symbicort, non formulary for the hospital, will place him on Advair instead while inpatient - DuoNeb treatments q.6 hours CKD Stage III, renal function at baseline (baseline sCr 1.5-1.7) H/O HTN, heart disease, now w/ anasarca - will monitor patient closely with active diuresis - avoid nephrotoxic agents, optimize renal perfusion - check UA for proteinuria Metabolic acidosis Multifactorial ... CHF exacerbation, hyperkalemia, moderate CKD, eleaved lactate , GI losses, COPD exacerbation - correct / improve underlying conditions - trend lactate
--- NOTE | 2018-02-25 20:43 | PC.ADMIT ---
[address] Admission Note: The patient,Pb Finney,72 y/o, was given written information regarding hospital policies, unit procedures and contact persons. Patient's smoking status: Former smoker. Vital Signs - 8 hr 02/25/18 15:30 02/25/18 16:11 02/25/18 17:12 Temperature 97.5 F L Pulse Rate 105 H 101 H 103 H Respiratory Rate 24 27 H 28 H Blood Pressure 124/73 Blood Pressure [Right Arm] 140/74 120/78 Pulse Oximetry 96 100 100 02/25/18 17:49 02/25/18 18:16 02/25/18 18:58 Temperature Pulse Rate 100 H 71 102 H Respiratory Rate 20 16 19 Blood Pressure Blood Pressure [Right Arm] 126/85 114/64 114/63 Pulse Oximetry 100 95 99 02/25/18 19:18 02/25/18 19:35 Temperature 97.5 F L Pulse Rate 100 H 108 H Respiratory Rate 19 24 Blood Pressure 117/64 116/67 Blood Pressure [Right Arm] Pulse Oximetry 100 98 Patient adnitted to room 219, A/Ox4, forgetful to some dates and own meds, follows directions, steday on feet to BR. On tele #10 A-V paced, rate 90s per ICU. Short of breath at rest and with exertion, RR 20s-30, SpO2 93% on RA, 94-99% on 1L, which he requests for comfort. Nausea with belching and small frothy emesis, Tums given per prn. Had medium dark brown stool in toilet, unable to guiaiac thist time due to urgency, hat in BR now. See assessment notes.
[2018-02-25] MEDS: HEPARIN 5,000 UNIT/ML VIAL 5000 UNIT SUBCUT (21:09)
[2018-02-25 21:15] LABS: Lactate 2HR (Lactic Acid Rflx) 3.3 mmol/L (0.7-2.1)
[2018-02-25 22:04] LABS: HEMOLYSIS < 15 (0-50)
[2018-02-25 22:05] LABS: Potassium 5.4 mmol/L (3.4-5.1)
[2018-02-25] MEDS: MORPHINE 2 MG/ML INJ IV (22:15)
[2018-02-25 22:19] LABS: Hemoglobin 9.3 g/dL (13.5-17.5)
--- NOTE | 2018-02-25 22:24 | PC.NURSE ---
Addendum entered by Devorah Vaughan R.N. 02/25/18 22:26: HL intact/patent. Call light w/in reach. Continue w/plan of care. Original Note: Pt SOB w/excertion. Continuous pulse ox 94% RA. Med at 2200for discomfort. Lungs wheezes throughout.
[2018-02-25] MEDS: PANTOPRAZOLE 40 MG VIAL IV (22:44)
[2018-02-25] MEDS: SODIUM CHLORIDE 0.9% FLUSH 10 ML IV (23:22)
[2018-02-25] MEDS: BUMETANIDE 1 MG/4 ML VIAL IV (23:22)
[2018-02-26] VITALS (14 sets, daily range): BP systolic 113–129; BP diastolic 68–78; PULSE 96–106; RESP 12–24; TEMP 36.5–36.7; O2SAT 89–98
--- NOTE | 2018-02-26 01:17 | PC.NURSE ---
Addendum entered by Michelle Love R.N. 02/26/18 06:40: Medicated with Morphine for 5/10 abdominal pain. Original Note: Addendum entered by Michelle Love R.N. 02/26/18 02:48: Catheter placed as per CARPET JACK order with clear yellow urine returning; patient tolerated well. Medicated with Morphine for 6/10 abdominal pain. Medicated with scheduled Zofran for continued complaints of intermittent nausea. Original Note: Patient is alert and oriented. Breath sounds tight with inspiratory crackles in left mid/lower lobes. Reports cough productive of white/brown sputum. SOB with minimal exertion. Using abdominal muscles to breathe. Currently on oxygen at 1L/min per NC with sat of 98%; on continuous pulse oximetry. HRR but tachy at 102 bpm; telemetry reading showing av paced. Intermittent nausea but denies at present time. Does complain of abdominal discomfort (had Morphine at 2215. Abdomen is distended, tender and firm with notable ascites. Having urinary frequency and urgency related to recent administration of Bumex; also complains of some burning with urination (MD is aware). Turns self in bed but is assisted when standing to urinate or up to bathroom as is weak and reports 1 fall in past 3 months where he passed out. 3+ bilateral LE edema noted with left > right. Fall risk score is high and bed alarm is activated. Fluid restriction is ordered. Refusing SCD's.
[2018-02-26] MEDS: ALBUTEROL/IPRATROPIUM 3 ML AMPUL INH ×3 (02:08→17:57)
[2018-02-26] MEDS: MORPHINE 2 MG/ML INJ IV ×2 (02:34→06:36)
[2018-02-26] MEDS: ONDANSETRON 4 MG/2 ML INJ IV ×2 (02:34→08:12)
[2018-02-26] MEDS: SODIUM CHLORIDE 0.9% FLUSH 10 ML IV ×5 (02:34→20:47)
[2018-02-26 06:03] LABS: Digoxin 0.4 ng/mL (0.8-2.0)
[2018-02-26 06:05] LABS: Alanine Aminotransferase 271 IU/L (21-72); Albumin 3.9 g/dL (3.5-5.0); Albumin Globulin Ratio 1.3 (1.0-2.8); Alkaline Phosphatase 147 U/L (38-126); Aspartate Aminotransferase 308 IU/L (17-59); BUN Creatinine Ratio 21.1 (6-22); Bilirubin Total 1.1 mg/dL (0.2-1.3); Blood Urea Nitrogen 38 mg/dL (9-20); Calcium 9.4 mg/dL (8.4-10.2); Carbon Dioxide 19 mmol/L (22-32); Chloride 102 mmol/L (98-107); Estimated Glomerular Filt Rate 37.1 mL/min (>60); Globulin 3.1 g/dL (1.7-4.1); Glucose 107 mg/dL (80-110); HEMOLYSIS < 15 (0-50); Magnesium 2.3 mg/dL (1.6-2.3); Phosphorous 6.1 mg/dL (2.3-3.7); Sodium 138 mmol/L (137-145)
[2018-02-26 06:08] LABS: Potassium 5.4 mmol/L (3.4-5.1)
--- NOTE | 2018-02-26 06:12 | PM.EVENT ---
Date Patient Seen: 02/26/18 Time Patient Seen: 06:13 Clarification was made in regard to patient's PCP once again. Patient does follow with a provider who services are being covered by the hospitalist. The hospitalist team will continue to follow.
--- NOTE | 2018-02-26 07:00 | DI.RAD.S_ITS ---
PROCEDURE: XR CHEST 1V INDICATIONS: shortness of breath, dyspnea on exersion TECHNIQUE: One view of the chest was acquired. COMPARISON: [facility], CT, CT ABDOMEN PELVIS W CON, 02/25/2018, 16:38. [facility], CR, XR CHEST 1V, 01/26/2018, 5:29. [facility], CR, XR CHEST 1V, 09/03/2017, 1:34. [facility], CR, XR CHEST 1V, 02/25/2018, 15:52. FINDINGS: Surgical changes and devices: Cardiac AICD and sternotomy wires. Scattered surgical clips. Lungs and pleura: No pleural effusions or pneumothorax. Medial patchy consolidation in the right lower lobe is grossly unchanged since 02/25/18. There are retrocardiac patchy opacities which are also unchanged. Mediastinum: Mediastinal contours appear stable. Heart size is enlarged as before. Bones and chest wall: No suspicious bony lesions. Overlying soft tissues appear unremarkable. IMPRESSION: Medial right lower lobe and retrocardiac patchy consolidative opacities suggesting multifocal aspiration and/or pneumonia. Severe cardiomegaly. Diffuse bibasilar groundglass opacities which appear grossly unchanged, probably subsegmental atelectasis given the appearance of the recent CT (rather than pulmonary edema). Please correlate clinically and recommend continued radiographic surveillance. Dictated by: Monroe Shea M.D. on 02/26/2018 at 8:23 Approved by: Monroe Shea M.D. on 02/26/2018 at 8:27
[2018-02-26 07:05] LABS: Hematocrit 31.5 % (41-53); Mean Corpuscular HGB Conc 28.5 % (30-36); Mean Corpuscular Hemoglobin 18.6 PG (26-34); Mean Corpuscular Volume 65.5 fL (80-100); Platelet Count 279 X10^3/uL (150-400); Red Blood Cell Count 4.81 X10^6/uL (4.5-5.9); Red Cell Distribution Width 19.4 % (11.6-14.8); White Blood Cell Count 11.7 X10^3/uL (4.5-11.0)
[2018-02-26 07:06] LABS: Add Manual Diff / Slide Review YES
[2018-02-26 07:19] LABS: Neutrophils Absolute Manual 10530 /uL (3000-5900); Total Cells Counted 100
[2018-02-26 07:20] LABS: Anisocytosis 3+; Hypochromasia 2+; Poikilocytosis 2+
[2018-02-26 07:21] LABS: Microcytosis 2+; Ovalocytes 2+; Target Cells 1+
[2018-02-26] MEDS: PANTOPRAZOLE 40 MG VIAL IV ×2 (08:12→20:46)
[2018-02-26] MEDS: DIGOXIN 0.25 MG TABLET 0.125 MG PO (08:12)
[2018-02-26] MEDS: FLUTICASONE/SALMETEROL 250/50 14 PUFF DISKUS INH (09:03)
[2018-02-26] MEDS: SODIUM POLYSTYRENE SULFON/SORB 15 GM/60 ML CUP PO (10:19)
--- NOTE | 2018-02-26 10:30 | PT.IIE ---
Surgical History (Last Reviewed 02/25/18 @ 22:12 by JOHANNA Walker) AICD (automatic cardioverter/defibrillator) present (Acute) History of hernia repair (Acute) Hx of CABG (Acute) Medical History (Last Reviewed 02/25/18 @ 22:12 by JOHANNA Walker) Essential hypertension (Chronic) Arrhythmia (Chronic) History of prostate cancer (Chronic) History of colon cancer (Chronic) History of pancreatic cancer (Chronic) Hematoma of abdominal wall (Acute) Coronary artery disease (Chronic) Hyperlipidemia (Chronic) CAD (coronary artery disease) (Acute) COPD (chronic obstructive pulmonary disease) (Acute) Fracture of nasal bones (Acute) HTN (hypertension) (Acute) Hyperlipidemia (Acute) Myocardial infarction greater than 8 weeks ago (Acute) Physical Therapy Inpatient Evaluation/Re-Eval M1 PT/OT-IP Prior Functional Status Start: 02/26/18 09:24 Freq: NEEDED Status: Active Protocol: Document 02/26/18 08:37 (Rec: 02/26/18 09:51 [id number]) Medical Review Prior Functional Status Medical History Reviewed Yes Communication No deficits noted Mobility and Gait Previous ambulation is modified independent using a spc for all indoor mobility. Pt states using no AD when outdoors. He states walking tolerances up to 11 mins. Prior Functional Level (Other details) All other mobilities including self care, dressing and toileting stated as independent. Social History Household Members family Living Arrangements House Number of Floors (Floors) One Floor Number of Stairs To Enter/Railing? No steps to enter Home Environment Standard Height Toilet Tub/Shower Home Equipment Straight Cane Shower Seat without Backrest Hand Held Shower Grab Bars Near Toilet Grab Bars In Shower Employment Status Retired Additional Social History Comment Pt owns chest heart monitor and BP pressure cuff. Pt living with his brother, both are retired [employer] members. M2 PT-IP Current Condition Start: 02/26/18 09:24 Freq: NEEDED Status: Active Protocol: Document 02/26/18 08:37 (Rec: 02/26/18 09:51 [id number]) Physical Therapy Current Condition Current Condition Evaluation Date 02/26/18 Treatment Diagnosis CHF and COPD exacerbation; difficulty walking Onset Date 02/25/2018 Precautions Other Precautions Monitor 02 and vitals. M3 PT-IP Subjective Start: 02/26/18 09:24 Freq: NEEDED Status: Active Protocol: Document 02/26/18 08:37 (Rec: 02/26/18 09:51 [id number]) Subjective Physical Therapy Visit Type Type Initial Evaluation Visit Start Time 08:37 Visit Stop Time 09:24 Total Visit Minutes 47 Notes Respiratory therapy in room for part of visit to administer nebulizing agent. Number of CHEESE WRAPPER Visits 0 Physical Therapy Visit Comments Patient Comments Pt agreeable to mobilize with PT. Patient Goals Pt planning to go home with brother at d/c. Brother avaliable 23/10 if needed. M4 PT-IP Mobility and Gait Start: 02/26/18 09:24 Freq: NEEDED Status: Active Protocol: Document 02/26/18 08:37 (Rec: 02/26/18 09:51 [id number]) PT-Bed Mobility Assessment Rolling Level of Assist Standby Assistance Supine to Sit Supine to Sit Standby Assistance Sit to Supine Sit to Supine Standby Assistance Scooting Scooting to Edge of Bed Standby Assistance PT-Transfer Assessment Sit to and From Stand Sit to and from Stand Standby Assistance Equipment Transfer Assistive Device Gait Belt Straight Cane Orthotic/Prosthetic Devices or Brace: No Transfers Transfer Destination Chair Transfer Technique Ambulates between surfaces. Comments Mobility Comments Pt in supine and O2 90% on room air upon PT entry. Pt rating dyspnea 9/10. Respiratory therapy administers nebulizing agent and pt is put on 2 L 02. O2 100% BP110/75 MAP 85 HR 102 prior to mobilizing pt. Pt kept on 2L O2 throughout this session. Supine > sit is SBA no cues. Sit > stand SBA with spc. 02 98% and pt rating dyspnea 5/10 and agreeable to ambulate. Gait Assessment Gait Gait Assistance Required: Standby Assistance Able to Maintain Weight Bearing Status No During Gait Assistive Devices Assistive Device Straight Cane Orthotic/Prosthetic Devices or Brace: No Factors Limiting Gait Function Factors Limiting Gait Function Decreased Activity Tolerance Poor Balance Poor Safety Awareness Respiratory Distress Comments Gait Comments Pt ambulates 15 ft to chair with spc SBA. He is notable for increased lateral trunk sway with ambulation, swayback and barrel cheste posture. Seated in recliner BP 119/65 HR 108 MAP 83. Pt rating dyspnea 5/10, O2 97%. Agrees to further ambulation 30 ft ambulation. 02 maintained 97- 100% during ambulation on 2L. PT-Balance Assessment Sitting Balance and Reactions Static Sitting Balance Ability Good Dynamic Sitting Balance Ability Good Standing Balance and Reactions Static Standing Balance Ability Good Dynamic Standing Balance Ability Fair Device Used spc M5 PT-IP Objective Assessments Start: 02/26/18 09:24 Freq: NEEDED Status: Active Protocol: Document 02/26/18 08:37 (Rec: 02/26/18 09:51 [id number]) Orientation Orientation/Cognition Level of Alertness Alert Orientation Name Age Birthday Month Date Year Day of Week Place Situation Language Function Ability No Deficits Noted Safety Awareness Decreased Safety Awareness Gross Range of Motion Lower Extremity ROM Assessment Within Functional Limits Strength Lower Extremity Strength Assessment Within Functional Limits Comments Strength Comments BLE 4+/5 on gross testing. Other Assessments Other Other Assessments Pt notable for pitting edema in bilateral feet grade 2. Pt noted to have hematuria. Pt noted to have decreased thoracic excursion on palpation during inhale/exhale . M6 PT-IP Treatment Start: 02/26/18 09:24 Freq: NEEDED Status: Active Protocol: Document 02/26/18 08:37 (Rec: 02/26/18 09:51 [id number]) Physical Therapy Treatment Exercises Exercises Ankle Pumps Education Education Provided Safety Other Treatments Other Treatment Performed While pt was receiving nebulizing agent with Respiratory therapy, Pt performed manual facilitation techniques for pt rib mobility and to improve diaphragm activation and timing. Pt was educated in pursed lip breathing and ankle pumps for fluid dynamics. M7 PT-IP Assessment and Plan Start: 02/26/18 09:24 Freq: NEEDED Status: Active Protocol: Document 02/26/18 10:29 RS (Rec: 02/26/18 10:29 RS [id number]) PT Summary Assessment and Plan Discharge Recommendations PT Discharge Recommendations Home with Assistance Home Health Other Discharge Recommendations transition to cardiopulmonary rehab
[2018-02-26] MEDS: DOXYCYCLINE HYCLATE 100 MG TABLET PO ×2 (12:01→20:46)
[2018-02-26] MEDS: CEFTRIAXONE 1 GM/50 ML FROZ.PIGGY IV (12:02)
--- NOTE | 2018-02-26 12:02 | OT.IP.EVAL ---
Past Medical History (Last Reviewed 02/25/18 @ 22:12 by JOHANNA Walker) Essential hypertension (Chronic) Arrhythmia (Chronic) History of prostate cancer (Chronic) History of colon cancer (Chronic) History of pancreatic cancer (Chronic) Hematoma of abdominal wall (Acute) Coronary artery disease (Chronic) Hyperlipidemia (Chronic) CAD (coronary artery disease) (Acute) COPD (chronic obstructive pulmonary disease) (Acute) Fracture of nasal bones (Acute) HTN (hypertension) (Acute) Hyperlipidemia (Acute) Myocardial infarction greater than 8 weeks ago (Acute) Surgical History (Last Reviewed 02/25/18 @ 22:12 by JOHANNA Walker) AICD (automatic cardioverter/defibrillator) present (Acute) History of hernia repair (Acute) Hx of CABG (Acute) Occupational Therapy Inpatient Evaluation/Re-Eval M1 PT/OT-IP Prior Functional Status Start: 02/26/18 09:24 Freq: NEEDED Status: Active Protocol: Document 02/26/18 08:37 (Rec: 02/26/18 09:51 [id number]) Medical Review Prior Functional Status Medical History Reviewed Yes Communication No deficits noted Mobility and Gait Previous ambulation is modified independent using a spc for all indoor mobility. Pt states using no AD when outdoors. He states walking tolerances up to 11 mins. Prior Functional Level (Other details) All other mobilities including self care, dressing and toileting stated as independent. Social History Household Members family Living Arrangements House Number of Floors (Floors) One Floor Number of Stairs To Enter/Railing? No steps to enter Home Environment Standard Height Toilet Tub/Shower Home Equipment Straight Cane Shower Seat without Backrest Hand Held Shower Grab Bars Near Toilet Grab Bars In Shower Employment Status Retired Additional Social History Comment Pt owns chest heart monitor and BP pressure cuff. Pt living with his brother, both are retired [employer] members. M1 PT/OT-IP Prior Functional Status Start: 02/26/18 11:48 Freq: NEEDED Status: Active Protocol: Document 02/26/18 11:49 [facility] (Rec: 02/26/18 12:02 [facility] [id number]) Medical Review Prior Functional Status Medical History Reviewed Yes Communication No deficits noted Mobility and Gait Previous ambulation is modified independent using a spc for all indoor mobility. Pt states using no AD when outdoors. He states walking tolerances up to 11 mins. Activities of Daily Living and IADL's Pt states prior independent with all ADl and IADl needs. Prior Functional Level (Other details) All other mobilities including self care, dressing and toileting stated as independent. Social History Household Members family Living Arrangements House Number of Floors (Floors) One Floor Number of Stairs To Enter/Railing? Pt states has two steps and bilateral rails to get into the house. Home Environment Standard Height Toilet Tub/Shower Home Equipment Straight Cane Shower Seat without Backrest Hand Held Shower Grab Bars Near Toilet Grab Bars In Shower Employment Status Retired Additional Social History Comment Pt owns chest heart monitor and BP pressure cuff. Pt living with his brother, both are retired [employer] members. M2 OT-IP Current Condition Start: 02/26/18 11:48 Freq: Status: Active Protocol: Document 02/26/18 11:49 [facility] (Rec: 02/26/18 12:02 [facility] [id number]) Occupational Therapy Current Condition Current Condition Evaluation Date 02/26/18 Treatment Diagnosis CHF/COPD Diagnosis Onset Date 02/25/18 Post Operative Precautions Other Precautions Monitor 02 and vitals. M3 OT- IP Subjective and Pain Start: 02/26/18 11:48 Freq: Status: Active Protocol: Document 02/26/18 11:49 [facility] (Rec: 02/26/18 12:02 [facility] [id number]) OT- Subjective Occupational Therapy Visit Type Type Initial Evaluation Visit Start Time 11:10 Visit Stop Time 11:45 Total Visit Minutes 35 Occupational Therapy Visit Comments Patient/Caregiver Goals Pt wanting to go home when medically stable. OT Pain Assessment Pain When Pain Assessed At Rest Pain Present Pain Present Denied Pain M4 OT- IP ADL's Start: 02/26/18 11:48 Freq: Status: Active Protocol: Document 02/26/18 11:49 [facility] (Rec: 02/26/18 12:02 [facility] [id number]) OT ADL-Grooming General Evaluation Grooming Ability Standby Assistance Areas Needing Assistance Retrieving/Set-up of Grooming Items Comments OT Grooming Comments SBA standing at sink with no device, however use of cane to walk to the sink. OT ADL-Dressing General Eval Lower Body Dressing Ability Standby Assistance Areas Needing Assistance Socks Comments OT Dressing Comments Pt has increased difficulty with right leg to cross over when donning his socks. OT ADL-Toileting Comments OT Toileting Comments Pt has catheter in. OT ADL-Bathing Comments OT Bathing Comments Pt states too tired to try to shower today. M6 OT- IP Functional Cognition Start: 02/26/18 11:48 Freq: Status: Active Protocol: Document 02/26/18 11:49 [facility] (Rec: 02/26/18 12:02 [facility] [id number]) Cognitive Factors Limiting Selfcare Function Cognitive Ability Level of Alertness Alert Patient Orientation Name Age Situation Attention Span Ability Capable of Focused Attention Capable of Sustained Attention Ability to Follow Commands Able to Follow Multi-Step Commands Memory Description No Deficits Noted Safety Awareness Underestimates Need for Assistance Cognitive Comments Cognitive Assessment Comments Pt able to follow multiple commands and tends to be a bit impulsive for safety awareness. OT- Vision and Hearing OT- Hearing Assessment OT- Hearing Assessment WFL M7 OT- IP Mobility and Balance Start: 02/26/18 11:48 Freq: Status: Active Protocol: Document 02/26/18 11:49 [facility] (Rec: 02/26/18 12:02 [id number]-Transfer Assessment Sit to and From Stand Sit to and from Stand Standby Assistance Transfers Transfer Ability Standby Assistance Devices Transfer Assistive Devices Gait Belt Straight Cane Comments Mobility Comments Pt abl e SBA with use of cane and therapist assisting with O2 tubing/catheter. Pt did have slight sway and loss of balance, however able to correct himself. O2 on 2L from 95-97%. OT- Balance Assessment Sitting Balance and Reactions Static Sitting Balance Ability Normal Dynamic Sitting Balance Ability Normal Standing Balance and Reactions Static Standing Balance Ability Good Dynamic Standing Balance Ability Fair M8 OT- IP Objective Assessments Start: 02/26/18 11:48 Freq: Status: Active Protocol: Document 02/26/18 11:49 [facility] (Rec: 02/26/18 12:02 [facility] [id number]) OT Gross Range of Motion Upper Extremity Range of Motion Assessment Within Functional Limits OT Strength Upper Extremity Strength Assessment Within Functional Limits M9 OT- IP Assessment and Plan Start: 02/26/18 11:48 Freq: Status: Active Protocol: Document 02/26/18 11:49 [facility] (Rec: 02/26/18 12:02 [facility] [id number]) OT Summary Assessment and Plan Potential Rehabilitation Potential Good Analytic Complexity at Evaluation Low Summary OT Impairments Balance Functional Mobility Dressing Toileting Bathing Toilet Transfers Shower Transfers Progress Towards Goals Slow Progress due to Medical Issues Slow Progress due to Activity Tolerance Assessment Summary Pt Low complexity and main barrier is activity tolerance, endurance, and steps. Pt still needing O2 at 2L , however did not use any O2 at home. Pt has a supportive brother at home to be able to assist. Continue to see pt for OT to increased ADL safety and toleration for endurance. Recommend home with brother when medically stable . Goals Grooming Goal Independent Dressing Goal Standby Assistance Toileting Goal Independent Bathing Goal Contact Guard Assistance Toilet Transfer Goal Independent Shower Transfer Goal Contact Guard Assistance Patient/Caregiver Education Goal Demonstrate Energy Conservation and Pacing Days to Meet Goals 7 Frequency of Treatment Frequency Of Treatment Once a Day Treatment Plan OT Treatment Plan ADL Training Functional Cognition Training Functional Mobility Patient/Family Education Discharge Planning Other Treatment Recommendations and Next Shower, energy conservation Treatment Focus Discharge Recommendations OT Discharge Recommendations Home with Assistance
[2018-02-26 13:17] LABS: Bacteria Urine None Seen
[2018-02-26 13:29] LABS: Appearance Urine UA CLOUDY; Bilirubin Urine UA NEGATIVE (NEGATIVE); Color Urine UA RED; Glucose Urine UA NEGATIVE (Normal); Ketones Urine UA NEGATIVE (NEGATIVE); Leukocyte Esterase Urine UA 1+ (NEGATIVE); Nitrite Urine UA NEGATIVE (Negative); Occult Blood Urine UA 3+ (Negative); Protein Urine UA 2+ (Negative); Urobilinogen Urine UA 0.2 E.U./dL (0.2)
[2018-02-26 13:39] LABS: RBC Urine 30-100/HPF (0-5/HPF)
[2018-02-26 13:40] LABS: Culture Indicated Urine Specimen Cultured; Red Blood Cell Casts Urine 1-5/LPF (1-5/LPF); WBC Urine 5-10/HPF (0-5/HPF)
--- NOTE | 2018-02-26 14:05 | PM.PN.1 ---
Subjective Date Patient Seen: 02/26/18 Time Patient Seen: 11:05 Interval history: REPORTED MILD DYSPNEA ON EXERTION SOME MILD COUGH REPORTED WELL NO FEVER OR CHILLS NO DIARRHEA OR CONSTIPATION NO OTHER ISSUES OVERNIGHT Exam Vital Signs (past 8 hours): - 02/26/18 07:55 02/26/18 08:12 02/26/18 08:30 Temperature 97.9 F Pulse Rate 101 H 101 H Respiratory Rate 24 Blood Pressure 119/71 119/71 Pulse Oximetry 96 93 02/26/18 08:45 02/26/18 09:07 02/26/18 11:15 Temperature 97.9 F Pulse Rate 102 H 102 H 98 H Respiratory Rate 18 18 16 Blood Pressure 122/71 Pulse Oximetry 93 93 97 Oxygen Delivery Method Nasal Cannula Oxygen Flow Rate 2 Narrative Exam Narrative: NO ACUTE DISTRESS. PATIENT IS ALERT ORIENTED X3. VITAL SIGNS STABLE HEAD ATRAUMATIC NORMOCEPHALIC NECK : SUPPLE WITHOUT ADENOPATHY EYE: EOMI, PERRLA, NORMAL CONJUNCTIVA CHEST: REGULAR RATE.. IRREG IRREG ; NO RUBS. PMI IS NON DISPLACED. 1/6 SYSTOLIC MURMUR NOTED ON THE 2ND INTRACOSTAL IN THE RIGHT; NO HEAVE PULMONARY : DECREASED AIR MOVEMENT AT THE BASES. MILD BIBASILAR CRACKLES NOTED; NO INCREASED DULLNESS TO PERCUSSION EXTREMITIES: 3+ EDEMA BLE. NO CYANOSIS CLUBBING NOTED. NEURO: CRANIAL NERVES 2-12 GROSSLY INTACT. NO FOCAL NEUROLOGICAL DEFICIT NOTED. MSK: NORMAL RANGE OF MOTION FOR AGE. NO JOINT EFFUSION. SKIN: NORMAL FOR ETHNICITY; NO ECCHYMOSIS. NO LESION. FAIR TURGOR. : NORMAL EXTERNAL GENITALIA. PSYCH : APPROPRIATE MOOD AND AFFECT. ALERT AWAKE ORIENTED X3 Objective Labs Result Diagrams: 02/26/18 05:21 02/26/18 05:21 Labs: Laboratory Results - last 24 hr 02/25/18 02/25/18 02/25/18 15:55 15:55 15:55 WBC 9.4 RBC 5.02 Hgb 9.5 L Hct 32.9 L MCV 65.6 L MCH 19.0 L MCHC 29.0 L RDW 19.4 H Plt Count 284 Neut % (Auto) 74.9 Lymph % (Auto) 17.8 L Stearns % (Auto) 6.8 Eos % (Auto) 0.0 L Baso % (Auto) 0.5 Neut # (Auto) 7000 H Total Counted Seg Neutrophils % Lymphocytes % (Manual) Monocytes % (Manual) Neutrophils # (Manual) RBC Morphology Not Reportable Hypochromasia 3+ H Poikilocytosis 3+ H Anisocytosis 2+ H Microcytosis 3+ H Target Cells Ovalocytes Sodium 140 Potassium 5.6 H Chloride 103 Carbon Dioxide 21 L BUN 30 H Creatinine 1.60 H Estimated GFR 42.5 L BUN/Creatinine Ratio 18.8 Glucose 95 Lactate 3.7 H Calcium 9.7 Phosphorus Magnesium Total Bilirubin 1.4 H AST 95 H ALT 84 H Alkaline Phosphatase 177 H Total Creatine Kinase 104 CK-MB (CK-2) 3.11 H CK-MB (CK-2) Rel Index 3.0 Troponin I 0.028 B-Natriuretic Peptide Total Protein 7.6 Albumin 4.3 Globulin 3.3 Albumin/Globulin Ratio 1.3 Triglycerides Cholesterol LDL Cholesterol, Calc HDL Cholesterol Lipase 63 Urine Color Urine Appearance Urine pH Ur Specific [place] Urine Protein Urine Glucose (UA) Urine Ketones Urine Occult Blood Urine Nitrate Urine Bilirubin Urine Urobilinogen Ur Leukocyte Esterase Urine RBC Urine WBC Urine Bacteria RBC Casts Ur Culture Indicated? Micro UA Comment Gastric Fluid pH Gastric Occult Blood Digoxin 02/25/18 02/25/18 02/25/18 15:55 16:11 20:35 WBC RBC Hgb Hct MCV MCH MCHC RDW Plt Count Neut % (Auto) Lymph % (Auto) Ste[place] % (Auto) Eos % (Auto) Baso % (Auto) Neut # (Auto) Total Counted Seg Neutrophils % Lymphocytes % (Manual) Monocytes % (Manual) Neutrophils # (Manual) RBC Morphology Hypochromasia Poikilocytosis Anisocytosis Microcytosis Target Cells Ovalocytes Sodium Potassium Chloride Carbon Dioxide BUN Creatinine Estimated GFR BUN/Creatinine Ratio Glucose Lactate 3.3 H Calcium Phosphorus Magnesium Total Bilirubin AST ALT Alkaline Phosphatase Total Creatine Kinase CK-MB (CK-2) CK-MB (CK-2) Rel Index Troponin I B-Natriuretic Peptide 1200.0 H Total Protein Albumin Globulin Albumin/Globulin Ratio Triglycerides 71 Cholesterol 124 L LDL Cholesterol, Calc 62 HDL Cholesterol 48 Lipase Urine Color Urine Appearance Urine pH Ur Specific [place] Urine Protein Urine Glucose (UA) Urine Ketones Urine Occult Blood Urine Nitrate Urine Bilirubin Urine Urobilinogen Ur Leukocyte Esterase Urine RBC Urine WBC Urine Bacteria RBC Casts Ur Culture Indicated? Micro UA Comment Gastric Fluid pH Gastric Occult Blood Digoxin 02/25/18 02/25/18 02/26/18 20:35 20:35 05:21 WBC RBC Hgb 9.3 L Hct MCV MCH MCHC RDW Plt Count Neut % (Auto) Lymph % (Auto) Ste[place] % (Auto) Eos % (Auto) Baso % (Auto) Neut # (Auto) Total Counted Seg Neutrophils % Lymphocytes % (Manual) Monocytes % (Manual) Neutrophils # (Manual) RBC Morphology Hypochromasia Poikilocytosis Anisocytosis Microcytosis Target Cells Ovalocytes Sodium Potassium 5.4 H Chloride Carbon Dioxide BUN Creatinine Estimated GFR BUN/Creatinine Ratio Glucose Lactate Calcium Phosphorus Magnesium Total Bilirubin AST ALT Alkaline Phosphatase Total Creatine Kinase CK-MB (CK-2) CK-MB (CK-2) Rel Index Troponin I B-Natriuretic Peptide Total Protein Albumin Globulin Albumin/Globulin Ratio Triglycerides Cholesterol LDL Cholesterol, Calc HDL Cholesterol Lipase Urine Color Urine Appearance Urine pH Ur Specific [place] Urine Protein Urine Glucose (UA) Urine Ketones Urine Occult Blood Urine Nitrate Urine Bilirubin Urine Urobilinogen Ur Leukocyte Esterase Urine RBC Urine WBC Urine Bacteria RBC Casts Ur Culture Indicated? Micro UA Comment Gastric Fluid pH Gastric Occult Blood Digoxin 0.4 L 02/26/18 02/26/18 02/26/18 05:21 05:21 09:56 WBC 11.7 H RBC 4.81 Hgb 9.0 L Hct 31.5 L MCV 65.5 L MCH 18.6 L MCHC 28.5 L RDW 19.4 H Plt Count 279 Neut % (Auto) Not Reportable Lymph % (Auto) Not Reportable Ste[place] % (Auto) Not Reportable Eos % (Auto) Not Reportable Baso % (Auto) Not Reportable Neut # (Auto) Total Counted 100 Seg Neutrophils % 90.0 H Lymphocytes % (Manual) 6.0 L Monocytes % (Manual) 4.0 Neutrophils # (Manual) 48050 H RBC Morphology See below Hypochromasia 2+ H Poikilocytosis 2+ H Anisocytosis 3+ H Microcytosis 2+ H Target Cells 1+ H Ovalocytes 2+ H Sodium 138 Potassium 5.4 H Chloride 102 Carbon Dioxide 19 L BUN 38 H Creatinine 1.80 H Estimated GFR 37.1 L BUN/Creatinine Ratio 21.1 Glucose 107 Lactate Calcium 9.4 Phosphorus 6.1 H Magnesium 2.3 Total Bilirubin 1.1 AST 308 H ALT 271 H Alkaline Phosphatase 147 H Total Creatine Kinase CK-MB (CK-2) CK-MB (CK-2) Rel Index Troponin I B-Natriuretic Peptide Total Protein 7.0 Albumin 3.9 Globulin 3.1 Albumin/Globulin Ratio 1.3 Triglycerides Cholesterol LDL Cholesterol, Calc HDL Cholesterol Lipase Urine Color Urine Appearance Urine pH Ur Specific [place] Urine Protein Urine Glucose (UA) Urine Ketones Urine Occult Blood Urine Nitrate Urine Bilirubin Urine Urobilinogen Ur Leukocyte Esterase Urine RBC Urine WBC Urine Bacteria RBC Casts Ur Culture Indicated? Micro UA Comment Gastric Fluid pH Cancelled Gastric Occult Blood Cancelled Digoxin 02/26/18 Unknown WBC RBC Hgb Hct MCV MCH MCHC RDW Plt Count Neut % (Auto) Lymph % (Auto) [place] % (Auto) Eos % (Auto) Baso % (Auto) Neut # (Auto) Total Counted Seg Neutrophils % Lymphocytes % (Manual) Monocytes % (Manual) Neutrophils # (Manual) RBC Morphology Hypochromasia Poikilocytosis Anisocytosis Microcytosis Target Cells Ovalocytes Sodium Potassium Chloride Carbon Dioxide BUN Creatinine Estimated GFR BUN/Creatinine Ratio Glucose Lactate Calcium Phosphorus Magnesium Total Bilirubin AST ALT Alkaline Phosphatase Total Creatine Kinase CK-MB (CK-2) CK-MB (CK-2) Rel Index Troponin I B-Natriuretic Peptide Total Protein Albumin Globulin Albumin/Globulin Ratio Triglycerides Cholesterol LDL Cholesterol, Calc HDL Cholesterol Lipase Urine Color Red Urine Appearance Cloudy Urine pH 5.0 Ur Specific [place] 1.020 Urine Protein 2+ H Urine Glucose (UA) Negative Urine Ketones Negative Urine Occult Blood 3+ H Urine Nitrate Negative Urine Bilirubin Negative Urine Urobilinogen 0.2 Ur Leukocyte Esterase 1+ H Urine RBC 30-100/hpf H Urine WBC 5-10/hpf H Urine Bacteria None seen RBC Casts 1-5/lpf Ur Culture Indicated? Specimen cultured Micro UA Comment Not Reportable Gastric Fluid pH Gastric Occult Blood Digoxin Assessment & Plan Plan: Assessment/Plan Narrative: IMPRESSSION AND PLAN POSS ACUTE COPD EXACERBATION; PATIENT WITH LONG HX OF TOBACCO ABUSE; WILL START ON SOLUMEDROL; ABX; DUONEBS; REPEAT ABG/CXR SERIALLY TO FOLLOW; CONT PULSE OX; ENCOURAGE AMB ERASMO; LIKELY ACUTE ON CHRONIC ON CHRONIC SYST HF ; LAST EF AT 35 on 01/17; CONT WITH CURRENT HOME DIURETICS DOSE AND RESTRICT FLUIDS; LOW SALT DIET; TELE AT ALL TIMES; WATCH RENAL FCT CLOSELY CR INC ON BUMEX; GENTLE DIURESIS INDICATED; RESTART ON ACEI ONCE INDOCATED; DAILY WT WITH SAME SCALE; STRICT IO MITRAL REGURG; MONITOR CLOSELY ATRIAL ENLARGEMENT; SEVERE PER LAST ECHO; MONITOR CARDIAC FCT CLOSELY PLEURAL EFFUSIONS; CONSIDER THERAPEUTIC THORACENTESIS INDICATED; RESTRICT FLUID INTAKE; CONT DIURETICS FLUID OVERLOAD WITH ANASARCA; ON DIURETICS; DAILY WT; STRICT IO; RESTRICT FLUIDS HICCUPS; NEW ONSET AND PERSISTENT; THORAZINE NEEDED OBESITY; LIFESTYLE CHANGES ; OUTPATIENT MANAGEMENT ANEMIA OF CD WITH POSS IRON DEF; GET IRON PANEL TODAY HYPERKALEMIA; DUE TO RENAL FAILURE; GIVEN KAYAXELATE TODAY; LABS IN AM ACUTE ON CHRONIC RENAL DISEASE 3-4; AVOID NEPHROTOXINS; DOSE MEDS PER GFR; DAILY LABS; RENAL DIET; STRICT IO; RENAL CONSULT INDICATED HYPERPHOSP; LIKELY DUE TO RENAL FAILURE; MONITOR FOR NOW; ON PHOSLO TRANSAMINITIS; MONITOR FOR NOW; CT ABD NOT VERY IMPRESSIVE; GET LIPASE; CONSIDER ETOH VS BILIARY DISEASE; CONSIDER MRCP IF INDICATED; GET HEP PANEL TOBACCO ABUSE/NICOTINE ADDICTION; COUNSELING GIVEN METABOLIC ACIDOSIS STATE; LIKELY DUE TO RENAL FAILURE; WILL CONSIDER STARTING ON BICARB TABS; MONITOR FOR NOW REPORTED HEMATEMESIS; RESOLVED AND NO RECORDED OCCURENCE WHILE IN HOUSE
--- NOTE | 2018-02-26 15:39 | CM.DANOTE ---
Addendum entered by Deanna Najera LPN 02/26/18 16:03: READMIT: noted: pt was here 01/26 with a d/c to home 01/29/18. Admitted again 02/25: 1903 / < 30 days Original Note: Discharge Planning/Care Management DCP: assessment: case received, EMR reviewed and went to room to meet pt. He was lying on back, eyes closed. Snoring. Updated white board and called pt's brother Tashi, with whom he lives. introduced self and role. Pt is a 72 year old male who admitted to care of the hospitalist team yesterday. PCP: a bit unclear at this time. Is noted to be [facility] but he has switched clinics recently and the hospitalist did confirm that they are following this case. Payer: Medicare and [facility] [employer]. Tashi clarifies that his brother is somewhat dependent upon him for the overall maintenance of the home, cooking, driving, etc. He says the medication is all managed by pt himself. He plans to be in tomorrow about noon and hopes to be updated by the physician and have a check in with DCP team. P: in process... CM Discharge Assessment Start: 02/26/18 15:24 Freq: Status: Active Protocol: Document 02/26/18 15:25 ITV (Rec: 02/26/18 15:39 ITV [id number]) Discharge Planning Assessment Advance Directives? Yes Advance Directives on File No: is with pt's nephew in [place] History Provided By Medical Record Prior Living Arrangements House Household Members family Comment lives with brother Tashi [phone]. Tashi says he has no idea if he is the POA Type of transporation used prior to Relies on Others admit Comment pt's brother does all the driving. Pt has not driven for years Independent with ADL's Yes Is patient alert and oriented? Yes Needs Assistance With Meal Prep Comment brother Tashi does all the cooking. Caregiver for Another No DME Already Rented / Owned Cane Comment unclear. recent history says he smokes. brother says he does not smoke. Comment pt is not homebound. goes out a few times a week with his brother Whiteboard Updated in Patient Room with Yes name and ext. 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 Yes Advance Directives on File No: is with pt's nephew in [place] History Provided By Medical Record Prior Living Arrangements House Household Members family Comment lives with brother Tashi . Tashi says he has no idea if he is the POA Type of transporation used prior to Relies on Others admit Comment pt's brother does all the driving. Pt has not driven for years Independent with ADL's Yes Is patient alert and oriented? Yes Needs Assistance With Meal Prep Comment brother Tashi does all the cooking. Caregiver for Another No DME Already Rented / Owned Cane Comment unclear. recent history says he smokes. brother says he does not smoke. Comment pt is not homebound. goes out a few times a week with his brother Whiteboard Updated in Patient Room with Yes name and ext. 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
[2018-02-26] MEDS: CALCIUM ACETATE 667 MG CAPSULE 1334 MG PO (16:34)
[2018-02-26 19:19] LABS: HEMOLYSIS < 15 (0-50); Iron 22 ug/dL (49-181)
[2018-02-26 19:31] LABS: Percent Iron Saturation 5 % (20-50); Total Iron Binding Capacity 406 ug/dL (261-462); Transferrin 340 mg/dL (206-381)
[2018-02-26 21:23] LABS: Lipase 50 U/L (23-300)
--- NOTE | 2018-02-26 21:45 | PC.NURSE ---
Shelby shift note: Patient is sleeping between care this evening, arouses easily. Continue on O2 at 2L via NC with sats 95-96%, HOB up 30-45, Mild SOB at rest, increases with activity. Persistent productive cough noted, HRR with rate between 96-103. Continue on Monitor: AV Paced. No emesis this shift, no nausea. Abdomen round, soft, non tender, Patient states abdomen has significantly decreased in firmness and size, denies pain. Discussed importance of SCDs, refuses. Encouraged cough and mobility. Edema to BLE, L>R. Strict I & O, fluid restriction monitored. Cont. on sched breathing treatments. Call light within reach, calls appropriately for staff assistance.
[2018-02-27] VITALS (16 sets, daily range): BP systolic 100–120; BP diastolic 52–72; PULSE 91–121; RESP 18–24; TEMP 36.3–36.7; O2SAT 91–98
--- NOTE | 2018-02-27 | DI.RAD.S_ITS ---
PROCEDURE: XR CHEST 2V INDICATIONS: lung hurts TECHNIQUE: 2 views of the chest were acquired. COMPARISON: [facility], CR, XR CHEST 1V, 09/03/2017, 1:34. [facility], CR, XR CHEST 1V, 02/26/2018, 5:44. FINDINGS: Surgical changes and devices: Pacemaker and sternal wires are present. Lungs and pleura: There is mild left and minimal right pleural effusions. Patchy bibasilar and retrocardiac opacities are present, left greater than right. Mediastinum: Mediastinal contours are normal. Heart size is enlarged. Bones and chest wall: No suspicious bony abnormalities. Soft tissues appear unremarkable. IMPRESSION: Persistent area of likely effusions and superimposed bibasilar opacities, left greater than right. Opacities particularly on the left could be represent a focal edema. However, atelectasis and/or pneumonia should be considered. Dictated by: Sandrita Hicks M.D. on 02/27/2018 at 15:06 Approved by: Sandrita Hicks M.D. on 02/27/2018 at 15:07
--- NOTE | 2018-02-27 | DI.RAD.S_ITS ---
PROCEDURE: FL BARIUM SWALLOW W SPEECH INDICATIONS: Choking. Patient states he previously aspirated food while eating. TECHNIQUE: Examination was conducted in conjunction with speech pathology per standard protocol. In the lateral projection, filming was performed of the patient swallowing. AP projection filming was also performed with patient swallowing. COMPARISON: [facility], CR, XR CHEST 2V, 02/27/2018, 14:40. FINDINGS: Function: The oral preparatory phase appears normal, with proper containment. The subsequent oral propulsive phase, pharyngeal phase, and esophageal phase of swallowing also appear normal with all proffered substances. There are small episodes of laryngeal penetration while swallowing and occasional small episodes of tracheal aspiration along the posterior trachea. Mild residue within the vallecula and piriform sinuses cleared with subsequent swallows. Morphology: No cricopharyngeal bar is identified. No upper cervical esophageal webs. No strictures identified. IMPRESSION: Small episodes of laryngeal penetration and posterior tracheal aspiration were identified fluoroscopically. Please see concurrent speech pathology report for additional details. Dictated by: Jag Blackburn M.D. on 02/28/2018 at 14:30 Approved by: Jag Blackburn M.D. on 02/28/2018 at 14:38
[2018-02-27] MEDS: FLUTICASONE/SALMETEROL 250/50 14 PUFF DISKUS INH ×2 (05:36→19:31)
[2018-02-27] MEDS: ALBUTEROL/IPRATROPIUM 3 ML AMPUL INH ×4 (05:36→19:31)
[2018-02-27 05:54] LABS: Hematocrit 29.9 % (41-53); Hemoglobin 8.7 g/dL (13.5-17.5); Mean Corpuscular Volume 65.7 fL (80-100); Platelet Count 200 X10^3/uL (150-400); Red Blood Cell Count 4.56 X10^6/uL (4.5-5.9); White Blood Cell Count 11.2 X10^3/uL (4.5-11.0)
[2018-02-27 06:12] LABS: Alanine Aminotransferase 288 IU/L (21-72); Albumin 3.5 g/dL (3.5-5.0); Albumin Globulin Ratio 1.3 (1.0-2.8); Alkaline Phosphatase 128 U/L (38-126); Aspartate Aminotransferase 185 IU/L (17-59); Bilirubin Total 0.7 mg/dL (0.2-1.3); Blood Urea Nitrogen 50 mg/dL (9-20); Calcium 9.2 mg/dL (8.4-10.2); Carbon Dioxide 23 mmol/L (22-32); Chloride 102 mmol/L (98-107); Estimated Glomerular Filt Rate 32.8 mL/min (>60); Globulin 2.8 g/dL (1.7-4.1); Glucose 123 mg/dL (80-110); HEMOLYSIS < 15 (0-50); Magnesium 2.4 mg/dL (1.6-2.3); Phosphorous 5.5 mg/dL (2.3-3.7); Sodium 137 mmol/L (137-145); Total Protein 6.3 g/dL (6.3-8.2)
[2018-02-27 06:23] LABS: Potassium 5.4 mmol/L (3.4-5.1)
[2018-02-27 06:54] LABS: Add Manual Diff / Slide Review YES
[2018-02-27 06:59] LABS: Hypochromasia 2+; Neutrophils Absolute Manual 10752 /uL (3000-5900); Ovalocytes 2+; Total Cells Counted 100
[2018-02-27 07:00] LABS: Anisocytosis 2+; Poikilocytosis 2+
[2018-02-27 07:01] LABS: Burr Cells 1+; Target Cells 1+
[2018-02-27] MEDS: CALCIUM ACETATE 667 MG CAPSULE 1334 MG PO ×3 (08:44→17:09)
[2018-02-27] MEDS: TORSEMIDE 10 MG TABLET 40 MG PO (08:44)
[2018-02-27] MEDS: DOXYCYCLINE HYCLATE 100 MG TABLET PO ×2 (08:45→21:08)
[2018-02-27] MEDS: PANTOPRAZOLE 40 MG VIAL IV ×2 (08:46→21:08)
[2018-02-27] MEDS: ONDANSETRON 4 MG/2 ML INJ IV ×2 (08:46→21:08)
[2018-02-27] MEDS: DIGOXIN 0.25 MG TABLET 0.125 MG PO (08:46)
[2018-02-27] MEDS: SODIUM CHLORIDE 0.9% FLUSH 10 ML IV ×2 (09:03→21:09)
--- NOTE | 2018-02-27 10:45 | PT.IPTN ---
Current Diagnoses Acute on chronic systolic (congestive) heart failure (02/25/18) Physical Therapy Treatment Note M2 PT-IP Current Condition Start: 02/26/18 09:24 Freq: NEEDED Status: Active Protocol: Document 02/26/18 08:37 (Rec: 02/26/18 09:51 [id number]) Physical Therapy Current Condition Current Condition Evaluation Date 02/26/18 Treatment Diagnosis CHF and COPD exacerbation; difficulty walking Onset Date 02/25/2018 Precautions Other Precautions Monitor 02 and vitals. M3 PT-IP Subjective Start: 02/26/18 09:24 Freq: NEEDED Status: Active Protocol: Document 02/27/18 10:45 GGD (Rec: 02/27/18 11:24 GGD [id number]) Subjective Physical Therapy Visit Type Type Treatment Note Visit Start Time 10:20 Visit Stop Time 10:45 Total Visit Minutes 25 Number of ADVISORY INTERN Visits 1 Physical Therapy Visit Comments Patient Comments Pt willing to get up. M4 PT-IP Mobility and Gait Start: 02/26/18 09:24 Freq: NEEDED Status: Active Protocol: Document 02/27/18 10:45 GGD (Rec: 02/27/18 11:24 GGD [id number]) PT-Bed Mobility Assessment Rolling Level of Assist Standby Assistance Supine to Sit Supine to Sit Standby Assistance Sit to Supine Sit to Supine Standby Assistance Scooting Scooting to Edge of Bed Standby Assistance PT-Transfer Assessment Sit to and From Stand Sit to and from Stand Standby Assistance Equipment Transfer Assistive Device Gait Belt Straight Cane Orthotic/Prosthetic Devices or Brace: No Transfers Transfer Destination Bed Comments Mobility Comments O2 at rest on RA 91% and with activity 90-94% Gait Assessment Gait Gait Assistance Required: Contact Guard Assist Distance (Feet) 50 Assistive Devices Assistive Device Gait Belt Straight Cane Gait Deviations General Gait Pattern Wide Based Gait Factors Limiting Gait Function Factors Limiting Gait Function Decreased Activity Tolerance Poor Balance M5 PT-IP Objective Assessments Start: 02/26/18 09:24 Freq: NEEDED Status: Active Protocol: Document 02/26/18 08:37 (Rec: 02/26/18 09:51 [id number]) Orientation Orientation/Cognition Level of Alertness Alert Orientation Name Age Birthday Month Date Year Day of Week Place Situation Language Function Ability No Deficits Noted Safety Awareness Decreased Safety Awareness Gross Range of Motion Lower Extremity ROM Assessment Within Functional Limits Strength Lower Extremity Strength Assessment Within Functional Limits Comments Strength Comments BLE 4+/5 on gross testing. Other Assessments Other Other Assessments Pt notable for pitting edema in bilateral feet grade 2. Pt noted to have hematuria. Pt noted to have decreased thoracic excursion on palpation during inhale/exhale . M6 PT-IP Treatment Start: 02/26/18 09:24 Freq: NEEDED Status: Active Protocol: Document 02/26/18 08:37 (Rec: 02/26/18 09:51 [id number]) Physical Therapy Treatment Exercises Exercises Ankle Pumps Education Education Provided Safety Other Treatments Other Treatment Performed While pt was receiving nebulizing agent with Respiratory therapy, Pt performed manual facilitation techniques for pt rib mobility and to improve diaphragm activation and timing. Pt was educated in pursed lip breathing and ankle pumps for fluid dynamics. M7 PT-IP Assessment and Plan Start: 02/26/18 09:24 Freq: NEEDED Status: Active Protocol: Document 02/27/18 10:45 GGD (Rec: 02/27/18 11:24 GGD [id number]) PT Summary Assessment and Plan Summary Assessment Summary Pt improving with mobility. He was able to ambulate on RA with stable O2. He was mildly unsteady, but no LOB. Frequency of Treatment Frequency Of Treatment Once a Day Treatment Plan Physical Therapy Treatment Plan Bed Mobility Training Transfer Training Gait Training Therapeutic Exercise Balance Retraining Discharge Planning Hot or Cold Pack Neuromuscular Re-ed Coordination Retraining Manual Therapy Recommendations To Nursing Amount of Assist Needed Standby Assistance Discharge Recommendations PT Discharge Recommendations Home with Assistance Home Health Other Discharge Recommendations transition to cardiopulmonary rehab
--- NOTE | 2018-02-27 10:48 | PC.NURSE ---
Pt was eating bkfst in his chair and began to choke on a piece of chicken sausage-states he has never choked before. Pt able to clear/dislodge the sausage on his own by swallowing it but stated it really scared him. Pt able to take all meds this am and eat yogurt. Had chicken sausage removed from his dietary plan. Pt states his throat is still sore. Notified Dr. Love of this occurrence and requested Cepacol lozenges to soothe throat pain. Pt up with P.T. in his room and ICU called to report Pt's heart rate had increased to the 140's. Checked on Pt and he was now in his bed with a heart rate of 94. Pt denied difficulty breathing, shortness of breath or dizziness.
--- NOTE | 2018-02-27 11:08 | CM.DPC ---
DCP Cont: Met with patient briefly, placed name on white board after introducing self. Patient pleasant, is working with respiratory therapy. Lives in [place] with his brother. Confirmed with patient that brother drives him to appts, and wants to go home. P: DCP to continue to follow. Maryanne Castillo RN/Compressor Mechanic Bus
[2018-02-27] MEDS: BENZOCAINE/MENTHOL 1 LOZ PKT 1 EACH PO ×2 (11:16→12:11)
[2018-02-27] MEDS: CEFTRIAXONE 1 GM/50 ML FROZ.PIGGY IV (11:18)
--- NOTE | 2018-02-27 13:18 | PC.NURSE ---
Pt was eating lunch and again began choking on his food-this time it was pineapple. Spoke with Speech Therapy and Dr. Love as Pt also reported right lung pain. Chest x-ray and swallow eval ordered.
--- NOTE | 2018-02-27 15:34 | OT.IP.TRT ---
Current Diagnoses Acute on chronic systolic (congestive) heart failure (02/25/18) Occupational Therapy Treatment Note M2 OT-IP Current Condition Start: 02/26/18 11:48 Freq: Status: Active Protocol: Document 02/26/18 11:49 [facility]3] (Rec: 02/26/18 12:02 [facility]3] [id number]) Occupational Therapy Current Condition Current Condition Evaluation Date 02/26/18 Treatment Diagnosis CHF/COPD Diagnosis Onset Date 02/25/18 Post Operative Precautions Other Precautions Monitor 02 and vitals. M3 OT- IP Subjective and Pain Start: 02/26/18 11:48 Freq: Status: Active Protocol: Document 02/27/18 15:19 [facility]3] (Rec: 02/27/18 15:34 [facility]3] [id number]) OT- Subjective Occupational Therapy Visit Type Type Treatment Note Visit Start Time 14:55 Visit Stop Time 15:10 Total Visit Minutes 15 Occupational Therapy Visit Comments Patient Comments Pt agreeable to get up and wash up at the sink. OT Pain Assessment Pain When Pain Assessed At Rest Pain Present Pain Present Denied Pain M4 OT- IP ADL's Start: 02/26/18 11:48 Freq: Status: Active Protocol: Document 02/27/18 15:19 [facility]3] (Rec: 02/27/18 15:34 [facility]3] [id number]) OT ADL-Grooming General Evaluation Grooming Ability Standby Assistance Comments OT Grooming Comments SBA at the sink , pt took off O2 to wash his face however within seconds needing to have O2 tubing back on. M6 OT- IP Functional Cognition Start: 02/26/18 11:48 Freq: Status: Active Protocol: Document 02/27/18 15:19 [facility]3] (Rec: 02/27/18 15:34 [facility]3] [id number]) Cognitive Factors Limiting Selfcare Function Cognitive Ability Level of Alertness Alert Attention Span Ability Capable of Focused Attention Capable of Sustained Attention Ability to Follow Commands Able to Follow Multi-Step Commands Memory Description No Deficits Noted M7 OT- IP Mobility and Balance Start: 02/26/18 11:48 Freq: Status: Active Protocol: Document 02/27/18 15:19 [facility]3] (Rec: 02/27/18 15:34 [facility]3] [id number]) OT- Bed Mobility Assessment Rolling Type of Rolling Roll to Left Level of Assistance Bedrails Supine to Sit Supine to Sit Assist Standby Assistance Sit to Supine Sit to Supine Assist Standby Assistance OT-Transfer Assessment Sit to and From Stand Sit to and from Stand Standby Assistance Transfers Transfer Ability Standby Assistance Technique Transfer Destination Bed Transfer Technique Stand Step Pivot Devices Transfer Assistive Devices None Gait Belt Comments Mobility Comments Pt's o2 level decreased to 81% after up at the sink, pt tends to mouth breath. Edcuated pt to breath in through his nose. OT- Balance Assessment Sitting Balance and Reactions Static Sitting Balance Ability Normal Dynamic Sitting Balance Ability Normal Standing Balance and Reactions Static Standing Balance Ability Good Dynamic Standing Balance Ability Fair M8 OT- IP Objective Assessments Start: 02/26/18 11:48 Freq: Status: Active Protocol: Document 02/26/18 11:49 [facility]3] (Rec: 02/26/18 12:02 [facility]3] [id number]) OT Gross Range of Motion Upper Extremity Range of Motion Assessment Within Functional Limits OT Strength Upper Extremity Strength Assessment Within Functional Limits M9 OT- IP Assessment and Plan Start: 02/26/18 11:48 Freq: Status: Active Protocol: Document 02/27/18 15:19 [facility]3] (Rec: 02/27/18 15:34 [facility]3] [id number]) OT Summary Assessment and Plan Potential Rehabilitation Potential Good Analytic Complexity at Evaluation Low Summary OT Impairments Balance Functional Mobility Dressing Toileting Bathing Toilet Transfers Shower Transfers Progress Towards Goals Slow Progress due to Medical Issues Slow Progress due to Activity Tolerance Assessment Summary Pt decreased activity tolerance and needing use of 2L. Pt has supportive brother at home who is able to assist pt for all needs. Goals Grooming Goal Independent Dressing Goal Standby Assistance Toileting Goal Independent Bathing Goal Contact Guard Assistance Toilet Transfer Goal Independent Shower Transfer Goal Contact Guard Assistance Patient/Caregiver Education Goal Demonstrate Energy Conservation and Pacing Days to Meet Goals 6 Frequency of Treatment Frequency Of Treatment Once a Day Treatment Plan OT Treatment Plan ADL Training Functional Cognition Training Functional Mobility Patient/Family Education Discharge Planning Other Treatment Recommendations and Next Shower, energy conservation Treatment Focus Discharge Recommendations OT Discharge Recommendations Home with Assistance
--- NOTE | 2018-02-27 16:20 | PC.NURSE ---
Addendum entered by Ann Dos Santos 02/27/18 17:22: Patient is sitting up at edge of bed eating the evening meal. Patient was reminded of the speech therapists eating recommendations. His O2 was at 96%. Patient did not report any pain. Bed was low and locked and call light within reach. Original Note: Student nurse note: This student nurse performed the ordered assessments for the patient including fall risk, I and O, and physical assessment. Patient was sitting at the edge of bed for assessments. Patient had a NC with O2 running at 1.5liters. Patient was SOB with oxygen saturation hovering around 95% with regular dips into the mid 80's. Patient was instructed to take deep slow breaths through his nose. Patient had 2+ pitting edema in bilateral lower extremities. Cap refill was greater than 3 seconds. Breath sounds were diminished bilaterally in all posterior lung ballard and bilaterally in anterior lower lobes. Patient was A and O times 4. Patient had just seen the speech therapist who ordered a mechanical soft diet for the patients remaining stay in hospital. Before this student nurse left, it was confirmed that the bed was low and locked and call light was in reach. Patient received 400ml of fluid in the provided water bottle and patient was notified that this was all he could drink per fluid restriction orders.
--- NOTE | 2018-02-27 17:00 | PM.PN.1 ---
Subjective Date Patient Seen: 02/27/18 Interval history: Chart reviewed patient seen and examined He reports breathing has improved. No chest pain noted Exam Vital Signs (past 8 hours): - 02/27/18 10:06 02/27/18 11:10 02/27/18 11:36 Temperature 97.5 F L Pulse Rate 94 H 94 H Respiratory Rate 18 20 Blood Pressure 120/67 Pulse Oximetry 95 91 91 02/27/18 14:10 02/27/18 15:00 02/27/18 15:20 Temperature 97.3 F L Pulse Rate 99 H 121 H Respiratory Rate 18 24 Blood Pressure 111/55 L Pulse Oximetry 94 95 96 Oxygen Delivery Method Nasal Cannula Oxygen Flow Rate 2 Narrative Exam Narrative: Lungs: Decreased breath sounds course Bilateral Cardiac exam: Regular rate and rhythm normal S1 and S2 with A 2/6 systolic ejection murmur Abdomen soft nontender Extremity: 2+ edema Objective Labs Result Diagrams: 02/27/18 05:21 02/27/18 05:21 Labs: Laboratory Results - last 24 hr 02/26/18 02/26/18 02/27/18 05:21 18:06 05:21 WBC 11.2 H RBC 4.56 Hgb 8.7 L Hct 29.9 L MCV 65.7 L MCH 19.0 L MCHC 29.0 L RDW 19.0 H Plt Count 200 Neut % (Auto) Not Reportable Lymph % (Auto) Not Reportable [place] % (Auto) Not Reportable Eos % (Auto) Not Reportable Baso % (Auto) Not Reportable Total Counted 100 Seg Neutrophils % 96.0 H Lymphocytes % (Manual) 1.0 L Monocytes % (Manual) 3.0 Neutrophils # (Manual) 29961 H RBC Morphology See below Hypochromasia 2+ H Poikilocytosis 2+ H Anisocytosis 2+ H Target Cells 1+ H Ovalocytes 2+ H Denise Cells 1+ H Sodium Potassium Chloride Carbon Dioxide BUN Creatinine Estimated GFR BUN/Creatinine Ratio Glucose Calcium Phosphorus Magnesium Iron 22 L TIBC 406 % Saturation 5 L Transferrin 340 Total Bilirubin AST ALT Alkaline Phosphatase Total Protein Albumin Globulin Albumin/Globulin Ratio Lipase 50 02/27/18 05:21 WBC RBC Hgb Hct MCV MCH MCHC RDW Plt Count Neut % (Auto) Lymph % (Auto) [place] % (Auto) Eos % (Auto) Baso % (Auto) Total Counted Seg Neutrophils % Lymphocytes % (Manual) Monocytes % (Manual) Neutrophils # (Manual) RBC Morphology Hypochromasia Poikilocytosis Anisocytosis Target Cells Ovalocytes [place] Cells Sodium 137 Potassium 5.4 H Chloride 102 Carbon Dioxide 23 BUN 50 H Creatinine 2.00 H Estimated GFR 32.8 L BUN/Creatinine Ratio 25.0 H Glucose 123 H Calcium 9.2 Phosphorus 5.5 H Magnesium 2.4 H Iron TIBC % Saturation Transferrin Total Bilirubin 0.7 AST 185 H ALT 288 H Alkaline Phosphatase 128 H Total Protein 6.3 Albumin 3.5 Globulin 2.8 Albumin/Globulin Ratio 1.3 Lipase Assessment & Plan (1) Acute CHF: Problem details: Continue diuresis. Will continue to follow labs accordingly. Qualifiers: Heart failure type: unspecified Qualified Code(s): I50.9 - Heart failure, unspecified Current visit: Yes Status: Acute (2) Essential hypertension: Problem details: Will continue antihypertensive treatment Current visit: No Status: Chronic (3) Hyperlipidemia: Problem details: Continue anti-lipid therapy Qualifiers: Hyperlipidemia type: pure hypercholesterolemia Qualified Code(s): E78.00 - Pure hypercholesterolemia, unspecified; E78.0 - Pure hypercholesterolemia Current visit: No Status: Chronic (4) Acute exacerbation of chronic obstructive pulmonary disease (COPD): Problem details: Patient is being treated with oxygen nebulizers. Current visit: No Status: Acute (5) Acute renal failure: Problem details: Will repeat labs in the morning and avoid nephrotoxin agents. Current visit: Yes Status: Acute (6) Acute on chronic respiratory failure with hypoxia: Problem details: Improving daily Current visit: No Status: Acute
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
[2018-02-28] VITALS (15 sets, daily range): BP systolic 101–111; BP diastolic 63–68; PULSE 93–99; RESP 20–28; TEMP 36.3–36.4; O2SAT 88–96
[2018-02-28 05:57] LABS: BUN Creatinine Ratio 28.6 (6-22); Blood Urea Nitrogen 63 mg/dL (9-20); Calcium 9.3 mg/dL (8.4-10.2); Carbon Dioxide 22 mmol/L (22-32); Chloride 101 mmol/L (98-107); Estimated Glomerular Filt Rate 29.4 mL/min (>60); Glucose 109 mg/dL (80-110); HEMOLYSIS < 15 (0-50); Potassium 5.3 mmol/L (3.4-5.1); Sodium 136 mmol/L (137-145)
[2018-02-28 06:42] LABS: Basophils Percent Auto 0.2 % (0-2); Hematocrit 30.4 % (41-53); Hemoglobin 8.9 g/dL (13.5-17.5); Lymphocytes Percent Auto 1.4 % (25-40); Mean Corpuscular HGB Conc 29.1 % (30-36); Mean Corpuscular Volume 65.2 fL (80-100); Neutrophils Absolute Auto 12300 /uL (3000-5900); Neutrophils Percent Auto 92.4 % (50-75); Platelet Count 168 X10^3/uL (150-400); Red Blood Cell Count 4.67 X10^6/uL (4.5-5.9); Red Cell Distribution Width 19.1 % (11.6-14.8); White Blood Cell Count 13.3 X10^3/uL (4.5-11.0)
[2018-02-28 06:43] LABS: Add Manual Diff / Slide Review SLIDE REVIEW
[2018-02-28 06:57] LABS: Anisocytosis 3+; Ovalocytes 2+
[2018-02-28 06:58] LABS: Microcytosis 2+; Poikilocytosis 2+
[2018-02-28 06:59] LABS: Hypochromasia 2+
[2018-02-28] MEDS: FLUTICASONE/SALMETEROL 250/50 14 PUFF DISKUS INH ×2 (08:34→17:59)
[2018-02-28] MEDS: ALBUTEROL/IPRATROPIUM 3 ML AMPUL INH ×3 (08:34→17:59)
[2018-02-28] MEDS: TORSEMIDE 10 MG TABLET 40 MG PO (09:14)
[2018-02-28] MEDS: CALCIUM ACETATE 667 MG CAPSULE 1334 MG PO ×3 (09:14→17:50)
[2018-02-28] MEDS: DOXYCYCLINE HYCLATE 100 MG TABLET PO ×2 (09:15→21:11)
[2018-02-28] MEDS: DIGOXIN 0.125 MG TABLET PO (09:15)
--- NOTE | 2018-02-28 09:45 | OT.IP.TRT ---
Current Diagnoses Pure hypercholesterolemia (02/25/18) Pure hypercholesterolemia, unspecified (02/25/18) Essential (primary) hypertension (02/25/18) Acute on chronic systolic (congestive) heart failure (02/25/18) Heart failure, unspecified (02/25/18) Chronic obstructive pulmonary disease with (acute) exacerbation (02/25/18) Acute and chronic respiratory failure with hypoxia (02/25/18) Acute kidney failure, unspecified (02/25/18) Occupational Therapy Treatment Note M2 OT-IP Current Condition Start: 02/26/18 11:48 Freq: Status: Active Protocol: Document 02/26/18 11:49 [facility] (Rec: 02/26/18 12:02 [facility] [id number]) Occupational Therapy Current Condition Current Condition Evaluation Date 02/26/18 Treatment Diagnosis CHF/COPD Diagnosis Onset Date 02/25/18 Post Operative Precautions Other Precautions Monitor 02 and vitals. M3 OT- IP Subjective and Pain Start: 02/26/18 11:48 Freq: Status: Active Protocol: Document 02/28/18 09:36 [facility] (Rec: 02/28/18 09:45 [facility] [id number]) OT- Subjective Occupational Therapy Visit Type Type Treatment Note Visit Start Time 08:50 Visit Stop Time 09:35 Total Visit Minutes 45 Occupational Therapy Visit Comments Patient Comments Pt agreeable to take a shower. OT Pain Assessment Pain When Pain Assessed At Rest Pain Present Pain Present Denied Pain M4 OT- IP ADL's Start: 02/26/18 11:48 Freq: Status: Active Protocol: Document 02/28/18 09:36 [facility] (Rec: 02/28/18 09:45 [facility] [id number]) OT ADL-Bathing Bathing Type Bathing Type Shower General Evaluation Bathing Ability Minimal Assistance Areas Needing Assistance Wash/Dry Upper Body Devices Bathing Equipment Hand Held Shower Sprayer Shower Chair with Arms Comments OT Bathing Comments Pt able to complete most of shower while sitting. Pt able to stand for pericare needs, use of HHSP and grab bar but only able to tolerate for 30 seconds before having to sit back down. Pt on 2L of O2 and at 95%. M6 OT- IP Functional Cognition Start: 02/26/18 11:48 Freq: Status: Active Protocol: Document 02/28/18 09:36 [facility] (Rec: 02/28/18 09:45 [facility] [id number]) Cognitive Factors Limiting Selfcare Function Cognitive Ability Level of Alertness Alert Patient Orientation Name Place Situation Attention Span Ability Capable of Focused Attention Capable of Sustained Attention Ability to Follow Commands Able to Follow Multi-Step Commands Memory Description No Deficits Noted Safety Awareness No Deficits Noted Problem Solving Ability No deficits Noted Cognitive Comments Cognitive Assessment Comments Pt not impulsive today and able to show good safety awareness for needs. M7 OT- IP Mobility and Balance Start: 02/26/18 11:48 Freq: Status: Active Protocol: Document 02/28/18 09:36 [facility] (Rec: 02/28/18 09:45 [facility] [id number]) OT- Bed Mobility Assessment Rolling Type of Rolling Roll to Left Level of Assistance Bedrails Supine to Sit Supine to Sit Assist Standby Assistance Sit to Supine Sit to Supine Assist Standby Assistance OT-Transfer Assessment Sit to and From Stand Sit to and from Stand Standby Assistance Transfers Transfer Ability Standby Assistance Technique Transfer Destination Bed Transfer Technique Stand Step Pivot Devices Transfer Assistive Devices None Gait Belt Straight Cane OT- Balance Assessment Sitting Balance and Reactions Static Sitting Balance Ability Normal Dynamic Sitting Balance Ability Normal Standing Balance and Reactions Static Standing Balance Ability Good Dynamic Standing Balance Ability Fair M8 OT- IP Objective Assessments Start: 02/26/18 11:48 Freq: Status: Active Protocol: Document 02/26/18 11:49 [facility] (Rec: 02/26/18 12:02 [facility] [id number]) OT Gross Range of Motion Upper Extremity Range of Motion Assessment Within Functional Limits OT Strength Upper Extremity Strength Assessment Within Functional Limits M9 OT- IP Assessment and Plan Start: 02/26/18 11:48 Freq: Status: Active Protocol: Document 02/28/18 09:36 [facility] (Rec: 02/28/18 09:45 [facility] [id number]) OT Summary Assessment and Plan Potential Rehabilitation Potential Good Analytic Complexity at Evaluation Low Summary OT Impairments Balance Functional Mobility Bathing Shower Transfers Progress Towards Goals Slow Progress due to Medical Issues Slow Progress due to Activity Tolerance Assessment Summary Pt doing better with activity tolerance today and able to complete a shower with assist. Pt still gets SOB and on 2L of O2 at this time. Home with assist when medically stable. Goals Grooming Goal Independent Dressing Goal Standby Assistance Toileting Goal Independent Bathing Goal Standby Assistance Toilet Transfer Goal Independent Shower Transfer Goal Standby Assistance Patient/Caregiver Education Goal Demonstrate Energy Conservation and Pacing Days to Meet Goals 5 Frequency of Treatment Frequency Of Treatment Once a Day Treatment Plan OT Treatment Plan ADL Training Functional Cognition Training Functional Mobility Patient/Family Education Discharge Planning Other Treatment Recommendations and Next Energy conservation Treatment Focus Discharge Recommendations OT Discharge Recommendations Home with Assistance
[2018-02-28] MEDS: PANTOPRAZOLE 40 MG VIAL IV (10:58)
[2018-02-28] MEDS: SODIUM CHLORIDE 0.9% FLUSH 10 ML IV ×2 (10:58→21:12)
[2018-02-28] MEDS: CEFTRIAXONE 1 GM/50 ML FROZ.PIGGY IV (10:59)
--- NOTE | 2018-02-28 12:46 | PC.NURSE ---
Pt oriented. Denies pain. Completed modified Barium Swallow. Now eating sitting upright with no signs of aspiration or coughing.
--- NOTE | 2018-02-28 14:35 | PT.IPTN ---
Current Diagnoses Pure hypercholesterolemia (02/25/18) Pure hypercholesterolemia, unspecified (02/25/18) Essential (primary) hypertension (02/25/18) Acute on chronic systolic (congestive) heart failure (02/25/18) Heart failure, unspecified (02/25/18) Chronic obstructive pulmonary disease with (acute) exacerbation (02/25/18) Acute and chronic respiratory failure with hypoxia (02/25/18) Acute kidney failure, unspecified (02/25/18) Physical Therapy Treatment Note M2 PT-IP Current Condition Start: 02/26/18 09:24 Freq: NEEDED Status: Active Protocol: Document 02/26/18 08:37 (Rec: 02/26/18 09:51 [id number]) Physical Therapy Current Condition Current Condition Evaluation Date 02/26/18 Treatment Diagnosis CHF and COPD exacerbation; difficulty walking Onset Date 02/25/2018 Precautions Other Precautions Monitor 02 and vitals. 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 M4 PT-IP Mobility and Gait Start: 02/26/18 09:24 Freq: NEEDED Status: Active Protocol: Document 02/28/18 14:35 GGD (Rec: 02/28/18 16:06 GGD [id number]) PT-Bed Mobility Assessment Rolling Level of Assist Standby Assistance Supine to Sit Supine to Sit Standby Assistance Sit to Supine Sit to Supine Standby Assistance Scooting Scooting to Edge of Bed Standby Assistance Scooting Up and Down in Bed Standby Assistance PT-Transfer Assessment Sit to and From Stand Sit to and from Stand Standby Assistance Equipment Transfer Assistive Device Gait Belt Front Wheeled Walker Orthotic/Prosthetic Devices or Brace: No Transfers Transfer Destination Bed Gait Assessment Gait Gait Assistance Required: Contact Guard Assist Distance (Feet) 200 Assistive Devices Assistive Device Gait Belt Front Wheeled Walker Gait Deviations General Gait Pattern Wide Based Gait Factors Limiting Gait Function Factors Limiting Gait Function Decreased Activity Tolerance Poor Balance Comments Gait Comments O2 monitored by RT. M5 PT-IP Objective Assessments Start: 02/26/18 09:24 Freq: NEEDED Status: Active Protocol: Document 02/26/18 08:37 (Rec: 02/26/18 09:51 [id number]) Orientation Orientation/Cognition Level of Alertness Alert Orientation Name Age Birthday Month Date Year Day of Week Place Situation Language Function Ability No Deficits Noted Safety Awareness Decreased Safety Awareness Gross Range of Motion Lower Extremity ROM Assessment Within Functional Limits Strength Lower Extremity Strength Assessment Within Functional Limits Comments Strength Comments BLE 4+/5 on gross testing. Other Assessments Other Other Assessments Pt notable for pitting edema in bilateral feet grade 2. Pt noted to have hematuria. Pt noted to have decreased thoracic excursion on palpation during inhale/exhale . M6 PT-IP Treatment Start: 02/26/18 09:24 Freq: NEEDED Status: Active Protocol: Document 02/26/18 08:37 (Rec: 02/26/18 09:51 [id number]) Physical Therapy Treatment Exercises Exercises Ankle Pumps Education Education Provided Safety Other Treatments Other Treatment Performed While pt was receiving nebulizing agent with Respiratory therapy, Pt performed manual facilitation techniques for pt rib mobility and to improve diaphragm activation and timing. Pt was educated in pursed lip breathing and ankle pumps for fluid dynamics. M7 PT-IP Assessment and Plan Start: 02/26/18 09:24 Freq: NEEDED Status: Active Protocol: Document 02/28/18 14:35 GGD (Rec: 02/28/18 16:06 GGD [id number]) PT Summary Assessment and Plan Summary Assessment Summary PT able to increase gait distance. He did need cues for FWW management. He did fatigued with gait. Frequency of Treatment Frequency Of Treatment Once a Day Treatment Plan Physical Therapy Treatment Plan Bed Mobility Training Transfer Training Gait Training Therapeutic Exercise Balance Retraining Discharge Planning Hot or Cold Pack Neuromuscular Re-ed Coordination Retraining Manual Therapy Recommendations To Nursing Amount of Assist Needed Standby Assistance Discharge Recommendations PT Discharge Recommendations Home with Assistance Home Health Other Discharge Recommendations transition to cardiopulmonary rehab
--- NOTE | 2018-02-28 14:50 | PC.NURSE ---
Seen by DR Kate Benton removed and tele dc'd. Pt trialed on Room air with RT and PT but de-sats to the 80s, therefore O2 replaced at 2L via NC. Pt denies pain and apart from SOB on exertion reports that he feels improved today. Fluid restriction possibly lifted by Dr Kate garcia review.
--- NOTE | 2018-02-28 15:37 | PM.PN.1 ---
Subjective Date Patient Seen: 02/28/18 Interval history: Patient had no further episodes of choking today. He underwent a modified barium swallow study and had his diet modified he continues to be hypoxic without oxygen. With ambulation his O2 sat dropped to 8 7% on room air. He continues to have lower extremity edema. He denies any chest pain he is weak. Has some shortness of breath. Patient comes fairly weak when ambulatory. Exam Vital Signs (past 8 hours): - 02/28/18 08:34 02/28/18 08:35 02/28/18 08:40 Temperature Pulse Rate 96 H 96 H Respiratory Rate 28 H 28 H Blood Pressure Pulse Oximetry 88 L 94 94 02/28/18 09:00 02/28/18 09:15 02/28/18 11:07 Temperature 97.3 F L Pulse Rate 98 H 93 H Respiratory Rate 22 Blood Pressure 111/63 Pulse Oximetry 93 93 02/28/18 14:08 Temperature Pulse Rate 98 H Respiratory Rate 24 Blood Pressure Pulse Oximetry 92 Oxygen Delivery Method Room Air Oxygen Flow Rate 2 Narrative Exam Narrative: Pleasant gentleman in no acute distress\ Lungs: Decreased breath sounds with end-expiratory wheezing Cardiac exam: Irregularly irregular normal S1-S2 with 2/6 systolic ejection murmur Abdomen: Soft nontender nondistended Extremity: 2+ pitting edema Objective Labs Result Diagrams: 02/28/18 05:34 02/28/18 05:34 Labs: Laboratory Results - last 24 hr 02/28/18 02/28/18 05:34 05:34 WBC 13.3 H RBC 4.67 Hgb 8.9 L Hct 30.4 L MCV 65.2 L MCH 19.0 L MCHC 29.1 L RDW 19.1 H Plt Count 168 Neut % (Auto) 92.4 H Lymph % (Auto) 1.4 L [place] % (Auto) 6.0 Eos % (Auto) 0.0 L Baso % (Auto) 0.2 Neut # (Auto) 71788 H RBC Morphology See below Hypochromasia 2+ H Poikilocytosis 2+ H Anisocytosis 3+ H Microcytosis 2+ H Ovalocytes 2+ H Sodium 136 L Potassium 5.3 H Chloride 101 Carbon Dioxide 22 BUN 63 H Creatinine 2.20 H Estimated GFR 29.4 L BUN/Creatinine Ratio 28.6 H Glucose 109 Calcium 9.3 Assessment & Plan (1) Acute CHF: Problem details: Continue diuresis. Will continue to follow labs accordingly. Patient continues to be hypoxic, will increase bumex to 1 mg three times daily. The goal is for him to be off oxygen before discharge if possible Qualifiers: Heart failure type: unspecified Qualified Code(s): I50.9 - Heart failure, unspecified Current visit: Yes Status: Acute (2) Essential hypertension: Problem details: Will continue antihypertensive treatment Current visit: No Status: Chronic (3) Right middle lobe pneumonia: Problem details: Continue antibiotics Qualifiers: Aspiration pneumonia type: Pneumonia type: due to unspecified organism Qualified Code(s): J18.1 - Lobar pneumonia, unspecified organism Current visit: No Status: Acute (4) Acute exacerbation of chronic obstructive pulmonary disease (COPD): Problem details: Patient is being treated with oxygen nebulizers. On prednisone as well. Still wheezing and requiring oxygen He may require oxygen at discharge Current visit: No Status: Acute (5) Acute renal failure: Problem details: Will repeat labs in the morning and avoid nephrotoxin agents. Current visit: Yes Status: Acute (6) Coronary artery disease: Problem details: Continue current treatment plan Qualifiers: Coronary Disease-Associated Artery/Lesion type: [place] artery [place] vs. transplanted heart: [place] heart Associated angina: without angina Qualified Code(s): I25.10 - Atherosclerotic heart disease of [place] coronary artery without angina pectoris Current visit: No Status: Chronic (7) Anemia: Problem details: No further hemetemsis Current visit: Yes Status: Acute
[2018-02-28] MEDS: CALCIUM CARBONATE 500 MG TAB 1000 MG PO (16:37)
--- NOTE | 2018-02-28 16:37 | ST.SWALLOW ---
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 Love Reason for Referral suspected silent aspiration Setting Setting Acute Care Patient Information Identification Type Name ID Card Patient History Pt had two episodes of choking yesterday per pt report and nursing report. Pt reported that for breakfast he choked on a piece of sausage, he turned blue and that the nurse hit him on the back and dislodged the sausage so he could swallow it. The pt also reported right lung pain. Chest xray indicated persistent area of likely effusions and superimposed bibasilar opacities, left greater than right. Opacities particularly on the left could be represent a focal edema. However, atelectasis and/or pneumonia should be considered . Subjective Observations Pt was seated in the [employer] labso chair ready for assessment. He was instructed on the procedures for the MBS and indicated thst he understood. Pt was on O2 via nasal cannula . Pt's oral mechanism indicated edentulous upper and lower arches. Pt reported that he has been able to chew pretty well. His ROM, strength and control of the OM appeared to be WFL with the exception of his lack of dentition. Patient Positioning Position View Lat-A/P Imaging Lateral View Textures Administered Trials Presented Thin Liquid via Spoon Thin Liquid via Cup Spangle Liquid via Spoon Spangle Liquid via Cup Honey Liquid via Spoon Pudding Thick Liquid via Spoon Regular Textures Oral Phase Source: MBSIMP (TM) (C) Bolus Specific Scoring Grid Lip Closure WFL Tongue Control During Bolus Hold Mild Impairment Bolus Prep/Mastication Mild Impairment Bolus Transport/Lingual Motion Mild Impairment A/P Lingual Propulsion Delay Yes: 1-3 sec, depending on bolus type Oral Residue Mild Impairment Residue Clearing Mild Impairment Nasal Regurgitation No Additional Oral Phase Observations The epigliottic ROM appeared to be adequate; however the epiglottic seal was weak, especially with a large bolus of liquid as well as with sequential liquid swallows. Penetration was observed across thin and nectar thick liquids. No direct aspiration was observed. The pt did not spontaneously cough, but when cued to cough, pharyngeal residue was cleared. Residue was observed along the posterior pharyngeal wall. There was not pharyngeal wall stripping observed during the study. This resulted in pharyngeal residue pooling into the pyriform sinuses. As the pyriform sinuses emptied, there was a trace of aspiration observed along the posterior wall of the trachea. A chin tuck was trialed but did not improve airway protection and was not found to decrease penetration or reduce aspiration risk. Cough and second swallow was trialed and resulted in improved clearance of pharyngeal pooling. Pharyngeal Phase Source: MBSIMP (TM) (C) Bolus Specific Scoring Grid Delayed Initiation of Pharyngeal Swallow Yes: Premature spillage into the valeculla prior to the swallow response. Soft Palate Elevation WFL Tongue Base Strength/Range of Motion Moderate Impairment Residue Along the Tongue Base Yes Clearance of Residue Along Tongue Base Moderate Impairment Laryngeal Elevation Moderate Impairment Anterior Hyoid Movement Mild Impairment Epiglottic Range of Motion Minimal Impairment Vallecular Residue Yes Laryngeal Vestibular Closure Moderate Impairment Pharyngeal Stripping Wave Severe Impairment Pharyngeal Contraction Severe Impairment Posterior Pharyngeal Wall Residue Yes Clearance of Posterior Pharyngeal Wall Moderate Impairment Residue Upper Esophageal Sphincter Opening WFL Residue in the Pyriform Sinuses Yes: Pooling eventually empties into airway and along traceal wall Clearance of Residue in the Pyriform Severe Impairment Sinuses Esophageal Clearance Upright Position Minimal Impairment Pharyngoesophageal Backflow Observed No Additional Pharyngeal Phase Observations The patient presents with mild oral phase and moderate pharyngeal phase dysphagia characterized by tongue base weakness, pharyngeal residue and lack of pharyngeal wall contraction which result in poor bolus control within the pharynx increasing his risk for aspiration. It is recommended that the patient use the following strategies to decrease aspiration risk: cough and double swallow with all sips, slow rate during intake, small bites and sips, extended time for mastication due to edentulous dentition. The following strengthening exercises are recommended: Le to improve tongue base retraction and reduce premature spillage, Gustabo maneuver to reduce vallecular residue and aspiration risk. A/P View Textures Administered Trials Presented Spangle Liquid via Cup A/P View Observations Pharyngeal Contraction WFL Esophageal Function WFL Esophageal Clearance Upright Position WFL Clinical Impressions Dysphagia Type mild-moderate oropharyngeal dysphagia. Rehabilitation Potential Good Patient Appropriate for Therapy Yes Recommendations Diet Liquids Order Thin Diet Order Dysphagia Advanced Medication Recommendation Whole in Carrier Additional Dietary Needs Reminders to Use Strategies Aspiration Precautions Recommended Precautions Upright at 90 Degrees Small Bites/Sips Double Swallow Supraglottic Swallow Gustabo Maneuvor Liquids from Cup Additional Precautions Swallow two times for each/ bite/sip Treatment Plan Therapy Recommendations Inpatient Speech Therapy Outpatient Speech Therapy Base of Tongue Exercises Compensatory Strategy Education Compensatory Strategies Recommendations Sitting Upright (90 deg) Double Swallow Supraglottic Swallow [place] Maneuver Liquids from Straw Small Bites and Sips Short Term Goals The pt will understand and use safe swallow strategies consistently to prevent aspiration. The pt will participate in 1:[address] 1-2x/day. The pt will safely tolerate the least-restrictive diet for nutritional and hydration needs without s/sx aspiration. Placement Recommendation After Discharge Home with Home Health
--- NOTE | 2018-02-28 16:53 | ST.IPDYTX ---
Care Team Visit Care Team Role Provider Type Gregorio Elliott MD Primary Care Provider Physician Specialty: Internal Medicine Address: [address] [place] [address], [phone] Email: Nelli Diaz DO Emergency Provider Physician Specialty: Emergency Medicine Address: [address] [place] [address], [phone] Email: Juliana Bueno DO Admit Provider Physician Attending Provider Specialty: Internal Medicine Address: [address] [place] [address], [phone] Email: MANAGER MEDICARE MARKETING Dysphagia Treatment MANAGER MEDICARE MARKETING Dysphagia Treatment Start: 02/27/18 16:17 Freq: Status: Active Protocol: Document 02/28/18 16:38 LNK (Rec: 02/28/18 16:52 LNK [email or web address]) Dysphagia Treatment Session Time Visit Start Time 12:00 Visit Stop Time 12:45 Total Visit Minutes 45 Setting Assessment Location Acute Care Visit Type Note Type Treatment Note Next Note Type Next Note Type Treatment Note Patient Information Identification Type Name ID Card Subjective Observations Pt had just returned from [facility] study and was in bed. Treatment Treatment Activities Described and reviewed the results of the pt's MBS evaluation in detail. Discussed his risk for silent aspiration as well as safe swallow strategies. Introduced Musako exercise, demonstrating and observing pt practice until he felt he would be able to do the exercise independently. Recommended that he practice 10x/day. Written directions provided. Discussed and listed aspiration precautions with the pt including swallowing 2x /bite/sip, taking one small sip at a time, using a narrow straw to reduce liquid flow through straw. Stressed the need to sit upright and to remain upright to aid gravity in esophageal emptying. Provided pt with a personal list of aspiration precautions at his request. Assessment Patient Response to Treatment Excellent Rehab Potential Excellent Diet Recommendations Recommendations Continue Current Diet Liquids Order Thin Diet Order Dysphagia Advanced Medication Recommendations Whole in Carrier Aspiration Precautions Recommended Precautions Upright at 90 Degrees Small Bites/Sips Effortful Swallow Gustabo Maneuvor Treatment Plan Placement Recommendation after Discharge Home with Home Health Appropriate for Continued Therapy Yes Dysphagia Goals The pt will understand and use safe swallow strategies consistently to prevent aspiration The pt will participate in 1:[address] 1-2x/day. The pt will safely tolerate the least-restrictive diet for nutritional and hydration needs without s/sx aspiration. Follow Up Plan 1-2x/day while inpatient
[2018-02-28] MEDS: BUMETANIDE 1 MG/4 ML VIAL IV ×2 (17:35→21:11)
--- NOTE | 2018-02-28 17:37 | PC.NURSE ---
Bumex ordered for patient with a Schedule time of 1545, at 1700 medication not available and not verified by Pharmacy. Med administered at 1535 when available and verified.
[2018-03-01] VITALS (15 sets, daily range): BP systolic 99–140; BP diastolic 63–80; PULSE 91–104; RESP 18–22; TEMP 36.1–36.7; O2SAT 2–98
[2018-03-01] MEDS: FLUTICASONE/SALMETEROL 250/50 14 PUFF DISKUS INH ×2 (05:02→18:13)
[2018-03-01] MEDS: ALBUTEROL/IPRATROPIUM 3 ML AMPUL INH ×3 (05:02→18:14)
[2018-03-01 05:49] LABS: Add Manual Diff / Slide Review NO; Basophils Percent Auto 0.7 % (0-2); Hematocrit 29.5 % (41-53); Hemoglobin 8.8 g/dL (13.5-17.5); Lymphocytes Percent Auto 1.4 % (25-40); Mean Corpuscular HGB Conc 29.9 % (30-36); Mean Corpuscular Hemoglobin 19.3 PG (26-34); Mean Corpuscular Volume 64.7 fL (80-100); Monocytes Percent Auto 6.2 % (3-14); Neutrophils Absolute Auto 11700 /uL (3000-5900); Neutrophils Percent Auto 91.7 % (50-75); Platelet Count 158 X10^3/uL (150-400); Red Blood Cell Count 4.56 X10^6/uL (4.5-5.9); Red Cell Distribution Width 18.9 % (11.6-14.8); White Blood Cell Count 12.7 X10^3/uL (4.5-11.0)
[2018-03-01 06:02] LABS: BUN Creatinine Ratio 32.6 (6-22); Blood Urea Nitrogen 75 mg/dL (9-20); Calcium 9.3 mg/dL (8.4-10.2); Carbon Dioxide 21 mmol/L (22-32); Chloride 99 mmol/L (98-107); Estimated Glomerular Filt Rate 27.9 mL/min (>60); Glucose 114 mg/dL (80-110); HEMOLYSIS < 15 (0-50); Potassium 5.3 mmol/L (3.4-5.1); Sodium 136 mmol/L (137-145)
[2018-03-01] MEDS: predniSONE 20 MG TABLET 40 MG PO (08:41)
[2018-03-01] MEDS: DOXYCYCLINE HYCLATE 100 MG TABLET PO ×2 (08:41→20:48)
[2018-03-01] MEDS: CALCIUM ACETATE 667 MG CAPSULE 1334 MG PO ×3 (08:41→16:20)
[2018-03-01] MEDS: DIGOXIN 0.125 MG TABLET PO (08:42)
[2018-03-01] MEDS: BUMETANIDE 1 MG/4 ML VIAL IV ×3 (08:43→20:48)
[2018-03-01] MEDS: SODIUM CHLORIDE 0.9% FLUSH 10 ML IV ×2 (08:44→20:48)
[2018-03-01] MEDS: PANTOPRAZOLE 40 MG PACKET PO (08:44)
--- NOTE | 2018-03-01 09:06 | ST.IPDYTX ---
CLINICAL PROJECT LEADER Dysphagia Treatment CLINICAL PROJECT LEADER Dysphagia Treatment Start: 02/27/18 16:17 Freq: Status: Active Protocol: Document 03/01/18 08:53 TLC (Rec: 03/01/18 09:05 TLC [id number]) Dysphagia Treatment Session Time Visit Start Time 08:20 Visit Stop Time 08:45 Total Visit Minutes 25 Setting Assessment Location Acute Care Visit Type Note Type Treatment Note Next Note Type Next Note Type Treatment Note Patient Information Subjective Observations Patient lying in bed with breakfast tray in room. Patient on 2L of O2 via nasal cannula. He sat at the edge of the bed for meal. O2 Sats dropped to the 80s with movement , but increased to high 90s with deep breathing. Treatment Liquids Trialed Thin Solids Trialed Dysphagia Advanced Administration Type Self-Feeding Oral Strategies Upright at 90 degrees Double Swallow Controlled Bite/Sip Size Alternate Liquids/Solids Treatment Activities Patient able to independently recall strategies: slow rate, double swallow with all bites/sips and implemented these throughout meal. Drops in O2 sats likely related to patient working to sit unsupported at edge of bed as well as talking. We discussed recommendations for sitting up in the chair for meals as well as minimizing talking and implementing deep breathing in between bites and sips. He reports it took him an hour and a half to finish dinner last night, but he implemented strategies as recommended. Education provided importance of oral care, despite being edentulous to reduce aspiration pneumonia risk. No overt s/sx of aspiration during meal. Assessment Patient Response to Treatment Fair Rehab Potential Fair Assessment of Improvement Patient continues to be at increased risk for aspiration given decreased respiratory status and pharyngeal impairments. In tact cognition is a positive prognostic indicator as he follows recommendations and is compliant with strategies. Ongoing education and therapy is recommended. Per physician notes, goal is to wait until patient is able to be weaned from oxygen before d/c. Diet Recommendations Recommendations Continue Current Diet Liquids Order Thin Diet Order Dysphagia Advanced Medication Recommendations As Tolerated Additional Dietary Needs Controlled Sips Aspiration Precautions Recommended Precautions Upright at 90 Degrees Alternate Liquids/Solids Frequent Rest Periods Small Bites/Sips Double Swallow Lingual Sweep Gustabo Maneuvor Treatment Plan Placement Recommendation after Discharge Home with Home Health Appropriate for Continued Therapy Yes Therapy Recommendations Ongoing patient education. Attempt to see patient later today to review and complete swallowing exercises. Dysphagia Goals The pt will understand and use safe swallow strategies consistently to prevent aspiration The pt will participate in 1:[address] 1-2x/day. The pt will safely tolerate the least-restrictive diet for nutritional and hydration needs without s/ sx aspiration. Follow Up Plan 1-2x/day while inpatient
--- NOTE | 2018-03-01 09:06 | OT.IP.TRT ---
Current Diagnoses Anemia, unspecified (02/25/18) Pure hypercholesterolemia (02/25/18) Pure hypercholesterolemia, unspecified (02/25/18) Essential (primary) hypertension (02/25/18) Atherosclerotic heart disease of [place] coronary artery without angina pectoris (02/25/18) Acute on chronic systolic (congestive) heart failure (02/25/18) Heart failure, unspecified (02/25/18) Lobar pneumonia, unspecified organism (02/25/18) Chronic obstructive pulmonary disease with (acute) exacerbation (02/25/18) Acute and chronic respiratory failure with hypoxia (02/25/18) Acute kidney failure, unspecified (02/25/18) Occupational Therapy Treatment Note M2 OT-IP Current Condition Start: 02/26/18 11:48 Freq: Status: Active Protocol: Document 02/26/18 11:49 [facility] (Rec: 02/26/18 12:02 [facility] [id number]) Occupational Therapy Current Condition Current Condition Evaluation Date 02/26/18 Treatment Diagnosis CHF/COPD Diagnosis Onset Date 02/25/18 Post Operative Precautions Other Precautions Monitor 02 and vitals. M3 OT- IP Subjective and Pain Start: 02/26/18 11:48 Freq: Status: Active Protocol: Document 03/01/18 09:05 [facility] (Rec: 03/01/18 09:06 [facility] [id number]) OT- Subjective Occupational Therapy Visit Type Type Patient Refusal Notes Pt states felt that he did too much yesterday and wanting to hold for OT treatment today as too tired. Did encourage pt to try to do PT today if able . To check on pt tomorrow fro OT needs.
[2018-03-01 09:55] LABS: Hepatitis A Antibody IgM NONREACTIVE (NONREACTIVE); Hepatitis Acute Panel Interp 0.03 (NONREACTIVE); Hepatitis B Core Antibody IgM NONREACTIVE (NONREACTIVE); Hepatitis B Surface Antigen NONREACTIVE (NONREACTIVE); Hepatitis C Antibody NONREACTIVE
--- NOTE | 2018-03-01 09:58 | PT.IPTN ---
Addendum entered and electronically signed by Elsa Mckeon PT 03/02/18 08:41: This is to certify that I have reviewed this documentation and POC Original Note: Current Diagnoses Anemia, unspecified (02/25/18) Pure hypercholesterolemia (02/25/18) Pure hypercholesterolemia, unspecified (02/25/18) Essential (primary) hypertension (02/25/18) Atherosclerotic heart disease of [place] coronary artery without angina pectoris (02/25/18) Acute on chronic systolic (congestive) heart failure (02/25/18) Heart failure, unspecified (02/25/18) Lobar pneumonia, unspecified organism (02/25/18) Chronic obstructive pulmonary disease with (acute) exacerbation (02/25/18) Acute and chronic respiratory failure with hypoxia (02/25/18) Acute kidney failure, unspecified (02/25/18) Physical Therapy Treatment Note M2 PT-IP Current Condition Start: 02/26/18 09:24 Freq: NEEDED Status: Active Protocol: Document 02/26/18 08:37 (Rec: 02/26/18 09:51 [id number]) Physical Therapy Current Condition Current Condition Evaluation Date 02/26/18 Treatment Diagnosis CHF and COPD exacerbation; difficulty walking Onset Date 02/25/2018 Precautions Other Precautions Monitor 02 and vitals. M3 PT-IP Subjective Start: 02/26/18 09:24 Freq: NEEDED Status: Active Protocol: Document 03/01/18 09:58 (Rec: 03/01/18 14:11 [id number]) Subjective Physical Therapy Visit Type Type Treatment Note Visit Start Time 09:58 Visit Stop Time 10:20 Total Visit Minutes 22 Number of WHEAT [employer] F[employer] MILLER Visits 0 Physical Therapy Visit Comments Patient Comments Pt agreeable to mobilize with PT. Patient Goals Plans to d/c home with brother M4 PT-IP Mobility and Gait Start: 02/26/18 09:24 Freq: NEEDED Status: Active Protocol: Document 03/01/18 09:58 (Rec: 03/01/18 14:11 [id number]) PT-Bed Mobility Assessment Supine to Sit Supine to Sit Standby Assistance Scooting Scooting to Edge of Bed Standby Assistance PT-Transfer Assessment Sit to and From Stand Sit to and from Stand Standby Assistance Use of Upper Extremities Equipment Transfer Assistive Device Gait Belt Straight Cane Orthotic/Prosthetic Devices or Brace: No Transfers Transfer Destination Chair Transfer Technique Ambulates between surfaces. Comments Mobility Comments Pt in supine on 2L and O2 93% and pt noted to have moderate SOB. Pt cued to breathe through nose and O2 improves to 96%. Supine > sit is SBA no cues. Sit <> stand with spc is SBA no cues. Gait Assessment Gait Gait Assistance Required: Contact Guard Assist Distance (Feet) 15 Able to Maintain Weight Bearing Status Yes During Gait Assistive Devices Assistive Device Gait Belt Straight Cane Orthotic/Prosthetic Devices or Brace: No Gait Deviations General Gait Pattern Flexed Trunk Factors Limiting Gait Function Factors Limiting Gait Function Decreased Activity Tolerance Poor Balance Poor Safety Awareness Respiratory Distress Comments Gait Comments Pt ambulates 15 ft + 15 ft in room with seated rest break, spc and 2L/min. 5 min seated rest break (see below, completes PLB with PT) due to pt O2 sat decrease to 88%, 02 improves to 96%, however pt needing constant reminders for pursed lip breathing and to inhale through nose. PT-Balance Assessment Sitting Balance and Reactions Static Sitting Balance Ability Good Dynamic Sitting Balance Ability Good Standing Balance and Reactions Static Standing Balance Ability Good Dynamic Standing Balance Ability Fair Device Used spc M5 PT-IP Objective Assessments Start: 02/26/18 09:24 Freq: NEEDED Status: Active Protocol: Document 02/26/18 08:37 (Rec: 02/26/18 09:51 [id number]) Orientation Orientation/Cognition Level of Alertness Alert Orientation Name Age Birthday Month Date Year Day of Week Place Situation Language Function Ability No Deficits Noted Safety Awareness Decreased Safety Awareness Gross Range of Motion Lower Extremity ROM Assessment Within Functional Limits Strength Lower Extremity Strength Assessment Within Functional Limits Comments Strength Comments BLE 4+/5 on gross testing. Other Assessments Other Other Assessments Pt notable for pitting edema in bilateral feet grade 2. Pt noted to have hematuria. Pt noted to have decreased thoracic excursion on palpation during inhale/exhale . M6 PT-IP Treatment Start: 02/26/18 09:24 Freq: NEEDED Status: Active Protocol: Document 03/01/18 09:58 (Rec: 03/01/18 14:11 [id number]) Physical Therapy Treatment Other Treatments Other Treatment Performed Instruction in pursed lip breathing using a straw and cues for long exhales and tripod position with coughing. Pt noted to have minimal clear sputum with coughing. Pt able to improve 02 immediately when he is mindful of breathing, however needing constant reminders. M7 PT-IP Assessment and Plan Start: 02/26/18 09:24 Freq: NEEDED Status: Active Protocol: Document 03/01/18 09:58 (Rec: 03/01/18 14:11 [id number]) PT Summary Assessment and Plan Potential Rehabilitation Potential Good Summary Impairments Balance Bed Mobility Transfers Gait Activity Tolerance Progress Towards Goals Slow Progress due to Medical Issues Slow Progress due to Activity Tolerance Assessment Summary Pt desaturates quickly with short distance ambulation on 2 L/min using spc SBA. He needs constant reminders for pursed lip breathing and to inhale through nose. Pt needs to improve activity tolerances prior to d/c. Once completed and pt medically ready, recommend d/c to home with assist (or 24/ assist). Pt will also benefit from cardiopulmonary rehab. Goals Bed Mobility Goal Independent Transfer Goal Independent Cane Gait Goal Independent Cane Gait Distance 150 Other Goals Ambulate 150 ft with spc SBA or indep Days to Meet Goals 3 Frequency of Treatment Frequency Of Treatment Once a Day Treatment Plan Physical Therapy Treatment Plan Bed Mobility Training Transfer Training Gait Training Therapeutic Exercise Balance Retraining Discharge Planning Hot or Cold Pack Neuromuscular Re-ed Coordination Retraining Manual Therapy Other Recommendations and Next Treatment Progress ambulation. Review Focus pursed lip breathing Recommendations To Nursing Amount of Assist Needed 1 Person Assist Discharge Recommendations PT Discharge Recommendations Home with Assistance Home with 24/7 Assist Other Discharge Recommendations cardiopulmonary rehab
--- NOTE | 2018-03-01 13:22 | P.PN_ITS ---
Subjective Date Patient Seen: 03/01/18 Interval history: He is seen today to follow-up his severe congestive heart failure symptoms. He has apparently diuresed extensively but still has very impressive, massive edema throughout. The hemoglobin is stable at 8.8. The white blood count is 12.7. The blood pressure is 140/80 and heart rate is 96. He tells me that his primary care is at the [facility]. Exam Vital Signs (past 8 hours): - 03/01/18 08:42 03/01/18 09:00 03/01/18 10:14 Temperature 97.3 F L Pulse Rate 104 H 98 H Respiratory Rate 20 Blood Pressure 103/68 Pulse Oximetry 96 2 L 03/01/18 11:56 Temperature Pulse Rate Respiratory Rate Blood Pressure Pulse Oximetry 95 Oxygen Delivery Method Nasal Cannula Oxygen Flow Rate 2 Narrative Exam Narrative: Very weak, alert and oriented x3, no apparent distress. Heart is irregularly irregular with a 2/6 systolic ejection murmur. Lungs have wheezes bilaterally. Extremities have 2+ edema of the legs, including the scrotum and the lower abdominal dependent pannus. Objective Labs Result Diagrams: 03/01/18 05:28 03/01/18 05:28 Labs: Laboratory Results - last 24 hr 02/26/18 03/01/18 03/01/18 Unknown 05:28 05:28 WBC 12.7 H RBC 4.56 Hgb 8.8 L Hct 29.5 L MCV 64.7 L MCH 19.3 L MCHC 29.9 L RDW 18.9 H Plt Count 158 Neut % (Auto) 91.7 H Lymph % (Auto) 1.4 L [place] % (Auto) 6.2 Eos % (Auto) 0.0 L Baso % (Auto) 0.7 Neut # (Auto) 06117 H Sodium 136 L Potassium 5.3 H Chloride 99 Carbon Dioxide 21 L BUN 75 H Creatinine 2.30 H Estimated GFR 27.9 L BUN/Creatinine Ratio 32.6 H Glucose 114 H Calcium 9.3 B-Natriuretic Peptide 1070.0 H Hepatitis A IgM Ab Nonreactive Hep Bs Antigen Nonreactive Hep B Core IgM Ab Nonreactive Hepatitis C Antibody Nonreactive Hep C Ab Signal/Cutoff 0.03 Assessment & Plan Plan: Assessment/Plan Narrative: (1) Acute CHF: Problem details: Continue diuresis. Will continue to follow the BMP accordingly. He continues to be hypoxic, now with bumex 1 mg three times daily. The goal is for him to be off oxygen before discharge if possible Qualifiers: Heart failure type: unspecified Qualified Code(s): I50.9 - Heart failure, unspecified Current visit: Yes Status: Acute (2) Essential hypertension: Problem details: Will continue antihypertensive treatment Current visit: No Status: Chronic (3) Right middle lobe pneumonia: Problem details: Continue antibiotics Qualifiers: Aspiration pneumonia type: Pneumonia type: due to unspecified organism Qualified Code(s): J18.1 - Lobar pneumonia, unspecified organism Current visit: No Status: Acute (4) Acute exacerbation of chronic obstructive pulmonary disease (COPD): Problem details: Patient is being treated with oxygen and nebulizers. On prednisone as well. Still wheezing and requiring oxygen He may require oxygen at discharge Current visit: No Status: Acute (5) Acute renal failure: Problem details: Will repeat labs daily and avoid nephrotoxic agents. Current visit: Yes Status: Acute (6) Coronary artery disease: Problem details: Continue current treatment plan Qualifiers: Associated angina: without angina Coronary Disease-Associated Artery/ Lesion type: [place] artery [place] vs. transplanted heart: [place] heart Qualified Code(s): I25.10 - Atherosclerotic heart disease of [place] coronary artery without angina pectoris Current visit: No Status: Chronic (7) Anemia: Problem details: No further hemetemesis Current visit: Yes Status: Acute
[2018-03-01] MEDS: ONDANSETRON 4 MG/2 ML INJ IV (20:48)
[2018-03-02] VITALS (13 sets, daily range): BP systolic 104–112; BP diastolic 52–72; PULSE 86–91; RESP 18–24; TEMP 35.7–36.7; O2SAT 93–99
--- NOTE | 2018-03-02 | DI.US.S_ITS ---
PROCEDURE: US ABDOMEN COMPLETE INDICATIONS: RUQ Tenderness TECHNIQUE: Real-time scanning was performed of the abdominal and retroperitoneal organs, with image documentation. COMPARISON: None. FINDINGS: Liver: Liver is normal in size and homogeneous in echotexture. Gallbladder: Gallbladder is sonographically normal. No gallstones. No gallbladder wall thickening. No pericholecystic fluid. No sonographic Jason sign. Biliary ducts: Intrahepatic bile ducts are non-dilated. Extrahepatic bile duct caliber measures 4.0 mm. Normal is 6-7 mm or less in diameter, or 10 mm or less post-cholecystectomy. Pancreas: Not visualized due to bowel gas and cannot be evaluated. Spleen: Spleen is normal in size and homogeneous in echotexture. Kidneys: Kidneys are poorly visualized due to bowel gas. Right kidney measures 12.0 cm long; left kidney is not visualized due to bowel gas and cannot be evaluated No hydronephrosis or nephrolithiasis the well-visualized portion of the right kidney. No solid masses in the well-visualized portion of the right kidney. Aorta: Obscured by bowel gas and cannot be evaluated. Iliacs: Obscured by bowel gas and cannot be evaluated. IVC: Intrahepatic inferior vena cava is patent. Miscellaneous: Moderate ascites noted in the right upper quadrant and left upper quadrant of the abdomen. IMPRESSION: 1. Study limited by large amount of bowel gas. 2. Moderate amount of ascites. Otherwise, no gross sonographic abnormality identified within limitations of the study. Dictated by: Sophia Alan MD, PhD on 03/02/2018 at 16:35 Approved by: Sophia Alan MD, PhD on 03/02/2018 at 16:38
[2018-03-02] MEDS: FLUTICASONE/SALMETEROL 250/50 14 PUFF DISKUS INH ×2 (05:36→17:44)
[2018-03-02] MEDS: ALBUTEROL/IPRATROPIUM 3 ML AMPUL INH ×3 (05:36→17:44)
[2018-03-02 06:35] LABS: BUN Creatinine Ratio 33.8 (6-22); Blood Urea Nitrogen 88 mg/dL (9-20); Calcium 9.4 mg/dL (8.4-10.2); Carbon Dioxide 20 mmol/L (22-32); Chloride 97 mmol/L (98-107); Estimated Glomerular Filt Rate 24.2 mL/min (>60); Glucose 90 mg/dL (80-110); HEMOLYSIS < 15 (0-50); Sodium 135 mmol/L (137-145)
[2018-03-02 06:40] LABS: Potassium 5.8 mmol/L (3.4-5.1)
[2018-03-02] MEDS: PANTOPRAZOLE 40 MG PACKET PO (07:15)
[2018-03-02] MEDS: CALCIUM ACETATE 667 MG CAPSULE 1334 MG PO ×2 (09:05→16:17)
[2018-03-02] MEDS: predniSONE 20 MG TABLET 40 MG PO (09:06)
[2018-03-02] MEDS: BUMETANIDE 1 MG/4 ML VIAL IV ×3 (09:06→20:17)
[2018-03-02] MEDS: DOXYCYCLINE HYCLATE 100 MG TABLET PO ×2 (09:06→20:17)
[2018-03-02] MEDS: ONDANSETRON 4 MG/2 ML INJ IV ×3 (09:06→20:17)
[2018-03-02] MEDS: DIGOXIN 0.125 MG TABLET PO (09:08)
[2018-03-02] MEDS: SODIUM CHLORIDE 0.9% FLUSH 10 ML IV ×3 (09:09→20:17)
--- NOTE | 2018-03-02 11:40 | PM.PN.1 ---
Subjective Date Patient Seen: 03/02/18 Interval history: He is seen today to follow up the hyperkalemia, chronic kidney disease, congestive heart failure, chest pain. He has been complaining of right chest pain and has some right upper quadrant tenderness so will need some evaluation of that. Exam Vital Signs (past 8 hours): - 03/02/18 04:40 03/02/18 05:36 03/02/18 06:52 Temperature 97.2 F L Pulse Rate 90 88 Respiratory Rate 23 18 Blood Pressure 112/59 L Pulse Oximetry 98 94 94 03/02/18 08:00 03/02/18 09:08 03/02/18 11:10 Temperature 98.0 F Pulse Rate 91 H 86 89 Respiratory Rate 18 20 Blood Pressure 104/64 Pulse Oximetry 93 97 Fraction of Inspired Oxygen 28 Oxygen Delivery Method Nasal Cannula Oxygen Flow Rate 2 Narrative Exam Narrative: Alert and oriented x3. Mild distress from right-sided chest/abdominal pain. Heart is regular rate and rhythm without murmur. Lungs have diminished breath sounds bilaterally. Abdomen is soft, bowel sounds positive, no organomegaly, with mild right upper quadrant tenderness. There is 3+ pitting ankle edema bilaterally. Objective Labs Result Diagrams: 03/01/18 05:28 03/02/18 05:54 Labs: Laboratory Results - last 24 hr 03/02/18 05:54 Sodium 135 L Potassium 5.8 H Chloride 97 L Carbon Dioxide 20 L BUN 88 H Creatinine 2.60 H Estimated GFR 24.2 L BUN/Creatinine Ratio 33.8 H Glucose 90 Calcium 9.4 Assessment & Plan Plan: Assessment/Plan Narrative: Plan: Assessment/Plan Narrative: (1) Acute CHF: Problem details: Continue diuresis. Will continue to follow the renal function and hyperkalemia. He may need some Kayexalate. He continues to diurese quite extensively, despite the ongoing edema. He is on Bumex 1 mg three times daily. The goal is for him to be off oxygen before discharge if possible Qualifiers: Heart failure type: unspecified Qualified Code(s): I50.9 - Heart failure, unspecified Current visit: Yes Status: Acute (2) Essential hypertension: Problem details: Will continue antihypertensive treatment Current visit: No Status: Chronic (3) Right middle lobe pneumonia: Problem details: Continue antibiotics Qualifiers: Aspiration pneumonia type: Pneumonia type: due to unspecified organism Qualified Code(s): J18.1 - Lobar pneumonia, unspecified organism Current visit: No Status: Acute (4) Acute exacerbation of chronic obstructive pulmonary disease (COPD): Problem details: Patient is being treated with oxygen and nebulizers. On prednisone as well. Still requiring oxygen He may require oxygen at discharge Current visit: No Status: Acute (5) Acute renal failure: Problem details: Bumex is making this worse but is also badly needed. He may be reaching the point where CKD and CHF meet in an impassible road. Will repeat labs daily and avoid nephrotoxic agents. Current visit: Yes Status: Acute (6) Coronary artery disease: Problem details: Continue current treatment plan Qualifiers: Associated angina: without angina Coronary Disease-Associated Artery/Lesion type: [place] artery [place] vs. transplanted heart: [place] heart Qualified Code(s): I25.10 - Atherosclerotic heart disease of [place] coronary artery without angina pectoris Current visit: No Status: Chronic (7) Anemia: Problem details: No further hemetemesis Current visit: Yes Status: Acute Right Chest Pain/Abdominal tenderness - Gallbladder US ordered. Repeat Labs tomorrow if pain is persisting.
--- NOTE | 2018-03-02 11:58 | PT.IPTN ---
Current Diagnoses Anemia, unspecified (02/25/18) Pure hypercholesterolemia (02/25/18) Pure hypercholesterolemia, unspecified (02/25/18) Essential (primary) hypertension (02/25/18) Atherosclerotic heart disease of [place] coronary artery without angina pectoris (02/25/18) Acute on chronic systolic (congestive) heart failure (02/25/18) Heart failure, unspecified (02/25/18) Lobar pneumonia, unspecified organism (02/25/18) Chronic obstructive pulmonary disease with (acute) exacerbation (02/25/18) Acute and chronic respiratory failure with hypoxia (02/25/18) Acute kidney failure, unspecified (02/25/18) Physical Therapy Treatment Note M2 PT-IP Current Condition Start: 02/26/18 09:24 Freq: NEEDED Status: Active Protocol: Document 02/26/18 08:37 (Rec: 02/26/18 09:51 [id number]) Physical Therapy Current Condition Current Condition Evaluation Date 02/26/18 Treatment Diagnosis CHF and COPD exacerbation; difficulty walking Onset Date 02/25/2018 Precautions Other Precautions Monitor 02 and vitals. M3 PT-IP Subjective Start: 02/26/18 09:24 Freq: NEEDED Status: Active Protocol: Document 03/02/18 11:57 GGD (Rec: 03/02/18 11:58 GGD [id number]) Subjective Physical Therapy Visit Type Type Patient Refusal Notes Pt refused, states that he is not feeling good and has no energy. He reports coughing up a lot of stuff and having pain. Will check on pt in PM. PT Discharge Recommendations Home with Assistance Home with / Assist Other Discharge Recommendations cardiopulmonary rehab
--- NOTE | 2018-03-02 13:01 | PC.NURSE ---
Addendum entered by Emely Smith R.N. 03/02/18 15:17: Pt voided around 350 this shift. He has had 1mg of IV Bumex this am and then just given. Pt complaining of lower r.quadrant pain and ordered an abdominal US. Staff just bladder scanned pt and results were 500s and above 999. In/out cathed pt for 150cc of yellow urine out. is aware. Original Note: Pt is having a hard time this morning. Spitting up some brownish colored phlegm. RT notified and this is not new for patient. He states that he did have a choking episode at breakfast on his orange juice. Pt was ok after sitting up for a bit. Given zofran for complaints of nausea and helpful. Up to bathroom with 1pa, Pt has to stop half way to the bathroom to catch his breath. He does have sob with exertion. Resting in bed now and seems to be feeling better. into see patient as he was complaining of r.side chest pain. Bumex given per . Pt has been voiding.
--- NOTE | 2018-03-02 13:29 | OT.IP.TRT ---
Current Diagnoses Anemia, unspecified (02/25/18) Pure hypercholesterolemia (02/25/18) Pure hypercholesterolemia, unspecified (02/25/18) Essential (primary) hypertension (02/25/18) Atherosclerotic heart disease of [place] coronary artery without angina pectoris (02/25/18) Acute on chronic systolic (congestive) heart failure (02/25/18) Heart failure, unspecified (02/25/18) Lobar pneumonia, unspecified organism (02/25/18) Chronic obstructive pulmonary disease with (acute) exacerbation (02/25/18) Acute and chronic respiratory failure with hypoxia (02/25/18) Acute kidney failure, unspecified (02/25/18) Occupational Therapy Treatment Note M2 OT-IP Current Condition Start: 02/26/18 11:48 Freq: Status: Active Protocol: Document 02/26/18 11:49 [facility] (Rec: 02/26/18 12:02 [facility] [id number]) Occupational Therapy Current Condition Current Condition Evaluation Date 02/26/18 Treatment Diagnosis CHF/COPD Diagnosis Onset Date 02/25/18 Post Operative Precautions Other Precautions Monitor 02 and vitals. M3 OT- IP Subjective and Pain Start: 02/26/18 11:48 Freq: Status: Active Protocol: Document 03/02/18 13:28 [facility] (Rec: 03/02/18 13:29 [facility] [id number]) OT- Subjective Occupational Therapy Visit Type Type Patient Refusal Notes Pt vomiting and nursing aware, therefore pt states too tired to do any OT therapy at this time.
--- NOTE | 2018-03-02 15:33 | CM.DPC ---
DCP: assessment: case discussed in Team Rounds today. Dr. Durán notes that the full dx is still in process and he is uncertain how well pt will ultimately do. PT OT and [employer] are seeing pt. ([employer] does note pt with good cognitive function) May benefit for a snf stay at d/c. Discussion re goals of care and treatment options would seem to be appropriate. DCP team will continue to follow.
[2018-03-02] MEDS: SODIUM POLYSTYRENE SULFON/SORB 15 GM/60 ML CUP PO (16:17)
[2018-03-03] VITALS (16 sets, daily range): BP systolic 91–128; BP diastolic 56–75; PULSE 56–96; RESP 18–25; TEMP 36.1–36.4; O2SAT 2–98
--- NOTE | 2018-03-03 | DI.ECHO.S_ITS ---
[facility] +---------+ : : [address] : : : [address] : : : : [place], : : : : [place] [id number] : : : : Phone: [phone] [facility]-3896 Echocardiogram Report + + :Name: IAN HERNANDEZ Study Date: 03/03/2018 Height: 71 in : :[facility] Weight: 235 lb : : Gender: Male BSA: 2.3 m2 : :: 1945 Age: 72 yrs BP: 128/69 mmHg: :Reason For Study: CHF : : Performed By: Jess Post : :Referring: ANDRZEJ WRIGHT E : + + Interpretation Summary The left ventricle is severely dilated. Left ventricular systolic function is moderately reduced. The ejection fraction is estimated to be 35-40%. Left ventricular systolic function has slightly improved compared to the previous exam. There is global hypokinesis with more severe hypokinesis to akinesis along the apical septum, basal inferior wall as well. The right ventricle is moderately dilated. There is a pacemaker lead in the right ventricle. Right ventricular systolic function is mildly reduced. The right ventricular systolic pressure is estimated to be at least 49 mmHg based on an estimated right atrial pressure of 15 mm Hg. RVSP has increased since prior study. Both atria are severely dilated. There is severe mitral regurgitation. There is an eccentric jet of mitral regurgitation that is directed posteriorly. MR has not changed. There is severe tricuspid regurgitation. Compared to the prior echo exam, there has been an increase in TR severity. There is at least mild pulmonic regurgitation. The aortic root is normal size. Procedure: A two-dimensional transthoracic echocardiogram with color flow and Doppler was performed. Comparison is made with the echocardiogram of 01/26/2018. The study quality was technically difficult due to patient nausea/vomiting and unable to position due to uncomfort. Patient experienced a mild brief episode of chest pain near the end of the exam. I notified the nurse and EKG was performed. The heart rate ranged between 88-102 bpm during the study. Left Ventricle: The left ventricle is severely dilated. Left ventricular wall thickness is at the upper limits of normal. There is no thrombus. Left ventricular systolic function is moderately reduced. The ejection fraction is estimated to be 35-40%. Left ventricular systolic function has slightly improved compared to the previous exam. There is global hypokinesis with more severe hypokinesis to akinesis along the apical septum, basal inferior wall as well. Right Ventricle: The right ventricle is moderately dilated. There is a pacemaker lead in the right ventricle. Right ventricular systolic function is mildly reduced. Atria: Both atria are severely dilated. There is no Doppler evidence for an interatrial shunt. Mitral Valve: The mitral valve leaflets appear mildly thickened, but open well. There is mild mitral annular calcification. The mitral valve mean gradient is 3 mmHg. There is severe mitral regurgitation. There is an eccentric jet of mitral regurgitation that is directed posteriorly. Flow reversal noted in pulmonary veins consistent with significant mitral regurgitation. Aortic Valve: The aortic valve opens well. There is mild aortic valve sclerosis. There is no aortic valve stenosis. There is trace aortic regurgitation. Tricuspid Valve: The tricuspid valve leaflets are thin and pliable. There is severe tricuspid regurgitation. Compared to the prior echo exam, there has been an increase in TR severity. The right ventricular systolic pressure is estimated to be at least 49 mmHg based on an estimated right atrial pressure of 15 mm Hg. Pulmonic Valve: The pulmonic valve leaflets are thin and pliable; valve motion is normal. There is at least mild pulmonic regurgitation. Great Vessels: The aortic root is normal size. The ascending aorta is normal in size. The aortic arch could not be visualized. The pulmonary artery is normal size. The IVC is dilated (diameter is greater than 2.1 cm) and it collapses less than 50% with a sniff. This suggests a high right atrial pressure of 15 mm Hg. Pericardium/ Pleura There is no pericardial effusion. There is at least a left pleural effusion. Unable to assess for a right pleural effusion. MMode/2D Measurements & Calculations LVIDd: 7.2 cm AoV Openin.2 cm LVIDs: 6.7 cm LVOT diam: 2.2 cm IVSd: 1.1 cm Ao root diam: 3.8 cm LVPWd: 0.85 cm asc Aorta Diam: 3.3 cm LV griggs. diameter/BSA (cm/m^2): 3.2 LV sys. diameter/BSA (cm/m^2): 3.0 FS: 7.9 % EPSS: 2.0 cm LA A2 area: 41.5 cm2 RA long axis: 7.5 cm LA A4 area: 43.6 cm2 RA area: 34.1 cm2 LA length (vol): 8.1 cm RA vol: 132.8 ml LA vol: 190.8 ml RA : 58.8 ml/m2 LA vol index: 84.5 ml/m2 RVD1 (basal): 4.9 cm IVC diam: 3.3 cm TAPSE: 1.5 cm LVAd ap4: 52.7 cm2 LVAd ap2: 56.4 cm2 LVAs ap4: 39.5 cm2 LVLd ap2: 9.2 cm LVLs ap4: 8.9 cm LVAs ap2: 44.4 cm2 LVLs ap2: 9.4 cm Doppler Measurements & Calculations Ao V2 max: 91.9 cm/sec LVOT Max Vincent: 74.7 cm/sec Ao V2 mean: 67.1 cm/sec LV V1 max P.2 mmHg Ao V2 VTI: 12.4 cm LV V1 VTI: 10.5 cm Ao max P.4 mmHg Ao mean P.9 mmHg KIMBERLY(I,D): 3.2 cm2 MV E max vincent: 129.9 cm/sec KIMBERLY(V,D): 3.1 cm2 Med Peak E' Vincent: 4.3 cm/sec KIMBERLY indexed to BSA (cm^2/m^2): 1.4 E/E' med: 30.1 sev ratio: 0.85 Lat Peak E' Vincent: 8.9 cm/sec E/E' lat: 14.5 E/e' average: 22.3 MV dec time: 0.21 sec TR max vincent: 290.8 cm/sec MV mean P.9 mmHg TR max P.8 mmHg MVA(VTI): 1.2 cm2 MV V2 mean: 78.6 cm/sec MV V2 VTI: 34.0 cm Reading Physician:ASHLEY
[2018-03-03] MEDS: FLUTICASONE/SALMETEROL 250/50 14 PUFF DISKUS INH ×2 (04:37→17:42)
[2018-03-03] MEDS: ALBUTEROL/IPRATROPIUM 3 ML AMPUL INH ×3 (04:37→17:42)
[2018-03-03 05:28] LABS: Add Manual Diff / Slide Review NO; Basophils Percent Auto 0.1 % (0-2); Eosinophils Percent Auto 0.1 % (2-4); Hematocrit 31.7 % (41-53); Hemoglobin 9.2 g/dL (13.5-17.5); Lymphocytes Percent Auto 1.8 % (25-40); Mean Corpuscular HGB Conc 29.1 % (30-36); Mean Corpuscular Hemoglobin 19.1 PG (26-34); Mean Corpuscular Volume 65.6 fL (80-100); Monocytes Percent Auto 12.2 % (3-14); Neutrophils Absolute Auto 11500 /uL (3000-5900); Neutrophils Percent Auto 85.8 % (50-75); Platelet Count 129 X10^3/uL (150-400); Red Blood Cell Count 4.83 X10^6/uL (4.5-5.9); Red Cell Distribution Width 18.9 % (11.6-14.8); White Blood Cell Count 13.4 X10^3/uL (4.5-11.0)
[2018-03-03 05:44] LABS: BUN Creatinine Ratio 34.1 (6-22); Blood Urea Nitrogen 99 mg/dL (9-20); Calcium 9.4 mg/dL (8.4-10.2); Carbon Dioxide 18 mmol/L (22-32); Chloride 97 mmol/L (98-107); Estimated Glomerular Filt Rate 21.4 mL/min (>60); Glucose 81 mg/dL (80-110); HEMOLYSIS < 15 (0-50); Sodium 132 mmol/L (137-145)
[2018-03-03 05:56] LABS: Potassium 5.9 mmol/L (3.4-5.1)
[2018-03-03 06:05] LABS: Anisocytosis 2+; Hypochromasia 2+; Ovalocytes 2+; Poikilocytosis 2+; Polychromasia 1+; RBC Morphology S; Target Cells 1+
[2018-03-03 06:06] LABS: Acanthocytes 1+
[2018-03-03] MEDS: PANTOPRAZOLE 40 MG PACKET PO (07:35)
[2018-03-03] MEDS: BUMETANIDE 1 MG TABLET PO ×2 (08:46→20:31)
[2018-03-03] MEDS: DIGOXIN 0.125 MG TABLET PO (08:46)
[2018-03-03] MEDS: DOXYCYCLINE HYCLATE 100 MG TABLET PO ×2 (08:46→20:31)
[2018-03-03] MEDS: CALCIUM ACETATE 667 MG CAPSULE 1334 MG PO ×2 (08:46→16:30)
[2018-03-03] MEDS: predniSONE 20 MG TABLET 40 MG PO (08:47)
[2018-03-03] MEDS: SODIUM CHLORIDE 0.9% FLUSH 10 ML IV ×2 (08:47→20:32)
[2018-03-03] MEDS: SODIUM POLYSTYRENE SULFON/SORB 15 GM/60 ML CUP 30 GM PO (10:47)
--- NOTE | 2018-03-03 13:16 | PC.NURSE ---
Pt has reported new onset left upper chest pain radiating to left upper back at approx. 1300. Pt is diaphoretic, nauseous and wretching. Pain reported to be 2/10. No morphine admin. Pt has refused anti-nausea meds. Dr. Durán has been made aware. New orders placed. STAT EKG preformed by RT. Report provided to Dr. Durán. Vital signs are BP-128/69, HR 91.
--- NOTE | 2018-03-03 13:43 | PC.NURSE ---
1330-Pt denies chest pain now but is SOB at rest. No nitroglycerin admin. Pt remains on 2L O2 with sats 97%.
--- NOTE | 2018-03-03 13:59 | PM.PN.1 ---
Subjective Date Patient Seen: 03/03/18 Interval history: He is seen today to follow up the hyperkalemia, chronic kidney disease, congestive heart failure, chest pain. He has been complaining of right chest pain and has some right upper quadrant tenderness so an ultrasound was done yesterday which shows bilateral upper abdominal moderate ascites, with apparently normal pancreas, bile ducts, gallbladder, liver. Exam Vital Signs (past 8 hours): - 03/03/18 07:00 03/03/18 08:00 03/03/18 09:00 Temperature 97.5 F L Pulse Rate 56 L Respiratory Rate 22 Blood Pressure 112/65 Pulse Oximetry 98 98 97 03/03/18 09:10 03/03/18 09:25 03/03/18 10:57 Temperature Pulse Rate 86 Respiratory Rate 18 Blood Pressure Pulse Oximetry 87 L 94 94 03/03/18 13:00 Temperature Pulse Rate 91 H Respiratory Rate Blood Pressure 128/69 Pulse Oximetry Fraction of Inspired Oxygen 24 Oxygen Delivery Method Nasal Cannula Oxygen Flow Rate 1 Narrative Exam Narrative: He is alert and oriented x3. He looks quite fatigued. No longer complaining of chest pain. He has 2+ pitting both ankles and the dependent left abdomen. Heart is regular rate and rhythm without murmur. Lungs are clear to auscultation bilaterally. Objective Labs Result Diagrams: 03/03/18 05:12 03/03/18 05:12 Labs: Laboratory Results - last 24 hr 03/03/18 03/03/18 05:12 05:12 WBC 13.4 H RBC 4.83 Hgb 9.2 L Hct 31.7 L MCV 65.6 L MCH 19.1 L MCHC 29.1 L RDW 18.9 H Plt Count 129 L Neut % (Auto) 85.8 H Lymph % (Auto) 1.8 L [place] % (Auto) 12.2 Eos % (Auto) 0.1 L Baso % (Auto) 0.1 Neut # (Auto) 71445 H RBC Morphology S Polychromasia 1+ H Hypochromasia 2+ H Poikilocytosis 2+ H Anisocytosis 2+ H Target Cells 1+ H Ovalocytes 2+ H Acanthocytes (Spur) 1+ Sodium 132 L Potassium 5.9 H Chloride 97 L Carbon Dioxide 18 L BUN 99 H Creatinine 2.90 H Estimated GFR 21.4 L BUN/Creatinine Ratio 34.1 H Glucose 81 Calcium 9.4 Assessment & Plan Plan: Assessment/Plan Narrative: (1) Acute CHF: Problem details: Continue our attempts at diuresis. Renal function continues to worsen with the creatinine now 2.9. The potassium is up to 5.9. He will need some Kayexalate today. Despite the bumetanide t.i.d. he has gained 1.3 kg. Clearly we have met an impasse between the renal function and the cardiac function. Another echocardiogram will be done today as the EF from a month ago would not immediately explain this failure. Begin on carvedilol and lisinopril. This is beginning to look like a palliative care/hospice conclusion. Qualifiers: Heart failure type: unspecified Qualified Code(s): I50.9 - Heart failure, unspecified Current visit: Yes Status: Acute (2) Essential hypertension: Problem details: Will continue antihypertensive treatment Current visit: No Status: Chronic (3) Right middle lobe pneumonia: Problem details: Continue antibiotics, now day 5 of doxycycline. Qualifiers: Aspiration pneumonia type: Pneumonia type: due to unspecified organism Qualified Code(s): J18.1 - Lobar pneumonia, unspecified organism Current visit: No Status: Acute (4) Acute exacerbation of chronic obstructive pulmonary disease (COPD): Problem details: Patient is being treated with oxygen and nebulizers. On prednisone as well. Still requiring oxygen He may require oxygen at discharge Current visit: No Status: Acute (5) Acute renal failure: Problem details: Bumex is making this worse but is also badly needed. He may be reaching the point where CKD and CHF meet in an impassible road. Will repeat labs daily and avoid nephrotoxic agents. Will decrease the Bumex dose and recheck the echocardiogram. Depending on those results he may need referral for SNF/hospice care. Current visit: Yes Status: Acute (6) Coronary artery disease: Problem details: Continue current treatment plan Qualifiers: Associated angina: without angina Coronary Disease-Associated Artery/Lesion type: [place] artery [place] vs. transplanted heart: [place] heart Qualified Code(s): I25.10 - Atherosclerotic heart disease of [place] coronary artery without angina pectoris Current visit: No Status: Chronic (7) Anemia: Problem details: No further hemetemesis Current visit: Yes Status: Acute Right Chest Pain/Abdominal tenderness - Gallbladder US is normal but shows ascites related to the CHF/Anasarca. Hyperkalemia - Begin on Kayexelate. Time Spent With Patient Time with patient: Greater than 35 minutes
--- NOTE | 2018-03-03 14:06 | PT.IPTN ---
Current Diagnoses Anemia, unspecified (02/25/18) Pure hypercholesterolemia (02/25/18) Pure hypercholesterolemia, unspecified (02/25/18) Essential (primary) hypertension (02/25/18) Atherosclerotic heart disease of [place] coronary artery without angina pectoris (02/25/18) Acute on chronic systolic (congestive) heart failure (02/25/18) Heart failure, unspecified (02/25/18) Lobar pneumonia, unspecified organism (02/25/18) Chronic obstructive pulmonary disease with (acute) exacerbation (02/25/18) Acute and chronic respiratory failure with hypoxia (02/25/18) Acute kidney failure, unspecified (02/25/18) Physical Therapy Treatment Note M2 PT-IP Current Condition Start: 02/26/18 09:24 Freq: NEEDED Status: Active Protocol: Document 02/26/18 08:37 (Rec: 02/26/18 09:51 [id number]) Physical Therapy Current Condition Current Condition Evaluation Date 02/26/18 Treatment Diagnosis CHF and COPD exacerbation; difficulty walking Onset Date 02/25/2018 Precautions Other Precautions Monitor 02 and vitals. M3 PT-IP Subjective Start: 02/26/18 09:24 Freq: NEEDED Status: Active Protocol: Document 03/03/18 14:04 CLB (Rec: 03/03/18 14:06 CLB [id number]) Subjective Physical Therapy Visit Type Type Patient Unavailable Notes RN stated pt experiencing chest pain and SOB. Will check back with pt tomorrow.
[2018-03-03 14:09] LABS: Troponin I 0.081 ng/mL (0.01-0.034)
[2018-03-03] MEDS: CARVEDILOL 3.125 MG TABLET PO (16:41)
[2018-03-04] VITALS (17 sets, daily range): BP systolic 88–111; BP diastolic 50–63; PULSE 76–90; RESP 14–24; TEMP 35.7–36.5; O2SAT 82–100
--- NOTE | 2018-03-04 | DI.RAD.S_ITS ---
PROCEDURE: XR CHEST 1V INDICATIONS: CHF TECHNIQUE: One view of the chest was acquired. COMPARISON: [facility], CR, XR CHEST 2V, 02/27/2018, 14:40. FINDINGS: Surgical changes and devices: Left chest wall pacemaker is again seen and unchanged. Sternotomy wires and surgical clips are again seen. Lungs and pleura: There is a small to moderate left pleural effusion and trace right pleural effusion. No gross pneumothorax. No definite focal infiltrate. Mild pulmonary vascular congestion is seen with suggestion of mild pulmonary edema. Mediastinum: Mediastinal contours appear normal. Heart size is markedly enlarged. Bones and chest wall: No suspicious bony lesions. Overlying soft tissues appear unremarkable. IMPRESSION: CHF changes with left greater than right bilateral pleural effusion and pulmonary edema. No definite focal infiltrates or gross pneumothorax. Dictated by: Isaac Garland M.D. on 03/04/2018 at 16:29 Approved by: Isaac Garland M.D. on 03/04/2018 at 16:30
[2018-03-04] MEDS: ALBUTEROL/IPRATROPIUM 3 ML AMPUL INH ×4 (00:08→17:00)
[2018-03-04 06:07] LABS: BUN Creatinine Ratio 37.6 (6-22); Calcium 8.9 mg/dL (8.4-10.2); Carbon Dioxide 19 mmol/L (22-32); Chloride 94 mmol/L (98-107); Estimated Glomerular Filt Rate 21.4 mL/min (>60); Glucose 92 mg/dL (80-110); HEMOLYSIS < 15 (0-50); Sodium 129 mmol/L (137-145)
[2018-03-04 06:47] LABS: Potassium 5.4 mmol/L (3.4-5.1)
[2018-03-04] MEDS: PANTOPRAZOLE 40 MG PACKET PO (06:47)
[2018-03-04 06:49] LABS: Blood Urea Nitrogen 109 mg/dL (9-20)
[2018-03-04] MEDS: FLUTICASONE/SALMETEROL 250/50 14 PUFF DISKUS INH ×2 (07:40→17:00)
[2018-03-04] MEDS: BUMETANIDE 1 MG TABLET PO (08:51)
[2018-03-04] MEDS: CALCIUM ACETATE 667 MG CAPSULE 1334 MG PO ×3 (08:51→17:15)
[2018-03-04] MEDS: CARVEDILOL 3.125 MG TABLET PO ×2 (08:51→20:43)
[2018-03-04] MEDS: predniSONE 20 MG TABLET 40 MG PO (08:52)
[2018-03-04] MEDS: DIGOXIN 0.125 MG TABLET PO (08:52)
[2018-03-04] MEDS: DOXYCYCLINE HYCLATE 100 MG TABLET PO (08:52)
[2018-03-04] MEDS: SODIUM CHLORIDE 0.9% FLUSH 10 ML IV ×2 (08:53→20:44)
[2018-03-04] MEDS: SODIUM POLYSTYRENE SULFON/SORB 15 GM/60 ML CUP 30 GM PO (08:54)
--- NOTE | 2018-03-04 09:00 | PT.IPTN ---
Current Diagnoses Anemia, unspecified (02/25/18) Pure hypercholesterolemia (02/25/18) Pure hypercholesterolemia, unspecified (02/25/18) Essential (primary) hypertension (02/25/18) Atherosclerotic heart disease of [place] coronary artery without angina pectoris (02/25/18) Acute on chronic systolic (congestive) heart failure (02/25/18) Heart failure, unspecified (02/25/18) Lobar pneumonia, unspecified organism (02/25/18) Chronic obstructive pulmonary disease with (acute) exacerbation (02/25/18) Acute and chronic respiratory failure with hypoxia (02/25/18) Acute kidney failure, unspecified (02/25/18) Physical Therapy Treatment Note Physical Therapy Visit Comments Patient Comments Pt reports being too tired to participate right now.
[2018-03-04 10:40] LABS: Albumin 3.4 g/dL (3.5-5.0)
--- NOTE | 2018-03-04 12:00 | ST.IPDYTX ---
Care Team BED TEACHER Dysphagia Treatment BED TEACHER Dysphagia Treatment Start: 02/27/18 16:17 Freq: Status: Active Protocol: Document 03/04/18 11:56 MRM (Rec: 03/04/18 12:00 MRM [id number]) Dysphagia Treatment Session Time Visit Start Time 11:45 Visit Stop Time 11:55 Total Visit Minutes 10 Setting Assessment Location Acute Care Visit Type Note Type Treatment Note Next Note Type Next Note Type Treatment Note Patient Information Identification Type Name ID Wristband Other Subjective Observations Patient awake, weak, resting in bed with no family present. Told BED TEACHER that MD was recommending transferring down to [place] for further care. Had minimal appetite, but did agree to trial thin liquid. Declined trials of food. Treatment Liquids Trialed Thin Administration Type Cup Single Sip Cup Consecutive Sips Treatment Activities Declined trials of food due to not feeling hungry and being weak. Tolerated thin liquids without difficulty. No overt s /s of aspiration. Quickly fatigued after finishing a small cup of juice. Requested to lie down. Stated he feels that his swallowing in getting better. No diet upgrade at this time due to patient request to discontinue treatment to rest. BED TEACHER will follow up tomorrow. Assessment Patient Response to Treatment Fair Rehab Potential Fair Assessment of Improvement Unable to position upright due to difficulty breathing when upright. However, able to demonstrate adequate swallowing safety while reclined in bed. Tolerating thin liquids and dysphagia advanted textures well, per staff report. No difficulty tolerating thin liquids from BED TEACHER assessment today. Unable to assess solids due to patient's request to discontinue treatment in order to rest. BED TEACHER will follow up tomorrow. Diet Recommendations Recommendations Continue Current Diet Liquids Order Thin Diet Order Dysphagia Advanced Medication Recommendations As Tolerated Aspiration Precautions Recommended Precautions Alternate Liquids/Solids Frequent Rest Periods Small Bites/Sips Double Swallow Treatment Plan Placement Recommendation after Discharge [facility] Facility Appropriate for Continued Therapy Yes Therapy Recommendations Ongoing patient education. Dysphagia Goals The pt will understand and use safe swallow strategies consistently to prevent aspiration The pt will participate in 1:[address] 1-2x/day. The pt will safely tolerate the least-restrictive diet for nutritional and hydration needs without s/ sx aspiration.
[2018-03-04] MEDS: BUMETANIDE 1 MG/4 ML VIAL IV ×2 (12:18→20:44)
[2018-03-04] MEDS: metOLazone 2.5 MG TABLET PO ×2 (12:18→20:43)
--- NOTE | 2018-03-04 12:32 | CM.DPC ---
DCP Cont: Patient quite ill at this time. Attempted to speak to patient regarding discharge plan, but has been sleeping. Medically unstable at this time with nursing in the room. Brother had been here briefly to see patient. Discussed patient at team rounds. Hospitalist mentioned possible transfer to hospital that has furniture duster. Went ahead and attempted to contact Emmy at the [facility]. her phone number is [phone], to inquire if patient has a case therapist through the [facility]. There was mention from Dr. Durán in yesterday's note discussing possible Hospice versus skilled. Patient lives at home with his brother who is frail as well. Patient would benefit from snf, but needs to be medically stable. P: DCP to follow closely. Plan is to be determined at this time. Patient is not up for discussion regarding skilled facilities due to illness. Will revisit when patient is more stable. Maryanne Castillo RN/[facility]
--- NOTE | 2018-03-04 12:52 | OT.IP.TRT ---
Current Diagnoses Anemia, unspecified (02/25/18) Pure hypercholesterolemia (02/25/18) Pure hypercholesterolemia, unspecified (02/25/18) Essential (primary) hypertension (02/25/18) Atherosclerotic heart disease of [place] coronary artery without angina pectoris (02/25/18) Acute on chronic systolic (congestive) heart failure (02/25/18) Heart failure, unspecified (02/25/18) Lobar pneumonia, unspecified organism (02/25/18) Chronic obstructive pulmonary disease with (acute) exacerbation (02/25/18) Acute and chronic respiratory failure with hypoxia (02/25/18) Acute kidney failure, unspecified (02/25/18) Occupational Therapy Treatment Note M2 OT-IP Current Condition Start: 02/26/18 11:48 Freq: Status: Active Protocol: Document 02/26/18 11:49 [facility] (Rec: 02/26/18 12:02 [facility] [id number]) Occupational Therapy Current Condition Current Condition Evaluation Date 02/26/18 Treatment Diagnosis CHF/COPD Diagnosis Onset Date 02/25/18 Post Operative Precautions Other Precautions Monitor 02 and vitals. M3 OT- IP Subjective and Pain Start: 02/26/18 11:48 Freq: Status: Active Protocol: Document 03/04/18 12:43 [facility] (Rec: 03/04/18 12:52 [facility] [id number]) OT- Subjective Occupational Therapy Visit Type Type Treatment Note Visit Start Time 11:25 Visit Stop Time 11:35 Total Visit Minutes 10 Occupational Therapy Visit Comments Patient Comments Pt wanting to get back to the bed as on the toilet. Pt states just very tired. OT Pain Assessment Pain When Pain Assessed At Rest Pain Present Pain Present Denied Pain M4 OT- IP ADL's Start: 02/26/18 11:48 Freq: Status: Active Protocol: Document 03/04/18 12:43 [facility] (Rec: 03/04/18 12:52 [facility] [id number]) OT ADL-Toileting General Evaluation Toileting Ability Independent Devices Toileting Assistive Devices Grab Bars M6 OT- IP Functional Cognition Start: 02/26/18 11:48 Freq: Status: Active Protocol: Document 03/04/18 12:43 [facility] (Rec: 03/04/18 12:52 [facility] [id number]) Cognitive Factors Limiting Selfcare Function Cognitive Ability Level of Alertness Alert Patient Orientation Name Place Situation Attention Span Ability Capable of Focused Attention Capable of Sustained Attention Ability to Follow Commands Able to Follow One Step Commands Able to Follow Multi-Step Commands Memory Description No Deficits Noted Safety Awareness No Deficits Noted M7 OT- IP Mobility and Balance Start: 02/26/18 11:48 Freq: Status: Active Protocol: Document 03/04/18 12:43 [facility] (Rec: 03/04/18 12:52 [facility] [id number]) OT- Bed Mobility Assessment Sit to Supine Sit to Supine Assist Moderate Assistance 1 Person Assistance OT-Transfer Assessment Sit to and From Stand Sit to and from Stand Moderate Assistance 1 Person Assistance Transfers Transfer Ability Minimal Assistance 1 Person Assistance Technique Transfer Destination Bed Toilet Transfer Technique Stand Step Pivot Devices Transfer Assistive Devices Gait Belt Front Wheeled Walker Comments Mobility Comments Pt needing initial MODA to stand from the toilet and CGA to CHAKA for balance and assist to manage O2 tubing. Pt needing MODA to help get his legs into the bed today. OT- Balance Assessment Sitting Balance and Reactions Static Sitting Balance Ability Normal Dynamic Sitting Balance Ability Normal Standing Balance and Reactions Static Standing Balance Ability Good Dynamic Standing Balance Ability Fair M8 OT- IP Objective Assessments Start: 02/26/18 11:48 Freq: Status: Active Protocol: Document 02/26/18 11:49 [facility] (Rec: 02/26/18 12:02 [facility] [id number]) OT Gross Range of Motion Upper Extremity Range of Motion Assessment Within Functional Limits OT Strength Upper Extremity Strength Assessment Within Functional Limits M9 OT- IP Assessment and Plan Start: 02/26/18 11:48 Freq: Status: Active Protocol: Document 03/04/18 12:43 [facility] (Rec: 03/04/18 12:52 [facility] [id number]) OT Summary Assessment and Plan Potential Rehabilitation Potential Fair Analytic Complexity at Evaluation Low Summary OT Impairments Balance Functional Mobility Grooming Dressing Toileting Bathing Shower Transfers Progress Towards Goals Slow Progress due to Medical Issues Slow Progress due to Activity Tolerance Assessment Summary Pt states feeling tired all the time and not able to tolerate much therapy at this time. Pending medical stability may need to now go to skilled rehab. Goals Grooming Goal Standby Assistance Dressing Goal Contact Guard Assistance Toileting Goal Standby Assistance Bathing Goal Minimal Assistance Toilet Transfer Goal Minimal Assistance Shower Transfer Goal Minimal Assistance Patient/Caregiver Education Goal Demonstrate Energy Conservation and Pacing Caregiver Independent Assisting Patient Days to Meet Goals 7 Frequency of Treatment Frequency Of Treatment Once a Day Treatment Plan OT Treatment Plan ADL Training Functional Cognition Training Functional Mobility Patient/Family Education Discharge Planning Discharge Recommendations OT Discharge Recommendations Home with Assistance SNF Rehab
--- NOTE | 2018-03-04 13:51 | P.PN_ITS ---
Subjective Date Patient Seen: 03/04/18 Time Patient Seen: 09:00 Interval history: PATIENT DENIES ANY SHORTNESS OF BREATH CHEST PAIN. HE STATED THAT HE IS FEELING BETTER. NO SIGNIFICANT ISSUES OVERNIGHT SPOKE TO NURSING REGARDING THE BUN TODAY SOME MILD GENERALIZED WEAKNESS REPORTED NO OTHER COMPLAINTS Exam Vital Signs (past 8 hours): - 03/04/18 07:41 03/04/18 08:00 03/04/18 08:01 Temperature 97.6 F Pulse Rate 88 Respiratory Rate 24 Blood Pressure 106/63 Pulse Oximetry 97 97 92 03/04/18 08:35 03/04/18 09:17 03/04/18 09:18 Temperature Pulse Rate Respiratory Rate Blood Pressure Pulse Oximetry 87 L 97 96 03/04/18 11:00 Temperature 97.7 F Pulse Rate 89 Respiratory Rate 24 Blood Pressure 93/60 Pulse Oximetry 97 Fraction of Inspired Oxygen 28 Oxygen Delivery Method Room Air Oxygen Flow Rate 1 Narrative Exam Narrative: NO ACUTE DISTRESS. PATIENT IS ALERT ORIENTED X3. OBESE VITAL SIGNS STABLE HEAD ATRAUMATIC NORMOCEPHALIC NECK : SUPPLE WITHOUT ADENOPATHY EYE: EOMI, PERRLA, NORMAL CONJUNCTIVA CHEST: REGULAR RATE.. NORMAL S1-S2 NO RUBS. PMI IS NON DISPLACED. NO MURMURS ; EDEMA TO LOWER EXTREMITIES; TRUNCAL EDEMA NOTED WELL PULMONARY: DECREASED BS OVER THE BASES. MILD BIBASILAR CRACKLES NOTED; NO INCREASED DULLNESS TO PERCUSSION; NO WHEEZING EXTREMITIES: 3+ EDEMA. NONPITTING. NO CYANOSIS CLUBBING NOTED. NEURO: CRANIAL NERVES 2-12 GROSSLY INTACT. NO FOCAL NEUROLOGICAL DEFICIT NOTED. MSK: NORMAL RANGE OF MOTION FOR AGE. NO JOINT EFFUSION. SKIN: NORMAL FOR ETHNICITY; NO ECCHYMOSIS. NO LESION. GOOD TURGOR.; NO RASHES : NORMAL EXTERNAL GENITALIA. PSYCH : APPROPRIATE MOOD AND AFFECT. ALERT AWAKE ORIENTED X3 Objective Labs Result Diagrams: 03/03/18 05:12 03/04/18 05:09 Labs: Laboratory Results - last 24 hr 03/03/18 03/04/18 13:35 05:09 Sodium 129 L Potassium 5.4 H Chloride 94 L Carbon Dioxide 19 L BUN 109 H* Creatinine 2.90 H Estimated GFR 21.4 L BUN/Creatinine Ratio 37.6 H Glucose 92 Calcium 8.9 Troponin I 0.081 H Albumin 3.4 L Assessment & Plan Plan: Assessment/Plan Narrative: IMPRESSION PLAN ACUTE ON CHRONIC KIDNEY DISEASE STAGE 4-5; BUN CONTINUES TO INCREASE HOWEVER CREATININE IS ONLY SLIGHTLY INCREASING. I SUSPECT THAT THE ELEVATION OF THE BUN IN MOST LIKELY DUE TO STEROID THERAPY; PATIENT IS MAKING GOOD URINE. HIS ACIDOSIS PERSISTS BUT APPEARED TO BE STABLE. WE WILL CONTINUE TO AVOID ALL NEPHROTOXIN MEDICATIONS. DOSE ALL MEDICATIONS PER GFR; STRICT I &OS; RESTRICT FLUID TO 600 CC DAILY; BLANCAS WILL BE ORDERED FOR STRICT I&OS; AEIOU; CONSIDER TRANSFER FOR POSS HD TO ANOTHER FACILITY INDICATED ACUTE ON CSHF; LAST ECHO WITH EF AT 40%; RESTRICT FLUIDS; CONT WITH DIURETICS; BP MANAGEMENT ; STICT IO; TELE AT ALL TIMES ANASARCA. SEVERE FLUID OVERLOAD. THIS IS MOST LIKELY MULTIFACTORIAL. WE WILL CHANGE DIURETIC FROM P.O. TO IV. METOLAZONE WILL BE ORDERED. STRICT INPUT AND OUTPUT. RESTRICT FLUID. ALBUMIN LEVEL WAS 3.4. WE WILL CONSIDER TRANSFUSION OF ALBUMIN FOLLOWED BY [facility] THE NEXT COUPLE DAYS IF INDICATED; DAILY WITH RECENT SCALE OBESITY; OUTPATIENT MANAGEMENT ; LIFESTYLE CHANGES RECOMMENDATION HYPERVOL HYPONATREMIA; DIURETICS AND MONITOR CLOSELY HYPERKALEMIA; TREAT INDICATED; KAYEXALATE NEEDED; DAILY LABS MET ACIDOSIS DUE TO RENAL FAILURE; CONSIDER START ON BICARB TODAY; DAILY LABS ANEMIA OF CD AND POSS IRON DEF; MONITOR WITH SERIAL LABS; GET IRON PANEL LEUKOCYTOIS; LIKELY ACUTE REACTANT TO STEROID THERAPY; MONITOR FOR NOW ACUTE COPDE; RESOLVED; TAPER STEROIDS; DUONEBS INDICATED; MARCELINA PLEURAL EFFUSION DUE TO CKD AND SHF; GET CXR TODAY DISPOSITION PER CLINICAL COURSE WILL REFER TO SNF ON DISPOSITION
--- NOTE | 2018-03-04 14:13 | CM.DPC ---
Addendum entered by Maryanne Castillo R.N. 03/04/18 14:33: Patient still sleeping. Left brother, Tashi, a message to call this caseworker back, regarding discharge planning. Left Medicare choice list in room. Original Note: DCP Cont: [place] back from Emmy at the [facility]. She stated that patient is not assigned to anyone at the [facility]. Asked her about hospice facilities, for patient could not go home on his own on hospice, since brother would not be able to fuly care for patient. Stated that if provider ordered Hospice, records would have to be faxed to the [facility], and records would have to be reviewed, which would take time. Also gave a patient access phone number for the AL, which is: [phone]. Emmy's phone number at the [facility] is: [phone]. At this point, patient could be tranferred to another hospital, so plan is to be determined. P: DCP to follow closely. If patient is not transferred and remains here, skilled may be in his benefit, but this would depend if he is progressing at this hospital and would be able to participate in skilled rehab. Maryanne Castillo RN/Typewriter Assembler
[2018-03-04] MEDS: SODIUM BICARBONATE 650 MG TABLET PO ×2 (14:31→20:43)
[2018-03-04 18:28] LABS: HEMOLYSIS < 15 (0-50); Iron 29 ug/dL (49-181)
[2018-03-04 18:39] LABS: Percent Iron Saturation 7 % (20-50); Total Iron Binding Capacity 401 ug/dL (261-462); Transferrin 325 mg/dL (206-381)
[2018-03-05] VITALS (19 sets, daily range): BP systolic 101–122; BP diastolic 47–61; PULSE 76–83; RESP 16–20; TEMP 36.3–36.8; O2SAT 3–98
--- NOTE | 2018-03-05 05:41 | PC.NURSE ---
03/05 0541; pt alert and oriented, VSS on 3L oxymask. pt SOB with exertion to include speaking. Utilizes minimal words in conversation. Pt involved in care, adhering to fluid restriction. Benton draining to gravity with large amounts of urine. Denied any additions respiratory distress, denied chest pain. Edema to bilateral lower extremities. very pleasant man.
[2018-03-05] MEDS: ALBUTEROL/IPRATROPIUM 3 ML AMPUL INH ×2 (05:46→11:17)
[2018-03-05] MEDS: PANTOPRAZOLE 40 MG PACKET PO (06:28)
--- NOTE | 2018-03-05 09:16 | CM.DPC ---
Referral faxed to [facility]
--- NOTE | 2018-03-05 09:24 | CM.DPC ---
DCP Cont: Met with patient and his brother in room. Brother has Medicare choice list. Discussed rehab options. Brother stated that he may be able to care for patient at home, because his son can help. Let him know that if patient goes to skilled facility, he would be monitored by nurses, and would work with physical therapy, since patient has been so ill. Asked patient how he felt about it, and he stated that it would be ok. Mentioned different facilities. First choice is [facility], for patient lives in [place]. Left Analilia in admissions a voice mail, and faxed clinicals. P: DCP to follow closely. [facility] when medically [facility], before home. Maryanne Castillo RN/Biomass Technician
[2018-03-05 09:45] LABS: Add Manual Diff / Slide Review NO; Basophils Percent Auto 0.6 % (0-2); Eosinophils Percent Auto 0.1 % (2-4); Hematocrit 31.3 % (41-53); Hemoglobin 9.3 g/dL (13.5-17.5); Lymphocytes Percent Auto 2.4 % (25-40); Mean Corpuscular HGB Conc 29.6 % (30-36); Mean Corpuscular Hemoglobin 18.6 PG (26-34); Mean Corpuscular Volume 62.9 fL (80-100); Monocytes Percent Auto 11.3 % (3-14); Neutrophils Absolute Auto 12700 /uL (3000-5900); Neutrophils Percent Auto 85.6 % (50-75); Platelet Count 143 X10^3/uL (150-400); Red Blood Cell Count 4.97 X10^6/uL (4.5-5.9); Red Cell Distribution Width 19.1 % (11.6-14.8); White Blood Cell Count 14.8 X10^3/uL (4.5-11.0)
[2018-03-05 10:01] LABS: Alanine Aminotransferase 646 IU/L (21-72); Albumin 3.3 g/dL (3.5-5.0); Albumin Globulin Ratio 1.2 (1.0-2.8); Alkaline Phosphatase 160 U/L (38-126); Aspartate Aminotransferase 319 IU/L (17-59); Bilirubin Total 2.7 mg/dL (0.2-1.3); Calcium 9.1 mg/dL (8.4-10.2); Carbon Dioxide 28 mmol/L (22-32); Chloride 91 mmol/L (98-107); Estimated Glomerular Filt Rate 24.2 mL/min (>60); Globulin 2.8 g/dL (1.7-4.1); Glucose 97 mg/dL (80-110); HEMOLYSIS < 15 (0-50); Magnesium 2.4 mg/dL (1.6-2.3); Phosphorous 5.3 mg/dL (2.3-3.7); Sodium 132 mmol/L (137-145); Total Protein 6.1 g/dL (6.3-8.2)
[2018-03-05 10:12] LABS: BUN Creatinine Ratio 43.8 (6-22)
[2018-03-05 10:17] LABS: Blood Urea Nitrogen 114 mg/dL (9-20)
[2018-03-05 10:25] LABS: Anisocytosis 1+; Hypochromasia 3+; Ovalocytes 1+; Poikilocytosis 1+; RBC Morphology S
[2018-03-05] MEDS: BUMETANIDE 1 MG/4 ML VIAL IV ×2 (10:44→20:50)
[2018-03-05] MEDS: DIGOXIN 0.125 MG TABLET PO (10:47)
[2018-03-05] MEDS: CARVEDILOL 3.125 MG TABLET PO ×2 (10:48→20:50)
[2018-03-05] MEDS: metOLazone 2.5 MG TABLET PO ×2 (10:49→20:50)
[2018-03-05] MEDS: SODIUM BICARBONATE 650 MG TABLET PO (10:49)
[2018-03-05] MEDS: predniSONE 20 MG TABLET PO (10:49)
[2018-03-05] MEDS: SODIUM CHLORIDE 0.9% FLUSH 10 ML IV (10:53)
--- NOTE | 2018-03-05 11:33 | P.PN_ITS ---
Subjective Date Patient Seen: 03/05/18 Time Patient Seen: 08:23 Interval history: DID NOT SLEEP WELL LAST NIGHT SOB/THAPA IMPROVED NO CP/CHEST PALPITATION NO FEVER OR CHILLS SPOKE TO NURSING REGARDING CASE Exam Vital Signs (past 8 hours): - 03/05/18 04:40 03/05/18 05:49 03/05/18 08:45 Temperature 97.6 F Pulse Rate 80 Respiratory Rate 20 Blood Pressure 111/59 L Pulse Oximetry 92 97 94 03/05/18 09:44 03/05/18 09:54 03/05/18 09:56 Temperature Pulse Rate Respiratory Rate Blood Pressure Pulse Oximetry 92 92 93 03/05/18 10:47 03/05/18 10:48 03/05/18 11:15 Temperature Pulse Rate 82 82 76 Respiratory Rate 18 Blood Pressure 122/54 L 122/54 L Pulse Oximetry 98 Fraction of Inspired Oxygen 28 Oxygen Delivery Method Room Air Oxygen Flow Rate 2 Narrative Exam Narrative: Exam Narrative: NO ACUTE DISTRESS. PATIENT IS ALERT ORIENTED X3. OBESE VITAL SIGNS STABLE HEAD ATRAUMATIC NORMOCEPHALIC NECK : SUPPLE WITHOUT ADENOPATHY EYE: EOMI, PERRLA, NORMAL CONJUNCTIVA CHEST: REGULAR RATE.. NORMAL S1-S2 NO RUBS. PMI IS NON DISPLACED. NO MURMURS ; EDEMA TO LOWER EXTREMITIES; TRUNCAL EDEMA NOTED WELL PULMONARY: DECREASED BS OVER THE BASES. MILD BIBASILAR CRACKLES NOTED; NO INCREASED DULLNESS TO PERCUSSION; NO WHEEZING EXTREMITIES: 3+ EDEMA. NONPITTING. NO CYANOSIS CLUBBING NOTED. NEURO: CRANIAL NERVES 2-12 GROSSLY INTACT. NO FOCAL NEUROLOGICAL DEFICIT NOTED. MSK: NORMAL RANGE OF MOTION FOR AGE. NO JOINT EFFUSION. SKIN: NORMAL FOR ETHNICITY; NO ECCHYMOSIS. NO LESION. GOOD TURGOR.; NO RASHES : NORMAL EXTERNAL GENITALIA. PSYCH : APPROPRIATE MOOD AND AFFECT. ALERT AWAKE ORIENTED X3 Objective Labs Result Diagrams: 03/05/18 09:12 03/05/18 09:12 Labs: Laboratory Results - last 24 hr 03/04/18 03/05/18 03/05/18 17:49 09:12 09:12 WBC 14.8 H RBC 4.97 Hgb 9.3 L Hct 31.3 L MCV 62.9 L MCH 18.6 L MCHC 29.6 L RDW 19.1 H Plt Count 143 L Neut % (Auto) 85.6 H Lymph % (Auto) 2.4 L [place] % (Auto) 11.3 Eos % (Auto) 0.1 L Baso % (Auto) 0.6 Neut # (Auto) 72613 H RBC Morphology S Hypochromasia 3+ H Poikilocytosis 1+ H Anisocytosis 1+ H Ovalocytes 1+ H Sodium 132 L Potassium 4.0 D Chloride 91 L Carbon Dioxide 28 BUN 114 H* Creatinine 2.60 H Estimated GFR 24.2 L BUN/Creatinine Ratio 43.8 H Glucose 97 Calcium 9.1 Phosphorus 5.3 H Magnesium 2.4 H Iron 29 L TIBC 401 % Saturation 7 L Transferrin 325 Total Bilirubin 2.7 H AST 319 H ALT 646 H Alkaline Phosphatase 160 H Total Protein 6.1 L Albumin 3.3 L Globulin 2.8 Albumin/Globulin Ratio 1.2 Assessment & Plan Plan: Assessment/Plan Narrative: IMPRESSION PLAN ACUTE ON CHRONIC KIDNEY DISEASE STAGE 4-5; BUN AGAIN INCREASED TODAY. HOWEVER PATIENT DOES NOT APPEAR TO BE UREMIC. HE IS NOT CONFUSED. CREATININE IMPROVED.. I SUSPECT THAT THE ELEVATION OF THE BUN IN MOST LIKELY DUE TO STEROID THERAPY; PATIENT CONTINUES TO MAKE GOOD URINE. HIS INPUT AND OUTPUT HAD A -4000 OVER THE LAST 24 HR; HIS ACIDOSIS RESOLVED. WE WILL CONTINUE TO AVOID ALL NEPHROTOXIN MEDICATIONS. DOSE ALL MEDICATIONS PER GFR; STRICT I&OS; RESTRICT FLUID TO 1500 CC DAILY; BLANCAS WILL BE ORDERED FOR STRICT I&OS; AEIOU; CONSIDER TRANSFER FOR POSS HD TO ANOTHER FACILITY IF INDICATED ACUTE ON CSHF; LAST ECHO WITH EF AT 40%; RESTRICT FLUIDS; CONT WITH DIURETICS; BP MANAGEMENT ; STRICT IO; TELE AT ALL TIMES ANASARCA. SEVERE FLUID OVERLOAD. IMPROVED. THIS IS MOST LIKELY MULTIFACTORIAL. CONTINUE WITH DIURETICS IV. BUMEX ORDERED B.I.D.. METOLAZONE ORDERED WELL. STRICT INPUT AND OUTPUT. RESTRICT FLUID TO 1500 CC. WATCH ALBUMIN LEVEL. WE WILL CONSIDER TRANSFUSION OF ALBUMIN FOLLOWED BY [facility] THE NEXT COUPLE DAYS IF INDICATED; DAILY WITH RECENT SCALE OBESITY; OUTPATIENT MANAGEMENT ; LIFESTYLE CHANGES RECOMMENDATION HYPERVOL HYPONATREMIA; IMPROVE; CONTINUE WITH DIURETICS THERAPY AND MONITOR CLOSELY HYPERKALEMIA; RESOLVE; TREAT INDICATED; KAYEXALATE NEEDED ON THE; DAILY LABS MET ACIDOSIS DUE TO RENAL FAILURE; RESOLVED; HOLD BICARB TAB TODAY; DAILY LABS ANEMIA OF CD AND POSS IRON DEF; MONITOR WITH SERIAL LABS; IRON SATURATION OF 7% . WILL TRANSFUSE IV IRON TODAY; START ON ORAL REPLACEMENT AFTER IV THERAPY LEUKOCYTOIS; LIKELY ACUTE REACTANT TO STEROID THERAPY; MONITOR FOR NOW ACUTE COPDE; RESOLVED; CONTINUE TO TAPER STEROIDS; DUONEBS INDICATED; MARCELINA PLEURAL EFFUSION DUE TO CKD AND SHF; GET CXR TODAY DISCHARGE PER CLINICAL COURSE. PROGNOSIS IS GUARDED
--- NOTE | 2018-03-05 12:30 | PT.IPTN ---
Current Diagnoses Anemia, unspecified (02/25/18) Pure hypercholesterolemia (02/25/18) Pure hypercholesterolemia, unspecified (02/25/18) Essential (primary) hypertension (02/25/18) Atherosclerotic heart disease of [place] coronary artery without angina pectoris (02/25/18) Acute on chronic systolic (congestive) heart failure (02/25/18) Heart failure, unspecified (02/25/18) Lobar pneumonia, unspecified organism (02/25/18) Chronic obstructive pulmonary disease with (acute) exacerbation (02/25/18) Acute and chronic respiratory failure with hypoxia (02/25/18) Acute kidney failure, unspecified (02/25/18) Physical Therapy Treatment Note M2 PT-IP Current Condition Start: 02/26/18 09:24 Freq: NEEDED Status: Active Protocol: Document 02/26/18 08:37 (Rec: 02/26/18 09:51 [id number]) Physical Therapy Current Condition Current Condition Evaluation Date 02/26/18 Treatment Diagnosis CHF and COPD exacerbation; difficulty walking Onset Date 02/25/2018 Precautions Other Precautions Monitor 02 and vitals. M3 PT-IP Subjective Start: 02/26/18 09:24 Freq: NEEDED Status: Active Protocol: Document 03/05/18 10:05 AB (Rec: 03/05/18 12:30 AB [id number]) Subjective Physical Therapy Visit Type Type Treatment Note Visit Start Time 10:05 Visit Stop Time 10:35 Total Visit Minutes 30 Number of SUPERVISOR DRYING AND WINDING Visits 0 Physical Therapy Visit Comments Patient Comments pt agreeable to get up M4 PT-IP Mobility and Gait Start: 02/26/18 09:24 Freq: NEEDED Status: Active Protocol: Document 03/05/18 10:05 AB (Rec: 03/05/18 12:30 AB [id number]) PT-Bed Mobility Assessment Supine to Sit Supine to Sit Moderate Assistance PT-Transfer Assessment Sit to and From Stand Sit to and from Stand Moderate Assistance Equipment Transfer Assistive Device Gait Belt Front Wheeled Walker Orthotic/Prosthetic Devices or Brace: No Transfers Transfer Destination Chair Transfer Technique pt ambulated to the chair Gait Assessment Gait Gait Assistance Required: Minimum Assistance Distance (Feet) 12 Able to Maintain Weight Bearing Status Yes During Gait Assistive Devices Assistive Device Gait Belt Front Wheeled Walker Orthotic/Prosthetic Devices or Brace: No Gait Deviations General Gait Pattern Decreased Stride Length Decreased Feet Clearance Factors Limiting Gait Function Factors Limiting Gait Function Decreased Activity Tolerance Decreased Strength Poor Balance Poor Safety Awareness Comments Gait Comments Pt refused further ambulation after transfers but agreed to stay up on chair. M5 PT-IP Objective Assessments Start: 02/26/18 09:24 Freq: NEEDED Status: Active Protocol: Document 02/26/18 08:37 (Rec: 02/26/18 09:51 [id number]) Orientation Orientation/Cognition Level of Alertness Alert Orientation Name Age Birthday Month Date Year Day of Week Place Situation Language Function Ability No Deficits Noted Safety Awareness Decreased Safety Awareness Gross Range of Motion Lower Extremity ROM Assessment Within Functional Limits Strength Lower Extremity Strength Assessment Within Functional Limits Comments Strength Comments BLE 4+/5 on gross testing. Other Assessments Other Other Assessments Pt notable for pitting edema in bilateral feet grade 2. Pt noted to have hematuria. Pt noted to have decreased thoracic excursion on palpation during inhale/exhale . M6 PT-IP Treatment Start: 02/26/18 09:24 Freq: NEEDED Status: Active Protocol: Document 03/01/18 09:58 (Rec: 03/01/18 14:11 [id number]) Physical Therapy Treatment Other Treatments Other Treatment Performed Instruction in pursed lip breathing using a straw and cues for long exhales and tripod position with coughing. Pt noted to have minimal clear sputum with coughing. Pt able to improve 02 immediately when he is mindful of breathing, however needing constant reminders. M7 PT-IP Assessment and Plan Start: 02/26/18 09:24 Freq: NEEDED Status: Active Protocol: Document 03/05/18 10:05 AB (Rec: 03/05/18 12:30 AB [id number]) PT Summary Assessment and Plan Potential Rehabilitation Potential Fair Summary Impairments Pain ROM Strength Balance Coordination Sensation Tone Cognition Bed Mobility Transfers Gait Activity Tolerance Progress Towards Goals Slow Progress due to Medical Issues Assessment Summary pt stated that his legs feels heavy and does not feel that SPC will be safe for him to use. pt requiring min to mod A with mobility today using FWW. pt will need SNF rehab to improve strength and function. Goals Bed Mobility Goal Standby Assistance Transfer Goal Standby Assistance Cane Front Wheeled Walker Gait Goal Standby Assistance Cane Front Wheel Walker Gait Distance 100 Days to Meet Goals 5 Frequency of Treatment Frequency Of Treatment Once a Day Treatment Plan Physical Therapy Treatment Plan Bed Mobility Training Transfer Training Gait Training Therapeutic Exercise Balance Retraining Discharge Planning Hot or Cold Pack Neuromuscular Re-ed Coordination Retraining Manual Therapy Other Recommendations and Next Treatment ambulation Focus Recommendations To Nursing Amount of Assist Needed 1 Person Assist Discharge Recommendations PT Discharge Recommendations SNF Rehab
--- NOTE | 2018-03-05 12:41 | ST.IPDYTX ---
Care Team Visit Care Team Role Provider Type Gregorio Elliott MD Primary Care Provider Physician Specialty: Internal Medicine Address: [address] [place] [address], [id number] Email: Nelli Diaz DO Emergency Provider Physician Specialty: Emergency Medicine Address: [address] [place] [address], [id number] Email: Juliana Bueno DO Admit Provider Physician Attending Provider Specialty: Internal Medicine Address: [address] [place] [address], [id number] Email: INFORMATION MANAGER Dysphagia Treatment INFORMATION MANAGER Dysphagia Treatment Start: 02/27/18 16:17 Freq: Status: Active Protocol: Document 03/05/18 12:37 MRM (Rec: 03/05/18 12:41 MRM [id number]) Dysphagia Treatment Session Time Visit Start Time 10:50 Visit Stop Time 11:10 Total Visit Minutes 20 Setting Assessment Location Acute Care Visit Type Note Type Treatment Note Next Note Type Next Note Type Treatment Note Patient Information Identification Type Name ID Wristband Other Subjective Observations Pb was awake and alert, sitting upright in chair with family present. Student nurse administered medication. Pb was wearing an O2 mask to improve oxygen levels. He was able to take the mask off to eat and put it back on to breathe without diffculty or significant desaturation. Treatment Liquids Trialed Thin Solids Trialed Dysphagia Mechanical Dysphagia Advanced Administration Type Straw Self-Feeding Oral Strategies Upright at 90 degrees Alternate Liquids/Solids Pharyngeal Strategies Small Bites and Sips Alternate Liquids/Solids Treatment Activities Independently trialed thin liquids, medication in carrier , applesauce and soft fruit. No overt s/s of aspiration. No significant difficulty observed masticating fruit. Able to tolerate diet without difficulty or significant desaturation when mask was off . No diet upgrade recommended at this time due to patient's edentulous baseline. Recommend follow up tomorrow to monitor his carry-over with coordination of O2 mask and eating/drinking sufficiently. Assessment Patient Response to Treatment Excellent Rehab Potential Good Assessment of Improvement Steady improvement. Plans to D /C to [facility] when stable Diet Recommendations Recommendations Continue Current Diet Liquids Order Thin Diet Order Dysphagia Advanced Medication Recommendations As Tolerated Aspiration Precautions Recommended Precautions Upright at 90 Degrees Alternate Liquids/Solids Frequent Rest Periods Small Bites/Sips Treatment Plan Placement Recommendation after Discharge [facility] Facility Appropriate for Continued Therapy Yes Therapy Recommendations Ongoing patient education. Dysphagia Goals The pt will understand and use safe swallow strategies consistently to prevent aspiration The pt will participate in 1:[address] 1-2x/day. The pt will safely tolerate the least-restrictive diet for nutritional and hydration needs without s/ sx aspiration.
[2018-03-05] MEDS: CALCIUM ACETATE 667 MG CAPSULE 1334 MG PO ×2 (12:56→17:11)
--- NOTE | 2018-03-05 13:03 | OT.IP.TRT ---
Current Diagnoses Anemia, unspecified (02/25/18) Pure hypercholesterolemia (02/25/18) Pure hypercholesterolemia, unspecified (02/25/18) Essential (primary) hypertension (02/25/18) Atherosclerotic heart disease of [place] coronary artery without angina pectoris (02/25/18) Acute on chronic systolic (congestive) heart failure (02/25/18) Heart failure, unspecified (02/25/18) Lobar pneumonia, unspecified organism (02/25/18) Chronic obstructive pulmonary disease with (acute) exacerbation (02/25/18) Acute and chronic respiratory failure with hypoxia (02/25/18) Acute kidney failure, unspecified (02/25/18) Occupational Therapy Treatment Note M2 OT-IP Current Condition Start: 02/26/18 11:48 Freq: Status: Active Protocol: Document 02/26/18 11:49 [facility] (Rec: 02/26/18 12:02 [facility] [id number]) Occupational Therapy Current Condition Current Condition Evaluation Date 02/26/18 Treatment Diagnosis CHF/COPD Diagnosis Onset Date 02/25/18 Post Operative Precautions Other Precautions Monitor 02 and vitals. M3 OT- IP Subjective and Pain Start: 02/26/18 11:48 Freq: Status: Active Protocol: Document 03/05/18 12:57 [facility] (Rec: 03/05/18 13:03 [facility] [id number]) OT- Subjective Occupational Therapy Visit Type Type Treatment Note Visit Start Time 12:25 Visit Stop Time 12:40 Total Visit Minutes 15 Occupational Therapy Visit Comments Patient Comments Pt agreeable to get up but wanting to go back to the bed. Pt agreeable to go to skilled rehab. OT Pain Assessment Pain When Pain Assessed At Rest Pain Present Pain Present Denied Pain M4 OT- IP ADL's Start: 02/26/18 11:48 Freq: Status: Active Protocol: Document 03/04/18 12:43 [facility] (Rec: 03/04/18 12:52 [facility] [id number]) OT ADL-Toileting General Evaluation Toileting Ability Independent Devices Toileting Assistive Devices Grab Bars M6 OT- IP Functional Cognition Start: 02/26/18 11:48 Freq: Status: Active Protocol: Document 03/05/18 12:57 [facility] (Rec: 03/05/18 13:03 [facility] [id number]) Cognitive Factors Limiting Selfcare Function Cognitive Ability Level of Alertness Alert Attention Span Ability Capable of Focused Attention Capable of Sustained Attention Ability to Follow Commands Able to Follow Multi-Step Commands Memory Description No Deficits Noted Safety Awareness No Deficits Noted Problem Solving Ability No deficits Noted Executive Function Ability No Deficits Noted M7 OT- IP Mobility and Balance Start: 02/26/18 11:48 Freq: Status: Active Protocol: Document 03/05/18 12:57 [facility] (Rec: 03/05/18 13:03 [facility] [id number]) OT- Bed Mobility Assessment Sit to Supine Sit to Supine Assist Minimal Assistance 1 Person Assistance Scooting Scooting Up and Down in Bed Standby Assistance Total Assistance OT-Transfer Assessment Sit to and From Stand Sit to and from Stand Contact Guard Assistance 1 Person Assistance Transfers Transfer Ability Contact Guard Assistance Total Assistance Technique Transfer Destination Bed Transfer Technique Stand Step Pivot Devices Transfer Assistive Devices Gait Belt Front Wheeled Walker Comments Mobility Comments CGA to stand to FWW and CGA to walk around the bed to get in , assist to help manage O2 line. Pt needing CHAKA to help get LLE back into the bed. M8 OT- IP Objective Assessments Start: 02/26/18 11:48 Freq: Status: Active Protocol: Document 02/26/18 11:49 [facility] (Rec: 02/26/18 12:02 [facility] [id number]) OT Gross Range of Motion Upper Extremity Range of Motion Assessment Within Functional Limits OT Strength Upper Extremity Strength Assessment Within Functional Limits M9 OT- IP Assessment and Plan Start: 02/26/18 11:48 Freq: Status: Active Protocol: Document 03/05/18 12:57 [facility] (Rec: 03/05/18 13:03 [facility] [id number]) OT Summary Assessment and Plan Potential Rehabilitation Potential Good Analytic Complexity at Evaluation Low Summary OT Impairments Balance Functional Mobility Grooming Dressing Toileting Bathing Shower Transfers Progress Towards Goals Slow Progress due to Medical Issues Slow Progress due to Activity Tolerance Assessment Summary Pt agreeable to go to skilled rehab as currently too weak to go home. Goals Grooming Goal Standby Assistance Dressing Goal Contact Guard Assistance Toileting Goal Standby Assistance Bathing Goal Minimal Assistance Toilet Transfer Goal Standard Toilet Shower Transfer Goal Contact Guard Assistance Days to Meet Goals 7 Frequency of Treatment Frequency Of Treatment Once a Day Treatment Plan OT Treatment Plan ADL Training Functional Cognition Training Functional Mobility Patient/Family Education Discharge Planning Other Treatment Recommendations and Next Shower if appropriate. Treatment Focus Discharge Recommendations OT Discharge Recommendations SNF Rehab
[2018-03-05] MEDS: ALBUTEROL 2.5 MG/3 ML NEB (ADULT) INH (17:06)
[2018-03-05] MEDS: FLUTICASONE/SALMETEROL 250/50 14 PUFF DISKUS INH (19:30)
[2018-03-05] MEDS: IRON SUCROSE 200 MG in SODIUM CHLORIDE 0.9% 100 ML 220 ML IV (20:36)
[2018-03-06] VITALS (18 sets, daily range): BP systolic 91–149; BP diastolic 41–81; PULSE 69–82; RESP 14–22; TEMP 35.7–36.4; O2SAT 92–97
[2018-03-06] MEDS: ALBUTEROL/IPRATROPIUM 3 ML AMPUL INH ×2 (04:37→18:20)
[2018-03-06 06:03] LABS: Hematocrit 31.5 % (41-53); Hemoglobin 9.4 g/dL (13.5-17.5); Mean Corpuscular HGB Conc 29.8 % (30-36); Mean Corpuscular Hemoglobin 18.7 PG (26-34); Mean Corpuscular Volume 62.6 fL (80-100); Platelet Count 135 X10^3/uL (150-400); Red Blood Cell Count 5.03 X10^6/uL (4.5-5.9); Red Cell Distribution Width 19.1 % (11.6-14.8); White Blood Cell Count 15.5 X10^3/uL (4.5-11.0)
[2018-03-06 06:09] LABS: Add Manual Diff / Slide Review YES
[2018-03-06 06:13] LABS: Alanine Aminotransferase 567 IU/L (21-72); Albumin 3.1 g/dL (3.5-5.0); Albumin Globulin Ratio 1.1 (1.0-2.8); Alkaline Phosphatase 185 U/L (38-126); Aspartate Aminotransferase 268 IU/L (17-59); BUN Creatinine Ratio 46.1 (6-22); Bilirubin Total 2.6 mg/dL (0.2-1.3); Calcium 9.2 mg/dL (8.4-10.2); Carbon Dioxide 34 mmol/L (22-32); Chloride 91 mmol/L (98-107); Estimated Glomerular Filt Rate 27.9 mL/min (>60); Globulin 2.7 g/dL (1.7-4.1); Glucose 105 mg/dL (80-110); HEMOLYSIS < 15 (0-50); Magnesium 2.2 mg/dL (1.6-2.3); Phosphorous 3.8 mg/dL (2.3-3.7); Potassium 3.3 mmol/L (3.4-5.1); Sodium 134 mmol/L (137-145); Total Protein 5.8 g/dL (6.3-8.2)
[2018-03-06 06:17] LABS: Blood Urea Nitrogen 106 mg/dL (9-20)
[2018-03-06 06:26] LABS: Neutrophils Absolute Manual 13330 /uL (3000-5900); Nucleated Red Blood Cells 2 #/Diff; Total Cells Counted 100
[2018-03-06 06:27] LABS: Microcytosis 2+; Poikilocytosis 2+; Polychromasia 1+
[2018-03-06] MEDS: PANTOPRAZOLE 40 MG PACKET PO (06:27)
[2018-03-06 06:28] LABS: Anisocytosis 2+; Ovalocytes 1+
[2018-03-06] MEDS: CALCIUM ACETATE 667 MG CAPSULE 1334 MG PO ×3 (08:49→19:00)
[2018-03-06] MEDS: BUMETANIDE 1 MG/4 ML VIAL IV (08:50)
[2018-03-06] MEDS: CARVEDILOL 3.125 MG TABLET PO (08:50)
[2018-03-06] MEDS: DIGOXIN 0.125 MG TABLET PO (08:53)
[2018-03-06] MEDS: LISINOPRIL 10 MG TABLET PO (08:54)
[2018-03-06] MEDS: predniSONE 20 MG TABLET 10 MG PO (08:56)
[2018-03-06] MEDS: metOLazone 2.5 MG TABLET PO (08:56)
[2018-03-06] MEDS: SODIUM CHLORIDE 0.9% FLUSH 10 ML IV ×3 (08:58→20:53)
[2018-03-06] MEDS: IRON SUCROSE 200 MG in SODIUM CHLORIDE 0.9% 100 ML 220 ML IV (10:19)
--- NOTE | 2018-03-06 10:58 | PM.PN.1 ---
Subjective Date Patient Seen: 03/06/18 Time Patient Seen: 08:25 Interval history: CONT TO FEEL BETTER DENIED ANY CP/CHEST PALPITATIONS MILD THAPA REMAINS EDEMA IS IMPROVING PER PATIENT NO SIGNIFICANT ISSUES OVERNIGHT Exam Vital Signs (past 8 hours): - 03/06/18 03:45 03/06/18 04:38 03/06/18 07:18 Temperature 97.6 F 97.3 F L Pulse Rate 80 70 78 Respiratory Rate 16 16 22 Blood Pressure 106/41 L 93/55 L Pulse Oximetry 94 93 93 03/06/18 08:50 03/06/18 09:11 03/06/18 09:17 Temperature Pulse Rate 81 Respiratory Rate Blood Pressure 106/56 L Pulse Oximetry 96 94 03/06/18 10:21 Temperature Pulse Rate Respiratory Rate Blood Pressure Pulse Oximetry 97 Fraction of Inspired Oxygen 26 Oxygen Delivery Method Venturi Mask Oxygen Flow Rate 2 Narrative Exam Narrative: NO ACUTE DISTRESS. PATIENT IS ALERT ORIENTED X3. OBESE VITAL SIGNS STABLE HEAD ATRAUMATIC NORMOCEPHALIC NECK : SUPPLE WITHOUT ADENOPATHY EYE: EOMI, PERRLA, NORMAL CONJUNCTIVA CHEST: REGULAR RATE.. NORMAL S1-S2 NO RUBS. PMI IS NON DISPLACED. NO MURMURS; EDEMA TO LOWER EXTREMITIES; TRUNCAL EDEMA NOTED WELL PULMONARY: DECREASED BS OVER THE BASES. MILD BIBASILAR CRACKLES NOTED; NO INCREASED DULLNESS TO PERCUSSION; NO WHEEZING EXTREMITIES: 3+ EDEMA. NONPITTING. NO CYANOSIS CLUBBING NOTED. NEURO: CRANIAL NERVES 2-12 GROSSLY INTACT. NO FOCAL NEUROLOGICAL DEFICIT NOTED. MSK: NORMAL RANGE OF MOTION FOR AGE. NO JOINT EFFUSION. SKIN: NORMAL FOR ETHNICITY; NO ECCHYMOSIS. NO LESION. GOOD TURGOR.; NO RASHES : NORMAL EXTERNAL GENITALIA. PSYCH : APPROPRIATE MOOD AND AFFECT. ALERT AWAKE ORIENTED X3 Objective Labs Result Diagrams: 03/06/18 05:31 03/06/18 05:31 Labs: Laboratory Results - last 24 hr 03/06/18 03/06/18 05:31 05:31 WBC 15.5 H RBC 5.03 Hgb 9.4 L Hct 31.5 L MCV 62.6 L MCH 18.7 L MCHC 29.8 L RDW 19.1 H Plt Count 135 L Neut % (Auto) Not Reportable Lymph % (Auto) Not Reportable [place] % (Auto) Not Reportable Eos % (Auto) Not Reportable Baso % (Auto) Not Reportable Total Counted 100 Seg Neutrophils % 86.0 H Lymphocytes % (Manual) 7.0 L Monocytes % (Manual) 7.0 Neutrophils # (Manual) 97906 H Nucleated RBCs 2 H RBC Morphology See below Polychromasia 1+ H Poikilocytosis 2+ H Anisocytosis 2+ H Microcytosis 2+ H Ovalocytes 1+ H Sodium 134 L Potassium 3.3 L Chloride 91 L Carbon Dioxide 34 H BUN 106 H* Creatinine 2.30 H Estimated GFR 27.9 L BUN/Creatinine Ratio 46.1 H Glucose 105 Calcium 9.2 Phosphorus 3.8 H D Magnesium 2.2 Total Bilirubin 2.6 H AST 268 H ALT 567 H Alkaline Phosphatase 185 H Total Protein 5.8 L Albumin 3.1 L Globulin 2.7 Albumin/Globulin Ratio 1.1 Assessment & Plan Plan: Assessment/Plan Narrative: IMPRESSION PLAN ACUTE ON CHRONIC KIDNEY DISEASE STAGE 4-5; BUN IMPROVED TODAY. PATIENT DOES NOT APPEAR TO BE UREMIC. NO CONFUSION. CREATININE APPEARS AT BASELINE. PATIENT CONTINUES TO HAVE GOOD URINE PRODUCTION. HIS INPUT AND OUTPUT HAD A -9000 OVER THE LAST 24 HR; HIS ACIDOSIS RESOLVED AND NOW APPEARS TO BE DEVELOPING CONTRACTED ALKOLOSIS. WILL DEC HIS DIURETICS DOSE TODAY; WE WILL CONTINUE TO AVOID ALL NEPHROTOXIN MEDICATIONS. DOSE ALL MEDICATIONS PER GFR; STRICT I&OS; RESTRICT FLUID TO 1500 CC DAILY; BLANCAS WILL BE ORDERED FOR STRICT I&OS; AEIOU; CONSIDER TRANSFER FOR POSS HD TO ANOTHER FACILITY IF INDICATED ACUTE ON CSHF; LAST ECHO WITH EF AT 40%; RESTRICT FLUIDS; CONT WITH DIURETICS BUT AT LOWER DOSE DUE TO CONTRACTED ALKOLOIS; BP MANAGEMENT ; STRICT IO; TELE AT ALL TIMES ANASARCA. IMPROVED ONCE AGAIN. CONTINUE WITH IV AND PO DIURETICS . BUMEX CHANGED TO DAILY IN CONJUNCTION WITH METOLAZONE STRICT INPUT AND OUTPUT. RESTRICT FLUID TO 1500 CC. WATCH ALBUMIN LEVEL. WE WILL CONSIDER TRANSFUSION OF ALBUMIN FOLLOWED BY [facility] THE NEXT COUPLE DAYS IF INDICATED; DAILY WITH RECENT SCALE OBESITY; OUTPATIENT MANAGEMENT ; LIFESTYLE CHANGES RECOMMENDATION HYPERVOL HYPONATREMIA; SODIUM CONT TO IMPROVE; CONTINUE WITH DIURETICS THERAPY AND MONITOR CLOSELY HYPERKALEMIA; RESOLVED; TREAT INDICATED; KAYEXALATE NEEDED ON THE; DAILY LABS MET ACIDOSIS DUE TO RENAL FAILURE; RESOLVED; CONTRACTED ALKOLOSIS; WILL DEC DIURETICS TODAY ANEMIA OF CD AND IRON DEF; MONITOR WITH SERIAL LABS; IRON SATURATION OF 7%. WILL TRANSFUSE IV IRON X 3 DAYS; START ON ORAL REPLACEMENT AFTER IV THERAPY LEUKOCYTOIS; LIKELY ACUTE REACTANT TO STEROID THERAPY; MONITOR FOR NOW; NO S/S OF ACUTE INFECTIOUS PROCESS ACUTE COPDE; RESOLVED; CONTINUE TO TAPER STEROIDS; DUONEBS INDICATED; MARCELINA PLEURAL EFFUSION DUE TO CKD AND SHF; MONITOR RESP STATUS CLOSELY ; CONSIDER THORACENTESIS INDICATED DISCHARGE PER CLINICAL COURSE. LIKELY DC TO SNF PROGNOSIS IS GUARDED
--- NOTE | 2018-03-06 11:50 | PT.IPTN ---
Current Diagnoses Anemia, unspecified (02/25/18) Pure hypercholesterolemia (02/25/18) Pure hypercholesterolemia, unspecified (02/25/18) Essential (primary) hypertension (02/25/18) Atherosclerotic heart disease of [place] coronary artery without angina pectoris (02/25/18) Acute on chronic systolic (congestive) heart failure (02/25/18) Heart failure, unspecified (02/25/18) Lobar pneumonia, unspecified organism (02/25/18) Chronic obstructive pulmonary disease with (acute) exacerbation (02/25/18) Acute and chronic respiratory failure with hypoxia (02/25/18) Acute kidney failure, unspecified (02/25/18) Physical Therapy Treatment Note M2 PT-IP Current Condition Start: 02/26/18 09:24 Freq: NEEDED Status: Active Protocol: Document 02/26/18 08:37 (Rec: 02/26/18 09:51 [id number]) Physical Therapy Current Condition Current Condition Evaluation Date 02/26/18 Treatment Diagnosis CHF and COPD exacerbation; difficulty walking Onset Date 02/25/2018 Precautions Other Precautions Monitor 02 and vitals. M3 PT-IP Subjective Start: 02/26/18 09:24 Freq: NEEDED Status: Active Protocol: Document 03/06/18 11:50 GGD (Rec: 03/06/18 12:04 GGD [id number]) Subjective Physical Therapy Visit Type Type Treatment Note Visit Start Time 11:35 Visit Stop Time 11:50 Total Visit Minutes 15 Number of COUTURE ALTERATIONS DRESSMAKER Visits 1 Physical Therapy Visit Comments Patient Comments Pt willing to get up to chair. M4 PT-IP Mobility and Gait Start: 02/26/18 09:24 Freq: NEEDED Status: Active Protocol: Document 03/06/18 11:50 GGD (Rec: 03/06/18 12:04 GGD [id number]) PT-Bed Mobility Assessment Supine to Sit Supine to Sit Moderate Assistance Head of Bed Elevated Bedrails Scooting Scooting to Edge of Bed Contact Guard Assistance PT-Transfer Assessment Sit to and From Stand Sit to and from Stand Contact Guard Assistance Use of Upper Extremities Equipment Transfer Assistive Device Gait Belt Front Wheeled Walker Transfers Transfer Destination Chair Transfer Ability Level of Assist Contact Guard Assistance Gait Assessment Gait Gait Assistance Required: Contact Guard Assist Distance (Feet) 15 Able to Maintain Weight Bearing Status Yes During Gait Assistive Devices Assistive Device Gait Belt Front Wheeled Walker Orthotic/Prosthetic Devices or Brace: No Gait Deviations General Gait Pattern Decreased Stride Length Decreased Feet Clearance Factors Limiting Gait Function Factors Limiting Gait Function Decreased Activity Tolerance Decreased Strength Poor Balance Poor Safety Awareness Comments Gait Comments Pt stood for gown change. O2 at rest 94% on 2L. with activity 91%. M5 PT-IP Objective Assessments Start: 02/26/18 09:24 Freq: NEEDED Status: Active Protocol: Document 02/26/18 08:37 (Rec: 02/26/18 09:51 [id number]) Orientation Orientation/Cognition Level of Alertness Alert Orientation Name Age Birthday Month Date Year Day of Week Place Situation Language Function Ability No Deficits Noted Safety Awareness Decreased Safety Awareness Gross Range of Motion Lower Extremity ROM Assessment Within Functional Limits Strength Lower Extremity Strength Assessment Within Functional Limits Comments Strength Comments BLE 4+/5 on gross testing. Other Assessments Other Other Assessments Pt notable for pitting edema in bilateral feet grade 2. Pt noted to have hematuria. Pt noted to have decreased thoracic excursion on palpation during inhale/exhale . M6 PT-IP Treatment Start: 02/26/18 09:24 Freq: NEEDED Status: Active Protocol: Document 03/01/18 09:58 (Rec: 03/01/18 14:11 [id number]) Physical Therapy Treatment Other Treatments Other Treatment Performed Instruction in pursed lip breathing using a straw and cues for long exhales and tripod position with coughing. Pt noted to have minimal clear sputum with coughing. Pt able to improve 02 immediately when he is mindful of breathing, however needing constant reminders. M7 PT-IP Assessment and Plan Start: 02/26/18 09:24 Freq: NEEDED Status: Active Protocol: Document 03/06/18 11:50 GGD (Rec: 03/06/18 12:04 GGD [id number]) PT Summary Assessment and Plan Summary Assessment Summary Pt fatigued with mobility. He was stable with gait with FWW. He did have heavy use of UE on FWW for balance and gait. Frequency of Treatment Frequency Of Treatment Once a Day Treatment Plan Other Recommendations and Next Treatment ambulation Focus Recommendations To Nursing Amount of Assist Needed 1 Person Assist Discharge Recommendations PT Discharge Recommendations SNF Rehab
--- NOTE | 2018-03-06 13:01 | OT.IP.TRT ---
Current Diagnoses Anemia, unspecified (02/25/18) Pure hypercholesterolemia (02/25/18) Pure hypercholesterolemia, unspecified (02/25/18) Essential (primary) hypertension (02/25/18) Atherosclerotic heart disease of [place] coronary artery without angina pectoris (02/25/18) Acute on chronic systolic (congestive) heart failure (02/25/18) Heart failure, unspecified (02/25/18) Lobar pneumonia, unspecified organism (02/25/18) Chronic obstructive pulmonary disease with (acute) exacerbation (02/25/18) Acute and chronic respiratory failure with hypoxia (02/25/18) Acute kidney failure, unspecified (02/25/18) Occupational Therapy Treatment Note M2 OT-IP Current Condition Start: 02/26/18 11:48 Freq: Status: Active Protocol: Document 02/26/18 11:49 [facility] (Rec: 02/26/18 12:02 [facility] [id number]) Occupational Therapy Current Condition Current Condition Evaluation Date 02/26/18 Treatment Diagnosis CHF/COPD Diagnosis Onset Date 02/25/18 Post Operative Precautions Other Precautions Monitor 02 and vitals. M3 OT- IP Subjective and Pain Start: 02/26/18 11:48 Freq: Status: Active Protocol: Document 03/06/18 12:54 [facility] (Rec: 03/06/18 12:59 [facility] [id number]) OT- Subjective Occupational Therapy Visit Type Type Treatment Note Visit Start Time 12:45 Visit Stop Time 12:53 Total Visit Minutes 8 Occupational Therapy Visit Comments Patient/Caregiver Goals Pt wanting ot get back to the recliner from the toilet. OT Pain Assessment Pain When Pain Assessed At Rest Pain Present Pain Present Denied Pain M4 OT- IP ADL's Start: 02/26/18 11:48 Freq: Status: Active Protocol: Document 03/06/18 12:43 [facility] (Rec: 03/06/18 13:01 [facility] [id number]) OT ADL-Toileting General Evaluation Toileting Ability Contact Guard Assistance Devices Toileting Assistive Devices Grab Bars Comments OT Toileting Comments CGA for standing while pt able to pull up brief over his hips. M6 OT- IP Functional Cognition Start: 02/26/18 11:48 Freq: Status: Active Protocol: Document 03/05/18 12:57 [facility] (Rec: 03/05/18 13:03 [facility] [id number]) Cognitive Factors Limiting Selfcare Function Cognitive Ability Level of Alertness Alert Attention Span Ability Capable of Focused Attention Capable of Sustained Attention Ability to Follow Commands Able to Follow Multi-Step Commands Memory Description No Deficits Noted Safety Awareness No Deficits Noted Problem Solving Ability No deficits Noted Executive Function Ability No Deficits Noted M7 OT- IP Mobility and Balance Start: 02/26/18 11:48 Freq: Status: Active Protocol: Document 03/06/18 12:54 [facility] (Rec: 03/06/18 12:59 [facility] [id number]) OT-Transfer Assessment Sit to and From Stand Sit to and from Stand Minimal Assistance 1 Person Assistance Transfers Transfer Ability Contact Guard Assistance 1 Person Assistance Technique Transfer Destination Chair Transfer Technique Stand Step Pivot Devices Transfer Assistive Devices Gait Belt Front Wheeled Walker Comments Mobility Comments Today pt needing decreased assist from sit to stand from toilet-CHAKA. CGA with FWW and assist to manage O2 line. OT- Balance Assessment Sitting Balance and Reactions Static Sitting Balance Ability Normal Dynamic Sitting Balance Ability Normal Standing Balance and Reactions Static Standing Balance Ability Good Dynamic Standing Balance Ability Fair M8 OT- IP Objective Assessments Start: 02/26/18 11:48 Freq: Status: Active Protocol: Document 02/26/18 11:49 [facility] (Rec: 02/26/18 12:02 [facility] [id number]) OT Gross Range of Motion Upper Extremity Range of Motion Assessment Within Functional Limits OT Strength Upper Extremity Strength Assessment Within Functional Limits M9 OT- IP Assessment and Plan Start: 02/26/18 11:48 Freq: Status: Active Protocol: Document 03/06/18 12:54 [facility] (Rec: 03/06/18 12:59 [facility] [id number]) OT Summary Assessment and Plan Potential Rehabilitation Potential Good Analytic Complexity at Evaluation Low Summary OT Impairments Balance Functional Mobility Grooming Dressing Toileting Bathing Shower Transfers Progress Towards Goals Slow Progress due to Medical Issues Slow Progress due to Activity Tolerance Assessment Summary Pt feeling a little better today however still weak and states to be going to skilled rehab Sunday. Goals Grooming Goal Standby Assistance Dressing Goal Contact Guard Assistance Toileting Goal Standby Assistance Bathing Goal Minimal Assistance Toilet Transfer Goal Standard Toilet Shower Transfer Goal Contact Guard Assistance Days to Meet Goals 7 Frequency of Treatment Frequency Of Treatment Once a Day Treatment Plan OT Treatment Plan ADL Training Functional Cognition Training Functional Mobility Patient/Family Education Discharge Planning Other Treatment Recommendations and Next Shower if appropriate. Treatment Focus Discharge Recommendations OT Discharge Recommendations SNF Rehab
[2018-03-06] MEDS: POTASSIUM CHLORIDE 20 MEQ TAB 40 MEQ PO (13:14)
[2018-03-06] MEDS: SUCRALFATE 1 GM/10 ML ORAL SUSP PO ×3 (13:14→20:53)
--- NOTE | 2018-03-06 13:53 | DIET.PN ---
Has been here more than week. PO intake has been generally poor; beginning to improve. DX: CHF, ARF/CKD Diet: Heart healthy, dysphagia adv w/thin Fluid restriction - 1500ml total daily Labs: BUN-106 H, decr REEL OPERATOR 2.30 H, decr eGFR 27.9 L, incr Na 134 L, incr Assessment: Wt down; diuresing now? Renal labs show some improvement. Intervention: Continue to monitor pO intake, encourage adequate POs
--- NOTE | 2018-03-06 14:03 | SLP.IPNOTE ---
Attempted to see patient for speech therapy. Patient in bed sleeping after being up for a few hours. Will attempt to see patient later this afternoon or tomorrow if able.
[2018-03-06] MEDS: FLUTICASONE/SALMETEROL 250/50 14 PUFF DISKUS INH (18:20)
[2018-03-07] VITALS (14 sets, daily range): BP systolic 88–116; BP diastolic 45–57; PULSE 75–86; RESP 16–20; TEMP 36.4–36.9; O2SAT 92–97
--- NOTE | 2018-03-07 | DI.RAD.S_ITS ---
PROCEDURE: XR CHEST 2V INDICATIONS: CONGESTIVE HEART FAILURE TECHNIQUE: 2 views of the chest were acquired. COMPARISON: [facility], , XR CHEST 2V, 02/27/2018, 14:40. FINDINGS: Surgical changes and devices: There is a cardiac pacemaker/defibrillator. Sternotomy Lungs and pleura: There is a small left pleural effusion with right basilar infiltrate and consolidation. Increased pulmonary vascularity. No pneumothorax. Mediastinum: Mediastinal contours are normal. Heart size is mildly increased. Bones and chest wall: No suspicious bony abnormalities. Soft tissues appear unremarkable. IMPRESSION: 1. Small left effusion with left basilar infiltrate or consolidation consistent with pneumonia. 2. Mild cardiac rate and increased pulmonary vascularity suggesting superimposed CHF. Dictated by: Elizabeth Christian M.D. on 03/07/2018 at 12:18 Approved by: Elizabeth Christian M.D. on 03/07/2018 at 12:22
[2018-03-07] MEDS: LIDOCAINE VISCOUS 2% 30 ML, MAG HYDROX/ALUMINUM/SIMETH SUS 30 ML, NYSTATIN SUSP 3,000,0... MM (01:26)
[2018-03-07] MEDS: ALBUTEROL/IPRATROPIUM 3 ML AMPUL INH ×2 (05:34→17:53)
[2018-03-07] MEDS: PANTOPRAZOLE 40 MG PACKET PO (06:07)
[2018-03-07] MEDS: metOLazone 2.5 MG TABLET PO (08:14)
[2018-03-07] MEDS: CALCIUM ACETATE 667 MG CAPSULE 1334 MG PO ×3 (08:17→17:26)
[2018-03-07] MEDS: SUCRALFATE 1 GM/10 ML ORAL SUSP PO ×4 (08:17→20:08)
[2018-03-07] MEDS: predniSONE 20 MG TABLET 10 MG PO (08:18)
[2018-03-07] MEDS: SODIUM CHLORIDE 0.9% FLUSH 10 ML IV (08:20)
--- NOTE | 2018-03-07 10:44 | CM.DPC ---
DCP: continued: case received and discussed in Team Rounds. Hosptalist states pt should be ready for d/c to snf setting tomorrow. RT confirmed he is doing well off the 02. EMR reviewed. Noted plan for [facility]. Called Analilia and confirmed she will be ready for him tomorrow. Met with pt. He remains agreeable to plan and requests that his brother Art be updated/done. PASRR: completed and faxed to [facility]. Transport: have tentative plan for [facility] to pick pt up between 1330 and 1400 tomorrow. Will confirm these plans with Analilia tomorrow once actual d/c order is obtained.
[2018-03-07] MEDS: IRON SUCROSE 200 MG in SODIUM CHLORIDE 0.9% 100 ML 220 ML IV (11:47)
[2018-03-07] MEDS: MAGNESIUM CITRATE 300 ML SOLUTION 150 ML PO (11:49)
[2018-03-07] MEDS: DIGOXIN 0.125 MG TABLET PO (11:51)
[2018-03-07] MEDS: SODIUM CHLORIDE 0.9% 250 ML 1000 ML IV (12:30)
[2018-03-07 12:42] LABS: Alanine Aminotransferase 438 IU/L (21-72); Albumin 3.2 g/dL (3.5-5.0); Albumin Globulin Ratio 1.1 (1.0-2.8); Alkaline Phosphatase 172 U/L (38-126); Aspartate Aminotransferase 164 IU/L (17-59); BUN Creatinine Ratio 48.9 (6-22); Bilirubin Total 1.8 mg/dL (0.2-1.3); Blood Urea Nitrogen 88 mg/dL (9-20); Calcium 9.6 mg/dL (8.4-10.2); Chloride 87 mmol/L (98-107); Estimated Glomerular Filt Rate 37.1 mL/min (>60); Globulin 2.9 g/dL (1.7-4.1); Glucose 84 mg/dL (80-110); HEMOLYSIS < 15 (0-50); Magnesium 2.3 mg/dL (1.6-2.3); Phosphorous 2.3 mg/dL (2.3-3.7); Potassium 3.2 mmol/L (3.4-5.1); Sodium 137 mmol/L (137-145); Total Protein 6.1 g/dL (6.3-8.2)
[2018-03-07 12:48] LABS: Carbon Dioxide 37 mmol/L (22-32)
[2018-03-07 13:08] LABS: Hematocrit 34.2 % (41-53); Mean Corpuscular HGB Conc 29.2 % (30-36); Mean Corpuscular Hemoglobin 18.6 PG (26-34); Mean Corpuscular Volume 63.7 fL (80-100); Red Blood Cell Count 5.36 X10^6/uL (4.5-5.9); Red Cell Distribution Width 19.7 % (11.6-14.8); White Blood Cell Count 18.3 X10^3/uL (4.5-11.0)
[2018-03-07 13:10] LABS: Add Manual Diff / Slide Review YES
--- NOTE | 2018-03-07 13:11 | SLP.IPNOTE ---
WOOD BARREL RECONDITIONER attempted to see patient with lunch. Visitors present. Patient requested for WOOD BARREL RECONDITIONER to come back later so he could visit with his company. WOOD BARREL RECONDITIONER will try to follow up again this afternoon. No therapy this attempt.
[2018-03-07 13:28] LABS: Neutrophils Absolute Manual 16836 /uL (3000-5900); Total Cells Counted 100
[2018-03-07 13:30] LABS: Anisocytosis 2+
[2018-03-07 13:31] LABS: Microcytosis 1+; Poikilocytosis 2+
[2018-03-07 13:32] LABS: Hypochromasia 1+
[2018-03-07 13:33] LABS: Ovalocytes 2+; Polychromasia 1+; Target Cells 1+
[2018-03-07 13:34] LABS: Platelet Count 150 X10^3/uL (150-400)
--- NOTE | 2018-03-07 13:39 | PM.PN.1 ---
Subjective Date Patient Seen: 03/07/18 Time Patient Seen: 13:39 Interval history: CONT TO REPORT FEELING BETTER THIS AM NO FEVER OR CHILLS WOULD LIKE BLANCAS OUT NO CP/SOB NO SIGNIFICANT ISSUES OVERNIGHT Exam Vital Signs (past 8 hours): - 03/07/18 08:00 03/07/18 08:13 03/07/18 08:25 Pulse Rate 78 Blood Pressure 95/45 L Pulse Oximetry 97 93 94 03/07/18 09:31 03/07/18 11:34 03/07/18 11:51 Pulse Rate 76 76 Blood Pressure 106/49 L 106/49 L Pulse Oximetry 94 03/07/18 11:58 Pulse Rate Blood Pressure Pulse Oximetry 95 Fraction of Inspired Oxygen 21 Oxygen Delivery Method Room Air Oxygen Flow Rate 0 Narrative Exam Narrative: NO ACUTE DISTRESS. PATIENT IS ALERT ORIENTED X3. [place] VITAL SIGNS STABLE HEAD ATRAUMATIC NORMOCEPHALIC NECK : SUPPLE WITHOUT ADENOPATHY EYE: EOMI, PERRLA, NORMAL CONJUNCTIVA CHEST: REGULAR RATE.. NORMAL S1-S2 NO RUBS. PMI IS NON DISPLACED. NO MURMURS; EDEMA TO LOWER EXTREMITIES; TRUNCAL EDEMA NOTED WELL PULMONARY: DECREASED BS OVER THE BASES. MILD BIBASILAR CRACKLES NOTED; NO INCREASED DULLNESS TO PERCUSSION; NO WHEEZING EXTREMITIES: 3+ EDEMA. NONPITTING. NO CYANOSIS CLUBBING NOTED. NEURO: CRANIAL NERVES 2-12 GROSSLY INTACT. NO FOCAL NEUROLOGICAL DEFICIT NOTED. MSK: NORMAL RANGE OF MOTION FOR AGE. NO JOINT EFFUSION. SKIN: NORMAL FOR ETHNICITY; NO ECCHYMOSIS. NO LESION. GOOD TURGOR.; NO RASHES : NORMAL EXTERNAL GENITALIA. PSYCH : APPROPRIATE MOOD AND AFFECT. ALERT AWAKE ORIENTED X3 Objective Labs Result Diagrams: 03/07/18 11:25 03/07/18 11:25 Labs: Laboratory Results - last 24 hr 03/07/18 03/07/18 11:25 11:25 WBC 18.3 H RBC 5.36 Hgb 10.0 L Hct 34.2 L MCV 63.7 L MCH 18.6 L MCHC 29.2 L RDW 19.7 H Plt Count 150 Neut % (Auto) Not Reportable Lymph % (Auto) Not Reportable [place] % (Auto) Not Reportable Eos % (Auto) Not Reportable Baso % (Auto) Not Reportable Total Counted 100 Seg Neutrophils % 90.0 H Band Neutrophils % 2.0 L Lymphocytes % (Manual) 5.0 L Atypical Lymphs % 1.0 H Monocytes % (Manual) 2.0 Neutrophils # (Manual) 42842 H RBC Morphology See below Polychromasia 1+ H Hypochromasia 1+ H D Poikilocytosis 2+ H Anisocytosis 2+ H Microcytosis 1+ H Target Cells 1+ H Ovalocytes 2+ H Sodium 137 Potassium 3.2 L Chloride 87 L Carbon Dioxide 37 H BUN 88 H Creatinine 1.80 H Estimated GFR 37.1 L BUN/Creatinine Ratio 48.9 H Glucose 84 Calcium 9.6 Phosphorus 2.3 D Magnesium 2.3 Total Bilirubin 1.8 H AST 164 H ALT 438 H Alkaline Phosphatase 172 H Total Protein 6.1 L Albumin 3.2 L Globulin 2.9 Albumin/Globulin Ratio 1.1 Assessment & Plan Plan: Assessment/Plan Narrative: IMPRESSION PLAN ACUTE ON CHRONIC KIDNEY DISEASE STAGE 4-5; BUN AGAIN DEC BUT SIGNIFICANTLY TODAY. NO S/S OF BEING UREMIC. CREATININE CONT TO IMPROVE WELL. I SUSPECT THAT THE ELEVATION OF THE BUN WAS MOST LIKELY DUE TO STEROID THERAPY; PATIENT CONTINUES TO MAKE GOOD URINE. HIS INPUT AND OUTPUT REMAINS SIGNIFICANTLY IN NEG TERRITORY; HIS ACIDOSIS RESOLVED. AND NOW HE BECOMING ALKALOTIC ; WE WILL CONTINUE TO AVOID ALL NEPHROTOXIN MEDICATIONS. DOSE ALL MEDICATIONS PER GFR; STRICT I&OS; CONT WITH RESTRICTION OF FLUID TO 1500 CC DAILY; STRICT I&OS; AEIOU; CONSIDER TRANSFER FOR POSS HD TO ANOTHER FACILITY IF INDICATED ACUTE ON CSHF; LAST ECHO WITH EF AT 40%; RESTRICT FLUIDS; CONT WITH DIURETICS; HOWEVER, WILL DEC DOSE TODAY; BP MANAGEMENT ; STRICT IO; TELE AT ALL TIMES ANASARCA. SEVERE FLUID OVERLOAD. CONT TO SHOW IMPROVEMENT. CONTINUE WITH DIURETICS HOWEVER, BUMEX DOSE TO BE CHANGED TO ORAL IN AM. METOLAZONE TO CONT . STRICT INPUT AND OUTPUT. RESTRICTION OF FLUID TO 1500 CC. DAILY WT WITH RECENT SCALE; ADDITIONAL MANAGEMENT INDICATED CLINICALLY OBESITY; OUTPATIENT MANAGEMENT ; LIFESTYLE CHANGES RECOMMENDATION HYPERVOL HYPONATREMIA; RESOLVED; CONTINUE WITH DIURETICS THERAPY AND MONITOR CLOSELY HYPERKALEMIA; RESOLVED; NOW HYPOKALEMIC; TREAT INDICATED; CONSIDER SCHEDULED K REPLACEMENT WITH DIURETICS THRAPY MET ACIDOSIS DUE TO RENAL FAILURE; RESOLVED; ANEMIA OF CD AND POSS IRON DEF; MONITOR WITH SERIAL LABS; IRON SATURATION OF 7%. STARTED ON ORAL REPLACEMENT TODAY; WATCH FOR CONSTIPATION LEUKOCYTOIS; LIKELY ACUTE REACTANT TO STEROID THERAPY; NO FEVER REPORTED; NO S/S OF TOXICITY; NO ABX INDICATED; MONITOR FOR NOW ACUTE COPDE; RESOLVED; CONTINUE TO TAPER STEROIDS; DUONEBS INDICATED; MARCELINA PLEURAL EFFUSION DUE TO CKD AND SHF; GET CXR TODAY DISCHARGE PER CLINICAL COURSE. DC IN NEXT 24 HRS LIKELY IF REMAINS STABLE PROGNOSIS IS GUARDED
--- NOTE | 2018-03-07 13:42 | P.PN_ITS ---
Subjective Date Patient Seen: 03/07/18 Time Patient Seen: 13:39 Interval history: CONT TO REPORT FEELING BETTER THIS AM NO FEVER OR CHILLS WOULD LIKE BLANCAS OUT NO CP/SOB NO SIGNIFICANT ISSUES OVERNIGHT Exam Vital Signs (past 8 hours): - 03/07/18 08:00 03/07/18 08:13 03/07/18 08:25 Pulse Rate 78 Blood Pressure 95/45 L Pulse Oximetry 97 93 94 03/07/18 09:31 03/07/18 11:34 03/07/18 11:51 Pulse Rate 76 76 Blood Pressure 106/49 L 106/49 L Pulse Oximetry 94 03/07/18 11:58 Pulse Rate Blood Pressure Pulse Oximetry 95 Fraction of Inspired Oxygen 21 Oxygen Delivery Method Room Air Oxygen Flow Rate 0 Narrative Exam Narrative: NO ACUTE DISTRESS. PATIENT IS ALERT ORIENTED X3. OBESE VITAL SIGNS STABLE HEAD ATRAUMATIC NORMOCEPHALIC NECK : SUPPLE WITHOUT ADENOPATHY EYE: EOMI, PERRLA, NORMAL CONJUNCTIVA CHEST: REGULAR RATE.. NORMAL S1-S2 NO RUBS. PMI IS NON DISPLACED. NO MURMURS ; EDEMA TO LOWER EXTREMITIES; TRUNCAL EDEMA NOTED WELL PULMONARY: DECREASED BS OVER THE BASES. MILD BIBASILAR CRACKLES NOTED; NO INCREASED DULLNESS TO PERCUSSION; NO WHEEZING EXTREMITIES: 3+ EDEMA. NONPITTING. NO CYANOSIS CLUBBING NOTED. NEURO: CRANIAL NERVES 2-12 GROSSLY INTACT. NO FOCAL NEUROLOGICAL DEFICIT NOTED. MSK: NORMAL RANGE OF MOTION FOR AGE. NO JOINT EFFUSION. SKIN: NORMAL FOR ETHNICITY; NO ECCHYMOSIS. NO LESION. GOOD TURGOR.; NO RASHES : NORMAL EXTERNAL GENITALIA. PSYCH : APPROPRIATE MOOD AND AFFECT. ALERT AWAKE ORIENTED X3 Objective Labs Result Diagrams: 03/07/18 11:25 03/07/18 11:25 Labs: Laboratory Results - last 24 hr 03/07/18 03/07/18 11:25 11:25 WBC 18.3 H RBC 5.36 Hgb 10.0 L Hct 34.2 L MCV 63.7 L MCH 18.6 L MCHC 29.2 L RDW 19.7 H Plt Count 150 Neut % (Auto) Not Reportable Lymph % (Auto) Not Reportable [place] % (Auto) Not Reportable Eos % (Auto) Not Reportable Baso % (Auto) Not Reportable Total Counted 100 Seg Neutrophils % 90.0 H Band Neutrophils % 2.0 L Lymphocytes % (Manual) 5.0 L Atypical Lymphs % 1.0 H Monocytes % (Manual) 2.0 Neutrophils # (Manual) 31910 H RBC Morphology See below Polychromasia 1+ H Hypochromasia 1+ H D Poikilocytosis 2+ H Anisocytosis 2+ H Microcytosis 1+ H Target Cells 1+ H Ovalocytes 2+ H Sodium 137 Potassium 3.2 L Chloride 87 L Carbon Dioxide 37 H BUN 88 H Creatinine 1.80 H Estimated GFR 37.1 L BUN/Creatinine Ratio 48.9 H Glucose 84 Calcium 9.6 Phosphorus 2.3 D Magnesium 2.3 Total Bilirubin 1.8 H AST 164 H ALT 438 H Alkaline Phosphatase 172 H Total Protein 6.1 L Albumin 3.2 L Globulin 2.9 Albumin/Globulin Ratio 1.1 Assessment & Plan Plan: Assessment/Plan Narrative: IMPRESSION PLAN ACUTE ON CHRONIC KIDNEY DISEASE STAGE 4-5; BUN AGAIN DEC BUT SIGNIFICANTLY TODAY. NO S/S OF BEING UREMIC. CREATININE CONT TO IMPROVE WELL. I SUSPECT THAT THE ELEVATION OF THE BUN WAS MOST LIKELY DUE TO STEROID THERAPY; PATIENT CONTINUES TO MAKE GOOD URINE. HIS INPUT AND OUTPUT REMAINS SIGNIFICANTLY IN NEG TERRITORY; HIS ACIDOSIS RESOLVED. AND NOW HE BECOMING ALKALOTIC ; WE WILL CONTINUE TO AVOID ALL NEPHROTOXIN MEDICATIONS. DOSE ALL MEDICATIONS PER GFR; STRICT I&OS; CONT WITH RESTRICTION OF FLUID TO 1500 CC DAILY; STRICT I&OS; AEIOU; CONSIDER TRANSFER FOR POSS HD TO ANOTHER FACILITY IF INDICATED ACUTE ON [facility]; LAST ECHO WITH EF AT 40%; RESTRICT FLUIDS; CONT WITH DIURETICS; HOWEVER, WILL DEC DOSE TODAY; BP MANAGEMENT ; STRICT IO; TELE AT ALL TIMES ANASARCA. SEVERE FLUID OVERLOAD. CONT TO SHOW IMPROVEMENT. CONTINUE WITH DIURETICS HOWEVER, BUMEX DOSE TO BE CHANGED TO ORAL IN AM. METOLAZONE TO CONT . STRICT INPUT AND OUTPUT. RESTRICTION OF FLUID TO 1500 CC. DAILY WT WITH RECENT SCALE; ADDITIONAL MANAGEMENT INDICATED CLINICALLY OBESITY; OUTPATIENT MANAGEMENT ; LIFESTYLE CHANGES RECOMMENDATION HYPERVOL HYPONATREMIA; RESOLVED; CONTINUE WITH DIURETICS THERAPY AND MONITOR CLOSELY HYPERKALEMIA; RESOLVED; NOW HYPOKALEMIC; TREAT INDICATED; CONSIDER SCHEDULED K REPLACEMENT WITH DIURETICS THRAPY MET ACIDOSIS DUE TO RENAL FAILURE; RESOLVED; ANEMIA OF CD AND POSS IRON DEF; MONITOR WITH SERIAL LABS; IRON SATURATION OF 7% . STARTED ON ORAL REPLACEMENT TODAY; WATCH FOR CONSTIPATION LEUKOCYTOIS; LIKELY ACUTE REACTANT TO STEROID THERAPY; NO FEVER REPORTED; NO S/ S OF TOXICITY; NO ABX INDICATED; MONITOR FOR NOW ACUTE COPDE; RESOLVED; CONTINUE TO TAPER STEROIDS; DUONEBS INDICATED; MARCELINA PLEURAL EFFUSION DUE TO CKD AND SHF; GET CXR TODAY DISCHARGE PER CLINICAL COURSE. DC IN NEXT 24 HRS LIKELY IF REMAINS STABLE PROGNOSIS IS GUARDED
[2018-03-07] MEDS: CEFTRIAXONE 1 GM/50 ML FROZ.PIGGY IV (13:53)
--- NOTE | 2018-03-07 14:14 | ST.IPDYTX ---
REPEAT CHIEF Dysphagia Treatment REPEAT CHIEF Dysphagia Treatment Start: 02/27/18 16:17 Freq: Status: Active Protocol: Document 03/07/18 14:08 TLC (Rec: 03/07/18 14:13 TLC [id number]) Dysphagia Treatment Session Time Visit Start Time 13:45 Visit Stop Time 14:05 Total Visit Minutes 20 Setting Assessment Location Acute Care Visit Type Note Type Treatment Note Patient Information Identification Type Name ID Wristband Other Subjective Observations Pb was awake and alert, sitting upright in chair. He agreed to participate in dysphagia therapy. Treatment Administration Type Straw Self-Feeding Oral Strategies Upright at 90 degrees Alternate Liquids/Solids Pharyngeal Strategies Small Bites and Sips Alternate Liquids/Solids Treatment Activities Declined trials of food due to lack of appetite. Performed sunny maneuver x10, effortful swallow x10. Patient reports his swallowing has improved, though he occasionally has a burning sensation when eating. He has been weaned from O2 and will discharging to [facility] tomorrow. We discussed recommendations to continue a mechanical soft diet due to edentulous status. Patient was in agreement. Assessment Patient Response to Treatment Excellent Rehab Potential Good Assessment of Improvement Patient continues to improve. He consumed thin liquids via straw without overt signs of aspiration. Diet Recommendations Recommendations Continue Current Diet Liquids Order Thin Diet Order Dysphagia Advanced Medication Recommendations As Tolerated Aspiration Precautions Recommended Precautions Upright at 90 Degrees Alternate Liquids/Solids Frequent Rest Periods Small Bites/Sips Treatment Plan Placement Recommendation after Discharge Halfway Facility Dysphagia Goals The pt will understand and use safe swallow strategies consistently to prevent aspiration - goal met The pt will participate in 1:[address] 1-2x/day. - goal met The pt will safely tolerate the least-restrictive diet for nutritional and hydration needs without s/ sx aspiration. - goal met
--- NOTE | 2018-03-07 15:45 | OT.IP.TRT ---
Current Diagnoses Anemia, unspecified (02/25/18) Pure hypercholesterolemia (02/25/18) Pure hypercholesterolemia, unspecified (02/25/18) Essential (primary) hypertension (02/25/18) Atherosclerotic heart disease of [place] coronary artery without angina pectoris (02/25/18) Acute on chronic systolic (congestive) heart failure (02/25/18) Heart failure, unspecified (02/25/18) Lobar pneumonia, unspecified organism (02/25/18) Chronic obstructive pulmonary disease with (acute) exacerbation (02/25/18) Acute and chronic respiratory failure with hypoxia (02/25/18) Acute kidney failure, unspecified (02/25/18) Occupational Therapy Treatment Note M2 OT-IP Current Condition Start: 02/26/18 11:48 Freq: Status: Active Protocol: Document 02/26/18 11:49 [facility] (Rec: 02/26/18 12:02 [facility] [id number]) Occupational Therapy Current Condition Current Condition Evaluation Date 02/26/18 Treatment Diagnosis CHF/COPD Diagnosis Onset Date 02/25/18 Post Operative Precautions Other Precautions Monitor 02 and vitals. M3 OT- IP Subjective and Pain Start: 02/26/18 11:48 Freq: Status: Active Protocol: Document 03/07/18 15:45 PJM (Rec: 03/08/18 12:25 PJM [id number]) OT- Subjective Occupational Therapy Visit Type Type Administrative Note Visit Start Time 15:45 Notes Pt declining OT services today due to fatigue. Will attempt again in AM. M
--- NOTE | 2018-03-07 15:55 | PC.NURSE ---
Day Shift- BP 95/45 this AM, Spoke with Dr. Summers, held BP medications and bumex per verbal order, new order rec'd for NS 250ml bolus that was given. BP increased to 106/49. Pt remians on fluid restriction, pt had a total of 485 mls of fluid and an additional 300mls of magnesium citrate. No BM since 03/04, pt wanted to try magnesium citrate first and hold on the Suppository for now. Evening Rn aware. Benton catheter removed at 1125, pt has voided 3X since removal. OOB with 1PA using FWW, steady gait, slowly walking and needs BLE assisted into bed. Pt uses call light appropriately.
--- NOTE | 2018-03-07 15:58 | PT.IPTN ---
Current Diagnoses Anemia, unspecified (02/25/18) Pure hypercholesterolemia (02/25/18) Pure hypercholesterolemia, unspecified (02/25/18) Essential (primary) hypertension (02/25/18) Atherosclerotic heart disease of [place] coronary artery without angina pectoris (02/25/18) Acute on chronic systolic (congestive) heart failure (02/25/18) Heart failure, unspecified (02/25/18) Lobar pneumonia, unspecified organism (02/25/18) Chronic obstructive pulmonary disease with (acute) exacerbation (02/25/18) Acute and chronic respiratory failure with hypoxia (02/25/18) Acute kidney failure, unspecified (02/25/18) Physical Therapy Treatment Note M2 PT-IP Current Condition Start: 02/26/18 09:24 Freq: NEEDED Status: Active Protocol: Document 02/26/18 08:37 (Rec: 02/26/18 09:51 [id number]) Physical Therapy Current Condition Current Condition Evaluation Date 02/26/18 Treatment Diagnosis CHF and COPD exacerbation; difficulty walking Onset Date 02/25/2018 Precautions Other Precautions Monitor 02 and vitals. M3 PT-IP Subjective Start: 02/26/18 09:24 Freq: NEEDED Status: Active Protocol: Document 03/07/18 15:57 GGD (Rec: 03/07/18 15:58 GGD [id number]) Subjective Physical Therapy Visit Type Type Patient Refusal Notes Pt just getting back to bed after using the bathroom. He states that he been up to bathroom a lot and is tired. Will see in AM. M4 PT-IP Mobility and Gait Start: 02/26/18 09:24 Freq: NEEDED Status: Active Protocol: Document 03/06/18 11:50 GGD (Rec: 03/06/18 12:04 GGD [id number]) PT-Bed Mobility Assessment Supine to Sit Supine to Sit Moderate Assistance Head of Bed Elevated Bedrails Scooting Scooting to Edge of Bed Contact Guard Assistance PT-Transfer Assessment Sit to and From Stand Sit to and from Stand Contact Guard Assistance Use of Upper Extremities Equipment Transfer Assistive Device Gait Belt Front Wheeled Walker Transfers Transfer Destination Chair Transfer Ability Level of Assist Contact Guard Assistance Gait Assessment Gait Gait Assistance Required: Contact Guard Assist Distance (Feet) 15 Able to Maintain Weight Bearing Status Yes During Gait Assistive Devices Assistive Device Gait Belt Front Wheeled Walker Orthotic/Prosthetic Devices or Brace: No Gait Deviations General Gait Pattern Decreased Stride Length Decreased Feet Clearance Factors Limiting Gait Function Factors Limiting Gait Function Decreased Activity Tolerance Decreased Strength Poor Balance Poor Safety Awareness Comments Gait Comments Pt stood for gown change. O2 at rest 94% on 2L. with activity 91%. M5 PT-IP Objective Assessments Start: 02/26/18 09:24 Freq: NEEDED Status: Active Protocol: Document 02/26/18 08:37 (Rec: 02/26/18 09:51 [id number]) Orientation Orientation/Cognition Level of Alertness Alert Orientation Name Age Birthday Month Date Year Day of Week Place Situation Language Function Ability No Deficits Noted Safety Awareness Decreased Safety Awareness Gross Range of Motion Lower Extremity ROM Assessment Within Functional Limits Strength Lower Extremity Strength Assessment Within Functional Limits Comments Strength Comments BLE 4+/5 on gross testing. Other Assessments Other Other Assessments Pt notable for pitting edema in bilateral feet grade 2. Pt noted to have hematuria. Pt noted to have decreased thoracic excursion on palpation during inhale/exhale . M6 PT-IP Treatment Start: 02/26/18 09:24 Freq: NEEDED Status: Active Protocol: Document 03/01/18 09:58 (Rec: 03/01/18 14:11 [id number]) Physical Therapy Treatment Other Treatments Other Treatment Performed Instruction in pursed lip breathing using a straw and cues for long exhales and tripod position with coughing. Pt noted to have minimal clear sputum with coughing. Pt able to improve 02 immediately when he is mindful of breathing, however needing constant reminders. M7 PT-IP Assessment and Plan Start: 02/26/18 09:24 Freq: NEEDED Status: Active Protocol: Document 03/06/18 11:50 GGD (Rec: 03/06/18 12:04 GGD [id number]) PT Summary Assessment and Plan Summary Assessment Summary Pt faitgued with mobility. He was stable with gait with FWW. He did have heavy use of UE on FWW for balance and gait. Frequency of Treatment Frequency Of Treatment Once a Day Treatment Plan Other Recommendations and Next Treatment ambulation Focus Recommendations To Nursing Amount of Assist Needed 1 Person Assist Discharge Recommendations PT Discharge Recommendations SNF Rehab
[2018-03-07] MEDS: POTASSIUM CHLORIDE 20 MEQ TAB 40 MEQ PO ×2 (16:09→17:27)
[2018-03-07 16:18] LABS: Bacteria Urine None Seen
[2018-03-07 16:20] LABS: Appearance Urine UA CLEAR; Bilirubin Urine UA NEGATIVE (NEGATIVE); Color Urine UA YELLOW; Glucose Urine UA NEGATIVE (Normal); Ketones Urine UA NEGATIVE (NEGATIVE); Leukocyte Esterase Urine UA NEGATIVE (NEGATIVE); Nitrite Urine UA NEGATIVE (Negative); Occult Blood Urine UA TRACE-INTACT (Negative); Protein Urine UA NEGATIVE (Negative); Urobilinogen Urine UA 0.2 E.U./dL (0.2)
[2018-03-07 16:35] LABS: Squamous Epithelial Cell Urine 0-1 /HPF; WBC Urine 0-1/HPF (0-5/HPF)
[2018-03-07 16:36] LABS: RBC Urine 0-1/HPF (0-5/HPF)
[2018-03-07 16:37] LABS: Culture Indicated Urine Cult Not Indicated
[2018-03-07] MEDS: FERROUS SULFATE 325 MG TABLET PO (17:27)
[2018-03-07] MEDS: SENNOSIDES 8.6 MG TABLET PO (20:08)
--- NOTE | 2018-03-07 22:31 | PC.NURSE ---
SHIFT NOTE A&Ox4, pleasant and cooperative with care. pt continues to have 3-4+ edema to BLE. frequently up to the bathroom for BM attempts after receiving mag citrate. pt was weaned to room air during the previous shift, tolerating without issues. denies pain, N/V, dizziness, or SOB. pt prefers to have bed alarm off, has been very compliant with care and calling staff for assistance. call light within reach.
[2018-03-08] VITALS (7 sets, daily range): BP systolic 97–109; BP diastolic 54–60; PULSE 79–80; RESP 18–20; TEMP 36.4–36.7; O2SAT 89–97
[2018-03-08] MEDS: LIDOCAINE VISCOUS 2% 30 ML, MAG HYDROX/ALUMINUM/SIMETH SUS 30 ML, NYSTATIN SUSP 3,000,0... MM (00:11)
--- NOTE | 2018-03-08 00:51 | PC.NURSE ---
02 2l simple mask applied due to desaturation to 85% when pt. falls asleep. Pt. prefers the mask due to mouth breathing.
[2018-03-08] MEDS: PANTOPRAZOLE 40 MG PACKET PO (06:06)
[2018-03-08] MEDS: ALBUTEROL/IPRATROPIUM 3 ML AMPUL INH (07:56)
[2018-03-08 09:21] LABS: Hematocrit 32.6 % (41-53); Hemoglobin 9.5 g/dL (13.5-17.5); Mean Corpuscular Hemoglobin 18.6 PG (26-34); Mean Corpuscular Volume 63.9 fL (80-100); Platelet Count 147 X10^3/uL (150-400); Red Cell Distribution Width 19.3 % (11.6-14.8); White Blood Cell Count 15.2 X10^3/uL (4.5-11.0)
[2018-03-08 09:26] LABS: Add Manual Diff / Slide Review YES; Alanine Aminotransferase 351 IU/L (21-72); Albumin 3.1 g/dL (3.5-5.0); Albumin Globulin Ratio 1.1 (1.0-2.8); Alkaline Phosphatase 169 U/L (38-126); Aspartate Aminotransferase 130 IU/L (17-59); BUN Creatinine Ratio 55.4 (6-22); Bilirubin Total 1.6 mg/dL (0.2-1.3); Blood Urea Nitrogen 72 mg/dL (9-20); Calcium 9.4 mg/dL (8.4-10.2); Chloride 90 mmol/L (98-107); Globulin 2.7 g/dL (1.7-4.1); Glucose 136 mg/dL (80-110); HEMOLYSIS < 15 (0-50); Potassium 3.8 mmol/L (3.4-5.1); Sodium 137 mmol/L (137-145); Total Protein 5.8 g/dL (6.3-8.2)
[2018-03-08 09:32] LABS: Carbon Dioxide 39 mmol/L (22-32)
[2018-03-08] MEDS: CALCIUM ACETATE 667 MG CAPSULE 1334 MG PO (09:40)
[2018-03-08] MEDS: SUCRALFATE 1 GM/10 ML ORAL SUSP PO (09:43)
[2018-03-08] MEDS: BUMETANIDE 1 MG TABLET 0.5 MG PO (09:44)
[2018-03-08] MEDS: CARVEDILOL 3.125 MG TABLET PO (09:44)
[2018-03-08] MEDS: DIGOXIN 0.125 MG TABLET PO (09:45)
[2018-03-08] MEDS: metOLazone 2.5 MG TABLET PO (09:45)
[2018-03-08] MEDS: LISINOPRIL 10 MG TABLET PO (09:45)
[2018-03-08] MEDS: predniSONE 5 MG TABLET PO (09:45)
[2018-03-08 09:47] LABS: Hypochromasia 3+; Microcytosis 3+; Neutrophils Absolute Manual 13984 /uL (3000-5900); Polychromasia 2+; Target Cells 1+; Total Cells Counted 100
[2018-03-08 09:48] LABS: Poikilocytosis 1+
[2018-03-08] MEDS: FERROUS SULFATE 325 MG TABLET PO (09:50)
--- NOTE | 2018-03-08 10:48 | PM.DS.1 ---
History of Present Illness Date Patient Seen: 03/08/18 Time Patient Seen: 10:50 Chief complaint: vomiting blood Narrative: The patient is a 72 yo male. PMH significant for HTN, CAD (h/o CA, CABG 35 yrs ago), cardiomyopathy, HFrEF 30-35%, AFIB, PPM / AICD ([facility]), HLD, h/o prostate ca (h/o radiation and chemo, last tx 1 yr ago), COPD (not O2 dependent), JOSE ANTONIO (not on CPAP), CKD III, prior tobacco dependence (quit 01/2016), and h/o alcoholism. There is colon and pancreatic cancer noted and patient's history; however, patient denies knowledge about the aforementioned neoplasms. Presented to the ED on 02/25/2018 out of concern for hematemesis. Symptoms initially presented on the evening of 02/24/2018. Since initial onset, patient reports 30 episodes of coffee ground emesis. Associated symptoms include 1 episode of melena, anasarca (reports edema of abdomen, groin, and lower extremities), cough w/o purulence, exertional dyspnea (worsening over 2 months), orthopnea, 1 episode of subjective chills (sunday), nausea, dysuria, and decrease in urine output. Patient localized abdominal pain to b/l lower quadrants of the abdomen. Describes discomfort as tender and pressure like. There is no radiation to the back, flank, groin or lower extremities. Reports discomfort to be worse after eating. Denies presence of diarrhea. Known to have baseline constipation. Denies fever, chest pain, pleurisy, dizziness, lightheadedness, syncopal events, PND, claudication, myalgia, or new bruising. Patient was recently hospitalized 01/26 to 01/30 for CHF exacerbation, at discharge his lisinopril was increased to 10 mg QD. He has gained at least 3 kg since most recent hospital discharge. Admitting weight 103 kg. ED workup Hgb 9.5 Plt 284 Na 140 K 5.6 Cl 103 CO2 21 Lactate 3.7 BUN 30 sCr 1.6 Trop 0.028 BNP 1200 Bili 1.4 AST 95 ALT 84 Alk Phos 177 CXR w/findings of cardiomegaly, trace b/l pleural effusion, interstitial prominence CT of A/P revealed cardiomegaly, bibasilar moderate pleural effusions, no suspicion for pneumonia; body wall anasarca, pleural effusions and ascites, no findings of peritoneal retroperitoneal hemorrhage, no hematoma through the visualized colon; atherosclerotic calcifications prominent through the abdominal aorta and its branches, no aneurysm or occlusion found; no peritoneal or retroperitoneal hemorrhage found through the abdomen and pelvis, no hematoma identified through the visualized colon In ED received 120 mg of furosemide, ASA 324 Discharge Providers Date of admission: 02/25/18 19:03 Primary care physician: Gregorio Elliott MD Consults: 02/25/18 18:17 Consult to Discharge Planning Routine Comment: Consult to Occupational Therapy Evaluate & Treat Comment: Physician Instructions: Evaluate and treat Consult to Physical Therapy Evaluate & Treat Comment: Physician Instructions: Evaluate and Treat 02/26/18 08:56 Consult to Respiratory Therapy Evaluate & Treat Comment: Physician Instructions: Evaluate and treat 02/27/18 16:15 Consult to Speech Therapy Evaluate & Treat Comment: Physician Instructions: Evaluate and treat 03/04/18 14:10 Consult to Discharge Planning Routine Comment: REFER TO SNF PLEASE Discharge provider: Juliana Bueno DO Discharge Date: 03/08/18 Summary Discharge Diagnosis: ACUTE ON CHRONIC KIDNEY DISEASE STAGE 4-5; ACUTE ON [facility]; LAST ECHO WITH EF AT 40%; RESTRICT FLUIDS; CONT WITH DIURETICS; BP MANAGEMENT ; STRICT IO; ANASARCA. SEVERE FLUID OVERLOAD. CONT TO SHOW IMPROVEMENT. CONTINUE WITH DIURETICS HOWEVER, BUMEX DOSE TO BE CHANGED TO ORAL FOR DC. METOLAZONE TO CONT . STRICT INPUT AND OUTPUT. RESTRICTION OF FLUID TO 1500 CC. CONT TO WATCH FOR WORSENED CONTRACTED ALKALOSIS; DAILY WT WITH RECENT SCALE; ADDITIONAL MANAGEMENT INDICATED CLINICALLY OBESITY; OUTPATIENT MANAGEMENT ; LIFESTYLE CHANGES RECOMMENDATION HYPERVOL HYPONATREMIA; RESOLVED; ELECTROLYTES IMBALANCE; AT BASELINE ANEMIA OF CD AND POSS IRON DEF; MONITOR WITH SERIAL LABS; IRON SATURATION OF 7%. STARTED ON ORAL REPLACEMENT TODAY; WATCH FOR CONSTIPATION LEUKOCYTOIS; LIKELY ACUTE REACTANT TO STEROID THERAPY; NO FEVER REPORTED; NO S/S OF TOXICITY; NO ABX INDICATED; MONITOR FOR NOW ACUTE COPDE; RESOLVED; CONTINUE TO TAPER STEROIDS; DUONEBS INDICATED; MARCELINA PLEURAL EFFUSION DUE TO CKD AND SHF; PHYSICAL DECONDITIONING Hospital Course: - PATIENT ADMITTED INTO THE ED WITH FLUID OVERLOAD AND ACUTE EXACERBATION OF CHF WELL COPD - FINISHED TREATMENT WITH STEROIDS WELL ABX FOR COPDE; NOW - HAD TO BE PLACED ON HEAVY DOSE OF BUMEX FOR OPTIMUM DIURESIS ; I/O SHOWED SIGNIFICANT NEG BALANCE ON THIS REGIMENT - HE HAS BEEN DEVOLOPING SOME CONTRACTED ALKOLOSIS AND HIS BUMEX DOSE HAS BEEN DECREASED SUBSTANTIALLY. - HIS METOLAZONE SHOULD ALSO BE ABLE TO BE DISCONTINUED IN NEXT FEW DAYS - HIS RENAL FAILURE ARE MUCH IMPROVED WITH HIS BUN CONTINUING TO DEC NOW AFTER A FEW HIGH VALUES DURING THIS HOSPITAL STAY - AT THIS TIME, HE IS MEDICAL STABLE AND WILL DC TO REHAB DUE TO PHYSICAL DECONDITIONING - RECOMENDATION TO CONT WITH BUMEX AND TO STOP THE METOLAZONE IN A FEW DAYS IF INDICATED Exam Vital Signs (past 8 hours): - 03/08/18 04:56 03/08/18 07:55 03/08/18 08:10 Temperature 97.9 F Pulse Rate 80 80 Respiratory Rate 18 18 Blood Pressure 106/60 Pulse Oximetry 97 94 94 03/08/18 10:10 Temperature Pulse Rate Respiratory Rate Blood Pressure Pulse Oximetry 95 Fraction of Inspired Oxygen 21 Oxygen Delivery Method Room Air Oxygen Flow Rate 0 Narrative Exam Narrative: NO ACUTE DISTRESS. PATIENT IS ALERT ORIENTED X3. OBESE VITAL SIGNS STABLE HEAD ATRAUMATIC NORMOCEPHALIC NECK : SUPPLE WITHOUT ADENOPATHY EYE: EOMI, PERRLA, NORMAL CONJUNCTIVA CHEST: REGULAR RATE.. NORMAL S1-S2 NO RUBS. PMI IS NON DISPLACED. NO MURMURS; EDEMA TO LOWER EXTREMITIES; TRUNCAL EDEMA NOTED WELL PULMONARY: DECREASED BS OVER THE BASES. MILD BIBASILAR CRACKLES NOTED; NO INCREASED DULLNESS TO PERCUSSION; NO WHEEZING EXTREMITIES: 3+ EDEMA. NONPITTING. NO CYANOSIS CLUBBING NOTED. NEURO: CRANIAL NERVES 2-12 GROSSLY INTACT. NO FOCAL NEUROLOGICAL DEFICIT NOTED. MSK: NORMAL RANGE OF MOTION FOR AGE. NO JOINT EFFUSION. SKIN: NORMAL FOR ETHNICITY; NO ECCHYMOSIS. NO LESION. GOOD TURGOR.; NO RASHES : NORMAL EXTERNAL GENITALIA. PSYCH : APPROPRIATE MOOD AND AFFECT. ALERT AWAKE ORIENTED X3 Objective Labs Result Diagrams: 03/08/18 09:07 03/08/18 09:07 Labs: Laboratory Results - last 24 hr 03/07/18 03/07/18 03/07/18 11:25 11:25 16:00 WBC 18.3 H RBC 5.36 Hgb 10.0 L Hct 34.2 L MCV 63.7 L MCH 18.6 L MCHC 29.2 L RDW 19.7 H Plt Count 150 Neut % (Auto) Not Reportable Lymph % (Auto) Not Reportable [place] % (Auto) Not Reportable Eos % (Auto) Not Reportable Baso % (Auto) Not Reportable Total Counted 100 Seg Neutrophils % 90.0 H Band Neutrophils % 2.0 L Lymphocytes % (Manual) 5.0 L Atypical Lymphs % 1.0 H Monocytes % (Manual) 2.0 Eosinophils % (Manual) Neutrophils # (Manual) 75594 H Differential Comment RBC Morphology See below Polychromasia 1+ H Hypochromasia 1+ H D Poikilocytosis 2+ H Anisocytosis 2+ H Microcytosis 1+ H Target Cells 1+ H Ovalocytes 2+ H Sodium 137 Potassium 3.2 L Chloride 87 L Carbon Dioxide 37 H BUN 88 H Creatinine 1.80 H Estimated GFR 37.1 L BUN/Creatinine Ratio 48.9 H Glucose 84 Calcium 9.6 Phosphorus 2.3 D Magnesium 2.3 Total Bilirubin 1.8 H AST 164 H ALT 438 H Alkaline Phosphatase 172 H Total Protein 6.1 L Albumin 3.2 L Globulin 2.9 Albumin/Globulin Ratio 1.1 Urine Color Yellow Urine Appearance Clear Urine pH 7.0 Ur Specific [place] 1.010 Urine Protein Negative Urine Glucose (UA) Negative Urine Ketones Negative Urine Occult Blood Trace-intact Urine Nitrate Negative Urine Bilirubin Negative Urine Urobilinogen 0.2 Ur Leukocyte Esterase Negative Urine RBC 0-1/hpf D Urine WBC 0-1/hpf Ur Squamous Epith Cells 0-1 /hpf Urine Bacteria None seen Ur Culture Indicated? Cult not indicated Micro UA Comment Not Reportable 03/08/18 03/08/18 09:07 09:07 WBC 15.2 H RBC 5.10 Hgb 9.5 L Hct 32.6 L MCV 63.9 L MCH 18.6 L MCHC 29.0 L RDW 19.3 H Plt Count 147 L Neut % (Auto) Not Reportable Lymph % (Auto) Not Reportable [place] % (Auto) Not Reportable Eos % (Auto) Not Reportable Baso % (Auto) Not Reportable Total Counted 100 Seg Neutrophils % 92.0 H Band Neutrophils % Lymphocytes % (Manual) 2.0 L Atypical Lymphs % Monocytes % (Manual) 4.0 Eosinophils % (Manual) 2.0 Neutrophils # (Manual) 57435 H Differential Comment RBC Morphology Not Reportable Polychromasia 2+ H Hypochromasia 3+ H D Poikilocytosis 1+ H Anisocytosis Microcytosis 3+ H D Target Cells 1+ H Ovalocytes Sodium 137 Potassium 3.8 Chloride 90 L Carbon Dioxide 39 H BUN 72 H Creatinine 1.30 H Estimated GFR 54.0 L BUN/Creatinine Ratio 55.4 H Glucose 136 H Calcium 9.4 Phosphorus Magnesium Total Bilirubin 1.6 H AST 130 H ALT 351 H Alkaline Phosphatase 169 H Total Protein 5.8 L Albumin 3.1 L Globulin 2.7 Albumin/Globulin Ratio 1.1 Urine Color Urine Appearance Urine pH Ur Specific [place] Urine Protein Urine Glucose (UA) Urine Ketones Urine Occult Blood Urine Nitrate Urine Bilirubin Urine Urobilinogen Ur Leukocyte Esterase Urine RBC Urine WBC Ur Squamous Epith Cells Urine Bacteria Ur Culture Indicated? Micro UA Comment Discharge Plan Discharge Plan Patient Disposition: SNF I certify the postop hospital retirement care is medically necessary on a continuing basis for any conditions for which he/ she received care during this hospitalization.: Yes The receiving facility has agreed to accept transfer and provide medical treatment.: Yes Discharge Med Rec/Prescriptions Prescriptions: New metolazone 2.5 mg Tablet 2.5 mg PO DAILY Qty: 60 RF: 0 fluticasone-salmeterol [Advair Diskus] 250-50 mcg/dose Blister With Device 1 puff INH RTBID Qty: 1 RF: 0 ipratropium-albuterol 0.5 mg-3 mg(2.5 mg base)/3 mL Solution For Nebulization 3 ml INH RTBID Qty: 30 RF: 0 carvedilol [Coreg] 3.125 mg Tablet 3.125 mg PO BID Qty: 120 RF: 0 ferrous sulfate 325 mg (65 mg iron) Tablet 325 mg PO BIDWM Qty: 60 RF: 0 calcium carbonate 200 mg calcium (500 mg) Tablet,Chewable 1,000 mg PO Q4HR PRN (Reason: Dyspepsia) Qty: 60 RF: 0 bumetanide 1 mg Tablet 0.5 mg PO DAILY Qty: 60 RF: 0 sennosides [senna] 8.6 mg Tablet 8.6 mg PO BEDTIME Qty: 60 RF: 0 nitroglycerin [Nitrostat] 0.4 mg Tablet, Sublingual 0.4 mg Sublingual [id number] PRN (Reason: Chest Pain) Qty: 20 RF: 0 pantoprazole [Protonix] [address] For Susp In Packet 40 mg PO 0700 Qty: 60 RF: 0 Continue lisinopril 10 mg tablet 10 mg PO BID Qty: 180 RF: 3 digoxin 250 mcg tablet 0.125 mg PO DAILY Qty: 45 RF: 3 atorvastatin 80 mg tablet 80 mg PO DAILY Qty: 90 RF: 3 aspirin 81 mg tablet,chewable 81 mg PO DAILY Qty: 90 RF: 3 ipratropium bromide 17 mcg/actuation HFA aerosol inhaler 1 puff INHALATION QID Qty: 12.9 RF: 1 acetaminophen [Tylenol Extra Strength] 500 mg tablet 1,000 mg PO Q6H PRN (Reason: pain) 30 Days Qty: 240 RF: 0 albuterol sulfate 90 mcg/actuation HFA aerosol inhaler 1 puff INHALATION Q4-6H PRN (Reason: shortness of breath or wheezing) Qty: 6.7 RF: 5 calcium carbonate [Calcium 500] 500 mg calcium (1,250 mg) tablet 500 mg PO BID Qty: 180 RF: 3 cyanocobalamin (vitamin B-12) 1,000 mcg capsule 1,000 mcg PO DAILY Qty: 90 RF: 3 omega 0-vlq-onw-fish oil [Fish Oil] 100-160-1,000 mg capsule 1 cap PO BID Qty: 60 RF: 11 budesonide-formoterol 80-4.5 mcg/actuation HFA aerosol inhaler 2 puff INHALATION BID Qty: 6.9 RF: 5 urciayqo-zmd-SE-lycopen-lutein [Centrum Silver] 0.4-300-250 mg-mcg-mcg Tablet 1 tab PO DAILY RF: 0 sennosides 8.6 mg tablet 8.6 mg PO DAILY PRN (Reason: CONSTIPATION) RF: 0 benzonatate 100 mg capsule 100 mg PO TID PRN (Reason: Cough) RF: 0 Discontinued torsemide 20 mg tablet 40 mg PO BID Qty: 360 RF: 1 metoprolol succinate 25 mg tablet extended release 24 hr 25 mg PO BID Qty: 180 RF: 3 Follow up/Referrals: Gregorio Elliott MD [Primary Care Provider] - Provider Discharge Instructions Diet: Low-fat and Low-cholesterol Skin/Wound/Dressing Care Report to your healthcare provider any signs of infection, such as:: chills, fever, night sweats, increased pain, unusual drainage and unusual redness Special Rehabilitation Services Reason for rehabilitation: Recovery r/t decondition Rehab type: Physical therapy and Occupational therapy Discharge Data Primary Care Provider: Gregorio Elliott Attending Provider: Juliana Bueno Admit Date/Time: 02/25/18 19:03
--- NOTE | 2018-03-08 10:55 | CM.DANOTE ---
DCP: continued: Pt now with a d/c to [facility] as per plan. Medications list and scripts are faxed. Awaiting the rest of the snf order Template and d/c summary. Analilia confirms van will be here by 1400. Pt and Art are aware and family will see pt at the snf later today. Will follow prn until pt leaves. BALDEV Tyler is updated.
--- NOTE | 2018-03-08 10:56 | P.DS_ITS ---
History of Present Illness Date Patient Seen: 03/08/18 Time Patient Seen: 10:50 Chief complaint: vomiting blood Narrative: The patient is a 72 yo male. PMH significant for HTN, CAD ( h/o [place], CABG 35 yrs ago), cardiomyopathy, HFrEF 30-35%, AFIB, PPM / AICD ([facility]), HLD, h/o prostate ca (h/o radiation and chemo, last tx 1 yr ago), COPD ( not O2 dependent), JOSE ANTONIO (not on CPAP), CKD III, prior tobacco dependence (quit ), and h/o alcoholism. There is colon and pancreatic cancer noted and patient's history; however, patient denies knowledge about the aforementioned neoplasms. Presented to the ED on 02/25/2018 out of concern for hematemesis. Symptoms initially presented on the evening of 02/24/2018. Since initial onset, patient reports 30 episodes of coffee ground emesis. Associated symptoms include 1 episode of melena, anasarca (reports edema of abdomen, groin, and lower extremities), cough w/o purulence, exertional dyspnea (worsening over 2 months) , orthopnea, 1 episode of subjective chills (sunday), nausea, dysuria, and decrease in urine output. Patient localized abdominal pain to b/l lower quadrants of the abdomen. Describes discomfort as tender and pressure like. There is no radiation to the back, flank, groin or lower extremities. Reports discomfort to be worse after eating. Denies presence of diarrhea. Known to have baseline constipation. Denies fever, chest pain, pleurisy, dizziness, lightheadedness, syncopal events, PND, claudication, myalgia, or new bruising. Patient was recently hospitalized 01/26 to 01/30 for CHF exacerbation, at discharge his lisinopril was increased to 10 mg QD. He has gained at least 3 kg since most recent hospital discharge. Admitting weight 103 kg. ED workup Hgb 9.5 Plt 284 Na 140 K 5.6 Cl 103 CO2 21 Lactate 3.7 BUN 30 sCr 1.6 Trop 0.028 BNP 1200 Bili 1.4 AST 95 ALT 84 Alk Phos 177 CXR w/findings of cardiomegaly, trace b/l pleural effusion, interstitial prominence CT of A/P revealed cardiomegaly, bibasilar moderate pleural effusions, no suspicion for pneumonia; body wall anasarca, pleural effusions and ascites, no findings of peritoneal retroperitoneal hemorrhage, no hematoma through the visualized colon; atherosclerotic calcifications prominent through the abdominal aorta and its branches, no aneurysm or occlusion found; no peritoneal or retroperitoneal hemorrhage found through the abdomen and pelvis, no hematoma identified through the visualized colon In ED received 120 mg of furosemide, ASA 324 Discharge Providers Date of admission: 02/25/18 19:03 Primary care physician: Gregorio Elliott MD Consults: 02/25/18 18:17 Consult to Discharge Planning Routine Comment: Consult to Occupational Therapy Evaluate & Treat Comment: Physician Instructions: Evaluate and treat Consult to Physical Therapy Evaluate & Treat Comment: Physician Instructions: Evaluate and Treat 02/26/18 08:56 Consult to Respiratory Therapy Evaluate & Treat Comment: Physician Instructions: Evaluate and treat 02/27/18 16:15 Consult to Speech Therapy Evaluate & Treat Comment: Physician Instructions: Evaluate and treat 03/04/18 14:10 Consult to Discharge Planning Routine Comment: REFER TO SNF PLEASE Discharge provider: Juliana Bueno DO Discharge Date: 03/08/18 Summary Discharge Diagnosis: ACUTE ON CHRONIC KIDNEY DISEASE STAGE 4-5; ACUTE ON CSHF; LAST ECHO WITH EF AT 40%; RESTRICT FLUIDS; CONT WITH DIURETICS; BP MANAGEMENT ; STRICT IO; ANASARCA. SEVERE FLUID OVERLOAD. CONT TO SHOW IMPROVEMENT. CONTINUE WITH DIURETICS HOWEVER, BUMEX DOSE TO BE CHANGED TO ORAL FOR DC. METOLAZONE TO CONT . STRICT INPUT AND OUTPUT. RESTRICTION OF FLUID TO 1500 CC. CONT TO WATCH FOR WORSENED CONTRACTED ALKALOSIS; DAILY WT WITH RECENT SCALE; ADDITIONAL MANAGEMENT INDICATED CLINICALLY OBESITY; OUTPATIENT MANAGEMENT ; LIFESTYLE CHANGES RECOMMENDATION HYPERVOL HYPONATREMIA; RESOLVED; ELECTROLYTES IMBALANCE; AT BASELINE ANEMIA OF CD AND POSS IRON DEF; MONITOR WITH SERIAL LABS; IRON SATURATION OF 7% . STARTED ON ORAL REPLACEMENT TODAY; WATCH FOR CONSTIPATION LEUKOCYTOIS; LIKELY ACUTE REACTANT TO STEROID THERAPY; NO FEVER REPORTED; NO S/ S OF TOXICITY; NO ABX INDICATED; MONITOR FOR NOW ACUTE COPDE; RESOLVED; CONTINUE TO TAPER STEROIDS; DUONEBS INDICATED; MARCELINA PLEURAL EFFUSION DUE TO CKD AND SHF; PHYSICAL DECONDITIONING Hospital Course: - PATIENT ADMITTED INTO THE ED WITH FLUID OVERLOAD AND ACUTE EXACERBATION OF CHF WELL COPD - FINISHED TREATMENT WITH STEROIDS WELL ABX FOR COPDE; NOW - HAD TO BE PLACED ON HEAVY DOSE OF BUMEX FOR OPTIMUM DIURESIS ; I/O SHOWED SIGNIFICANT NEG BALANCE ON THIS REGIMENT - HE HAS BEEN DEVOLOPING SOME CONTRACTED ALKOLOSIS AND HIS BUMEX DOSE HAS BEEN DECREASED SUBSTANTIALLY. - HIS METOLAZONE SHOULD ALSO BE ABLE TO BE DISCONTINUED IN NEXT FEW DAYS - HIS RENAL FAILURE ARE MUCH IMPROVED WITH HIS BUN CONTINUING TO DEC NOW AFTER A FEW HIGH VALUES DURING THIS HOSPITAL STAY - AT THIS TIME, HE IS MEDICAL STABLE AND WILL DC TO REHAB DUE TO PHYSICAL DECONDITIONING - RECOMENDATION TO CONT WITH BUMEX AND TO STOP THE METOLAZONE IN A FEW DAYS IF INDICATED Exam Vital Signs (past 8 hours): - 03/08/18 04:56 03/08/18 07:55 03/08/18 08:10 Temperature 97.9 F Pulse Rate 80 80 Respiratory Rate 18 18 Blood Pressure 106/60 Pulse Oximetry 97 94 94 03/08/18 10:10 Temperature Pulse Rate Respiratory Rate Blood Pressure Pulse Oximetry 95 Fraction of Inspired Oxygen 21 Oxygen Delivery Method Room Air Oxygen Flow Rate 0 Narrative Exam Narrative: NO ACUTE DISTRESS. PATIENT IS ALERT ORIENTED X3. OBESE VITAL SIGNS STABLE HEAD ATRAUMATIC NORMOCEPHALIC NECK : SUPPLE WITHOUT ADENOPATHY EYE: EOMI, PERRLA, NORMAL CONJUNCTIVA CHEST: REGULAR RATE.. NORMAL S1-S2 NO RUBS. PMI IS NON DISPLACED. NO MURMURS ; EDEMA TO LOWER EXTREMITIES; TRUNCAL EDEMA NOTED WELL PULMONARY: DECREASED BS OVER THE BASES. MILD BIBASILAR CRACKLES NOTED; NO INCREASED DULLNESS TO PERCUSSION; NO WHEEZING EXTREMITIES: 3+ EDEMA. NONPITTING. NO CYANOSIS CLUBBING NOTED. NEURO: CRANIAL NERVES 2-12 GROSSLY INTACT. NO FOCAL NEUROLOGICAL DEFICIT NOTED. MSK: NORMAL RANGE OF MOTION FOR AGE. NO JOINT EFFUSION. SKIN: NORMAL FOR ETHNICITY; NO ECCHYMOSIS. NO LESION. GOOD TURGOR.; NO RASHES : NORMAL EXTERNAL GENITALIA. PSYCH : APPROPRIATE MOOD AND AFFECT. ALERT AWAKE ORIENTED X3 Objective Labs Result Diagrams: 03/08/18 09:07 03/08/18 09:07 Labs: Laboratory Results - last 24 hr 03/07/18 03/07/18 03/07/18 11:25 11:25 16:00 WBC 18.3 H RBC 5.36 Hgb 10.0 L Hct 34.2 L MCV 63.7 L MCH 18.6 L MCHC 29.2 L RDW 19.7 H Plt Count 150 Neut % (Auto) Not Reportable Lymph % (Auto) Not Reportable Bradley % (Auto) Not Reportable Eos % (Auto) Not Reportable Baso % (Auto) Not Reportable Total Counted 100 Seg Neutrophils % 90.0 H Band Neutrophils % 2.0 L Lymphocytes % (Manual) 5.0 L Atypical Lymphs % 1.0 H Monocytes % (Manual) 2.0 Eosinophils % (Manual) Neutrophils # (Manual) 11442 H Differential Comment RBC Morphology See below Polychromasia 1+ H Hypochromasia 1+ H D Poikilocytosis 2+ H Anisocytosis 2+ H Microcytosis 1+ H Target Cells 1+ H Ovalocytes 2+ H Sodium 137 Potassium 3.2 L Chloride 87 L Carbon Dioxide 37 H BUN 88 H Creatinine 1.80 H Estimated GFR 37.1 L BUN/Creatinine Ratio 48.9 H Glucose 84 Calcium 9.6 Phosphorus 2.3 D Magnesium 2.3 Total Bilirubin 1.8 H AST 164 H ALT 438 H Alkaline Phosphatase 172 H Total Protein 6.1 L Albumin 3.2 L Globulin 2.9 Albumin/Globulin Ratio 1.1 Urine Color Yellow Urine Appearance Clear Urine pH 7.0 Ur Specific [place] 1.010 Urine Protein Negative Urine Glucose (UA) Negative Urine Ketones Negative Urine Occult Blood Trace-intact Urine Nitrate Negative Urine Bilirubin Negative Urine Urobilinogen 0.2 Ur Leukocyte Esterase Negative Urine RBC 0-1/hpf D Urine WBC 0-1/hpf Ur Squamous Epith Cells 0-1 /hpf Urine Bacteria None seen Ur Culture Indicated? Cult not indicated Micro UA Comment Not Reportable 03/08/18 03/08/18 09:07 09:07 WBC 15.2 H RBC 5.10 Hgb 9.5 L Hct 32.6 L MCV 63.9 L MCH 18.6 L MCHC 29.0 L RDW 19.3 H Plt Count 147 L Neut % (Auto) Not Reportable Lymph % (Auto) Not Reportable Bradley % (Auto) Not Reportable Eos % (Auto) Not Reportable Baso % (Auto) Not Reportable Total Counted 100 Seg Neutrophils % 92.0 H Band Neutrophils % Lymphocytes % (Manual) 2.0 L Atypical Lymphs % Monocytes % (Manual) 4.0 Eosinophils % (Manual) 2.0 Neutrophils # (Manual) 81910 H Differential Comment RBC Morphology Not Reportable Polychromasia 2+ H Hypochromasia 3+ H D Poikilocytosis 1+ H Anisocytosis Microcytosis 3+ H D Target Cells 1+ H Ovalocytes Sodium 137 Potassium 3.8 Chloride 90 L Carbon Dioxide 39 H BUN 72 H Creatinine 1.30 H Estimated GFR 54.0 L BUN/Creatinine Ratio 55.4 H Glucose 136 H Calcium 9.4 Phosphorus Magnesium Total Bilirubin 1.6 H AST 130 H ALT 351 H Alkaline Phosphatase 169 H Total Protein 5.8 L Albumin 3.1 L Globulin 2.7 Albumin/Globulin Ratio 1.1 Urine Color Urine Appearance Urine pH Ur Specific Dieterich Urine Protein Urine Glucose (UA) Urine Ketones Urine Occult Blood Urine Nitrate Urine Bilirubin Urine Urobilinogen Ur Leukocyte Esterase Urine RBC Urine WBC Ur Squamous Epith Cells Urine Bacteria Ur Culture Indicated? Micro UA Comment Discharge Plan Discharge Plan Patient Disposition: SNF I certify the postop hospital senior living care is medically necessary on a continuing basis for any conditions for which he/ she received care during this hospitalization.: Yes The receiving facility has agreed to accept transfer and provide medical treatment.: Yes Discharge Med Rec/Prescriptions Prescriptions: New metolazone 2.5 mg Tablet 2.5 mg PO DAILY Qty: 60 RF: 0 fluticasone-salmeterol [Advair Diskus] 250-50 mcg/dose Blister With Device 1 puff INH RTBID Qty: 1 RF: 0 ipratropium-albuterol 0.5 mg-3 mg(2.5 mg base)/3 mL Solution For Nebulization 3 ml INH RTBID Qty: 30 RF: 0 carvedilol [Coreg] 3.125 mg Tablet 3.125 mg PO BID Qty: 120 RF: 0 ferrous sulfate 325 mg (65 mg iron) Tablet 325 mg PO BIDWM Qty: 60 RF: 0 calcium carbonate 200 mg calcium (500 mg) Tablet,Chewable 1,000 mg PO Q4HR PRN (Reason: Dyspepsia) Qty: 60 RF: 0 bumetanide 1 mg Tablet 0.5 mg PO DAILY Qty: 60 RF: 0 sennosides [senna] 8.6 mg Tablet 8.6 mg PO BEDTIME Qty: 60 RF: 0 nitroglycerin [Nitrostat] 0.4 mg Tablet, Sublingual 0.4 mg Sublingual [id number] PRN (Reason: Chest Pain) Qty: 20 RF: 0 pantoprazole [Protonix] [address] For Susp In Packet 40 mg PO 0700 Qty: 60 RF: 0 Continue lisinopril 10 mg tablet 10 mg PO BID Qty: 180 RF: 3 digoxin 250 mcg tablet 0.125 mg PO DAILY Qty: 45 RF: 3 atorvastatin 80 mg tablet 80 mg PO DAILY Qty: 90 RF: 3 aspirin 81 mg tablet,chewable 81 mg PO DAILY Qty: 90 RF: 3 ipratropium bromide 17 mcg/actuation HFA aerosol inhaler 1 puff INHALATION QID Qty: 12.9 RF: 1 acetaminophen [Tylenol Extra Strength] 500 mg tablet 1,000 mg PO Q6H PRN (Reason: pain) 30 Days Qty: 240 RF: 0 albuterol sulfate 90 mcg/actuation HFA aerosol inhaler 1 puff INHALATION Q4-6H PRN (Reason: shortness of breath or wheezing) Qty: 6.7 RF: 5 calcium carbonate [Calcium 500] 500 mg calcium (1,250 mg) tablet 500 mg PO BID Qty: 180 RF: 3 cyanocobalamin (vitamin B-12) 1,000 mcg capsule 1,000 mcg PO DAILY Qty: 90 RF: 3 omega 5-bjn-psv-fish oil [Fish Oil] 100-160-1,000 mg capsule 1 cap PO BID Qty: 60 RF: 11 budesonide-formoterol 80-4.5 mcg/actuation HFA aerosol inhaler 2 puff INHALATION BID Qty: 6.9 RF: 5 bombkcnj-zjj-IP-lycopen-lutein [Centrum Silver] 0.4-300-250 mg-mcg-mcg Tablet 1 tab PO DAILY RF: 0 sennosides 8.6 mg tablet 8.6 mg PO DAILY PRN (Reason: CONSTIPATION) RF: 0 benzonatate 100 mg capsule 100 mg PO TID PRN (Reason: Cough) RF: 0 Discontinued torsemide 20 mg tablet 40 mg PO BID Qty: 360 RF: 1 metoprolol succinate 25 mg tablet extended release 24 hr 25 mg PO BID Qty: 180 RF: 3 Follow up/Referrals: Gregorio Elliott MD [Primary Care Provider] - Provider Discharge Instructions Diet: Low-fat and Low-cholesterol Skin/Wound/Dressing Care Report to your healthcare provider any signs of infection, such as:: chills, fever, night sweats, increased pain, unusual drainage and unusual redness Special Rehabilitation Services Reason for rehabilitation: Recovery r/t decondition Rehab type: Physical therapy and Occupational therapy Discharge Data Primary Care Provider: Gregorio Elliott Attending Provider: Juliana Bueno Admit Date/Time: 02/25/18 19:03
--- NOTE | 2018-03-08 12:29 | OT.IP.TRT ---
Current Diagnoses Anemia, unspecified (02/25/18) Pure hypercholesterolemia (02/25/18) Pure hypercholesterolemia, unspecified (02/25/18) Essential (primary) hypertension (02/25/18) Atherosclerotic heart disease of [place] coronary artery without angina pectoris (02/25/18) Acute on chronic systolic (congestive) heart failure (02/25/18) Heart failure, unspecified (02/25/18) Lobar pneumonia, unspecified organism (02/25/18) Chronic obstructive pulmonary disease with (acute) exacerbation (02/25/18) Acute and chronic respiratory failure with hypoxia (02/25/18) Acute kidney failure, unspecified (02/25/18) Occupational Therapy Treatment Note M2 OT-IP Current Condition Start: 02/26/18 11:48 Freq: Status: Active Protocol: Document 02/26/18 11:49 [facility] (Rec: 02/26/18 12:02 [facility] [id number]) Occupational Therapy Current Condition Current Condition Evaluation Date 02/26/18 Treatment Diagnosis CHF/COPD Diagnosis Onset Date 02/25/18 Post Operative Precautions Other Precautions Monitor 02 and vitals. M3 OT- IP Subjective and Pain Start: 02/26/18 11:48 Freq: Status: Active Protocol: Document 03/08/18 12:28 [facility] (Rec: 03/08/18 12:28 [facility] [id number]) OT- Subjective Occupational Therapy Visit Type Notes Pt going to skilled rehab today, therefore not seen by OT today.
--- NOTE | 2018-03-08 13:03 | PC.NURSE ---
A&O X3; calm, cooperative; Tele A fib, BBB, edema 3 bilaterally, ls fine crackles to posterior right lower lobewith non-productive cough, O2 RA=95%; urinal clear, yellow; @ 1300 pt discharged via wheelchair with carriage of [place] customer care coordinator; pt positions in hand
== END 2018-03-08 13:06 | DRG 291 ==
LOC: ED 17:59 → AC 19:04
PROVIDERS: Family Medicine; Internal Medicine; Nurse Practitioner Gerontology; Admitting Provider Hospitalist; Emergency Provider Emergency Medicine; PCP Student in an Organized Health Care Education/Training Program; Visit Provider Hospitalist
DX: I13.0 Hypertensive heart and chronic kidney disease with heart failure and stage 1 through stage 4 chronic kidney disease, or unspecified chronic kidney disease (principal); I50.23 Acute on chronic systolic (congestive) heart failure; J44.1 Chronic obstructive pulmonary disease with (acute) exacerbation; K92.0 Hematemesis; E87.2 Acidosis; N17.9 Acute kidney failure, unspecified; R18.8 Other ascites; N18.4 Chronic kidney disease, stage 4 (severe); E87.1 Hypo-osmolality and hyponatremia; E87.5 Hyperkalemia; I25.10 Atherosclerotic heart disease of native coronary artery without angina pectoris; Z95.1 Presence of aortocoronary bypass graft; E78.5 Hyperlipidemia, unspecified; G47.33 Obstructive sleep apnea (adult) (pediatric); Z87.891 Personal history of nicotine dependence; I42.9 Cardiomyopathy, unspecified; Z95.810 Presence of automatic (implantable) cardiac defibrillator; I34.0 Nonrheumatic mitral (valve) insufficiency; E87.70 Fluid overload, unspecified; D63.8 Anemia in other chronic diseases classified elsewhere
CPT/HCPCS: 36415; 36591; 71045; 71046; 74177; 74230; 76700; 80048; 80053; 80061; 80074; 80162; 81001; 81003; 82040; 82550; 82553; 83540; 83550; 83605; 83690; 83735; 83880; 84100; 84132; 84484; 85018; 85025; 87086; 92526; 92610; 92611; 93005; 93010; 93306; 94640; 94760; 94762; 96374; 96375; 97112; 97116; 97162; 97165; 97530; 97535; 99284; 99285; C9113; J1644; J1756; J1940; J2270; J2405; J2920; J3230; J7613

== ENCOUNTER → 2018-04-09 10:09 | Outpatient (CLI) | payer MEDICARE, SELFPAY ==
[2018-02-25 20:05] VITALS: BMI 27.8
[2018-04-09 10:59] LABS: Hematocrit 23.5 % (41-53); Hemoglobin 7.1 g/dL (13.5-17.5); Mean Corpuscular HGB Conc 30.1 % (30-36); Mean Corpuscular Hemoglobin 21.4 PG (26-34); Mean Corpuscular Volume 71.2 fL (80-100); Platelet Count 302 X10^3/uL (150-400); Red Cell Distribution Width 28.8 % (11.6-14.8)
[2018-04-09 11:05] LABS: INR 1.3 (0.9-1.3); Prothrombin Time 15.2 SECONDS (10.1-12.7)
[2018-04-09 11:08] LABS: PTT Partial Thromboplastin Tim 35 SECONDS (26.4-36.2)
[2018-04-09 11:12] LABS: Alanine Aminotransferase 48 IU/L (21-72); Albumin 3.8 g/dL (3.5-5.0); Alkaline Phosphatase 269 U/L (38-126); Aspartate Aminotransferase 34 IU/L (17-59); Bilirubin Unconjugated 0.3 mg/dL (0.0-1.1); Blood Urea Nitrogen 78 mg/dL (9-20); Calcium 9.4 mg/dL (8.4-10.2); Carbon Dioxide 31 mmol/L (22-32); Chloride 98 mmol/L (98-107); Estimated Glomerular Filt Rate 32.8 mL/min (>60); Globulin 3.7 g/dL (1.7-4.1); Glucose 98 mg/dL (80-110); HEMOLYSIS < 15 (0-50); Sodium 141 mmol/L (137-145); Total Protein 7.5 g/dL (6.3-8.2)
[2018-04-09 11:13] LABS: Acanthocytes 1+; Anisocytosis 2+; Hypochromasia 1+; Microcytosis 2+; Ovalocytes 1+; Poikilocytosis 2+; Target Cells 1+
[2018-04-09 11:45] LABS: HEMOLYSIS < 15 (0-50); Iron 25 ug/dL (49-181)
[2018-04-09 11:56] LABS: Percent Iron Saturation 8 % (20-50); Total Iron Binding Capacity 322 ug/dL (261-462); Transferrin 241 mg/dL (206-381)
[2018-04-09 12:01] LABS: Vitamin D 25 Hydroxy (D3) 69.1 ng/mL (30.0-100.0)
== END ==
PROVIDERS: PCP Student in an Organized Health Care Education/Training Program; Visit Provider Student in an Organized Health Care Education/Training Program
DX: E55.9 Vitamin D deficiency, unspecified (principal); N17.9 Acute kidney failure, unspecified; Z85.07 Personal history of malignant neoplasm of pancreas; D64.9 Anemia, unspecified
CPT/HCPCS: 36415; 80048; 80076; 82306; 83540; 83550; 85027; 85610; 85730